=== PATIENT | female | born 1940 | race Caucasian/White ===

== ENCOUNTER 2018-03-21 10:48 | Observation (INO) ==
[2018-03-21] MEDS ORDERED: ASPIRIN CHEW 324 MG PO STA (11:27)
--- NOTE | 2018-03-21 11:36 | Emergency Department Note ---
Entered by Kalli Montana acting as a scribe for Jos Carreon DO History of Present Illness General Chief complaint: Chest Pain Stated complaint: CHEST PAIN Time Seen by Provider: 03/21/18 11:16 Source: patient Mode of arrival: ambulatory Limitations: no limitations History of Present Illness Provider complaint: Chest pain Onset (ago): day(s) (yesterday morning) Location: chest (upper right) Radiation: non-radiation Severity: similar to prior episodes (past angina) Pain Consistency: + constant Maximum Pain Intensity: 8 Quality: + other (pain) Relieved By: + none Associated symptoms: + other (Additional symptoms: difficulty breathing); no cough The patient is a 77 year old female with a history of 3 TIAs, hypertension, hyperlipidemia, type 2 diabetes, ASCVD, hypothyroidism, resolved breast cancer, and occlusion of the left internal carotid artery who presents to the Emergency Room with complaints of constant chest pain starting when she woke up yesterday morning. The patient reports that she went to her PCP 2 weeks ago for a regular checkup and was told that she had "missing heart beats." She states that she went back to her PCP 2 days ago and had another EKG performed that showed concerning changes. She notes that her PCP subsequently spoke to the patient's search engine marketing strategist to see if the patient's appointment could be moved up. She adds that her PCP wanted the patient to have a heart monitor and echocardiogram. The patient reports that she is scheduled to see her search engine marketing strategist next week, but she states that she is concerned about her new-onset chest pain, so she came to the ED today. She notes that her pain is located in her upper right chest. She adds that her current symptoms feel similar to a past angina, after which she had an angioplasty performed. Per daughter, the patient has also had difficulty breathing that worsens with exertion. The daughter states that the patient is currently on baby aspirin but not nitroglycerin. She notes that the patient's last heart catheterization was several years ago. Home Medications Home Medications Medication Instructions Recorded Confirmed Type allopurinol 100 mg PO BID 03/21/18 03/21/18 History amlodipine [Norvasc] 5 mg PO DAILY 03/21/18 03/21/18 History aspirin 81 mg PO DAILY 03/21/18 03/21/18 History atenolol 50 mg PO DAILY 03/21/18 03/21/18 History clopidogrel [Plavix] 75 mg PO DAILY 03/21/18 03/21/18 History glipizide 2.5 mg PO DAILY 03/21/18 03/21/18 History levothyroxine 100 mcg PO DAILY 03/21/18 03/21/18 History tamoxifen 20 mg PO DAILY 03/21/18 03/21/18 History triamterene-hydrochlorothiazid 1 tab PO DAILY 03/21/18 03/21/18 History Allergies Allergy/AdvReac Type Severity Reaction Status Date / Time aspirin AdvReac Unknown bruising Verified 03/21/18 12:41 Past Med/Surg History Medical History TIA (transient ischemic attack) (Resolved) Occlusion of left internal carotid artery (Chronic) Gout History of breast cancer (Chronic) ASCVD (arteriosclerotic cardiovascular disease) Hypothyroidism Diabetes type 2, uncontrolled (Chronic) Hypertension (Chronic) Hyperlipidemia (Chronic) Social History marital status: / Current Living Situation: Alone current occupational status: retired Other Information That Helps Us Care for You: No Feels Safe at Home: Yes Safety Concerns: Feels Safe At This Time Smoking Status: Never smoker Hx Alcohol Use: No Hx Substance Use: No Beliefs That Will Affect Care: None Communication Ability: Effective 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 and A total of 10 systems reviewed and were otherwise negative Physical Exam Vital Signs Vital Signs - 24 hr 03/21/18 10:51 03/21/18 11:15 03/21/18 11:41 Temperature 36.8 C Temperature Source Oral Sepsis Recent Fever Within 48 Hours No Sepsis Action Taken by Nursing No Action Required Pulse Rate 79 Pulse Rate [Apical] 76 72 Pulse Rhythm [Apical] Pulse Strength Normal Pulse Strength [Apical] Respiratory Rate 20 19 17 Respiratory Effort / Characteristics Non-Labored Non-Labored Spontaneous Respiratory Depth Normal Normal Respiratory Pattern Regular Regular Blood Pressure 178/78 H Blood Pressure [Right Arm] 162/84 H 140/72 Blood Pressure Mean 111 Blood Pressure Mean [Right Arm] 110 94 Blood Pressure Position Sitting Blood Pressure Position [Right Arm] Pulse Oximetry 94 94 94 Oxygen Delivery Method Room Air Room Air Room Air 03/21/18 12:00 03/21/18 12:31 03/21/18 13:00 Temperature Temperature Source Sepsis Recent Fever Within 48 Hours Sepsis Action Taken by Nursing Pulse Rate 70 73 70 Pulse Rate [Apical] Pulse Rhythm [Apical] Pulse Strength Pulse Strength [Apical] Respiratory Rate 22 18 19 Respiratory Effort / Characteristics Respiratory Depth Respiratory Pattern Blood Pressure 133/60 134/61 127/69 Blood Pressure [Right Arm] Blood Pressure Mean 84 85 88 Blood Pressure Mean [Right Arm] Blood Pressure Position Blood Pressure Position [Right Arm] Pulse Oximetry 94 97 95 Oxygen Delivery Method 03/21/18 13:32 03/21/18 14:00 03/21/18 14:30 Temperature Temperature Source Sepsis Recent Fever Within 48 Hours Sepsis Action Taken by Nursing Pulse Rate 78 75 71 Pulse Rate [Apical] Pulse Rhythm [Apical] Pulse Strength Pulse Strength [Apical] Respiratory Rate 20 27 H 15 Respiratory Effort / Characteristics Respiratory Depth Respiratory Pattern Blood Pressure 151/59 H 162/94 H 143/69 H Blood Pressure [Right Arm] Blood Pressure Mean 89 116 93 Blood Pressure Mean [Right Arm] Blood Pressure Position Blood Pressure Position [Right Arm] Pulse Oximetry Oxygen Delivery Method 03/21/18 15:00 03/21/18 15:31 03/21/18 15:59 Temperature Temperature Source Sepsis Recent Fever Within 48 Hours Sepsis Action Taken by Nursing Pulse Rate 70 75 Pulse Rate [Apical] 75 Pulse Rhythm [Apical] Pulse Strength Pulse Strength [Apical] Respiratory Rate 19 24 20 Respiratory Effort / Characteristics Respiratory Depth Respiratory Pattern Blood Pressure 139/91 161/108 H Blood Pressure [Right Arm] 143/62 H Blood Pressure Mean 107 125 Blood Pressure Mean [Right Arm] 89 Blood Pressure Position Blood Pressure Position [Right Arm] Pulse Oximetry 94 95 Oxygen Delivery Method Room Air Room Air 03/21/18 16:19 Temperature 36.7 C Temperature Source Oral Sepsis Recent Fever Within 48 Hours Sepsis Action Taken by Nursing Pulse Rate Pulse Rate [Apical] 80 Pulse Rhythm [Apical] Regular Pulse Strength Pulse Strength [Apical] Normal Respiratory Rate 18 Respiratory Effort / Characteristics Non-Labored Spontaneous Respiratory Depth Normal Respiratory Pattern Regular Blood Pressure Blood Pressure [Right Arm] 158/105 H Blood Pressure Mean Blood Pressure Mean [Right Arm] 122 Blood Pressure Position Blood Pressure Position [Right Arm] Lying Pulse Oximetry 95 Oxygen Delivery Method Room Air GENERAL: Patient is awake alert in no acute distress patient is resting comfortably and showing no signs of anxiety EYES: The conjunctivae are clear. The pupils are round and reactive. EARS, NOSE, MOUTH AND THROAT: The nose is without any evidence of any deformity. Mucous membranes are moist tongue is midline NECK: The neck is nontender and supple. RESPIRATORY: Normal respiratory effort is noted there is no evidence of wheezing rhonchi or rales CARDIOVASCULAR: Ectopy was noted to auscultation. There was no murmur noted. GASTROINTESTINAL: The abdomen is soft. Bowel sounds are present in all quadrants. Abdomen is nontender MUSCULOSKELETAL/EXTREMITIES: There is no evidence of gross deformity full range of motion is noted in the hips and shoulders SKIN: There is no obvious evidence of any rash. Trace pedal edema was noted bilaterally. NEUROLOGIC: Patient is awake alert and oriented x3. Course 1126: Past medical records reviewed. The patient was evaluated in room C6, and a complete history and physical examination were performed. 1320: I checked on the patient and updated her on her results. 1337: I reviewed the patient's case with Dr. Kearns - Alexa Mas. Dr. Kearns will evaluate the patient for further management. Consultations Consultation #1: I reviewed the patient's case with Alexa Ureña. Dr. Kearns will evaluate the patient for further management. Time: 13:37 Administered Medications Atenolol (Tenormin) 50 mg PO DAILY JUNG Stop: 04/20/18 16:16 Last Admin: 03/21/18 18:10 Dose: 50 mg Insulin Aspart (Novolog Flexpen) 0 units SC ACHS JUNG Stop: 04/20/18 16:29 Last Admin: 03/21/18 18:12 Dose: 9 units Discontinued Medications Aspirin (Aspirin) 324 mg PO NOW STA Stop: 03/21/18 11:28 Last Admin: 03/21/18 11:37 Dose: 324 mg Medical Decision Making Differential Diagnosis Differential diagnosis: Etiologies such as cardiac ischemia, aortic dissection, pulmonary embolism, pneumonia, pneumothorax, musculoskeletal, infections, pericarditis, myocarditis , esophageal rupture, gastrointestinal, as well as others were entertained. Medical Records Attestation: I reviewed the patient's medical records. Home Medications Current Medication List: was personally reviewed by me Laboratory Data Attestation: I reviewed the patient's lab results. Result diagrams: 03/21/18 11:13 03/21/18 11:13 Lab Results 03/21/18 03/21/18 03/21/18 Range/Units 11:13 11:13 11:13 WBC 5.92 (4.8-10.8) K/uL RBC 4.65 (4.2-5.4) M/uL Hgb 14.9 (12.0-16.0) g/dL Hct 43.3 (37-47) % MCV 93.1 (80-100) fL MCH 32.0 (25-34) pg MCHC 34.4 (32-36) g/dL RDW Std Deviation 43.5 (36.4-46.3) fL RDW Coeff of Allie 12.9 (11.5-14.5) % Plt Count 125 L (130-400) K/uL MPV 13.2 H (7.4-10.4) fL Immature Gran % (Auto) 0.3 % Neut % (Auto) 47.3 % Lymph % (Auto) 38.9 % [place] % (Auto) 9.5 % Eos % (Auto) 2.5 % Baso % (Auto) 1.5 % Immature Gran # (Auto) 0.02 (0.00-0.02) K/uL Neut # (Auto) 2.80 (1.4-6.5) K/uL Lymph # (Auto) 2.30 (1.2-3.4) K/uL [place] # (Auto) 0.56 (0.11-0.59) K/uL Eos # (Auto) 0.15 (0-0.5) K/uL Baso # (Auto) 0.09 (0-0.2) K/uL Platelet Estimate Decreased (Normal) PT 11.7 (9.0-12.0) Seconds INR 1.2 H (0.9-1.1) APTT 26.6 (21.0-31.0) Seconds PTT Ratio 1.0 Sodium 141 (136-145) mmol/L Potassium 3.7 (3.5-5.1) mmol/L Chloride 108 H (98-107) mmol/L Carbon Dioxide 26 (21-32) mmol/L Anion Gap 7.0 (3-11) BUN 17 (7-18) mg/dl Creatinine 1.06 (0.6-1.2) mg/dl Est Cr Clr Drug Dosing 45.9 ml/min Est GFR ( Amer) 59.1 Est GFR (Non-Af Amer) 51.0 BUN/Creatinine Ratio 16.2 (10-20) Glucose 326 H (70-99) mg/dl POC Glucose (70-99) Calcium 8.3 L (8.5-10.1) mg/dl Total Bilirubin 0.6 (0.2-1) mg/dl AST 72 H (15-37) U/L ALT 78 (12-78) U/L Alkaline Phosphatase 126 H (45-117) U/L Troponin I < 0.015 (0-0.045) ng/ml Total Protein 7.2 (6.4-8.2) gm/dl Albumin 3.3 L (3.4-5.0) gm/dl Globulin 3.9 (2.5-4.0) gm/dl Albumin/Globulin Ratio 0.8 L (0.9-2) Lipase 173 (73-393) U/L Beta-Hydroxybutyric Acd 4.35 H (0.2-2.81) mg/dl 03/21/18 03/21/18 Range/Units 16:16 17:18 WBC (4.8-10.8) K/uL RBC (4.2-5.4) M/uL Hgb (12.0-16.0) g/dL Hct (37-47) % MCV (80-100) fL MCH (25-34) pg MCHC (32-36) g/dL RDW Std Deviation (36.4-46.3) fL RDW Coeff of Allie (11.5-14.5) % Plt Count (130-400) K/uL MPV (7.4-10.4) fL Immature Gran % (Auto) % Neut % (Auto) % Lymph % (Auto) % [place] % (Auto) % Eos % (Auto) % Baso % (Auto) % Immature Gran # (Auto) (0.00-0.02) K/uL Neut # (Auto) (1.4-6.5) K/uL Lymph # (Auto) (1.2-3.4) K/uL [place] # (Auto) (0.11-0.59) K/uL Eos # (Auto) (0-0.5) K/uL Baso # (Auto) (0-0.2) K/uL Platelet Estimate (Normal) PT (9.0-12.0) Seconds INR (0.9-1.1) APTT (21.0-31.0) Seconds PTT Ratio Sodium (136-145) mmol/L Potassium (3.5-5.1) mmol/L Chloride (98-107) mmol/L Carbon Dioxide (21-32) mmol/L Anion Gap (3-11) BUN (7-18) mg/dl Creatinine (0.6-1.2) mg/dl Est Cr Clr Drug Dosing ml/min Est GFR ( Amer) Est GFR (Non-Af Amer) BUN/Creatinine Ratio (10-20) Glucose (70-99) mg/dl POC Glucose 189 H (70-99) Calcium (8.5-10.1) mg/dl Total Bilirubin (0.2-1) mg/dl AST (15-37) U/L ALT (12-78) U/L Alkaline Phosphatase (45-117) U/L Troponin I < 0.015 (0-0.045) ng/ml Total Protein (6.4-8.2) gm/dl Albumin (3.4-5.0) gm/dl Globulin (2.5-4.0) gm/dl Albumin/Globulin Ratio (0.9-2) Lipase (73-393) U/L Beta-Hydroxybutyric Acd (0.2-2.81) mg/dl Imaging Data Radiologist's Impression: Radiology results as stated below per my review and the radiologist's interpretation: SINGLE VIEW CHEST CLINICAL HISTORY: Atypical chest pain. FINDINGS: An AP, portable, upright chest radiograph is obtained. No prior studies are available for comparison at the time of dictation. The examination is degraded by portable technique and patient rotation. The heart is enlarged and there is atherosclerotic calcification of the thoracic aorta. The pulmonary vasculature is noncongested. Mild bibasilar atelectasis is observed. No airspace consolidation or large pleural effusion is identified. No pneumothorax is seen. The skeletal structures are osteopenic. The bony thorax is grossly intact. Degenerative changes noted in the shoulders and thoracic spine. Surgical clips project over the left lower chest. IMPRESSION: Cardiomegaly with no acute cardiopulmonary abnormality. Electronically signed by: Kwame Liz M.D. 03/21/2018 11:51 AM ECG Data Attestation: I personally reviewed and interpreted this ECG as follows: Indication: chest pain Rate (beats per minute): 76 Rhythm: normal sinus Findings: + other (No ST segments) and + PVC Comparison ECG Date: no prior available Blood Pressure Blood Pressure Findings: Normal blood pressure MDM Narrative The patient is a 77-year-old female who presented to the emergency department with left-sided chest pain. The patient is a history of coronary artery disease and has had stents in the past. I discussed patient's laboratory and radiographic studies with her. I also discussed the limitations of the emergency department workup for chest pain with her. Ultimately given her past medical history and comorbidities I also discussed her case with the on-call [facility] hospitalist. They have agreed to evaluate the patient in the emergency department for further management and disposition. Impression & Plan Chest pain Discharge Plan Visit Data *Final* Discharge Date/Time: 03/21/18 15:59 Chief Complaint: Chest Pain Stated Complaint: CHEST PAIN ED Provider: Jos Carreon Discharge Problem: Chest pain Patient Disposition: Admitted As Inpatient Discharge Instructions Interventions: ED Discharge Assessment Last Done: 03/21/18 15:59 The scribe's documentation has been prepared under my direction and personally reviewed by me in its entirety. I confirm that the note above accurately reflects all work, treatment, procedures, and medical decision making performed by me.
--- NOTE | 2018-03-21 11:52 | XRay Report ---
SINGLE VIEW CHEST CLINICAL HISTORY: Atypical chest pain. FINDINGS: An AP, portable, upright chest radiograph is obtained. No prior studies are available for c omparison at the time of dictation. The examination is degraded by portable technique and patient rot ation. The heart is enlarged and there is atherosclerotic calcification of the thoracic aorta. The p ulmonary vasculature is noncongested. Mild bibasilar atelectasis is observed. No airspace consolidati on or large pleural effusion is identified. No pneumothorax is seen. The skeletal structures are oste openic. The bony thorax is grossly intact. Degenerative changes noted in the shoulders and thoracic s pine. Surgical clips project over the left lower chest. IMPRESSION: Cardiomegaly with no acute cardiopulmonary abnormality. Electronically signed by: Kwame Liz M.D. 03/21/2018 11:51 AM
[2018-03-21 11:53] LABS: INR 1.2 (0.9-1.1); Partial Thromboplastin Time 26.6 Seconds (21.0-31.0); Prothrombin Time 11.7 Seconds (9.0-12.0)
[2018-03-21 12:04] LABS: Alanine Aminotransferase 78 U/L (12-78); Albumin Globulin Ratio 0.8 (0.9-2); Albumin Level 3.3 gm/dl (3.4-5.0); Alkaline Phosphatase 126 U/L (45-117); Aspartate Aminotransferase 72 U/L (15-37); BUN Creatinine Ratio 16.2 (10-20); Bilirubin,Total 0.6 mg/dl (0.2-1); Blood Urea Nitrogen 17 mg/dl (7-18); Calcium 8.3 mg/dl (8.5-10.1); Carbon Dioxide 26 mmol/L (21-32); Chloride 108 mmol/L (98-107); Creatinine Clr Calc Pharmacy 45.9 ml/min; Est GFR (African American) 59.1; Globulin 3.9 gm/dl (2.5-4.0); Glucose 326 mg/dl (70-99); Potassium 3.7 mmol/L (3.5-5.1); Sodium 141 mmol/L (136-145); Total Protein 7.2 gm/dl (6.4-8.2)
[2018-03-21 12:06] LABS: Troponin I < 0.015 ng/ml (0-0.045)
[2018-03-21 12:10] LABS: Basophils # (auto) 0.09 K/uL (0-0.2); Basophils % (auto) 1.5 %; Eosinophils # (auto) 0.15 K/uL (0-0.5); Eosinophils % (auto) 2.5 %; Hematocrit (blood only) 43.3 % (37-47); Hemoglobin 14.9 g/dL (12.0-16.0); Immature Granulocytes # (auto) 0.02 K/uL (0.00-0.02); Immature Granulocytes % (auto) 0.3 %; Lymphocytes % (auto) 38.9 %; Mean Corpuscular Hgb Conc 34.4 g/dL (32-36); Mean Corpuscular Volume 93.1 fL (80-100); Mean Platelet Volume 13.2 fL (7.4-10.4); Monocytes # (auto) 0.56 K/uL (0.11-0.59); Monocytes % (auto) 9.5 %; Neutrophils % (auto) 47.3 %; Platelet Count 125 K/uL (130-400); RDW Coefficient of Variation 12.9 % (11.5-14.5); RDW Standard Deviation 43.5 fL (36.4-46.3); Red Blood Count 4.65 M/uL (4.2-5.4); White Blood Count 5.92 K/uL (4.8-10.8)
[2018-03-21] MEDS ORDERED: NITROGLYCERIN SL 0.4 MG/TAB TAB SL PRN (15:00)
--- NOTE | 2018-03-21 15:00 | History & Physical Report ---
Date of Service March 21, 2018 Assessment & Plan (1) Chest pain: History of ASCVD with angioplasty Admitted to telemetry unit for observation Initial EKG showed sinus rhythm with occasional PVCs Initial troponin negative Serial cardiac enzymes and EKG Echo was done in September 2017 showed sinus rhythm with frequent ectopy, LV all thickness was increased compared with prior with normal wall motion, EF was 55- 59%, mild left atrial enlargement, aortic valve was mildly calcified with borderline to mild aortic valve stenosis, mild mitral regurgitation and estimated pulmonary artery systolic pressure was 30 mmHg We will repeat echo Chest pain seems to be secondary to costochondritis with history of more anxiety Will discuss with cardiology Present on Admission?: Yes (2) Hypertension: Noted to have hypertension 2 weeks ago Noted to be noncompliant with medicine Continue with current medications for blood pressure (3) Diabetes type 2, uncontrolled: Hemoglobin A1c more than 9 as an outpatient Has been on oral hypoglycemic agent We will continue that Weekly and/or increase hypoglycemic is not on discharge SSI (4) ASCVD (arteriosclerotic cardiovascular disease): History of angioplasty (5) Occlusion of left internal carotid artery: Has been on Plavix Complains to have occasional TIA-like symptoms (6) Hypothyroidism: Continue replacement DVT prophylaxis Subcu heparin CODE STATUS DNR History of Present Illness Chief Complaint: Woke up with chest pain and lasted for a long time Primary Care Provider: Hollie Ferris She is a 77 years old female with significant past medical history of type 2 diabetesuncontrolled, left ear CVD status post angioplasty in the past, hypertension, hypothyroidism, hyperlipidemia, occlusion of left carotid artery and history of breast cancer was complaining of chest pain on waking up last night and the pain lasted for a long time without any other associated symptoms. Currently she went to see her primary care doctor about 2 weeks ago as noted to have high blood pressure and she was advised to continue her current medications and reviewed last at that time she is noted to have. Irregular heart rhythm on auscultation and the EKG did show few PVCs she is advised to have Holter as an outpatient. She has been going through lots of anxiety and she woke up last night with chest pain which lasted for a long time without any other symptoms of palpitation, shortness of breath, dizziness, sweating, nausea and/or vomiting. Apparently she took a nitro from her friend and that relieved the pain. In the ER she is free from pain but she is anxious. EKG is unremarkable and troponin is negative she has tenderness in the left costochondral junction area , given the history of angioplasty and also murmur she was admitted to telemetry unit for observation and rule out ACS. Allergies Allergy/AdvReac Type Severity Reaction Status Date / Time aspirin AdvReac Unknown bruising Verified 03/21/18 12:41 Home Medications Home Medications Medication Instructions Recorded Confirmed Type allopurinol 100 mg PO BID 03/21/18 03/21/18 History amlodipine [Norvasc] 5 mg PO DAILY 03/21/18 03/21/18 History aspirin 81 mg PO DAILY 03/21/18 03/21/18 History atenolol 50 mg PO DAILY 03/21/18 03/21/18 History clopidogrel [Plavix] 75 mg PO DAILY 03/21/18 03/21/18 History glipizide 2.5 mg PO DAILY 03/21/18 03/21/18 History levothyroxine 100 mcg PO DAILY 03/21/18 03/21/18 History tamoxifen 20 mg PO DAILY 03/21/18 03/21/18 History triamterene-hydrochlorothiazid 1 tab PO DAILY 03/21/18 03/21/18 History Past Med/Surg History Medical History Occlusion of left internal carotid artery (Chronic) Gout History of breast cancer (Chronic) ASCVD (arteriosclerotic cardiovascular disease) Hypothyroidism Diabetes type 2, uncontrolled (Chronic) Social History Feels Safe at Home: Yes Smoking Status: Never smoker Review of Systems All systems reviewed & are unremarkable except as noted in HPI & below Cardiovascular: + chest pain; no radiating jaw, neck or arm pain, no dyspnea and no palpitations Physical Exam 2 Vital Signs (Past 24 Hours): Last Vital Signs Temp 36.8 C 03/21/18 10:51 Pulse 70 03/21/18 13:00 Resp 19 03/21/18 13:00 BP 127/69 03/21/18 13:00 Pulse Ox 95 03/21/18 13:00 Physical Exam: Lying in bed comfortably Constitutional: WD/WN, vitals as above Eyes: PERRL, conjunctivae normal, anicteric sclerae ENMT: external ear and nose normal, oropharynx normal Respiratory: normal respiratory effort, lungs clear to auscultation Cardiovascular: Rate/Rhythm: regular rate and regular rhythm Heart Sounds: normal S1, normal S2 and + murmur Extremities: no edema Gastrointestinal (Abdomen): Inspection/Auscultation: abdomen normal to inspection and normal bowel sounds Percussion/Palpation: abdomen soft; abdomen nontender Musculoskeletal: No acute arthritis Neurologic: PERRL, EOMI, accommodation nl, no face palsy, no dysarthria Psychiatric: A+Ox3, euthymic affect Results & Data Laboratory Results Short CBC 03/21/18 Range/Units 11:13 WBC 5.92 (4.8-10.8) K/uL Hgb 14.9 (12.0-16.0) g/dL Hct 43.3 (37-47) % Plt Count 125 L (130-400) K/uL BMP 03/21/18 11:13 Sodium 141 Potassium 3.7 Chloride 108 H Carbon Dioxide 26 BUN 17 Creatinine 1.06 Glucose 326 H Calcium 8.3 L Cardiac Enzymes 03/21/18 Range/Units 11:13 Troponin I < 0.015 (0-0.045) ng/ml Liver Function 03/21/18 Range/Units 11:13 Total Bilirubin 0.6 (0.2-1) mg/dl AST 72 H (15-37) U/L ALT 78 (12-78) U/L Alkaline Phosphatase 126 H (45-117) U/L Albumin 3.3 L (3.4-5.0) gm/dl Code Status & VTE Plan Code Status DNR VTE Prophylaxis Plan VTE Prophylaxis will be ordered: Yes
[2018-03-21] MEDS ORDERED: GLUCOSE 10 TABS/TUBE PO PRN (15:02)
[2018-03-21] MEDS ORDERED: CARBOHYDRATES FOR HYPOGLYCEMIA PO PRN (15:02)
[2018-03-21] MEDS ORDERED: GLUCOSE 40% GEL 15 GM TUBE PO PRN (15:02)
[2018-03-21] MEDS ORDERED: GLUCAGON FOR INJ 1 MG VIAL SQ PRN (15:02)
[2018-03-21] MEDS ORDERED: DEXTROSE 50% 50 ML SYRINGE IV PRN (15:02)
[2018-03-21] MEDS: ATENOLOL 50 MG TABLET PO SCH (18:10)
[2018-03-21] MEDS: INSULIN ASPART 100 UNITS/ML 3 ML PEN SC SCH ×2 (18:12→21:04)
[2018-03-21] MEDS: ALLOPURINOL 100 MG TAB PO SCH (19:37)
[2018-03-21] MEDS: HEPARIN SOD 5,000 UNIT/0.5 ML VIAL SQ SCH (19:37)
[2018-03-22] MEDS: HEPARIN SOD 5,000 UNIT/0.5 ML VIAL SQ SCH ×3 (06:05→20:43)
[2018-03-22] MEDS: LEVOTHYROXINE SODIUM 100 MCG TABLET PO SCH (06:05)
[2018-03-22 07:22] LABS: Hematocrit (blood only) 40.8 % (37-47); Hemoglobin 14.3 g/dL (12.0-16.0); Mean Corpuscular Volume 92.5 fL (80-100); Mean Platelet Volume 12.5 fL (7.4-10.4); Platelet Count 120 K/uL (130-400); RDW Coefficient of Variation 12.8 % (11.5-14.5); RDW Standard Deviation 43.3 fL (36.4-46.3); Red Blood Count 4.41 M/uL (4.2-5.4)
[2018-03-22 07:24] LABS: Basophils # (auto) 0.04 K/uL (0-0.2); Basophils % (auto) 0.6 %; Eosinophils # (auto) 0.16 K/uL (0-0.5); Eosinophils % (auto) 2.5 %; Immature Granulocytes # (auto) 0.02 K/uL (0.00-0.02); Immature Granulocytes % (auto) 0.3 %; Lymphocytes # (auto) 3.16 K/uL (1.2-3.4); Lymphocytes % (auto) 48.6 %; Monocytes # (auto) 0.43 K/uL (0.11-0.59); Monocytes % (auto) 6.6 %; Neutrophils # (auto) 2.69 K/uL (1.4-6.5); Neutrophils % (auto) 41.4 %
[2018-03-22 07:35] LABS: BUN Creatinine Ratio 17.3 (10-20); Calcium 8.2 mg/dl (8.5-10.1); Creatinine Clr Calc Pharmacy 57.7 ml/min; Est GFR (African American) 80.6; Est GFR (Non-African American) 69.5; Magnesium 2.2 mg/dl (1.8-2.4); Potassium 3.6 mmol/L (3.5-5.1)
[2018-03-22] MEDS: INSULIN ASPART 100 UNITS/ML 3 ML PEN SC SCH ×4 (08:08→20:42)
[2018-03-22] MEDS: TAMOXIFEN CITRATE 10 MG TABLET PO SCH (08:09)
[2018-03-22] MEDS: ALLOPURINOL 100 MG TAB PO SCH ×2 (08:09→20:41)
[2018-03-22] MEDS: AMLODIPINE BESYLATE 5 MG TAB PO SCH (08:09)
[2018-03-22] MEDS: CLOPIDOGREL BISULFATE 75 MG TAB PO SCH (08:09)
[2018-03-22] MEDS: glipiZIDE ER 2.5 MG TABCR PO SCH (08:10)
[2018-03-22] MEDS: ASPIRIN 81 MG ECTAB PO SCH (08:10)
[2018-03-22] MEDS: ATENOLOL 50 MG TABLET PO SCH (08:10)
[2018-03-22] MEDS: TRIAMTERENE/HCTZ 37.5/25MG TAB PO SCH (08:10)
--- NOTE | 2018-03-22 08:45 | Hospitalist Progress Note ---
Date of Service March 22, 2018 Assessment & Plan (1) Chest pain: per admitting MD Dr. Kearns: History of ASCVD with angioplasty Admitted to telemetry unit for observation Initial EKG showed sinus rhythm with occasional PVCs Initial troponin negative Serial cardiac enzymes and EKG Echo was done in September 2017 showed sinus rhythm with frequent ectopy, LV all thickness was increased compared with prior with normal wall motion, EF was 55- 59%, mild left atrial enlargement, aortic valve was mildly calcified with borderline to mild aortic valve stenosis, mild mitral regurgitation and estimated pulmonary artery systolic pressure was 30 mmHg We will repeat echo 03/22/18 troponins x 3 negative EKG: non specific t wave changes inferior and v1-v2 echo: pending still reports intermittent chest pain r/o Unstable Angina will order Nitropaste continue usual Aspirin, Plavix, Atenolol (2) Hypertension: - reported non adherence to medications continue usual Amlodipine, Atenolol, Triam/HCTZ - Nitropaste ordered for now (3) Diabetes type 2, uncontrolled: Hemoglobin A1c more than 9 as an outpatient on Glipizide ISS (4) ASCVD (arteriosclerotic cardiovascular disease): History of angioplasty (5) Occlusion of left internal carotid artery: Has been on Plavix Complains to have occasional TIA-like symptoms (6) Hypothyroidism: Continue replacement DVT prophylaxis Subcu heparin CODE STATUS DNR Subjective ff up for chest pain seen resting in bedside chair, smiling, in good spirits states she feels improved today compared to yesterday states chest pain is improving- sharp, intermittent, radiating to the left arm, not associated with movement 05/20 denies active, dyspnea, nausea, dizziness no other symptoms Physical Exam 2 Vital Signs (Past 24 Hours): Last Vital Signs Temp 36.4 C L 03/22/18 07:25 Pulse 67 03/22/18 08:02 Resp 26 H 03/22/18 07:25 BP 182/72 H 03/22/18 07:25 Pulse Ox 94 03/22/18 07:25 Physical Exam: General- oriented x 3, not in distress, speaks in sentences with no effort or accessory muscle use Eyes- anicteric Neck- no JVD Lungs- clear breath sounds bilaterally, no rales/wheezes Heart- normal rate, regular rhythm; no murmurs no chestwall tenderness Abdomen- normal bowel sounds, nondistended, soft, nontender Extremities- no pretibial edema, no calf tenderness Neuro- alert, oriented x 3; no gross focal neurologic deficits Skin- warm & dry Results & Data Laboratory Results Laboratory Results - last 24 hr 03/21/18 03/21/18 03/21/18 11:13 11:13 11:13 WBC 5.92 RBC 4.65 Hgb 14.9 Hct 43.3 MCV 93.1 MCH 32.0 MCHC 34.4 RDW Std Deviation 43.5 RDW Coeff of Allie 12.9 Plt Count 125 L MPV 13.2 H Immature Gran % (Auto) 0.3 Neut % (Auto) 47.3 Lymph % (Auto) 38.9 [place] % (Auto) 9.5 Eos % (Auto) 2.5 Baso % (Auto) 1.5 Immature Gran # (Auto) 0.02 Neut # (Auto) 2.80 Lymph # (Auto) 2.30 [place] # (Auto) 0.56 Eos # (Auto) 0.15 Baso # (Auto) 0.09 Platelet Estimate Decreased PT 11.7 INR 1.2 H APTT 26.6 PTT Ratio 1.0 Sodium 141 Potassium 3.7 Chloride 108 H Carbon Dioxide 26 Anion Gap 7.0 BUN 17 Creatinine 1.06 Est Cr Clr Drug Dosing 45.9 Est GFR ( Amer) 59.1 Est GFR (Non-Af Amer) 51.0 BUN/Creatinine Ratio 16.2 Glucose 326 H POC Glucose Calcium 8.3 L Magnesium Total Bilirubin 0.6 AST 72 H ALT 78 Alkaline Phosphatase 126 H Troponin I < 0.015 Total Protein 7.2 Albumin 3.3 L Globulin 3.9 Albumin/Globulin Ratio 0.8 L Lipase 173 Beta-Hydroxybutyric Acd 4.35 H 03/21/18 03/21/18 03/21/18 16:16 17:18 20:31 WBC RBC Hgb Hct MCV MCH MCHC RDW Std Deviation RDW Coeff of Allie Plt Count MPV Immature Gran % (Auto) Neut % (Auto) Lymph % (Auto) [place] % (Auto) Eos % (Auto) Baso % (Auto) Immature Gran # (Auto) Neut # (Auto) Lymph # (Auto) [place] # (Auto) Eos # (Auto) Baso # (Auto) Platelet Estimate PT INR APTT PTT Ratio Sodium Potassium Chloride Carbon Dioxide Anion Gap BUN Creatinine Est Cr Clr Drug Dosing Est GFR ( Amer) Est GFR (Non-Af Amer) BUN/Creatinine Ratio Glucose POC Glucose 189 H 160 H Calcium Magnesium Total Bilirubin AST ALT Alkaline Phosphatase Troponin I < 0.015 Total Protein Albumin Globulin Albumin/Globulin Ratio Lipase Beta-Hydroxybutyric Acd 03/21/18 03/22/18 03/22/18 23:08 06:25 06:25 WBC 6.50 RBC 4.41 Hgb 14.3 Hct 40.8 MCV 92.5 MCH 32.4 MCHC 35.0 RDW Std Deviation 43.3 RDW Coeff of Allie 12.8 Plt Count 120 L MPV 12.5 H Immature Gran % (Auto) 0.3 Neut % (Auto) 41.4 Lymph % (Auto) 48.6 [place] % (Auto) 6.6 Eos % (Auto) 2.5 Baso % (Auto) 0.6 Immature Gran # (Auto) 0.02 Neut # (Auto) 2.69 Lymph # (Auto) 3.16 [place] # (Auto) 0.43 Eos # (Auto) 0.16 Baso # (Auto) 0.04 Platelet Estimate PT INR APTT PTT Ratio Sodium 142 Potassium 3.6 Chloride 110 H Carbon Dioxide 24 Anion Gap 9.0 BUN 14 Creatinine 0.82 Est Cr Clr Drug Dosing 57.7 Est GFR ( Amer) 80.6 Est GFR (Non-Af Amer) 69.5 BUN/Creatinine Ratio 17.3 Glucose 184 H POC Glucose Calcium 8.2 L Magnesium 2.2 Total Bilirubin AST ALT Alkaline Phosphatase Troponin I < 0.015 Total Protein Albumin Globulin Albumin/Globulin Ratio Lipase Beta-Hydroxybutyric Acd 03/22/18 07:02 WBC RBC Hgb Hct MCV MCH MCHC RDW Std Deviation RDW Coeff of Allie Plt Count MPV Immature Gran % (Auto) Neut % (Auto) Lymph % (Auto) [place] % (Auto) Eos % (Auto) Baso % (Auto) Immature Gran # (Auto) Neut # (Auto) Lymph # (Auto) [place] # (Auto) Eos # (Auto) Baso # (Auto) Platelet Estimate PT INR APTT PTT Ratio Sodium Potassium Chloride Carbon Dioxide Anion Gap BUN Creatinine Est Cr Clr Drug Dosing Est GFR ( Amer) Est GFR (Non-Af Amer) BUN/Creatinine Ratio Glucose POC Glucose 181 H Calcium Magnesium Total Bilirubin AST ALT Alkaline Phosphatase Troponin I Total Protein Albumin Globulin Albumin/Globulin Ratio Lipase Beta-Hydroxybutyric Acd
[2018-03-22] MEDS: NITROGLYCERIN 2% OINTMENT 30GM TUBE EXT SCH ×3 (09:13→20:42)
[2018-03-22] MEDS ORDERED: INSULIN GLARGINE 100 UNIT/ML VIAL SC ONE (16:30)
[2018-03-22] MEDS: INSULIN GLARGINE 100 UNIT/ML VIAL SC SCH (20:41)
[2018-03-23] MEDS: NITROGLYCERIN 2% OINTMENT 30GM TUBE EXT SCH (03:07)
[2018-03-23] MEDS: HEPARIN SOD 5,000 UNIT/0.5 ML VIAL SQ SCH (06:22)
[2018-03-23] MEDS: LEVOTHYROXINE SODIUM 100 MCG TABLET PO SCH (06:22)
[2018-03-23 07:08] LABS: Estimated Average Glucose 255 mg/dl
[2018-03-23] MEDS: AMLODIPINE BESYLATE 5 MG TAB PO SCH (07:34)
[2018-03-23] MEDS: ALLOPURINOL 100 MG TAB PO SCH (07:34)
[2018-03-23] MEDS: INSULIN ASPART 100 UNITS/ML 3 ML PEN SC SCH ×2 (07:34→12:01)
[2018-03-23] MEDS: ATENOLOL 50 MG TABLET PO SCH (07:35)
[2018-03-23] MEDS: TRIAMTERENE/HCTZ 37.5/25MG TAB PO SCH (07:35)
[2018-03-23] MEDS: CLOPIDOGREL BISULFATE 75 MG TAB PO SCH (07:35)
[2018-03-23] MEDS: glipiZIDE ER 2.5 MG TABCR PO SCH (07:35)
[2018-03-23] MEDS: ASPIRIN 81 MG ECTAB PO SCH (07:35)
[2018-03-23] MEDS: INSULIN GLARGINE 100 UNIT/ML VIAL SC SCH (07:36)
--- NOTE | 2018-03-23 08:41 | Cardiology Consultation ---
Date of Consultation March 23, 2018 Assessment & Plan (1) Chest pain: This is noncardiac chest pain. Most likely costochondritis. She has had negative cardiac markers and no acute changes on her EKG. I will arrange follow -up with her primary band ripsaw operator Dr. Ferris but I feel she can be discharged to outpatient follow-up. (2) ASCVD (arteriosclerotic cardiovascular disease): (3) Diabetes type 2, uncontrolled: (4) History of breast cancer: (5) Aortic stenosis, mild: History of Present Illness Attending Physician: Wili Kearns MD History of Present Illness This is a 77-year-old female who is well-known to the allergy service and follows with Dr. Ferris through our clinic. She has a history as outlined below. She was admitted with a history of chest pain and has had negative troponins and no acute changes on her EKG. Her chest pain is actually reproduced with palpation along the sternum and is definitely chest wall pain. She has no complaints of shortness of breath. She has had no heart palpitations or tachycardia. Past medical history: 1. Chronic CAD with h/o balloon angioplasty without stenting in . - stable without angina. 2. Moderate asymptomatic left internal carotid artery stenosis with history of left-sided CEA -stable per most recent duplex 09/2017 3. Dyslipidemia - uncontrolled 4. HTN - uncontrolled in setting of acute hip pain 5. Mild aortic stenosis 6. Hypothyroidism - elevated TSH noted per most recent lab testing 7. DM-2 - uncontrolled, most recent A1C 8.2% 8. Noncompliance Allergies Allergy/AdvReac Type Severity Reaction Status Date / Time aspirin AdvReac Unknown bruising Verified 03/21/18 12:41 Home Medications Home Medications Medication Instructions Recorded Confirmed Type allopurinol 100 mg PO BID 03/21/18 03/21/18 History amlodipine [Norvasc] 5 mg PO DAILY 03/21/18 03/21/18 History aspirin 81 mg PO DAILY 03/21/18 03/21/18 History atenolol 50 mg PO DAILY 03/21/18 03/21/18 History clopidogrel [Plavix] 75 mg PO DAILY 03/21/18 03/21/18 History glipizide 2.5 mg PO DAILY 03/21/18 03/21/18 History levothyroxine 100 mcg PO DAILY 03/21/18 03/21/18 History tamoxifen 20 mg PO DAILY 03/21/18 03/21/18 History triamterene-hydrochlorothiazid 1 tab PO DAILY 03/21/18 03/21/18 History Patient History Medical History TIA (transient ischemic attack) (Resolved) Occlusion of left internal carotid artery (Chronic) Gout History of breast cancer (Chronic) ASCVD (arteriosclerotic cardiovascular disease) Hypothyroidism Diabetes type 2, uncontrolled (Chronic) Hypertension (Chronic) Hyperlipidemia (Chronic) Social History marital status: / Current Living Situation: Alone current occupational status: retired Other Information That Helps Us Care for You: No Feels Safe at Home: Yes Safety Concerns: Feels Safe At This Time Smoking Status: Never smoker Hx Alcohol Use: No Hx Substance Use: No Beliefs That Will Affect Care: None Communication Ability: Effective 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 All other 10 point review of systems are negative. Physical Exam 2 Vital Signs (Past 24 Hours): Last Vital Signs Temp 37.0 C 03/23/18 06:55 Pulse 67 03/23/18 06:55 Resp 18 03/23/18 06:55 BP 147/78 H 03/23/18 06:55 Pulse Ox 95 03/23/18 06:55 Physical Exam: General: no acute distress and stated age Head: normocephalic, no masses, lesions, tenderness or abnormalities Eyes: conjunctiva are pink and non-injected, sclera clear Neck: supple, no adenopathy, no bruits, normal jugular venous pulse, no hepatojugular reflux Chest: normal shape and normal respiratory effort Lungs: clear to auscultation and percussion Cardiac Exam: - regular rate & rhythm, short systolic murmur left sternal border - normal S1, normal S2 Pulses: 2(+) throughout Abdomen: abdomen soft, non-tender, no abnormal masses and no hepatosplenomegaly Musculoskeletal: Chest pain reproduced by palpation along the costo sternal joints. Extremities: no edema and no cyanosis Neuro: grossly normal exam Results & Data Laboratory Results Laboratory Results - last 24 hr 03/22/18 03/22/18 03/22/18 11:13 16:18 20:19 POC Glucose 258 H 147 H 189 H Estimat Average Glucose Hemoglobin A1c 03/23/18 03/23/18 05:23 06:59 POC Glucose 166 H Estimat Average Glucose 255 Hemoglobin A1c 10.5 H Medications Administered Current Inpatient Medications Allopurinol (Zyloprim) 100 mg PO BID JUNG Stop: 04/20/18 20:59 Last Admin: 03/23/18 07:34 Dose: 100 mg Amlodipine Besylate (Norvasc) 5 mg PO DAILY JUNG Stop: 04/21/18 08:59 Last Admin: 03/23/18 07:34 Dose: 5 mg Aspirin (Ecotrin Ectab) 81 mg PO DAILY JUNG Stop: 04/21/18 08:59 Last Admin: 03/23/18 07:35 Dose: 81 mg Atenolol (Tenormin) 50 mg PO DAILY JUNG Stop: 04/20/18 16:16 Last Admin: 03/23/18 07:35 Dose: 50 mg Clopidogrel Bisulfate (Plavix) 75 mg PO DAILY JUNG Stop: 04/21/18 08:59 Last Admin: 03/23/18 07:35 Dose: 75 mg Dextrose (Dextrose 50%) 25 - 50 ml IV UD PRN; Protocol PRN Reason: Hypoglycemia Protocol Stop: 04/20/18 15:01 Glipizide (Glucotrol Extended Rel) 2.5 mg PO QDB JUNG Stop: 04/21/18 07:29 Last Admin: 03/23/18 07:35 Dose: 2.5 mg Glucagon (Glucagen) 1 mg SQ UD PRN; Protocol PRN Reason: Hypoglycemia Protocol Stop: 04/20/18 15:01 Glucose (Glucose 40%) 15 - 30 gm PO UD PRN; Protocol PRN Reason: Hypoglycemia Protocol Stop: 04/20/18 15:01 Glucose (Dex4 Glucose) 4 - 8 tabs PO UD PRN; Protocol PRN Reason: Hypoglycemia Protocol Stop: 04/20/18 15:01 Heparin Sodium (Porcine) (Heparin Sodium (Porcine)) 5,000 units SQ Q8 JUNG Stop: 04/20/18 21:59 Last Admin: 03/23/18 06:22 Dose: 5,000 units Insulin Aspart (Novolog Flexpen) 0 units SC ACHS [facility] Stop: 04/20/18 16:29 Last Admin: 03/23/18 07:34 Dose: 7 units Insulin Glargine (Lantus) 8 units SC BID [facility] Stop: 04/21/18 20:59 Last Admin: 03/23/18 07:36 Dose: 8 units Levothyroxine Sodium (Synthroid) 100 mcg PO DAILYBB [facility] Stop: 04/21/18 06:29 Last Admin: 03/23/18 06:22 Dose: 100 mcg Miscellaneous (Carbohydrates For Hypoglycemia) 15 - 30 gm PO UD PRN PRN Reason: Hypoglycemia Treatment Stop: 04/20/18 15:01 Nitroglycerin (Nitrostat) 0.4 mg SL PRN PRN PRN Reason: Chest Pain Stop: 04/20/18 14:59 Nitroglycerin (Nitro-Bid 2%) 0.5 inch EXT Q6H [facility] Stop: 04/21/18 08:59 Last Admin: 03/23/18 03:07 Dose: 0.5 inch Tamoxifen Citrate (Nolvadex) 20 mg PO DAILY [facility] Stop: 04/21/18 08:59 Last Admin: 03/22/18 08:09 Dose: 20 mg Triamterene/HCTZ (Maxzide 37.5/25mg) 1 tab PO DAILY [facility] Stop: 04/21/18 08:59 Last Admin: 03/23/18 07:35 Dose: 1 tab _ (1) Chest pain Chest pain type: unspecified Ischemic chest pain type: Qualified Code(s): R07.9 - Chest pain, unspecified
[2018-03-23] MEDS: TAMOXIFEN CITRATE 10 MG TABLET PO SCH (10:33)
--- NOTE | 2018-03-23 11:39 | Hospitalist Progress Note ---
Date of Service March 23, 2018 Assessment & Plan (1) Chest pain: History of ASCVD with angioplasty Admitted to telemetry unit for observation Initial EKG showed sinus rhythm with occasional PVCs Initial troponin negative Serial cardiac enzymes and EKG Echo was done in September 2017 showed sinus rhythm with frequent ectopy, LV all thickness was increased compared with prior with normal wall motion, EF was 55- 59%, mild left atrial enlargement, aortic valve was mildly calcified with borderline to mild aortic valve stenosis, mild mitral regurgitation and estimated pulmonary artery systolic pressure was 30 mmHg We will repeat echo:: No change compared with echo of 10 October 2017, EF 55-60% , grade 2 diastolic dysfunction, mild aortic stenosis, mild MR and TR Chest pain seems to be secondary to costochondritis with history of more anxiety No more chest pain since admission and EKG did not show any significant arrhythmias Appreciate cardiology input and recommendation She can be discharged today (2) Hypertension: Noted to have hypertension 2 weeks ago Noted to be noncompliant with medicine Continue with current medications for blood pressure (3) Diabetes type 2, uncontrolled: Hemoglobin A1c more than 9 as an outpatient Has been on oral hypoglycemic agent We will continue that Weekly and/or increase hypoglycemic is not on discharge SSI (4) ASCVD (arteriosclerotic cardiovascular disease): History of angioplasty (5) Occlusion of left internal carotid artery: Has been on Plavix Complains to have occasional TIA-like symptoms (6) Hypothyroidism: Continue replacement DVT prophylaxis Subcu heparin CODE STATUS DNR Discharge home today Subjective She is a 77 years old female with significant past medical history of type 2 diabetesuncontrolled, left ear CVD status post angioplasty in the past, hypertension, hypothyroidism, hyperlipidemia, occlusion of left carotid artery and history of breast cancer was admitted with chest pain and hypertension and uncontrolled diabetes. 03/23 She denies any more complaints, no chest pain and/or palpitation She was evaluated by driller operator and advised can be discharged home She has been moving around without any symptoms Blood pressure has been controlled Cardiovascular: + chest pain; no radiating jaw, neck or arm pain, no dyspnea and no palpitations Physical Exam 2 Vital Signs (Past 24 Hours): Last Vital Signs Temp 37.0 C 03/23/18 06:55 Pulse 67 03/23/18 06:55 Resp 18 03/23/18 06:55 BP 147/78 H 03/23/18 06:55 Pulse Ox 95 03/23/18 06:55 Physical Exam: Sitting at the age of the bed without any symptoms Constitutional: WD/WN, vitals as above Eyes: PERRL, conjunctivae normal, anicteric sclerae ENMT: external ear and nose normal, oropharynx normal Respiratory: normal respiratory effort, lungs clear to auscultation Cardiovascular: Rate/Rhythm: regular rate and regular rhythm Heart Sounds: normal S1, normal S2 and + murmur Extremities: no edema Gastrointestinal (Abdomen): Inspection/Auscultation: abdomen normal to inspection and normal bowel sounds Percussion/Palpation: abdomen soft; abdomen nontender Neurologic: PERRL, EOMI, accommodation nl, no face palsy, no dysarthria Psychiatric: A+Ox3, euthymic affect Results & Data Medications Administered Current Inpatient Medications Allopurinol (Zyloprim) 100 mg PO BID JUNG Stop: 04/20/18 20:59 Last Admin: 03/23/18 07:34 Dose: 100 mg Amlodipine Besylate (Norvasc) 5 mg PO DAILY JUNG Stop: 04/21/18 08:59 Last Admin: 03/23/18 07:34 Dose: 5 mg Aspirin (Ecotrin Ectab) 81 mg PO DAILY JUNG Stop: 04/21/18 08:59 Last Admin: 03/23/18 07:35 Dose: 81 mg Atenolol (Tenormin) 50 mg PO DAILY JUNG Stop: 04/20/18 16:16 Last Admin: 03/23/18 07:35 Dose: 50 mg Clopidogrel Bisulfate (Plavix) 75 mg PO DAILY JUNG Stop: 04/21/18 08:59 Last Admin: 03/23/18 07:35 Dose: 75 mg Dextrose (Dextrose 50%) 25 - 50 ml IV UD PRN; Protocol PRN Reason: Hypoglycemia Protocol Stop: 04/20/18 15:01 Glipizide (Glucotrol Extended Rel) 2.5 mg PO QDB JUNG Stop: 04/21/18 07:29 Last Admin: 03/23/18 07:35 Dose: 2.5 mg Glucagon (Glucagen) 1 mg SQ UD PRN; Protocol PRN Reason: Hypoglycemia Protocol Stop: 04/20/18 15:01 Glucose (Glucose 40%) 15 - 30 gm PO UD PRN; Protocol PRN Reason: Hypoglycemia Protocol Stop: 04/20/18 15:01 Glucose (Dex4 Glucose) 4 - 8 tabs PO UD PRN; Protocol PRN Reason: Hypoglycemia Protocol Stop: 04/20/18 15:01 Heparin Sodium (Porcine) (Heparin Sodium (Porcine)) 5,000 units SQ Q8 JUNG Stop: 04/20/18 21:59 Last Admin: 03/23/18 06:22 Dose: 5,000 units Insulin Aspart (Novolog Flexpen) 0 units SC ACHS [facility] Stop: 04/20/18 16:29 Last Admin: 03/23/18 07:34 Dose: 7 units Insulin Glargine (Lantus) 8 units SC BID [facility] Stop: 04/21/18 20:59 Last Admin: 03/23/18 07:36 Dose: 8 units Levothyroxine Sodium (Synthroid) 100 mcg PO DAILYBB [facility] Stop: 04/21/18 06:29 Last Admin: 03/23/18 06:22 Dose: 100 mcg Miscellaneous (Carbohydrates For Hypoglycemia) 15 - 30 gm PO UD PRN PRN Reason: Hypoglycemia Treatment Stop: 04/20/18 15:01 Nitroglycerin (Nitrostat) 0.4 mg SL PRN PRN PRN Reason: Chest Pain Stop: 04/20/18 14:59 Tamoxifen Citrate (Nolvadex) 20 mg PO DAILY [facility] Stop: 04/21/18 08:59 Last Admin: 03/23/18 10:33 Dose: Not Given Triamterene/HCTZ (Maxzide 37.5/25mg) 1 tab PO DAILY [facility] Stop: 04/21/18 08:59 Last Admin: 03/23/18 07:35 Dose: 1 tab
[2018-03-23] MEDS ORDERED: PNEUMOCOCCAL ADMINISTRATION CHARGE ONE (13:00)
[2018-03-23] MEDS ORDERED: PNEUMOCOCCAL POLYSACCHARIDES 25 MCG/0.5 ML VIAL/SYR IM ONE (13:00)
--- NOTE | 2018-03-24 08:33 | Discharge Summary ---
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 Currently she went to see her primary care doctor about 2 weeks ago as noted to have high blood pressure and she was advised to continue her current medications and reviewed last at that time she is noted to have. Irregular heart rhythm on auscultation and the EKG did show few PVCs she is advised to have Holter as an outpatient. She has been going through lots of anxiety and she woke up last night with chest pain which lasted for a long time without any other symptoms of palpitation, shortness of breath, dizziness, sweating, nausea and/or vomiting. Apparently she took a nitro from her friend and that relieved the pain. In the ER she is free from pain but she is anxious. EKG is unremarkable and troponin is negative she has tenderness in the left costochondral junction area , given the history of angioplasty and also murmur she was admitted to telemetry unit for observation and rule out ACS. Admission Exam Per Admitting Provider Vital Signs (Past 24 Hours): Last Vital Signs Temp 36.8 C 03/21/18 10:51 Pulse 70 03/21/18 13:00 Resp 19 03/21/18 13:00 BP 127/69 03/21/18 13:00 Pulse Ox 95 03/21/18 13:00 Physical Exam: Lying in bed comfortably Constitutional: WD/WN, vitals as above Eyes: PERRL, conjunctivae normal, anicteric sclerae ENMT: external ear and nose normal, oropharynx normal Respiratory: normal respiratory effort, lungs clear to auscultation Cardiovascular: Rate/Rhythm: regular rate and regular rhythm Heart Sounds: normal S1, normal S2 and + murmur Extremities: no edema Gastrointestinal (Abdomen): Inspection/Auscultation: abdomen normal to inspection and normal bowel sounds Percussion/Palpation: abdomen soft; abdomen nontender Musculoskeletal: No acute arthritis Neurologic: PERRL, EOMI, accommodation nl, no face palsy, no dysarthria Psychiatric: A+Ox3, euthymic affect Principal Diagnosis Chest pain-no ACS, uncontrolled diabetes, hypertension Discharge Exam Constitutional WD/WN, vitals as above Eyes PERRL, conjunctivae normal, anicteric sclerae ENMT external ear and nose normal, oropharynx normal Respiratory normal respiratory effort, lungs clear to auscultation Cardiovascular Rate/Rhythm: regular rate and regular rhythm Heart Sounds: normal S1, normal S2 and + murmur Extremities: no edema Gastrointestinal (Abdomen) Inspection/Auscultation: abdomen normal to inspection and normal bowel sounds Percussion/Palpation: abdomen soft; abdomen nontender Neurologic PERRL, EOMI, accommodation nl, no face palsy, no dysarthria Psychiatric A+Ox3, euthymic affect Discharge Data Allergies Allergy/AdvReac Type Severity Reaction Status Date / Time aspirin AdvReac Unknown bruising Verified 03/21/18 12:41 Consultations 03/21/18 13:37 ED Decision to Admit Stat 03/22/18 11:56 Consult Cardiology Routine Hospital Course (1) Chest pain: History of ASCVD with angioplasty Admitted to telemetry unit for observation Initial EKG showed sinus rhythm with occasional PVCs Initial troponin negative Serial cardiac enzymes and EKG Echo was done in September 2017 showed sinus rhythm with frequent ectopy, LV all thickness was increased compared with prior with normal wall motion, EF was 55- 59%, mild left atrial enlargement, aortic valve was mildly calcified with borderline to mild aortic valve stenosis, mild mitral regurgitation and estimated pulmonary artery systolic pressure was 30 mmHg We will repeat echo:: No change compared with echo of 10 October 2017, EF 55-60% , grade 2 diastolic dysfunction, mild aortic stenosis, mild MR and TR Chest pain seems to be secondary to costochondritis with history of more anxiety No more chest pain since admission and EKG did not show any significant arrhythmias Appreciate cardiology input and recommendation She can be discharged today (2) Hypertension: Noted to have hypertension 2 weeks ago Noted to be noncompliant with medicine Continue with current medications for blood pressure (3) Diabetes type 2, uncontrolled: Hemoglobin A1c more than 9 as an outpatient Has been on oral hypoglycemic agent We will continue that Weekly and/or increase hypoglycemic is not on discharge SSI (4) ASCVD (arteriosclerotic cardiovascular disease): History of angioplasty (5) Occlusion of left internal carotid artery: Has been on Plavix Complains to have occasional TIA-like symptoms (6) Hypothyroidism: Continue replacement DVT prophylaxis Subcu heparin CODE STATUS DNR Discharge home today Total Time Total Time Spent Total Time Spent (In Minutes): 35 minutes Total Time Includes: Examination of the Patient, Discharge Planning, Medication Reconciliation and Communication With Other Providers Discharge Plan Discharge Items Patient Disposition: Home - Self-Care Reason For Visit: CHEST PAIN Discharge Diagnosis: Chest pain-no ACS, uncontrolled diabetes, hypertension Condition: Fair Discharge Goals: Decrease discomfort, Improve disease control and Improve function Activity: Resume your previous activity Non-emergency contact: Primary Care Provider Call non-emergency contact if: you have any medication questions and your symptoms worsen Follow-up/Referrals: Hollie Ferris DO [Primary Care Provider] - 03/26/18 10:05 am (Appointment is with Dr. Mayers. Dr. Steinberg does not have any opening.) Diet: Carb Consistent or DM2, Heart Healthy and Low Sodium (2gm) Addtl Provider Instructions: Her hemoglobin A1c is 10.5 and she was getting insulin while in the hospital. She was advised to have insulin on discharge but she wanted to wait and see her primary care doctor and go from there. Most likely she will need insulin to control her diabetes. Her glipizide has been increased to 5 mg daily. Prescriptions: Continue clopidogrel [Plavix] 75 mg Tablet 75 mg PO DAILY RF: 0 amlodipine [Norvasc] 5 mg Tablet 5 mg PO DAILY RF: 0 allopurinol 100 mg Tablet 100 mg PO BID RF: 0 aspirin 81 mg Tablet,Delayed Release (Dr/Ec) 81 mg PO DAILY RF: 0 levothyroxine 100 mcg Tablet 100 mcg PO DAILY RF: 0 triamterene-hydrochlorothiazid 37.5-25 mg Tablet 1 tab PO DAILY RF: 0 atenolol 50 mg Tablet 50 mg PO DAILY RF: 0 tamoxifen 20 mg Tablet 20 mg PO DAILY RF: 0 Changed glipizide 2.5 mg Tablet Extended Release 24hr 5 mg PO DAILY Qty: 0 RF: 0 Stand-Alone Forms: [facility] Discharge Orders: Discharge Order (Routine); Ordered 03/23/18 Ordered By: Wili Kearns Admission Data Admit Date/Time: 03/21/18 14:28 Attending Provider: Wili Kearns Admit Provider: Wili Kearns Primary Care Provider: Hollie Ferris Other Providers: Wili Kearns ; Gus Zavaleta ; Lito Frias ; Adolfo Galo ; Charly Ferris ; [place] ; Haseeb Patel ; Malu Bartholomew ; Laura Ham ; Julio Napier Service: Telemetry Other Interventions: Discharge Summary Assessment (RN) Last Done: 03/23/18 13:01 DC Date/Time DO NOT enter until pt leaves facility: 03/23/18 13:35
== END 2018-03-23 13:35 | disposition home or self-care (01) ==
LOC: ED 10:48 → 2E 10:48 → SUATTDRO 14:28 → 2E 15:59

== ENCOUNTER 2020-02-22 14:24 | Inpatient (IN) ==
[2020-02-22] MEDS ORDERED: SODIUM CHLORIDE 0.9% 500 ML IV SCH (15:15)
--- NOTE | 2020-02-22 15:16 | Emergency Department Note ---
Impression & Plan Fall, Weakness, Pneumonia due to COVID-19 virus, VICK (acute kidney injury) ED Provider Note Provider: Anthony Ramos MD DATE OF SERVICE:02/22/2020 CHIEF COMPLAINT: Weakness, fall HISTORY OF PRESENT ILLNESS: Patient is a 79-year-old female history of TIA, PE on Coumadin, diabetes, heart disease, diverticulitis, UTI presenting here today referred from the outpatient PCP office. Patient states over the past approximately 2 weeks has had increased fatigue as well as some slight dyspnea on exertion. Denies fevers or significant URI symptoms. Patient states she been taking her medicines but has been much more weak especially trying to stand up and ambulate. Yesterday she went up to get the door and her right leg gave out she fell to the ground on her buttocks. Denies striking her head or loss of consciousness or presyncopal symptoms. Patient denies nausea or vomiting but states she has some lower left abdominal pain. Patient denies chest pain states at rest she is not that short of breath. Denies significant injury to her lower legs or arms. Patient states she is a little bit of leg and left lower quad abdominal pain a little bit of pain along the left flank. EMS had to lift her up yesterday but she declined coming to the ER for evaluation. Her family checked on her and given her weakness and she seemed to bit short of breath taken to the doctor today and then here. Was noted at the outpatient labs to have a subtherapeutic INR for history of DVT. Patient denies any headache dizziness or visual change. REVIEW OF SYSTEMS: A total of 10 review of systems was obtained and negative except as stated above in the HPI. PAST MEDICAL HISTORY: As noted above MEDICATIONS: Reviewed home medications. SOCIAL HISTORY: Lives by herself. Non-smoker. PHYSICAL EXAM: GENERAL: alert and oriented in no acute distress on stretcher Head: normocephalic and atraumatic EYES: No injection, discharge or icterus. NECK: Trachea midline. Supple. No midline cervical tenderness. ENT: Mucous membranes pink and moist. Pharynx without erythema or exudate. LUNGS: Airway patent. No retractions. Breath sounds clear but some increased work of breathing. HEART: Regular rate and rhythm. No chest wall tenderness ABDOMEN: Soft with some left lower quadrant pain on deep palpation BACK: Some slight left flank tenderness. SKIN: Acyanotic, warm, dry, without rashes EXTREMITIES: Without swelling, tenderness or deformity beyond some 1+ bilateral lower extremity edema. NEUROLOGICAL: No focal deficits. No aphasia. No facial droop or slurred speech. Normal strength and tone in the extremities. Sensation to gross touch normal. EK bpm normal sinus rhythm without PVC or PAC. There is some artifact on the cardiogram. But no clear ST segment elevation or depression. QTC 453. CONTINUOUS CARDIAC MONITORING: was ordered and showed a heart rate of bpm in GCS 15. Patient's laboratory studies and imaging reviewed. Differential includes Infection, dehydration, metabolic abnormality, hypo/hyperglycemia, electrolyte disturbance, anemia, hypoxia, cardiac sources, intracerebral event, toxicologic, neurologic, as well as other pathologies. IMPRESSION/MEDICAL DECISION MAKING: Patient presents after several weeks of some weakness now with some left lower abdominal pain with a history of diverticulitis question possibly this versus injury from her fall yesterday. Did not strike her head and subtherapeutic INR do not feel we need imaging of her head at this time. Doubt acute cervical spine injury based on Nexus criteria. Patient's not hypoxic here. EKG without significant ischemic changes or severe arrhythmia. Covid testing will be completed. Denies significant tenderness lower extremities no feel any x-ray imaging of the lower extremities. Question possible PE as well given subtherapeutic INR and CT of the chest was completed as well. Basic labs were completed. Patient without leukocytosis or anemia. Lactate elevated at 3.9. Renal function appears significantly worsened with a creatinine of 2.25. Canceled the CT of the chest. Coronavirus test is positive likely explains her symptoms. She requires anticoagulation anyway he will comfortable deferring a CT of the chest. Troponin is undetectable. Lipase without evidence of elevation and doubt pancreatitis. No significant evidence of hepatitis based on lab studies. Thyroid levels within normal limits. Chest x-ray with findings consistent with likely viral pneumonia and the patient does not have a significant leukocytosis. Procalcitonin added and pending but will defer antibiotics to the inpatient team at this time as have a lower suspicion for bacterial component. Not hypoxic and do not believe requires steroids. CT of the abdomen pelvis without contrast given her renal function was completed and per radiology without significant acute intraabdominal pathology. Given the fact the patient lives alone with evidence of some dehydration and VICK and fall yesterday with positive coronavirus and some mild tachypnea feel that further care at the hospital is warranted. Patient agreement. The hospitalist was contacted. DIAGNOSIS: Fall, weakness, COVID-19 pneumonia, VICK DISPOSITION: Hospitalist will evaluate Patient was agreeable with this plan. Past Med/Surg History Medical History ASCVD (arteriosclerotic cardiovascular disease) Diabetes type 2, uncontrolled Gout History of breast cancer Hyperlipidemia Hypertension Hypothyroidism Occlusion of left internal carotid artery TIA (transient ischemic attack) Surgical History History of angioplasty coronary ballon angioplasty 1990s History of breast surgery DCIS L 2009 History of carotid endarterectomy History of colonoscopy History of hysterectomy Family History Mother Breast cancer Social History Smoking Status: Never smoker Second Hand Exposure: No; Do You Dip or Chew Tobacco: No; Tobacco Cessation Education Requested by Patient: No Hx Alcohol Use: Yes Alcohol type: wine Hx Substance Use: No Preferred Language: Citizen Of The [place] Communication Ability: Effective Design Release Engineer Required: No Beliefs That Will Affect Care: None marital status: / Current Living Situation: Alone current occupational status: retired Other Information That Helps Us Care for You: No Feels Safe at Home: Yes Safety Concerns: Feels Safe At This Time Assistive Devices: Glasses Assistive Devices Comment: glasses here in purse good glasses at home pt states Allergies Allergies Allergy/AdvReac Type Severity Reaction Status Date / Time aspirin AdvReac Unknown bruising Verified 02/22/20 17:40 Home Meds Home Medications Medication Instructions Recorded Confirmed allopurinol 100 mg PO DAILY 03/21/18 02/22/20 amlodipine [Norvasc] 5 mg PO DAILY 03/21/18 02/22/20 aspirin 81 mg PO DAILY 03/21/18 02/22/20 atenolol 50 mg PO DAILY 03/21/18 02/22/20 triamterene-hydrochlorothiazid 1 tab PO DAILY 03/21/18 02/22/20 empagliflozin [Jardiance] 25 mg PO DAILY 02/22/20 02/22/20 fluticasone propionate [Flonase] 2 spray INTRANASAL DAILY 02/22/20 02/22/20 glipizide 5 mg PO DAILY 02/22/20 02/22/20 levothyroxine 125 mcg PO DAILY 02/22/20 02/22/20 lisinopril 10 mg PO DAILY 02/22/20 02/22/20 rosuvastatin 20 mg PO DAILY 02/22/20 02/22/20 sodium chloride [[place] Nasal Mist] 2 spray INTRANASAL UD PRN 02/22/20 02/22/20 warfarin 5 mg PO TUTH@02/22/20 02/22/20 warfarin 7.5 mg PO SUMOWEFRSA@02/22/20 02/22/20 Results & Data (ED) Vital Signs Vital Signs - 24 hr 02/22/20 14:31 02/22/20 15:55 02/22/20 15:58 Temperature 36.4 C L Temperature Source Oral Pulse Rate 78 79 78 Pulse Rate from SpO2 Sensor 78 Respiratory Rate 20 26 H 26 H Blood Pressure 101/59 L 113/54 L Blood Pressure Mean 73 74 Pulse Oximetry 96 94 93 Oxygen Delivery Method Room Air Room Air Room Air Sepsis Recent Fever Within 48 Hours No Sepsis New/Unexplained Change in Mental Status N/A Sepsis Action Taken by Nursing No Action Required 02/22/20 15:59 02/22/20 16:00 02/22/20 16:32 Temperature Temperature Source Pulse Rate 80 77 83 Pulse Rate from SpO2 Sensor 80 76 Respiratory Rate 24 23 24 Blood Pressure 118/50 L 139/45 L Blood Pressure Mean 68 65 Pulse Oximetry 94 95 Oxygen Delivery Method Room Air Room Air Sepsis Recent Fever Within 48 Hours Sepsis New/Unexplained Change in Mental Status Sepsis Action Taken by Nursing 02/22/20 16:33 02/22/20 16:48 02/22/20 17:00 Temperature Temperature Source Pulse Rate 82 82 82 Pulse Rate from SpO2 Sensor 82 82 Respiratory Rate 28 H 23 25 H Blood Pressure 133/60 Blood Pressure Mean 74 Pulse Oximetry 96 93 96 Oxygen Delivery Method Room Air Room Air Room Air Sepsis Recent Fever Within 48 Hours Sepsis New/Unexplained Change in Mental Status Sepsis Action Taken by Nursing 02/22/20 17:01 02/22/20 17:40 02/22/20 18:00 Temperature Temperature Source Pulse Rate 78 83 92 H Pulse Rate from SpO2 Sensor 78 83 92 H Respiratory Rate 29 H 27 H 24 Blood Pressure 112/58 L 111/53 L 132/77 Blood Pressure Mean 82 66 85 Pulse Oximetry 94 95 95 Oxygen Delivery Method Room Air Room Air Room Air Sepsis Recent Fever Within 48 Hours Sepsis New/Unexplained Change in Mental Status Sepsis Action Taken by Nursing 02/22/20 18:01 02/22/20 18:30 02/22/20 18:31 Temperature Temperature Source Pulse Rate 90 84 84 Pulse Rate from SpO2 Sensor 90 84 84 Respiratory Rate 27 H 26 H 26 H Blood Pressure 133/60 Blood Pressure Mean 124 Pulse Oximetry 95 95 95 Oxygen Delivery Method Room Air Room Air Room Air Sepsis Recent Fever Within 48 Hours Sepsis New/Unexplained Change in Mental Status Sepsis Action Taken by Nursing 02/22/20 18:32 Temperature Temperature Source Pulse Rate 84 Pulse Rate from SpO2 Sensor 84 Respiratory Rate 27 H Blood Pressure Blood Pressure Mean Pulse Oximetry 95 Oxygen Delivery Method Room Air Sepsis Recent Fever Within 48 Hours Sepsis New/Unexplained Change in Mental Status Sepsis Action Taken by Nursing Laboratory Data Result diagrams: 02/24/20 06:35 02/24/20 06:35 Lab Results 02/22/20 02/22/20 02/22/20 Range/Units 15:44 15:44 15:44 WBC 6.04 (4.8-10.8) K/uL RBC 4.85 (4.2-5.4) M/uL Hgb 16.1 H (12.0-16.0) g/dL Hct 47.4 H (37-47) % MCV 97.7 (80-100) fL MCH 33.2 (25-34) pg MCHC 34.0 (32-36) g/dL RDW Std Deviation 51.4 H (36.4-46.3) fL RDW Coeff of Allie 14.4 (11.5-14.5) % Plt Count 126 L (130-400) K/uL MPV 12.7 H (7.4-10.4) fL Immature Gran % (Auto) 0.2 % Neut % (Auto) 68.3 % Lymph % (Auto) 18.7 % [place] % (Auto) 12.3 % Eos % (Auto) 0.2 % Baso % (Auto) 0.3 % Neut # (Auto) 4.13 (1.4-6.5) K/uL Lymph # (Auto) 1.13 L (1.2-3.4) K/uL [place] # (Auto) 0.74 H (0.11-0.59) K/uL Eos # (Auto) 0.01 (0-0.5) K/uL Baso # (Auto) 0.02 (0-0.2) K/uL Immature Gran # (Auto) 0.01 (0.00-0.02) K/uL Giant Platelets 1+ PT 18.6 H (9.0-12.0) Seconds INR 1.8 H (0.9-1.1) Sodium 135 L (136-145) mmol/L Potassium 4.7 (3.5-5.1) mmol/L Chloride 104 (98-107) mmol/L Carbon Dioxide 23 (21-32) mmol/L Anion Gap 8.0 (3-11) BUN 49 H (7-18) mg/dl Creatinine 2.25 H (0.6-1.2) mg/dl Est Cr Clr Drug Dosing Not Reportable Est GFR ( Amer) 23.4 Est GFR (Non-Af Amer) 20.2 BUN/Creatinine Ratio 22.0 H (10-20) Glucose 204 H (70-99) mg/dl Lactate (0.4-2.0) mmol/L Calcium 8.3 L (8.5-10.1) mg/dl Magnesium 3.4 H (1.8-2.4) mg/dl Total Bilirubin 0.7 (0.2-1) mg/dl AST 50 H (15-37) U/L ALT 42 (12-78) U/L Alkaline Phosphatase 96 (45-117) U/L Troponin I < 0.015 (0-0.045) ng/ml Total Protein 8.2 (6.4-8.2) gm/dl Albumin 3.5 (3.4-5.0) gm/dl Globulin 4.7 H (2.5-4.0) gm/dl Albumin/Globulin Ratio 0.7 L (0.9-2) Lipase 328 (73-393) U/L Procalcitonin (0-0.5) ng/ml TSH 1.650 (0.300-4.500) uIu/ml COVID-19 Eval Order SARS-CoV-2, RNA, NAAT (NEGATIVE) 02/22/20 02/22/20 02/22/20 Range/Units 15:44 15:48 15:48 WBC (4.8-10.8) K/uL RBC (4.2-5.4) M/uL Hgb (12.0-16.0) g/dL Hct (37-47) % MCV (80-100) fL MCH (25-34) pg MCHC (32-36) g/dL RDW Std Deviation (36.4-46.3) fL RDW Coeff of Allie (11.5-14.5) % Plt Count (130-400) K/uL MPV (7.4-10.4) fL Immature Gran % (Auto) % Neut % (Auto) % Lymph % (Auto) % [place] % (Auto) % Eos % (Auto) % Baso % (Auto) % Neut # (Auto) (1.4-6.5) K/uL Lymph # (Auto) (1.2-3.4) K/uL [place] # (Auto) (0.11-0.59) K/uL Eos # (Auto) (0-0.5) K/uL Baso # (Auto) (0-0.2) K/uL Immature Gran # (Auto) (0.00-0.02) K/uL Giant Platelets PT (9.0-12.0) Seconds INR (0.9-1.1) Sodium (136-145) mmol/L Potassium (3.5-5.1) mmol/L Chloride (98-107) mmol/L Carbon Dioxide (21-32) mmol/L Anion Gap (3-11) BUN (7-18) mg/dl Creatinine (0.6-1.2) mg/dl Est Cr Clr Drug Dosing Est GFR ( Amer) Est GFR (Non-Af Amer) BUN/Creatinine Ratio (10-20) Glucose (70-99) mg/dl Lactate 3.9 H* (0.4-2.0) mmol/L Calcium (8.5-10.1) mg/dl Magnesium (1.8-2.4) mg/dl Total Bilirubin (0.2-1) mg/dl AST (15-37) U/L ALT (12-78) U/L Alkaline Phosphatase (45-117) U/L Troponin I (0-0.045) ng/ml Total Protein (6.4-8.2) gm/dl Albumin (3.4-5.0) gm/dl Globulin (2.5-4.0) gm/dl Albumin/Globulin Ratio (0.9-2) Lipase (73-393) U/L Procalcitonin (0-0.5) ng/ml TSH (0.300-4.500) uIu/ml COVID-19 Eval [facility] SARS-CoV-2, RNA, NAAT POSITIVE A* (NEGATIVE) 02/22/20 Range/Units 17:38 WBC (4.8-10.8) K/uL RBC (4.2-5.4) M/uL Hgb (12.0-16.0) g/dL Hct (37-47) % MCV (80-100) fL MCH (25-34) pg MCHC (32-36) g/dL RDW Std Deviation (36.4-46.3) fL RDW Coeff of Allie (11.5-14.5) % Plt Count (130-400) K/uL MPV (7.4-10.4) fL Immature Gran % (Auto) % Neut % (Auto) % Lymph % (Auto) % [place] % (Auto) % Eos % (Auto) % Baso % (Auto) % Neut # (Auto) (1.4-6.5) K/uL Lymph # (Auto) (1.2-3.4) K/uL [place] # (Auto) (0.11-0.59) K/uL Eos # (Auto) (0-0.5) K/uL Baso # (Auto) (0-0.2) K/uL Immature Gran # (Auto) (0.00-0.02) K/uL Giant Platelets PT (9.0-12.0) Seconds INR (0.9-1.1) Sodium (136-145) mmol/L Potassium (3.5-5.1) mmol/L Chloride (98-107) mmol/L Carbon Dioxide (21-32) mmol/L Anion Gap (3-11) BUN (7-18) mg/dl Creatinine (0.6-1.2) mg/dl Est Cr Clr Drug Dosing Est GFR ( Amer) Est GFR (Non-Af Amer) BUN/Creatinine Ratio (10-20) Glucose (70-99) mg/dl Lactate (0.4-2.0) mmol/L Calcium (8.5-10.1) mg/dl Magnesium (1.8-2.4) mg/dl Total Bilirubin (0.2-1) mg/dl AST (15-37) U/L ALT (12-78) U/L Alkaline Phosphatase (45-117) U/L Troponin I (0-0.045) ng/ml Total Protein (6.4-8.2) gm/dl Albumin (3.4-5.0) gm/dl Globulin (2.5-4.0) gm/dl Albumin/Globulin Ratio (0.9-2) Lipase (73-393) U/L Procalcitonin 0.36 (0-0.5) ng/ml TSH (0.300-4.500) uIu/ml COVID-19 Eval Order SARS-CoV-2, RNA, NAAT (NEGATIVE) Administered Medications Acetaminophen (Acetaminophen 325 Mg Tab) 650 mg PO Q4H PRN PRN Reason: Pain or Fever Stop: 03/23/20 19:53 Last Admin: 02/22/20 20:26 Dose: 650 mg Documented by: [id number] Acetaminophen (Acetaminophen 325 Mg Tab) 650 mg PO Q8H [facility] Stop: 03/24/20 03:59 Last Admin: 02/24/20 20:42 Dose: 650 mg Documented by: [id number] Admin: 02/24/20 12:28 Dose: 650 mg Documented by: [id number] Admin: 02/24/20 04:09 Dose: Not Given Documented by: [id number] Admin: 02/23/20 20:24 Dose: 650 mg Documented by: [id number] Admin: 02/23/20 12:07 Dose: 650 mg Documented by: [id number] Admin: 02/23/20 04:05 Dose: 650 mg Documented by: [id number] Allopurinol (Allopurinol 100 Mg Tab) 100 mg PO DAILY [facility] Stop: 03/24/20 08:59 Last Admin: 02/24/20 09:34 Dose: 100 mg Documented by: [id number] Admin: 02/23/20 07:53 Dose: 100 mg Documented by: [id number] Amlodipine Besylate (Amlodipine Besylate 5 Mg Tab) 5 mg PO DAILY JUNG Stop: 03/24/20 08:59 Last Admin: 02/24/20 09:34 Dose: 5 mg Documented by: [id number] Admin: 02/23/20 07:54 Dose: 5 mg Documented by: [id number] Aspirin (Aspirin 81 Mg Ectab) 81 mg PO DAILY JUNG Stop: 03/24/20 08:59 Last Admin: 02/24/20 09:34 Dose: 81 mg Documented by: [id number] Admin: 02/23/20 07:54 Dose: 81 mg Documented by: [id number] Atenolol (Atenolol 50 Mg Tablet) 50 mg PO DAILY JUNG Stop: 03/24/20 08:59 Last Admin: 02/24/20 09:34 Dose: 50 mg Documented by: [id number] Admin: 02/23/20 07:54 Dose: 50 mg Documented by: [id number] Guaifenesin (Guaifenesin 600 Mg Tabcr) 600 mg PO Q12 JUNG Stop: 03/24/20 20:59 Last Admin: 02/24/20 20:41 Dose: 600 mg Documented by: [id number] Admin: 02/24/20 09:34 Dose: 600 mg Documented by: [id number] Admin: 02/23/20 20:24 Dose: 600 mg Documented by: [id number] Heparin Sodium (Porcine) (Heparin Sod 5,000 Unit/0.5 Ml Vial) 5,000 units SQ Q8 JUNG Stop: 03/23/20 21:59 Last Admin: 02/24/20 21:06 Dose: 5,000 units Documented by: [id number] Admin: 02/24/20 13:08 Dose: 5,000 units Documented by: [id number] Admin: 02/24/20 06:02 Dose: 5,000 units Documented by: [id number] Admin: 02/23/20 20:25 Dose: 5,000 units Documented by: [id number] Admin: 02/23/20 13:25 Dose: 5,000 units Documented by: [id number] Admin: 02/23/20 06:04 Dose: 5,000 units Documented by: [id number] Admin: 02/22/20 21:33 Dose: 5,000 units Documented by: [id number] Dexamethasone Sodium Phosphate (6 mg/ Syringe) 1.5 mls @ 1 mls/min IV DAILY JUNG Stop: 03/24/20 10:59 Last Admin: 02/24/20 09:32 Dose: 1 mls/min Documented by: [id number] Admin: 02/23/20 11:16 Dose: 1 mls/min Documented by: [id number] Remdesivir 100 mg/ Sodium (Chloride) 250 mls @ 250 mls/hr IV Q24H JUNG; Protocol Stop: 02/27/20 12:59 Last Infusion: 02/24/20 13:58 Dose: 0 mls/hr Documented by: [id number] Admin: 02/24/20 12:28 Dose: 250 mls/hr Documented by: [id number] Insulin Aspart (Insulin Aspart 100 Units/Ml 3 Ml Pen) 0 units SC ACHS [facility] Stop: 03/23/20 20:59 Last Admin: 02/24/20 20:42 Dose: 3 units Documented by: [id number] Cosigned by: [id number] Admin: 02/24/20 18:04 Dose: 5 units Documented by: [id number] Cosigned by: [id number] Admin: 02/24/20 12:56 Dose: 5 units Documented by: [id number] Cosigned by: [id number] Admin: 02/24/20 09:31 Dose: 2 units Documented by: [id number] Cosigned by: [id number] Admin: 02/23/20 22:05 Dose: 2 units Documented by: [id number] Cosigned by: [id number] Admin: 02/23/20 17:22 Dose: 6 units Documented by: [id number] Cosigned by: [id number] Admin: 02/23/20 12:43 Dose: Not Given Documented by: [id number] Admin: 02/23/20 08:51 Dose: Not Given Documented by: [id number] Cosigned by: [id number] Admin: 02/22/20 21:32 Dose: Not Given Documented by: [id number] Cosigned by: [id number] Insulin Glargine (Insulin Glargine Solostar 100 Units/Ml 3 Ml Pen) 15 units SC BID [facility] Stop: 03/23/20 20:59 Last Admin: 02/24/20 20:42 Dose: 15 units Documented by: [id number] Cosigned by: [id number] Admin: 02/24/20 09:31 Dose: 15 units Documented by: [id number] Cosigned by: [id number] Admin: 02/23/20 22:06 Dose: 15 units Documented by: [id number] Cosigned by: [id number] Admin: 02/23/20 08:40 Dose: Not Given Documented by: [id number] Admin: 02/22/20 21:32 Dose: Not Given Documented by: [id number] Levothyroxine Sodium (Levothyroxine Sodium 125 Mcg Tablet) 125 mcg PO DAILYBB [facility] Stop: 03/24/20 06:29 Last Admin: 02/24/20 06:02 Dose: 125 mcg Documented by: [id number] Admin: 02/23/20 06:05 Dose: 125 mcg Documented by: [id number] Rosuvastatin Calcium (Rosuvastatin Calcium 20 Mg Tab) 20 mg PO DAILY JUNG Stop: 03/24/20 08:59 Last Admin: 02/24/20 09:34 Dose: 20 mg Documented by: [id number] Admin: 02/23/20 07:54 Dose: 20 mg Documented by: [id number] Sodium Chloride (Sodium Chloride 0.9% 10ml Flush) 30 ml IV Q24H JUNG Stop: 02/27/20 12:01 Last Admin: 02/24/20 13:57 Dose: 30 ml Documented by: [id number] Admin: 02/23/20 13:25 Dose: 30 ml Documented by: [id number] Warfarin Sodium (Warfarin Sod 7.5 Mg Tab) 7.5 mg PO DAILY@1600 [facility] Stop: 03/24/20 15:59 Last Admin: 02/24/20 15:51 Dose: 7.5 mg Documented by: [id number] Admin: 02/23/20 15:32 Dose: 7.5 mg Documented by: [id number] Discontinued Medications Sodium Chloride (Nss) 500 mls @ 999 mls/hr IV .Q31M JUNG Stop: 02/22/20 15:45 Last Infusion: 02/22/20 16:40 Dose: 0 mls/hr Documented by: [id number] Admin: 02/22/20 15:52 Dose: 999 mls/hr Documented by: [id number] Sodium Chloride (Nss) 500 mls @ 999 mls/hr IV .Q31M ONE Stop: 02/22/20 16:57 Last Infusion: 02/22/20 18:41 Dose: 0 mls/hr Documented by: [id number] Admin: 02/22/20 17:41 Dose: 999 mls/hr Documented by: [id number] Sodium Chloride (Nss 1000ml) 1,000 mls @ 125 mls/hr IV .Q8H JUNG Stop: 02/23/20 11:53 Last Infusion: 02/23/20 11:15 Dose: 0 mls/hr Documented by: [id number] Admin: 02/23/20 04:03 Dose: 125 mls/hr Documented by: [id number] Infusion: 02/23/20 04:03 Dose: 125 mls/hr Documented by: [id number] Admin: 02/22/20 20:03 Dose: 125 mls/hr Documented by: [id number] Remdesivir 200 mg/ Sodium (Chloride) 250 mls @ 125 mls/hr IV NOW STA; Protocol Stop: 02/23/20 12:50 Last Infusion: 02/23/20 13:33 Dose: 0 mls/hr Documented by: [id number] Admin: 02/23/20 11:16 Dose: 125 mls/hr Documented by: [id number] Warfarin Sodium (Warfarin Sod 2.5 Mg Tab) 2.5 mg PO ONE ONE Stop: 02/24/20 19:31 Last Admin: 02/24/20 20:41 Dose: 2.5 mg Documented by: [id number] Discharge Plan Visit Data Chief Complaint: Illness Stated Complaint: FALL,NOT BEEN FEELING WELL,WEAK,SOB,TIRED,ACHY ED Provider: Anthony Ramos Discharge Problem: Fall, Weakness, Pneumonia due to COVID-19 virus, VICK (acute kidney injury) Patient Disposition: Admitted As Inpatient Discharge Instructions Interventions: ED Discharge Assessment Last Done: 02/22/20 19:27 Discharge Problem: Fall Qualifiers: Encounter type: initial encounter Qualified Code(s): W19.XXXA - Unspecified fall, initial encounter
[2020-02-22 15:57] LABS: Hematocrit (blood only) 47.4 % (37-47); Hemoglobin 16.1 g/dL (12.0-16.0); Mean Corpuscular Hemoglobin 33.2 pg (25-34); Mean Corpuscular Volume 97.7 fL (80-100); Mean Platelet Volume 12.7 fL (7.4-10.4); Platelet Count 126 K/uL (130-400); RDW Coefficient of Variation 14.4 % (11.5-14.5); RDW Standard Deviation 51.4 fL (36.4-46.3); Red Blood Count 4.85 M/uL (4.2-5.4); White Blood Count 6.04 K/uL (4.8-10.8)
[2020-02-22 16:06] LABS: INR 1.8 (0.9-1.1); Prothrombin Time 18.6 Seconds (9.0-12.0)
[2020-02-22 16:12] LABS: Basophils # (auto) 0.02 K/uL (0-0.2); Basophils % (auto) 0.3 %; Eosinophils # (auto) 0.01 K/uL (0-0.5); Eosinophils % (auto) 0.2 %; Giant Platelets 1+; Immature Granulocytes # (auto) 0.01 K/uL (0.00-0.02); Immature Granulocytes % (auto) 0.2 %; Lymphocytes # (auto) 1.13 K/uL (1.2-3.4); Lymphocytes % (auto) 18.7 %; Monocytes # (auto) 0.74 K/uL (0.11-0.59); Monocytes % (auto) 12.3 %; Neutrophils # (auto) 4.13 K/uL (1.4-6.5); Neutrophils % (auto) 68.3 %
[2020-02-22 16:17] LABS: Alanine Aminotransferase 42 U/L (12-78); Albumin Level 3.5 gm/dl (3.4-5.0); Aspartate Aminotransferase 50 U/L (15-37); Blood Urea Nitrogen 49 mg/dl (7-18); Calcium 8.3 mg/dl (8.5-10.1); Carbon Dioxide 23 mmol/L (21-32); Chloride 104 mmol/L (98-107); Est GFR (African American) 23.4; Est GFR (Non-African American) 20.2; Glucose 204 mg/dl (70-99); Lipase 328 U/L (73-393); Magnesium 3.4 mg/dl (1.8-2.4); Potassium 4.7 mmol/L (3.5-5.1); Sodium 135 mmol/L (136-145)
[2020-02-22] MEDS ORDERED: SODIUM CHLORIDE 0.9% 500 ML IV ONE (16:27)
[2020-02-22 16:29] LABS: Albumin Globulin Ratio 0.7 (0.9-2); Alkaline Phosphatase 96 U/L (45-117); Bilirubin,Total 0.7 mg/dl (0.2-1); Globulin 4.7 gm/dl (2.5-4.0); Total Protein 8.2 gm/dl (6.4-8.2); Troponin I < 0.015 ng/ml (0-0.045)
--- NOTE | 2020-02-22 16:35 | Electrocardiogram Report ---
Test Reason : Blood Pressure : / mmHG Vent. Rate : 078 BPM Atrial Rate : 078 BPM P-R Int : 156 ms QRS Dur : 088 ms QT Int : 398 ms P-R-T Axes : 055 -13 014 degrees QTc Int : 453 ms Poor data quality, interpretation may be adversely affected Normal sinus rhythm Low voltage QRS Diffuse Minor Nonspecific ST abnormality Abnormal ECG When compared with ECG of 22-MAR-2018 08:44, No significant change Confirmed by Arley Costa ([id number]) on 02/22/2020 4:34:38 PM Referred By: Confirmed By:Arley Costa
--- NOTE | 2020-02-22 17:01 | CT Scan Report ---
ABDOMEN AND PELVIS CT WITHOUT CONTRAST CT DOSE: 1166.55 mGycm HISTORY: Acute left lower quadrant abdominal pain LLQ pain TECHNIQUE: Multiaxial CT images of the abdomen and pelvis were performed without contrast. A dose lo wering technique was utilized adhering to the principles of ALARA. COMPARISON STUDY: CT abdomen and pelvis 08/21/2015 FINDINGS: Cardiomegaly with coronary artery calcifications. Partially imaged bibasilar groundglass opacities. T here is no pneumatosis or pneumoperitoneum. Study is limited secondary to respiratory motion and lack of contrast. The unenhanced spleen, adrenal glands and mildly atrophic pancreas are unremarkable. Mi ld hepatic steatosis. Marginal nodularity of the liver suggestive of cirrhosis. No ascites. Probable cyst of the right hepatic lobe, 1.6 cm. Mild layering cholelithiasis. No CT evidence of acute cholecy stitis. 3.6 cm renal sinus cyst on the right. No renal or ureteral calculi or obstructive uropathy identified . Unremarkable urinary bladder. Uterus appears surgically absent. No adnexal mass lesion. Calcified p laque of the abdominal aorta without aneurysm. There is no adenopathy. No bowel obstruction. Colonic diverticulosis. Wall thickening of the sigmoid colon is suggestive of c hronic diverticular disease. No significant pericolonic stranding. Noninflamed appendix. Tiny fat hemalatha led periumbilical hernia. Degenerative changes of the spine, pelvis and hips. IMPRESSION: 1. Colonic diverticulosis. Mild circumferential wall thickening of the sigmoid colon is likely second dylan to chronic diverticular disease. No definite CT evidence of acute diverticulitis. 2. No bowel obstruction or pneumoperitoneum. 3. Hepatic steatosis with cirrhotic morphology of the liver. 4. Bibasilar groundglass opacities are suspicious for viral pneumonia. 5. Additional findings as above. ACT 112: Negative or not required by law. The above report was generated using voice recognition software. It may contain grammatical, syntax o r spelling errors. Electronically signed by: Adrian Duckworth M.D. 02/22/2020 4:59 PM
--- NOTE | 2020-02-22 17:03 | XRay Report ---
XR chest 1V portable HISTORY: weakness COMPARISON: Chest 03/21/2018. FINDINGS: Cardiac silhouette remains enlarged. There are surgical clips within the left breast. No pn eumothorax. No pleural effusions. Hazy appearance to the bilateral lower lung zones. Mild diffuse int erstitial thickening. IMPRESSION: Progressive hazy appearance to the bilateral lower lung zones which could represent atelectasis or a viral pneumonia. ACT 112: Negative or not required by law. Electronically signed by: Saqib Abdi M.D. 02/22/2020 5:02 PM
[2020-02-22 17:59] LABS: Appearance Urine Clear (Clear); Bacteria Urine Automated Negative (Negative); Bilirubin Urine Negative (Negative); Blood Urine 1+ (Negative); Color Urine Yellow; Epithelial Cell Urine Auto 20-30 /lpf (0-5); Glucose Urine UA 3+ (Negative); Ketones Urine Negative (Negative); Leukocyte Esterase Urine Negative (Negative); Nitrite Urine Negative (Negative); Protein Urine 1+ (Negative); RBC Urine Automated 0-4 /hpf (0-4); Specific Gravity Urine 1.026 (1.000-1.030); Urobilinogen Urine Negative (Negative)
[2020-02-22 18:16] LABS: Cast Urine Automated 0 /lpf (0-5)
--- NOTE | 2020-02-22 18:26 | History & Physical Report ---
Date of Service February 22, 2020 Assessment & Plan (1) Acute renal failure: Possibly related to dehydration in the setting of acute illness. Patient denies recent NSAID use for her hip pain and reports using Tylenol for this instead. Hold home lisinopril. Avoid NSAIDs or other nephrotoxic substances and give IVF overnight with repeat BMP in am. Urine studies if no improvement. (2) Pneumonia due to COVID-19 virus: Currently oxygenating well on room air, although this is trending down and she is febrile. Hold on starting steroids until patient becomes hypoxic. Avoid remdesivir in renal failure. Procalcitonin is negative; no role for antibiotics here. Cont supportive care efforts. (3) Status post fall: Residual right shoulder pain with limited ROM however, I cannot perform an appropriate shoulder exam as patient is in too much discomfort to be properly positioned in the bed at this time. Would reassess this in am and consider XR shoulder if there is a concern for fracture. She does have a bruise on her left buttock per the nurse, and the patient is also reporting pain in her right hip which has been an ongoing issue for her over the past two weeks. CT scan findings reveal degenerative changes of the spine, pelvis and hips. Scheduled Tylenol with PRN Tramadol for now. PT/OT to assess in am. (4) Weakness: Likely multifactorial related to infectious illness and recent arthritis flare in her hip. PT/OT to assess. (5) ASCVD (arteriosclerotic cardiovascular disease): Chronic CAD with history of balloon angioplasty without stenting in . Stable without angina. Cont medical management per home regimen. (6) Hypothyroidism: Cont levothyroxine per home regimen. (7) Diabetes type 2, uncontrolled: Last A1C was >10 in 2019, repeat pending. Basal/bolus insulin while hospitalized for carb coverage and correction factor. Currently euglycemic (8) Right leg DVT: Diagnosed August 2019. Currently on warfarin with a subtherapeutic INR at 1.8. Patient reports not taking any warfarin just prior to arrival. Trend in am and titrate dose as needed. (9) HTN (hypertension): Slightly elevated BP at 151/76. Hold home lisinopril and Maxzide in acute renal failure and continue amlodipine and atenolol. (10) Cirrhosis of liver: Cirrhotic morphology as seen on imaging. Further workup as outpatient as this is not an established diagnosis on her list. (11) DVT prophylaxis: warfarin Full code per my discussion with her on admission Dispo-Med/Surg Kirsty Galvez DO [facility] Hospitalist History of Present Illness Chief Complaint: s/p fall with weakness Primary Care Provider: Hollie Ferrsi DO Patient is a 79 yo F who presented to the ER with pain after a fall at home. She states that she has had right hip pain that has been constant for the past two weeks from arthritis. She reports trying to get up too quickly to answer the doorbell and went to grab the dry well in her house, subsequently falling and injuring her right shoulder and her left buttock. She has a bruise on her buttock and reports pain in both places. She has also been diagnosed with COVID pneumonia and is currently febrile and somewhat flushed. ER notes also reveal that she was referred from PCP office because of increased fatigue and dyspnea on exertion over the past two weeks. She denies GI symptoms. She does attend [employer] gatherings twice weekly including a couple of days ago. Allergies Allergy/AdvReac Type Severity Reaction Status Date / Time aspirin AdvReac Unknown bruising Verified 02/22/20 17:40 Home Medications Medication Instructions Recorded Confirmed Type allopurinol 100 mg PO DAILY 03/21/18 02/22/20 History amlodipine [Norvasc] 5 mg PO DAILY 03/21/18 02/22/20 History aspirin 81 mg PO DAILY 03/21/18 02/22/20 History atenolol 50 mg PO DAILY 03/21/18 02/22/20 History triamterene-hydrochlorothiazid 1 tab PO DAILY 03/21/18 02/22/20 History empagliflozin [Jardiance] 25 mg PO DAILY 02/22/20 02/22/20 History fluticasone propionate [Flonase] 2 spray INTRANASAL DAILY 02/22/20 02/22/20 History glipizide 5 mg PO DAILY 02/22/20 02/22/20 History levothyroxine 125 mcg PO DAILY 02/22/20 02/22/20 History lisinopril 10 mg PO DAILY 02/22/20 02/22/20 History rosuvastatin 20 mg PO DAILY 02/22/20 02/22/20 History sodium chloride [[place] Nasal Mist] 2 spray INTRANASAL UD PRN 02/22/20 02/22/20 History warfarin 5 mg PO .DAILY UD 02/22/20 02/22/20 History warfarin 7.5 mg PO SUMOWEFRSA@09 02/22/20 02/22/20 History Past Med/Surg History Medical History ASCVD (arteriosclerotic cardiovascular disease) Diabetes type 2, uncontrolled Gout History of breast cancer Hyperlipidemia Hypertension Hypothyroidism Occlusion of left internal carotid artery TIA (transient ischemic attack) Surgical History History of angioplasty coronary ballon angioplasty 1990s History of breast surgery DCIS L 2009 History of carotid endarterectomy History of colonoscopy History of hysterectomy Family History Mother Breast cancer Social History Smoking Status: Never smoker Second Hand Exposure: No; Do You Dip or Chew Tobacco: No; Tobacco Cessation Education Requested by Patient: No Hx Alcohol Use: Yes Alcohol type: wine Hx Substance Use: No Preferred Language: Occitan Communication Ability: Effective Produce 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 Required: No Beliefs That Will Affect Care: None marital status: / Current Living Situation: Alone current occupational status: retired Other Information That Helps Us Care for You: No Feels Safe at Home: Yes Safety Concerns: Feels Safe At This Time Assistive Devices: Denture - Upper, Denture - Lower and Glasses Assistive Devices Comment: glasses here in purse good glasses at home pt states Review of Systems Review of Systems: All systems reviewed & are unremarkable except as noted in HPI & below Physical Exam Physical Exam: CONSTITUTIONAL: WNWD, vitals as above, generally illl- appearing and flushed, febrile EYES: pupils are round and equal bilaterally, normal conjunctivae, no scleral icterus ENT: external ear and nose normal, oropharynx clear, MMM RESPIRATORY: coarse crackles heard on the left field, no wheezes or rales, no increased respiratory effort. Somewhat limited exam as patient was unable to move very much to help with exam. CARDIOVASCULAR: regular rate and rhythm, S1 and 2 heard without murmurs, gallops or rubs, no JVD, no peripheral edema GASTROINTESTINAL: soft, nontender, nondistended, no guarding MUSCULOSKELETAL: strength 5/5 throughout, head is normocephalic and atraumatic SKIN: warm and dry NEUROLOGIC: CN 2-12 grossly intact, no sensory deficit, normal cognition, normal speech, no tremor, no gross focal deficits. PSYCHIATRIC: alert cooperative and following instructions. Patient is a poor historian with questionably limited insight into her disease processes. Results & Data Results & Data ([facility]) Vital Signs (Past 12 Hours) Vital Signs Temp Pulse Resp BP Pulse Ox 02/22/20 18:01 90 27 H 95 02/22/20 18:00 92 H 24 132/77 95 02/22/20 17:40 83 27 H 111/53 L 95 02/22/20 17:01 78 29 H 112/58 L 94 02/22/20 17:00 82 25 H 96 02/22/20 16:48 82 23 133/60 93 02/22/20 16:33 82 28 H 96 02/22/20 16:32 83 24 139/45 L 02/22/20 16:00 77 23 118/50 L 95 02/22/20 15:59 80 24 94 02/22/20 15:58 78 26 H 113/54 L 93 02/22/20 15:55 79 26 H 94 02/22/20 14:31 36.4 C L 78 20 101/59 L 96 Laboratory Results Short CBC 02/22/20 Range/Units 15:44 WBC 6.04 (4.8-10.8) K/uL Hgb 16.1 H (12.0-16.0) g/dL Hct 47.4 H (37-47) % Plt Count 126 L (130-400) K/uL BMP 02/22/20 15:44 Sodium 135 L Potassium 4.7 Chloride 104 Carbon Dioxide 23 BUN 49 H Creatinine 2.25 H Glucose 204 H Calcium 8.3 L Cardiac Enzymes 02/22/20 Range/Units 15:44 Troponin I < 0.015 (0-0.045) ng/ml Liver Function 02/22/20 Range/Units 15:44 Total Bilirubin 0.7 (0.2-1) mg/dl AST 50 H (15-37) U/L ALT 42 (12-78) U/L Alkaline Phosphatase 96 (45-117) U/L Albumin 3.5 (3.4-5.0) gm/dl Urine 02/22/20 Range/Units Unknown Urine Color Yellow Urine Appearance Clear (Clear) Urine pH 5.0 (4.5-7.5) Ur Specific [place] 1.026 (1.000-1.030) Urine Protein 1+ H (Negative) Urine Glucose (UA) 3+ H (Negative) Diagnostic Findings [facility], [id number] CT Scan Report Patient: SANJEEV MCFARLAND ANNAdmit Date: 02/22/20#: [id number]: [facility] [address]Acct ID:[id number]: [facility] Zip: [place] [id number]: [id number]: EDSex: FRoom/Bed:Att Phy:Diagnosis: FALL,NOT BEEN FEELING WELL,WEAK,SOB,TIRED,ACHYPri Phy: Hollie Ferris DOService Date: 02/22/20Fam Phy:Interpreting Phy: Isaac DuckworthAdmit Phy: Ordering Phy: Anthony Ramos M.D. cc: ~ ABDOMEN AND PELVIS CT WITHOUT CONTRAST CT DOSE: 1166.55 mGycm HISTORY: Acute left lower quadrant abdominal pain LLQ pain TECHNIQUE: Multiaxial CT images of the abdomen and pelvis were performed without contrast. A dose lowering technique was utilized adhering to the principles of ALARA. COMPARISON STUDY: CT abdomen and pelvis 08/21/2015 FINDINGS: Cardiomegaly with coronary artery calcifications. Partially imaged bibasilar groundglass opacities. There is no pneumatosis or pneumoperitoneum. Study is limited secondary to respiratory motion and lack of contrast. The unenhanced spleen, adrenal glands and mildly atrophic pancreas are unremarkable. Mild hepatic steatosis. Marginal nodularity of the liver suggestive of cirrhosis. No ascites. Probable cyst of the right hepatic lobe, 1.6 cm. Mild layering cholelithiasis. No CT evidence of acute cholecystitis. 3.6 cm renal sinus cyst on the right. No renal or ureteral calculi or obstructive uropathy identified. Unremarkable urinary bladder. Uterus appears surgically absent. No adnexal mass lesion. Calcified plaque of the abdominal aorta without aneurysm. There is no adenopathy. No bowel obstruction. Colonic diverticulosis. Wall thickening of the sigmoid colon is suggestive of chronic diverticular disease. No significant pericolonic stranding. Noninflamed appendix. Tiny fat filled periumbilical hernia. Degenerative changes of the spine, pelvis and hips. IMPRESSION: 1. Colonic diverticulosis. Mild circumferential wall thickening of the sigmoid colon is likely secondary to chronic diverticular disease. No definite CT evidence of acute diverticulitis. 2. No bowel obstruction or pneumoperitoneum. 3. Hepatic steatosis with cirrhotic morphology of the liver. 4. Bibasilar groundglass opacities are suspicious for viral pneumonia. 5. Additional findings as above. ACT 112: Negative or not required by law. The above report was generated using voice recognition software. It may contain grammatical, syntax or spelling errors. Electronically signed by: Adrian Duckworth M.D. 02/22/2020 4:59 PM Dictated: 02/22/201650Transcribed: 02/22/201650 Medications Administered 1L NSS given in ER.
[2020-02-22] MEDS ORDERED: POLYETHYLENE (MIRALAX) 17 GM PACK PO PRN (19:54)
[2020-02-22] MEDS ORDERED: CARBOHYDRATES FOR HYPOGLYCEMIA PO PRN (19:54)
[2020-02-22] MEDS ORDERED: GLUCAGON FOR INJ 1 MG VIAL SQ PRN (19:54)
[2020-02-22] MEDS ORDERED: GLUCOSE 40% GEL 15 GM TUBE PO PRN (19:54)
[2020-02-22] MEDS ORDERED: ACETAMINOPHEN 325 MG TAB PO PRN (19:54)
[2020-02-22] MEDS ORDERED: DEXTROSE 50% 50 ML SYRINGE IV PRN (19:54)
[2020-02-22] MEDS ORDERED: GLUCOSE 10 TABS/TUBE PO PRN (19:54)
[2020-02-22] MEDS ORDERED: ONDANSETRON INJ 2 MG/ML 2 ML VIAL IV PRN (19:54)
[2020-02-22] MEDS: SODIUM CHLORIDE 0.9% 1000ML 1,000 ML IV SCH (20:03)
[2020-02-22] MEDS: INSULIN ASPART 100 UNITS/ML 3 ML PEN SC SCH (21:32)
[2020-02-22] MEDS: INSULIN GLARGINE SOLOSTAR 100 UNITS/ML 3 ML PEN SC SCH (21:32)
[2020-02-22] MEDS: HEPARIN SOD 5,000 UNIT/0.5 ML VIAL SQ SCH (21:33)
[2020-02-22] MEDS ORDERED: traMADol HCL 50 MG TABLET PO PRN (23:43)
[2020-02-23] MEDS: SODIUM CHLORIDE 0.9% 1000ML 1,000 ML IV SCH (04:03)
[2020-02-23] MEDS: ACETAMINOPHEN 325 MG TAB PO SCH ×3 (04:05→20:24)
[2020-02-23] MEDS: HEPARIN SOD 5,000 UNIT/0.5 ML VIAL SQ SCH ×3 (06:04→20:25)
[2020-02-23] MEDS: LEVOTHYROXINE SODIUM 125 MCG TABLET PO SCH (06:05)
[2020-02-23] MEDS: allopurinoL 100 MG TAB PO SCH (07:53)
[2020-02-23] MEDS: ROSUVASTATIN CALCIUM 20 MG TAB PO SCH (07:54)
[2020-02-23] MEDS: ASPIRIN 81 MG ECTAB PO SCH (07:54)
[2020-02-23] MEDS: amLODIPine BESYLATE 5 MG TAB PO SCH (07:54)
[2020-02-23] MEDS: ATENOLOL 50 MG TABLET PO SCH (07:54)
[2020-02-23 08:25] LABS: Hematocrit (blood only) 40.7 % (37-47); Hemoglobin 13.7 g/dL (12.0-16.0); Mean Corpuscular Hemoglobin 32.8 pg (25-34); Mean Corpuscular Hgb Conc 33.7 g/dL (32-36); Mean Corpuscular Volume 97.4 fL (80-100); Mean Platelet Volume 12.6 fL (7.4-10.4); Platelet Count 105 K/uL (130-400); RDW Coefficient of Variation 14.7 % (11.5-14.5); RDW Standard Deviation 52.1 fL (36.4-46.3); Red Blood Count 4.18 M/uL (4.2-5.4); White Blood Count 5.47 K/uL (4.8-10.8)
[2020-02-23 08:28] LABS: INR 1.7 (0.9-1.1); Prothrombin Time 17.7 Seconds (9.0-12.0)
[2020-02-23] MEDS: INSULIN GLARGINE SOLOSTAR 100 UNITS/ML 3 ML PEN SC SCH ×2 (08:40→22:06)
[2020-02-23 08:49] LABS: BUN Creatinine Ratio 30.6 (10-20); C Reactive Protein 2.08 mg/dl (0-0.29); Calcium 8.1 mg/dl (8.5-10.1); Creatinine Clr Calc Pharmacy 41.7 ml/min; Est GFR (African American) 57.6; Est GFR (Non-African American) 49.7; Magnesium 2.6 mg/dl (1.8-2.4); Phosphorus 2.9 mg/dl (2.5-4.9); Potassium 4.3 mmol/L (3.5-5.1)
[2020-02-23] MEDS: INSULIN ASPART 100 UNITS/ML 3 ML PEN SC SCH ×4 (08:51→22:05)
[2020-02-23 09:08] LABS: Estimated Average Glucose 169 mg/dl; Hemoglobin A1C 7.5 % (4.5-5.6)
[2020-02-23] MEDS ORDERED: REMDESIVIR 200 MG in SODIUM CHLORIDE 0.9% 210 ML IV STA (10:51)
[2020-02-23] MEDS: DEXAMETHASONE SOD PHOSPHATE 6 MG in SYRINGE 0 ML IV SCH (11:16)
[2020-02-23] MEDS: SODIUM CHLORIDE 0.9% 10ML FLUSH IV SCH (13:25)
[2020-02-23] MEDS: WARFARIN SOD 7.5 MG TAB PO SCH (15:32)
[2020-02-23] MEDS ORDERED: WARFARIN SOD 7.5 MG TAB PO SCH (16:00)
--- NOTE | 2020-02-23 18:28 | XRay Report ---
XR shoulder RT min 2V routine CLINICAL HISTORY: Right shoulder pain COMPARISON: None. DISCUSSION: No acute fractures are visualized. There is no dislocation. There are degenerative change s. There are nonspecific interstitial/groundglass opacities the right lung base. IMPRESSION: 1. No fractures identified 2. Degenerative change 3. Interstitial/groundglass opacities the right lung base. ACT 112: Negative or not required by law. Electronically signed by: Eliud Yost M.D. 02/23/2020 6:27 PM
--- NOTE | 2020-02-23 19:02 | Hospitalist Progress Note ---
Date of Service February 23, 2020 Assessment & Plan (1) Acute renal failure: 71-year-old female with history of coronary disease, diabetes type 2, right leg DVT on Coumadin Presenting with status post mechanical fall Possibly related to dehydration in the setting of acute illness. Hold home lisinopril. Resolved (2) Pneumonia due to COVID-19 virus: Hospital day #2, patient O2 saturation is now at 92% Remdesivir and Decadron started day #1 Discussed convalescent plasma transfusion, patient would like more time to think about this Heparin subcu while INR subtherapeutic with Coumadin Spirometry, atrial flutter, Mucinex Monitor closely (3) Status post fall: Reports right shoulder pain Shoulder x-ray: No fractures Reports buttock pain CT scan findings reveal degenerative changes of the spine, pelvis and hips. Scheduled Tylenol with PRN Tramadol for now. Please note evaluation progress (4) Weakness: Likely multifactorial related to infectious illness and recent arthritis flare in her hip. Management per above (5) ASCVD (arteriosclerotic cardiovascular disease): Chronic CAD with history of balloon angioplasty without stenting in . No cardiac symptoms (6) Hypothyroidism: Cont levothyroxine per home regimen. (7) Diabetes type 2, uncontrolled: Last A1C was >10 in 2019 A1c 7.5 Pharmacy glycemic consult placed (8) Right leg DVT: Diagnosed August 2019. Currently on warfarin with a subtherapeutic INR at 1.7. Coumadin daily Subcutaneous heparin for DVT prophylaxis (9) HTN (hypertension): Blood pressure on the lower side hold home lisinopril and Maxzide in acute renal failure and continue amlodipine and atenolol. (10) Cirrhosis of liver: Cirrhotic morphology as seen on imaging. Further workup as outpatient as this is not an established diagnosis on her list. (11) DVT prophylaxis: warfarin Full code per my discussion with her on admission Disposition PT and OT evaluation progress Admission and Anticipated Discharge Date Admission Date: February 22, 2020 Subjective Follow-up for Covid pneumonia, status post mechanical fall, etc. Seen sitting up in bed, comfortable, on room air, watching TV, in good spirits States she feels fine overall Denies shortness of breath, has intermittent dry cough, no chest pain palpitations, dizziness Reports mild to moderate right shoulder pain Also has some pain on the buttocks No problems with transferring from bed to chair No other symptoms Review of Systems Review of Systems: All systems reviewed & are unremarkable except as noted in Subjective Physical Exam Physical Exam: General- oriented x 3, not in distress, speaks in sentences with no effort or accessory muscle use Eyes- anicteric Neck- no JVD Lungs-mild rales bilateral bases, no wheezing Good air entry bilaterally Heart- normal rate, regular rhythm; no murmurs Abdomen- normal bowel sounds, nondistended, soft, nontender Extremities- no pretibial edema, no calf tenderness Right shoulder: Mild edema, no erythema/warmth/tenderness Good range of motion Neuro- alert, oriented x 3; no gross focal neurologic deficits Skin- warm & dry Results & Data Results & Data ([facility]) Vital Signs (Past 12 Hours) Vital Signs Temp Pulse Resp BP Pulse Ox Pulse Ox 02/23/20 15:13 36.9 C 70 18 99/56 L 92 02/23/20 10:52 93 02/23/20 07:26 36.8 C 79 18 122/69 92 Laboratory Results Laboratory Results - last 24 hr 02/22/20 02/23/20 02/23/20 20:44 07:48 07:48 WBC 5.47 RBC 4.18 L Hgb 13.7 Hct 40.7 MCV 97.4 MCH 32.8 MCHC 33.7 RDW Std Deviation 52.1 H RDW Coeff of Allie 14.7 H Plt Count 105 L MPV 12.6 H PT INR Sodium 138 Potassium 4.3 Chloride 111 H Carbon Dioxide 17 L Anion Gap 9.0 BUN 33 H Creatinine 1.07 Est Cr Clr Drug Dosing 41.7 Est GFR ( Amer) 57.6 Est GFR (Non-Af Amer) 49.7 BUN/Creatinine Ratio 30.6 H Glucose 102 H POC Glucose 112 H Estimat Average Glucose Hemoglobin A1c Calcium 8.1 L Phosphorus 2.9 Magnesium 2.6 H C-Reactive Protein 2.08 H 02/23/20 02/23/20 02/23/20 07:48 07:48 08:04 WBC RBC Hgb Hct MCV MCH MCHC RDW Std Deviation RDW Coeff of Allie Plt Count MPV PT 17.7 H INR 1.7 H Sodium Potassium Chloride Carbon Dioxide Anion Gap BUN Creatinine Est Cr Clr Drug Dosing Est GFR ( Amer) Est GFR (Non-Af Amer) BUN/Creatinine Ratio Glucose POC Glucose 100 H Estimat Average Glucose 169 Hemoglobin A1c 7.5 H Calcium Phosphorus Magnesium C-Reactive Protein 02/23/20 02/23/20 12:05 16:57 WBC RBC Hgb Hct MCV MCH MCHC RDW Std Deviation RDW Coeff of Allie Plt Count MPV PT INR Sodium Potassium Chloride Carbon Dioxide Anion Gap BUN Creatinine Est Cr Clr Drug Dosing Est GFR ( Amer) Est GFR (Non-Af Amer) BUN/Creatinine Ratio Glucose POC Glucose 107 H 213 H Estimat Average Glucose Hemoglobin A1c Calcium Phosphorus Magnesium C-Reactive Protein
[2020-02-23] MEDS: guaiFENesin 600 MG TABCR PO SCH (20:24)
[2020-02-24] MEDS: ACETAMINOPHEN 325 MG TAB PO SCH ×3 (04:09→20:42)
[2020-02-24] MEDS: HEPARIN SOD 5,000 UNIT/0.5 ML VIAL SQ SCH ×3 (06:02→21:06)
[2020-02-24] MEDS: LEVOTHYROXINE SODIUM 125 MCG TABLET PO SCH (06:02)
[2020-02-24 07:14] LABS: Basophils # (auto) 0.01 K/uL (0-0.2); Basophils % (auto) 0.3 %; Hematocrit (blood only) 42.6 % (37-47); Hemoglobin 14.3 g/dL (12.0-16.0); Immature Granulocytes # (auto) 0.02 K/uL (0.00-0.02); Immature Granulocytes % (auto) 0.6 %; Lymphocytes # (auto) 0.84 K/uL (1.2-3.4); Lymphocytes % (auto) 25.6 %; Mean Corpuscular Hemoglobin 32.1 pg (25-34); Mean Corpuscular Hgb Conc 33.6 g/dL (32-36); Mean Corpuscular Volume 95.7 fL (80-100); Mean Platelet Volume 12.9 fL (7.4-10.4); Monocytes # (auto) 0.53 K/uL (0.11-0.59); Monocytes % (auto) 16.2 %; Neutrophils # (auto) 1.88 K/uL (1.4-6.5); Neutrophils % (auto) 57.3 %; Platelet Count 113 K/uL (130-400); RDW Coefficient of Variation 14.2 % (11.5-14.5); RDW Standard Deviation 50.7 fL (36.4-46.3); Red Blood Count 4.45 M/uL (4.2-5.4); White Blood Count 3.28 K/uL (4.8-10.8)
[2020-02-24 07:18] LABS: INR 1.8 (0.9-1.1); Prothrombin Time 18.3 Seconds (9.0-12.0)
[2020-02-24 07:54] LABS: Albumin Globulin Ratio 0.7 (0.9-2); Albumin Level 2.8 gm/dl (3.4-5.0); BUN Creatinine Ratio 35.4 (10-20); Bilirubin,Total 0.8 mg/dl (0.2-1); Calcium 7.9 mg/dl (8.5-10.1); Creatinine Clr Calc Pharmacy 44.6 ml/min; Est GFR (African American) 62.5; Est GFR (Non-African American) 53.9; Globulin 4.2 gm/dl (2.5-4.0); Potassium 4.6 mmol/L (3.5-5.1)
[2020-02-24] MEDS: INSULIN GLARGINE SOLOSTAR 100 UNITS/ML 3 ML PEN SC SCH ×2 (09:31→20:42)
[2020-02-24] MEDS: INSULIN ASPART 100 UNITS/ML 3 ML PEN SC SCH ×4 (09:31→20:42)
[2020-02-24] MEDS: DEXAMETHASONE SOD PHOSPHATE 6 MG in SYRINGE 0 ML IV SCH (09:32)
[2020-02-24] MEDS: allopurinoL 100 MG TAB PO SCH (09:34)
[2020-02-24] MEDS: ATENOLOL 50 MG TABLET PO SCH (09:34)
[2020-02-24] MEDS: ASPIRIN 81 MG ECTAB PO SCH (09:34)
[2020-02-24] MEDS: ROSUVASTATIN CALCIUM 20 MG TAB PO SCH (09:34)
[2020-02-24] MEDS: guaiFENesin 600 MG TABCR PO SCH ×2 (09:34→20:41)
[2020-02-24] MEDS: amLODIPine BESYLATE 5 MG TAB PO SCH (09:34)
[2020-02-24] MEDS: REMDESIVIR 100 MG in SODIUM CHLORIDE 0.9% 230 ML IV SCH (12:28)
[2020-02-24] MEDS: SODIUM CHLORIDE 0.9% 10ML FLUSH IV SCH (13:57)
[2020-02-24] MEDS: WARFARIN SOD 7.5 MG TAB PO SCH (15:51)
[2020-02-24] MEDS ORDERED: WARFARIN SOD 5 MG TAB PO SCH (16:00)
--- NOTE | 2020-02-24 19:15 | Hospitalist Progress Note ---
Date of Service February 24, 2020 Assessment & Plan (1) Acute renal failure: 71-year-old female with history of coronary disease, diabetes type 2, right leg DVT on Coumadin Presenting with status post mechanical fall Possibly related to dehydration in the setting of acute illness. Hold home lisinopril. Resolved (2) Pneumonia due to COVID-19 virus: Hospital day #3, patient O2 saturation remains 92-93% Remdesivir and Decadron day #2 Discussed convalescent plasma transfusion, patient declines Heparin subcu while INR subtherapeutic with Coumadin Spirometry, atrial flutter, Mucinex Monitor closely (3) Status post fall: Reports right shoulder pain Shoulder x-ray: No fractures Reports buttock pain CT scan findings reveal degenerative changes of the spine, pelvis and hips. Scheduled Tylenol with PRN Tramadol for now. PT/OT evaluation progress (4) Weakness: Likely multifactorial related to infectious illness and recent arthritis flare in her hip. improving (5) ASCVD (arteriosclerotic cardiovascular disease): Chronic CAD with history of balloon angioplasty without stenting in . No cardiac symptoms (6) Hypothyroidism: Cont levothyroxine per home regimen. (7) Diabetes type 2, uncontrolled: Last A1C was >10 in 2019 A1c 7.5 Pharmacy glycemic consult placed (8) Right leg DVT: Diagnosed August 2019. Currently on warfarin with a subtherapeutic INR at 1.8 Coumadin 10mg po today Subcutaneous heparin for DVT prophylaxis (9) HTN (hypertension): Blood pressure on the lower side hold home lisinopril and Maxzide in acute renal failure and continue amlodipine and atenolol. (10) Cirrhosis of liver: Cirrhotic morphology as seen on imaging. Further workup as outpatient as this is not an established diagnosis on her list. (11) DVT prophylaxis: warfarin + heparin SC while INR subtherapeutic Full code per my discussion with her on admission Disposition PT and OT evaluation progress Admission and Anticipated Discharge Date Admission Date: February 22, 2020 Subjective ff up for COVID 19 pneumonia seen resting in bed, comfortable, watching TV states she feels improved today no shortness of breath has intermittent cough no chest pain appetite is good minimal R shoulder pain no other symptoms Review of Systems Review of Systems: All systems reviewed & are unremarkable except as noted in Subjective Physical Exam Physical Exam: General- oriented x 3, not in distress, speaks in sentences with no effort or accessory muscle use Eyes- anicteric Neck- no JVD Lungs- mild rales at the bases no wheezing Heart- normal rate, regular rhythm; no murmurs Abdomen- normal bowel sounds, nondistended, soft, nontender Extremities- no pretibial edema, no calf tenderness Neuro- alert, oriented x 3; no gross focal neurologic deficits Skin- warm & dry Results & Data Results & Data ([facility]) Vital Signs (Past 12 Hours) Vital Signs Temp Pulse Resp BP Pulse Ox 02/24/20 15:20 36.5 C 69 20 103/56 L 92 02/24/20 07:28 36.6 C 75 18 123/71 93 Laboratory Results Laboratory Results - last 24 hr 02/23/20 02/24/20 02/24/20 20:54 06:35 06:35 WBC 3.28 L RBC 4.45 Hgb 14.3 Hct 42.6 MCV 95.7 MCH 32.1 MCHC 33.6 RDW Std Deviation 50.7 H RDW Coeff of Allie 14.2 Plt Count 113 L MPV 12.9 H Immature Gran % (Auto) 0.6 Neut % (Auto) 57.3 Lymph % (Auto) 25.6 [place] % (Auto) 16.2 Eos % (Auto) 0.0 Baso % (Auto) 0.3 Neut # (Auto) 1.88 Lymph # (Auto) 0.84 L [place] # (Auto) 0.53 Eos # (Auto) 0.00 Baso # (Auto) 0.01 Immature Gran # (Auto) 0.02 PT 18.3 H INR 1.8 H Sodium Potassium Chloride Carbon Dioxide Anion Gap BUN Creatinine Est Cr Clr Drug Dosing Est GFR ( Amer) Est GFR (Non-Af Amer) BUN/Creatinine Ratio Glucose POC Glucose 218 H Calcium Total Bilirubin AST ALT Alkaline Phosphatase Total Protein Albumin Globulin Albumin/Globulin Ratio Specimen Hemolysis 02/24/20 02/24/20 02/24/20 06:35 08:00 12:02 WBC RBC Hgb Hct MCV MCH MCHC RDW Std Deviation RDW Coeff of Allie Plt Count MPV Immature Gran % (Auto) Neut % (Auto) Lymph % (Auto) [place] % (Auto) Eos % (Auto) Baso % (Auto) Neut # (Auto) Lymph # (Auto) [place] # (Auto) Eos # (Auto) Baso # (Auto) Immature Gran # (Auto) PT INR Sodium 140 Potassium 4.6 Chloride 114 H Carbon Dioxide 16 L Anion Gap 10.0 BUN 35 H Creatinine 1.00 Est Cr Clr Drug Dosing 44.6 Est GFR ( Amer) 62.5 Est GFR (Non-Af Amer) 53.9 BUN/Creatinine Ratio 35.4 H Glucose 140 H POC Glucose 127 H 158 H Calcium 7.9 L Total Bilirubin 0.8 AST 57 H ALT 36 Alkaline Phosphatase 77 Total Protein 7.0 Albumin 2.8 L Globulin 4.2 H Albumin/Globulin Ratio 0.7 L Specimen Hemolysis 02/24/20 17:04 WBC RBC Hgb Hct MCV MCH MCHC RDW Std Deviation RDW Coeff of Allie Plt Count MPV Immature Gran % (Auto) Neut % (Auto) Lymph % (Auto) [place] % (Auto) Eos % (Auto) Baso % (Auto) Neut # (Auto) Lymph # (Auto) [place] # (Auto) Eos # (Auto) Baso # (Auto) Immature Gran # (Auto) PT INR Sodium Potassium Chloride Carbon Dioxide Anion Gap BUN Creatinine Est Cr Clr Drug Dosing Est GFR ( Amer) Est GFR (Non-Af Amer) BUN/Creatinine Ratio Glucose POC Glucose 220 H Calcium Total Bilirubin AST ALT Alkaline Phosphatase Total Protein Albumin Globulin Albumin/Globulin Ratio Specimen Hemolysis
[2020-02-24] MEDS ORDERED: WARFARIN SOD 2.5 MG TAB PO ONE (19:30)
[2020-02-24] MEDS ORDERED: Nursing to Pharmacy Communication SCH (23:30)
[2020-02-25] MEDS: LEVOTHYROXINE SODIUM 125 MCG TABLET PO SCH (05:57)
[2020-02-25] MEDS: ACETAMINOPHEN 325 MG TAB PO SCH ×3 (05:57→20:45)
[2020-02-25] MEDS: HEPARIN SOD 5,000 UNIT/0.5 ML VIAL SQ SCH ×2 (05:57→13:09)
[2020-02-25 06:37] LABS: Mean Corpuscular Hgb Conc 33.7 g/dL (32-36)
[2020-02-25 06:45] LABS: INR 2.9 (0.9-1.1); Prothrombin Time 28.5 Seconds (9.0-12.0)
[2020-02-25 06:47] LABS: Hematocrit (blood only) 42.4 % (37-47); Hemoglobin 14.3 g/dL (12.0-16.0); Mean Corpuscular Hemoglobin 32.3 pg (25-34); Mean Corpuscular Volume 95.7 fL (80-100); RDW Coefficient of Variation 14.1 % (11.5-14.5); RDW Standard Deviation 49.7 fL (36.4-46.3); Red Blood Count 4.43 M/uL (4.2-5.4); White Blood Count 4.92 K/uL (4.8-10.8)
[2020-02-25 06:57] LABS: Platelet Count 138 K/uL (130-400)
[2020-02-25 06:58] LABS: Basophils # (auto) 0.03 K/uL (0-0.2); Basophils % (auto) 0.6 %; Immature Granulocytes # (auto) 0.05 K/uL (0.00-0.02); Lymphocytes % (auto) 18.3 %; Monocytes # (auto) 0.69 K/uL (0.11-0.59); Neutrophils # (auto) 3.25 K/uL (1.4-6.5); Neutrophils % (auto) 66.1 %
[2020-02-25 07:07] LABS: Albumin Level 2.7 gm/dl (3.4-5.0); BUN Creatinine Ratio 38.1 (10-20); Calcium 8.2 mg/dl (8.5-10.1); Creatinine Clr Calc Pharmacy 43.7 ml/min; Est GFR (Non-African American) 52.6; Potassium 4.3 mmol/L (3.5-5.1)
[2020-02-25 07:10] LABS: Albumin Globulin Ratio 0.6 (0.9-2); Bilirubin,Total 0.6 mg/dl (0.2-1); Globulin 4.2 gm/dl (2.5-4.0); Total Protein 6.9 gm/dl (6.4-8.2)
[2020-02-25] MEDS: ATENOLOL 50 MG TABLET PO SCH (08:44)
[2020-02-25] MEDS: allopurinoL 100 MG TAB PO SCH (08:44)
[2020-02-25] MEDS: ASPIRIN 81 MG ECTAB PO SCH (08:45)
[2020-02-25] MEDS: amLODIPine BESYLATE 5 MG TAB PO SCH (08:45)
[2020-02-25] MEDS: INSULIN GLARGINE SOLOSTAR 100 UNITS/ML 3 ML PEN SC SCH ×2 (08:45→20:48)
[2020-02-25] MEDS: guaiFENesin 600 MG TABCR PO SCH ×2 (08:45→20:45)
[2020-02-25] MEDS: ROSUVASTATIN CALCIUM 20 MG TAB PO SCH (08:45)
[2020-02-25] MEDS: DEXAMETHASONE SOD PHOSPHATE 6 MG in SYRINGE 0 ML IV SCH (08:45)
[2020-02-25] MEDS: INSULIN ASPART 100 UNITS/ML 3 ML PEN SC SCH ×4 (08:46→20:48)
[2020-02-25] MEDS: REMDESIVIR 100 MG in SODIUM CHLORIDE 0.9% 230 ML IV SCH (11:35)
[2020-02-25] MEDS: SODIUM CHLORIDE 0.9% 10ML FLUSH IV SCH (12:44)
--- NOTE | 2020-02-25 15:51 | Hospitalist Progress Note ---
Date of Service February 25, 2020 Assessment & Plan (1) Acute renal failure: 71-year-old female with history of coronary disease, diabetes type 2, right leg DVT on Coumadin Presenting with status post mechanical fall Possibly related to dehydration in the setting of acute illness. Hold home lisinopril--> BP stable off Lisinopril Resolved (2) Pneumonia due to COVID-19 virus: Hospital day #3, patient O2 saturation remains 92-93%--> now 94% Remdesivir and Decadron day #3/5 renal and liver function stable Discussed convalescent plasma transfusion, patient declines INR 2.9 encouraged to use Spirometry, atrial flutter, Mucinex Monitor closely (3) Status post fall: Reports right shoulder pain Shoulder x-ray: No fractures Reports buttock pain CT scan findings reveal degenerative changes of the spine, pelvis and hips. Scheduled Tylenol with PRN Tramadol for now. PT/OT evaluation progress PT pending d/c recs OT recommend d/c home (4) Weakness: Likely multifactorial related to infectious illness and recent arthritis flare in her hip. improving (5) ASCVD (arteriosclerotic cardiovascular disease): Chronic CAD with history of balloon angioplasty without stenting in . No cardiac symptoms (6) Hypothyroidism: Cont levothyroxine per home regimen. (7) Diabetes type 2, uncontrolled: Last A1C was >10 in 2019 A1c 7.5 Pharmacy glycemic consult placed (8) Right leg DVT: Diagnosed August 2019. INR 2.9 hold coumadin today (9) HTN (hypertension): Blood pressure on the lower side hold home lisinopril and Maxzide in acute renal failure and continue amlodipine and atenolol. -- BP within acceptable range overall (10) Cirrhosis of liver: Cirrhotic morphology as seen on imaging. Further workup as outpatient as this is not an established diagnosis on her list. (11) DVT prophylaxis: INR 2.9 Full code per my discussion with her on admission Disposition PT and OT evaluation progress Admission and Anticipated Discharge Date Admission Date: February 22, 2020 Subjective ff up for COVID 19 pneumonia, etc seen resting in bed, comfortable states she feels fine, just tired no shortness of breath, minimal dry cough appetite is good Review of Systems Review of Systems: All systems reviewed & are unremarkable except as noted in Subjective Physical Exam Physical Exam: General- oriented x 3, not in distress, speaks in sentences with no effort or accessory muscle use Eyes- anicteric Neck- no JVD Lungs- clear breath sounds bilaterally very mild rales at the bases no wheezing Heart- normal rate, regular rhythm; no murmurs Abdomen- normal bowel sounds, nondistended, soft, nontender Extremities- no pretibial edema, no calf tenderness Neuro- alert, oriented x 3; no gross focal neurologic deficits Skin- warm & dry Results & Data Results & Data ([facility]) Vital Signs (Past 12 Hours) Vital Signs Temp Pulse Resp BP Pulse Ox 02/25/20 15:29 36.3 C L 59 L 21 115/71 94 02/25/20 06:56 36.4 C L 66 22 144/86 H 94 Laboratory Results Laboratory Results - last 24 hr 02/24/20 02/24/20 02/25/20 17:04 20:41 05:30 WBC RBC Hgb Hct MCV MCH MCHC RDW Std Deviation RDW Coeff of Allie Plt Count MPV Immature Gran % (Auto) Neut % (Auto) Lymph % (Auto) [place] % (Auto) Eos % (Auto) Baso % (Auto) Neut # (Auto) Lymph # (Auto) [place] # (Auto) Eos # (Auto) Baso # (Auto) Immature Gran # (Auto) PT 28.5 H INR 2.9 H Sodium Potassium Chloride Carbon Dioxide Anion Gap BUN Creatinine Est Cr Clr Drug Dosing Est GFR ( Amer) Est GFR (Non-Af Amer) BUN/Creatinine Ratio Glucose POC Glucose 220 H 242 H Calcium Total Bilirubin AST ALT Alkaline Phosphatase Total Protein Albumin Globulin Albumin/Globulin Ratio 02/25/20 02/25/20 02/25/20 05:30 05:30 08:09 WBC 4.92 RBC 4.43 Hgb 14.3 Hct 42.4 MCV 95.7 MCH 32.3 MCHC 33.7 RDW Std Deviation 49.7 H RDW Coeff of Allie 14.1 Plt Count 138 MPV 13.0 H Immature Gran % (Auto) 1.0 Neut % (Auto) 66.1 Lymph % (Auto) 18.3 [place] % (Auto) 14.0 Eos % (Auto) 0.0 Baso % (Auto) 0.6 Neut # (Auto) 3.25 Lymph # (Auto) 0.90 L [place] # (Auto) 0.69 H Eos # (Auto) 0.00 Baso # (Auto) 0.03 Immature Gran # (Auto) 0.05 H PT INR Sodium 139 Potassium 4.3 Chloride 112 H Carbon Dioxide 20 L Anion Gap 7.0 BUN 39 H Creatinine 1.02 Est Cr Clr Drug Dosing 43.7 Est GFR ( Amer) 61.0 Est GFR (Non-Af Amer) 52.6 BUN/Creatinine Ratio 38.1 H Glucose 177 H POC Glucose 146 H Calcium 8.2 L Total Bilirubin 0.6 AST 69 H ALT 43 Alkaline Phosphatase 77 Total Protein 6.9 Albumin 2.7 L Globulin 4.2 H Albumin/Globulin Ratio 0.6 L 02/25/20 12:06 WBC RBC Hgb Hct MCV MCH MCHC RDW Std Deviation RDW Coeff of Allie Plt Count MPV Immature Gran % (Auto) Neut % (Auto) Lymph % (Auto) [place] % (Auto) Eos % (Auto) Baso % (Auto) Neut # (Auto) Lymph # (Auto) [place] # (Auto) Eos # (Auto) Baso # (Auto) Immature Gran # (Auto) PT INR Sodium Potassium Chloride Carbon Dioxide Anion Gap BUN Creatinine Est Cr Clr Drug Dosing Est GFR ( Amer) Est GFR (Non-Af Amer) BUN/Creatinine Ratio Glucose POC Glucose 208 H Calcium Total Bilirubin AST ALT Alkaline Phosphatase Total Protein Albumin Globulin Albumin/Globulin Ratio
[2020-02-26] MEDS: LEVOTHYROXINE SODIUM 125 MCG TABLET PO SCH (05:50)
[2020-02-26] MEDS: ACETAMINOPHEN 325 MG TAB PO SCH ×3 (05:50→20:32)
[2020-02-26 07:36] LABS: Basophils # (auto) 0.03 K/uL (0-0.2); Basophils % (auto) 0.5 %; Hematocrit (blood only) 41.3 % (37-47); Immature Granulocytes # (auto) 0.14 K/uL (0.00-0.02); Immature Granulocytes % (auto) 2.1 %; Lymphocytes # (auto) 0.95 K/uL (1.2-3.4); Lymphocytes % (auto) 14.4 %; Mean Corpuscular Hgb Conc 33.9 g/dL (32-36); Mean Corpuscular Volume 94.5 fL (80-100); Mean Platelet Volume 12.5 fL (7.4-10.4); Monocytes # (auto) 0.65 K/uL (0.11-0.59); Monocytes % (auto) 9.8 %; Neutrophils # (auto) 4.83 K/uL (1.4-6.5); Neutrophils % (auto) 73.2 %; Nucleated RBC # (auto) 0.03 K/uL (0-0); Nucleated RBC % (auto) 0.4 %; Platelet Count 148 K/uL (130-400); RDW Standard Deviation 48.3 fL (36.4-46.3); Red Blood Count 4.37 M/uL (4.2-5.4)
[2020-02-26 07:54] LABS: INR 4.5 (0.9-1.1); Prothrombin Time 43.5 Seconds (9.0-12.0)
[2020-02-26 08:21] LABS: Albumin Level 2.5 gm/dl (3.4-5.0); Calcium 8.2 mg/dl (8.5-10.1); Creatinine Clr Calc Pharmacy 43.7 ml/min; Est GFR (Non-African American) 52.6; Potassium 4.1 mmol/L (3.5-5.1)
[2020-02-26 08:25] LABS: Albumin Globulin Ratio 0.6 (0.9-2); Bilirubin,Total 0.6 mg/dl (0.2-1); Globulin 3.9 gm/dl (2.5-4.0); Total Protein 6.4 gm/dl (6.4-8.2)
[2020-02-26] MEDS: INSULIN ASPART 100 UNITS/ML 3 ML PEN SC SCH ×4 (10:52→21:01)
[2020-02-26] MEDS: ROSUVASTATIN CALCIUM 20 MG TAB PO SCH (10:58)
[2020-02-26] MEDS: DEXAMETHASONE SOD PHOSPHATE 6 MG in SYRINGE 0 ML IV SCH (10:58)
[2020-02-26] MEDS: INSULIN GLARGINE SOLOSTAR 100 UNITS/ML 3 ML PEN SC SCH ×2 (10:59→21:01)
[2020-02-26] MEDS: ASPIRIN 81 MG ECTAB PO SCH (10:59)
[2020-02-26] MEDS: guaiFENesin 600 MG TABCR PO SCH ×2 (11:01→20:32)
[2020-02-26] MEDS: amLODIPine BESYLATE 5 MG TAB PO SCH (11:05)
[2020-02-26] MEDS: ATENOLOL 50 MG TABLET PO SCH (11:06)
[2020-02-26] MEDS: allopurinoL 100 MG TAB PO SCH (11:06)
[2020-02-26] MEDS: REMDESIVIR 100 MG in SODIUM CHLORIDE 0.9% 230 ML IV SCH (14:07)
[2020-02-26] MEDS: SODIUM CHLORIDE 0.9% 10ML FLUSH IV SCH (14:10)
--- NOTE | 2020-02-26 17:17 | Hospitalist Progress Note ---
Date of Service February 26, 2020 Assessment & Plan (1) Acute renal failure: 79-year-old female with history of coronary disease, diabetes type 2, right leg DVT on Coumadin Presenting with status post mechanical fall Possibly related to dehydration in the setting of acute illness. Hold home lisinopril--> BP stable off Lisinopril Resolved (2) Pneumonia due to COVID-19 virus: Hospital day #4, patient O2 saturation remains 92-93%--> now 94-95% Remdesivir and Decadron day #4/5 renal and liver function stable Discussed convalescent plasma transfusion, patient declines INR 4.5 encouraged to use Spirometry, atrial flutter, Mucinex Monitor closely (3) Status post fall: Reports right shoulder pain Shoulder x-ray: No fractures Reports buttock pain CT scan findings reveal degenerative changes of the spine, pelvis and hips. Scheduled Tylenol with PRN Tramadol for now. PT/OT evaluation progress PT pending d/c recs OT recommend d/c home denies hip pain now (4) Weakness: Likely multifactorial related to infectious illness and recent arthritis flare in her hip. improving (5) ASCVD (arteriosclerotic cardiovascular disease): Chronic CAD with history of balloon angioplasty without stenting in . No cardiac symptoms (6) Hypothyroidism: Cont levothyroxine per home regimen. (7) Diabetes type 2, uncontrolled: Last A1C was >10 in 2019 A1c 7.5 Pharmacy glycemic consult placed (8) Right leg DVT: Diagnosed August 2019. INR 4.5 hold coumadin today (9) HTN (hypertension): Blood pressure on the lower side hold home lisinopril and Maxzide in acute renal failure and continue amlodipine and atenolol. -- BP within acceptable range overall (10) Cirrhosis of liver: Cirrhotic morphology as seen on imaging. Further workup as outpatient as this is not an established diagnosis on her list. (11) DVT prophylaxis: INR 4.5 Full code per my discussion with her on admission Disposition PT and OT evaluation progress Admission and Anticipated Discharge Date Admission Date: February 22, 2020 Subjective ff up for COVID 19 pneumonia, etc seen resting in bed, comfortable oriented x 3, pleasant states she continues to feel fine, just tired no SOB, chest pain, palpitations, dizziness ambulated to the bathroom today, washed up, with assistance states she felt ok with ambulation in the room no other symptoms Review of Systems Review of Systems: All systems reviewed & are unremarkable except as noted in Subjective Physical Exam Physical Exam: General- oriented x 3, not in distress, speaks in sentences with no effort or accessory muscle use Eyes- anicteric Neck- no JVD Lungs- clear breath sounds bilaterally, no crackles no wheezing Heart- normal rate, regular rhythm; no murmurs Abdomen- normal bowel sounds, nondistended, soft, nontender Extremities- no pretibial edema, no calf tenderness Neuro- alert, oriented x 3; no gross focal neurologic deficits Skin- warm & dry Results & Data Results & Data ([facility]) Vital Signs (Past 12 Hours) Vital Signs Temp Pulse Resp BP Pulse Ox 02/26/20 15:50 36.3 C L 02/26/20 15:44 59 L 22 134/74 90 02/26/20 07:53 36.5 C 88 16 158/81 H 95 Laboratory Results Laboratory Results - last 24 hr 02/25/20 02/26/20 02/26/20 20:33 07:04 07:04 WBC 6.60 RBC 4.37 Hgb 14.0 Hct 41.3 MCV 94.5 MCH 32.0 MCHC 33.9 RDW Std Deviation 48.3 H RDW Coeff of Allie 14.0 Plt Count 148 MPV 12.5 H Immature Gran % (Auto) 2.1 Neut % (Auto) 73.2 Lymph % (Auto) 14.4 [place] % (Auto) 9.8 Eos % (Auto) 0.0 Baso % (Auto) 0.5 Neut # (Auto) 4.83 Lymph # (Auto) 0.95 L [place] # (Auto) 0.65 H Eos # (Auto) 0.00 Baso # (Auto) 0.03 Immature Gran # (Auto) 0.14 H Absolute Nucleated RBC 0.03 H Nucleated RBC % (auto) 0.4 PT 43.5 H INR 4.5 H Sodium Potassium Chloride Carbon Dioxide Anion Gap BUN Creatinine Est Cr Clr Drug Dosing Est GFR ( Amer) Est GFR (Non-Af Amer) BUN/Creatinine Ratio Glucose POC Glucose 218 H Calcium Total Bilirubin AST ALT Alkaline Phosphatase Total Protein Albumin Globulin Albumin/Globulin Ratio 02/26/20 02/26/20 02/26/20 07:04 08:07 11:42 WBC RBC Hgb Hct MCV MCH MCHC RDW Std Deviation RDW Coeff of Allie Plt Count MPV Immature Gran % (Auto) Neut % (Auto) Lymph % (Auto) [place] % (Auto) Eos % (Auto) Baso % (Auto) Neut # (Auto) Lymph # (Auto) [place] # (Auto) Eos # (Auto) Baso # (Auto) Immature Gran # (Auto) Absolute Nucleated RBC Nucleated RBC % (auto) PT INR Sodium 141 Potassium 4.1 Chloride 114 H Carbon Dioxide 19 L Anion Gap 9.0 BUN 36 H Creatinine 1.02 Est Cr Clr Drug Dosing 43.7 Est GFR ( Amer) 61.0 Est GFR (Non-Af Amer) 52.6 BUN/Creatinine Ratio 35.0 H Glucose 191 H POC Glucose 187 H 230 H Calcium 8.2 L Total Bilirubin 0.6 AST 75 H ALT 57 Alkaline Phosphatase 74 Total Protein 6.4 Albumin 2.5 L Globulin 3.9 Albumin/Globulin Ratio 0.6 L 02/26/20 17:01 WBC RBC Hgb Hct MCV MCH MCHC RDW Std Deviation RDW Coeff of Allie Plt Count MPV Immature Gran % (Auto) Neut % (Auto) Lymph % (Auto) [place] % (Auto) Eos % (Auto) Baso % (Auto) Neut # (Auto) Lymph # (Auto) [place] # (Auto) Eos # (Auto) Baso # (Auto) Immature Gran # (Auto) Absolute Nucleated RBC Nucleated RBC % (auto) PT INR Sodium Potassium Chloride Carbon Dioxide Anion Gap BUN Creatinine Est Cr Clr Drug Dosing Est GFR ( Amer) Est GFR (Non-Af Amer) BUN/Creatinine Ratio Glucose POC Glucose 197 H Calcium Total Bilirubin AST ALT Alkaline Phosphatase Total Protein Albumin Globulin Albumin/Globulin Ratio
[2020-02-27] MEDS: LEVOTHYROXINE SODIUM 125 MCG TABLET PO SCH (06:11)
[2020-02-27] MEDS: ACETAMINOPHEN 325 MG TAB PO SCH ×3 (06:11→20:35)
[2020-02-27 08:01] LABS: Basophils # (auto) 0.03 K/uL (0-0.2); Basophils % (auto) 0.4 %; Eosinophils # (auto) 0.01 K/uL (0-0.5); Eosinophils % (auto) 0.1 %; Hematocrit (blood only) 40.8 % (37-47); Hemoglobin 14.1 g/dL (12.0-16.0); Immature Granulocytes # (auto) 0.29 K/uL (0.00-0.02); Immature Granulocytes % (auto) 3.9 %; Lymphocytes # (auto) 1.52 K/uL (1.2-3.4); Lymphocytes % (auto) 20.6 %; Mean Corpuscular Hemoglobin 32.6 pg (25-34); Mean Corpuscular Hgb Conc 34.6 g/dL (32-36); Mean Corpuscular Volume 94.2 fL (80-100); Mean Platelet Volume 12.2 fL (7.4-10.4); Monocytes # (auto) 0.86 K/uL (0.11-0.59); Monocytes % (auto) 11.6 %; Neutrophils # (auto) 4.68 K/uL (1.4-6.5); Neutrophils % (auto) 63.4 %; Nucleated RBC # (auto) 0.07 K/uL (0-0); Nucleated RBC % (auto) 0.9 %; Platelet Count 166 K/uL (130-400); RDW Coefficient of Variation 14.1 % (11.5-14.5); RDW Standard Deviation 48.5 fL (36.4-46.3); Red Blood Count 4.33 M/uL (4.2-5.4); White Blood Count 7.39 K/uL (4.8-10.8)
[2020-02-27 08:34] LABS: Albumin Level 2.4 gm/dl (3.4-5.0); BUN Creatinine Ratio 39.9 (10-20); Calcium 8.4 mg/dl (8.5-10.1); Creatinine Clr Calc Pharmacy 54.4 ml/min; Est GFR (African American) 79.4; Est GFR (Non-African American) 68.5; Potassium 4.1 mmol/L (3.5-5.1)
[2020-02-27 08:36] LABS: Albumin Globulin Ratio 0.6 (0.9-2); Bilirubin,Total 0.7 mg/dl (0.2-1); Globulin 3.9 gm/dl (2.5-4.0); Total Protein 6.3 gm/dl (6.4-8.2)
[2020-02-27 09:05] LABS: INR 4.4 (0.9-1.1); Prothrombin Time 42.8 Seconds (9.0-12.0)
[2020-02-27] MEDS: INSULIN ASPART 100 UNITS/ML 3 ML PEN SC SCH ×4 (09:50→21:16)
[2020-02-27] MEDS: DEXAMETHASONE SOD PHOSPHATE 6 MG in SYRINGE 0 ML IV SCH (10:41)
[2020-02-27] MEDS: ROSUVASTATIN CALCIUM 20 MG TAB PO SCH (10:41)
[2020-02-27] MEDS: ASPIRIN 81 MG ECTAB PO SCH (10:43)
[2020-02-27] MEDS: guaiFENesin 600 MG TABCR PO SCH ×2 (10:44→20:35)
[2020-02-27] MEDS: INSULIN GLARGINE SOLOSTAR 100 UNITS/ML 3 ML PEN SC SCH ×2 (10:51→21:17)
[2020-02-27] MEDS: amLODIPine BESYLATE 5 MG TAB PO SCH (10:52)
[2020-02-27] MEDS: allopurinoL 100 MG TAB PO SCH (10:53)
[2020-02-27] MEDS: ATENOLOL 50 MG TABLET PO SCH (10:53)
[2020-02-27] MEDS: REMDESIVIR 100 MG in SODIUM CHLORIDE 0.9% 230 ML IV SCH (13:44)
[2020-02-27] MEDS: SODIUM CHLORIDE 0.9% 10ML FLUSH IV SCH (15:53)
--- NOTE | 2020-02-27 16:21 | Hospitalist Progress Note ---
Date of Service February 27, 2020 Assessment & Plan (1) Acute renal failure: 79-year-old female with history of coronary disease, diabetes type 2, right leg DVT on Coumadin Presenting with status post mechanical fall Possibly related to dehydration in the setting of acute illness. Hold home lisinopril--> BP stable off Lisinopril Resolved (2) Pneumonia due to COVID-19 virus: Hospital day #5, patient O2 saturation remains 92-93%--> now 94-95% Remdesivir and Decadron day #5/5 renal and liver function stable Discussed convalescent plasma transfusion, patient declines INR 4.4 encouraged to use Spirometry, atrial flutter, Mucinex Monitor closely (3) Status post fall: Reports right shoulder pain Shoulder x-ray: No fractures Reports buttock pain CT scan findings reveal degenerative changes of the spine, pelvis and hips. Scheduled Tylenol with PRN Tramadol for now. PT/OT evaluation progress: recommend to return home upon discharge denies hip pain now (4) Weakness: Likely multifactorial related to infectious illness and recent arthritis flare in her hip. improving (5) ASCVD (arteriosclerotic cardiovascular disease): Chronic CAD with history of balloon angioplasty without stenting in . No cardiac symptoms (6) Hypothyroidism: Cont levothyroxine per home regimen. (7) Diabetes type 2, uncontrolled: Last A1C was >10 in 2019 A1c 7.5 Pharmacy glycemic consult placed (8) Right leg DVT: Diagnosed August 2019. INR 4.4 hold coumadin today (9) HTN (hypertension): Blood pressure on the lower side hold home lisinopril and Maxzide in acute renal failure and continue amlodipine and atenolol. -- BP within acceptable range overall (10) Cirrhosis of liver: Cirrhotic morphology as seen on imaging. Further workup as outpatient as this is not an established diagnosis on her list. (11) DVT prophylaxis: INR 4.4 Full code per my discussion with her on admission Disposition PT and OT evaluation progress Admission and Anticipated Discharge Date Admission Date: February 22, 2020 Subjective ff up for COVID 19 pneumonia, fall etc seen resting in bed, comfortable watching TV states she feels fine overall no dyspnea very minimal cough no chest pain denies abdominal pain, nausea/vomiting no other symptoms Review of Systems Review of Systems: All systems reviewed & are unremarkable except as noted in Subjective Physical Exam Physical Exam: General- oriented x 3, not in distress, speaks in sentences with no effort or accessory muscle use Eyes- anicteric Neck- no JVD Lungs- clear BS BL no rales/wheezes Heart- normal rate, regular rhythm; no murmurs Abdomen- normal bowel sounds, nondistended, soft, nontender Extremities- no pretibial edema, no calf tenderness Neuro- alert, oriented x 3; no gross focal neurologic deficits Skin- warm & dry Results & Data Results & Data ([facility]) Vital Signs (Past 12 Hours) Vital Signs Temp Pulse Pulse Pulse Pulse Resp Resp 02/27/20 16:03 36.5 C 57 L 16 02/27/20 12:47 72 64 63 20 02/27/20 08:03 36.6 C 52 L 16 Resp Resp BP Pulse Ox Pulse Ox Pulse Ox Pulse Ox 02/27/20 16:03 129/72 95 02/27/20 12:47 20 16 94 94 96 02/27/20 08:03 162/80 H 93
[2020-02-28 02:02] LABS: Basophils # (auto) 0.02 K/uL (0-0.2); Basophils % (auto) 0.2 %; Eosinophils # (auto) 0.06 K/uL (0-0.5); Eosinophils % (auto) 0.7 %; Hematocrit (blood only) 40.7 % (37-47); Hemoglobin 13.7 g/dL (12.0-16.0); Immature Granulocytes # (auto) 0.39 K/uL (0.00-0.02); Immature Granulocytes % (auto) 4.7 %; Lymphocytes # (auto) 1.93 K/uL (1.2-3.4); Lymphocytes % (auto) 23.2 %; Mean Corpuscular Hemoglobin 32.2 pg (25-34); Mean Corpuscular Hgb Conc 33.7 g/dL (32-36); Mean Corpuscular Volume 95.8 fL (80-100); Mean Platelet Volume 12.4 fL (7.4-10.4); Monocytes # (auto) 0.81 K/uL (0.11-0.59); Monocytes % (auto) 9.7 %; Neutrophils % (auto) 61.5 %; Platelet Count 148 K/uL (130-400); RDW Coefficient of Variation 14.3 % (11.5-14.5); Red Blood Count 4.25 M/uL (4.2-5.4); White Blood Count 8.31 K/uL (4.8-10.8)
[2020-02-28 02:20] LABS: INR 3.9 (0.9-1.1); Prothrombin Time 38.2 Seconds (9.0-12.0)
--- NOTE | 2020-02-28 02:41 | Communication Note ---
Date of Service: February 28, 2020 Notified by RN of cardiac rate 50s. Patient asymptomatic. EKG as per my interpretation: Rate 55, sinus bradycardia, LAD, LAFB, T wave abnormality septal leads, low voltage AP Asymptomatic bradycardia Likely secondary to home beta-jairo dose Decrease maintenance beta-jairo dose for now. Will relay to AM provider.
[2020-02-28 02:50] LABS: Albumin Level 2.3 gm/dl (3.4-5.0); BUN Creatinine Ratio 35.2 (10-20); Calcium 7.8 mg/dl (8.5-10.1); Creatinine Clr Calc Pharmacy 50.7 ml/min; Est GFR (African American) 72.9; Est GFR (Non-African American) 62.9; Magnesium 2.5 mg/dl (1.8-2.4)
[2020-02-28 02:53] LABS: Albumin Globulin Ratio 0.7 (0.9-2); Bilirubin,Total 0.6 mg/dl (0.2-1); Globulin 3.5 gm/dl (2.5-4.0); Total Protein 5.8 gm/dl (6.4-8.2)
[2020-02-28 03:26] LABS: Potassium 3.9 mmol/L (3.5-5.1)
[2020-02-28] MEDS: LEVOTHYROXINE SODIUM 125 MCG TABLET PO SCH (06:28)
[2020-02-28] MEDS: ACETAMINOPHEN 325 MG TAB PO SCH ×2 (06:28→13:11)
[2020-02-28] MEDS ORDERED: ATENOLOL 25 MG TABLET PO SCH (09:00)
[2020-02-28] MEDS: INSULIN ASPART 100 UNITS/ML 3 ML PEN SC SCH ×2 (09:27→13:20)
[2020-02-28] MEDS: INSULIN GLARGINE SOLOSTAR 100 UNITS/ML 3 ML PEN SC SCH (09:28)
[2020-02-28] MEDS: DEXAMETHASONE SOD PHOSPHATE 6 MG in SYRINGE 0 ML IV SCH (09:41)
[2020-02-28] MEDS: ASPIRIN 81 MG ECTAB PO SCH (09:43)
[2020-02-28] MEDS: guaiFENesin 600 MG TABCR PO SCH (09:43)
[2020-02-28] MEDS: amLODIPine BESYLATE 5 MG TAB PO SCH (09:44)
[2020-02-28] MEDS: allopurinoL 100 MG TAB PO SCH (09:46)
[2020-02-28] MEDS: ROSUVASTATIN CALCIUM 20 MG TAB PO SCH (09:47)
--- NOTE | 2020-02-28 14:55 | Hospitalist Progress Note ---
Date of Service February 28, 2020 Assessment & Plan (1) Acute renal failure: 79-year-old female with history of coronary disease, diabetes type 2, right leg DVT on Coumadin Presenting with status post mechanical fall Possibly related to dehydration in the setting of acute illness. Hold home lisinopril--> BP stable off Lisinopril Resolved (2) Pneumonia due to COVID-19 virus: At one point, patient's O2 saturation was 92-93%; hence therapy for COVID- 19 virus was initiated Patient was given 5 days total of remdesivir and 6 days total of Decadron IV Renal and liver function remained stable Discuss convalescent plasma transfusion, patient has declined Patient did well throughout her treatment course Symptoms much better, oxygen saturation improved from 95 to 96% encouraged to continue using spirometry, atrial flutter, Mucinex Follow-up with PCP in 1 week Repeat renal function and liver function test and follow-up with PCP Repeat chest x-ray in 3 to 4 weeks (3) Status post fall: Reports right shoulder pain Shoulder x-ray: No fractures Reported buttock pain CT scan findings reveal degenerative changes of the spine, pelvis and hips. Scheduled Tylenol with PRN Tramadol given. PT/OT evaluation progress: recommend to return home upon discharge Hip pain and buttock pain resolved (4) Weakness: Likely multifactorial related to infectious illness and recent arthritis flare in her hip. improved PT and OT recommends patient may return home (5) ASCVD (arteriosclerotic cardiovascular disease): Chronic CAD with history of balloon angioplasty without stenting in . No cardiac symptoms (6) Hypothyroidism: Cont levothyroxine per home regimen. (7) Diabetes type 2, uncontrolled: Last A1C was >10 in 2019 A1c 7.5 Pharmacy glycemic consult placed (8) Right leg DVT: Diagnosed August 2019. INR 3.9 Hold Coumadin Coumadin clinic will be informed regarding patient's discharge, follow-up with Coumadin clinic this week (9) HTN (hypertension): Blood pressure on the lower side Held home lisinopril and Maxzide in light of acute renal failure continued amlodipine and atenolol. -- BP within acceptable range overall Hold lisinopril and Maxide Continue usual amlodipine and atenolol Follow-up blood pressure as an outpatient (10) Cirrhosis of liver: Cirrhotic morphology as seen on imaging. Further workup as outpatient as this is not an established diagnosis on her list. (11) DVT prophylaxis: INR 3.9 Disposition Discharge to home Follow-up with PCP in 1 week Follow-up with Coumadin clinic this week Admission and Anticipated Discharge Date Admission Date: February 22, 2020 Subjective Follow-up for COVID-19 pneumonia, etc. Seen resting in bed, sitting up, just finished lunch, in good spirits States she feels fine overall Shortness of breath, coughing, chest pain, sputum production Denies headache, dizziness, abdominal pain, nausea vomiting Appetite is good Ambulating with no problems States she feels much better overall States that she is ready for discharge today Review of Systems Review of Systems: All systems reviewed & are unremarkable except as noted in Subjective Physical Exam Physical Exam: General- oriented x 3, not in distress, speaks in sentences with no effort or accessory muscle use Eyes- anicteric Neck- no JVD Lungs- clear breath sounds, no wheezing, no crackles bilaterally Heart- normal rate, regular rhythm; no murmurs Abdomen- normal bowel sounds, nondistended, soft, nontender Extremities- no pretibial edema, no calf tenderness Neuro- alert, oriented x 3; no gross focal neurologic deficits Skin- warm & dry Results & Data Results & Data ([facility]) Vital Signs (Past 12 Hours) Vital Signs Temp Pulse Resp BP Pulse Ox 02/28/20 07:59 36.5 C 56 L 18 143/73 H 94 Laboratory Results Laboratory Results - last 24 hr 02/27/20 02/27/20 02/28/20 16:40 20:56 01:50 WBC 8.31 RBC 4.25 Hgb 13.7 Hct 40.7 MCV 95.8 MCH 32.2 MCHC 33.7 RDW Std Deviation 50.0 H RDW Coeff of Allie 14.3 Plt Count 148 MPV 12.4 H Immature Gran % (Auto) 4.7 Neut % (Auto) 61.5 Lymph % (Auto) 23.2 [place] % (Auto) 9.7 Eos % (Auto) 0.7 Baso % (Auto) 0.2 Neut # (Auto) 5.10 Lymph # (Auto) 1.93 [place] # (Auto) 0.81 H Eos # (Auto) 0.06 Baso # (Auto) 0.02 Immature Gran # (Auto) 0.39 H PT INR Sodium Potassium Chloride Carbon Dioxide Anion Gap BUN Creatinine Est Cr Clr Drug Dosing Est GFR ( Amer) Est GFR (Non-Af Amer) BUN/Creatinine Ratio Glucose POC Glucose 156 H 196 H Calcium Magnesium Total Bilirubin AST ALT Alkaline Phosphatase Total Protein Albumin Globulin Albumin/Globulin Ratio 02/28/20 02/28/20 02/28/20 01:50 01:50 08:02 WBC RBC Hgb Hct MCV MCH MCHC RDW Std Deviation RDW Coeff of Allie Plt Count MPV Immature Gran % (Auto) Neut % (Auto) Lymph % (Auto) [place] % (Auto) Eos % (Auto) Baso % (Auto) Neut # (Auto) Lymph # (Auto) [place] # (Auto) Eos # (Auto) Baso # (Auto) Immature Gran # (Auto) PT 38.2 H INR 3.9 H Sodium 143 Potassium 3.9 Chloride 114 H Carbon Dioxide 21 Anion Gap 8.0 BUN 31 H Creatinine 0.88 Est Cr Clr Drug Dosing 50.7 Est GFR ( Amer) 72.9 Est GFR (Non-Af Amer) 62.9 BUN/Creatinine Ratio 35.2 H Glucose 146 H POC Glucose 101 H Calcium 7.8 L Magnesium 2.5 H Total Bilirubin 0.6 AST 74 H ALT 67 Alkaline Phosphatase 76 Total Protein 5.8 L Albumin 2.3 L Globulin 3.5 Albumin/Globulin Ratio 0.7 L 02/28/20 12:06 WBC RBC Hgb Hct MCV MCH MCHC RDW Std Deviation RDW Coeff of Allie Plt Count MPV Immature Gran % (Auto) Neut % (Auto) Lymph % (Auto) [place] % (Auto) Eos % (Auto) Baso % (Auto) Neut # (Auto) Lymph # (Auto) [place] # (Auto) Eos # (Auto) Baso # (Auto) Immature Gran # (Auto) PT INR Sodium Potassium Chloride Carbon Dioxide Anion Gap BUN Creatinine Est Cr Clr Drug Dosing Est GFR ( Amer) Est GFR (Non-Af Amer) BUN/Creatinine Ratio Glucose POC Glucose 170 H Calcium Magnesium Total Bilirubin AST ALT Alkaline Phosphatase Total Protein Albumin Globulin Albumin/Globulin Ratio
--- NOTE | 2020-02-28 14:56 | Discharge Summary ---
Date of Service February 28, 2020 Admission HPI Per Admitting Provider Patient is a 79 yo F who presented to the ER with pain after a fall at home. She states that she has had right hip pain that has been constant for the past two weeks from arthritis. She reports trying to get up too quickly to answer the doorbell and went to grab the dry well in her house, subsequently falling and injuring her right shoulder and her left buttock. She has a bruise on her buttock and reports pain in both places. She has also been diagnosed with COVID pneumonia and is currently febrile and somewhat flushed. ER notes also reveal that she was referred from PCP office because of increased fatigue and dyspnea on exertion over the past two weeks. She denies GI symptoms. She does attend [employer] gatherings twice weekly including a couple of days ago. Admission Exam Per Admitting Provider CONSTITUTIONAL: WNWD, vitals as above, generally illl-appearing and flushed, febrile EYES: pupils are round and equal bilaterally, normal conjunctivae, no scleral icterus ENT: external ear and nose normal, oropharynx clear, MMM RESPIRATORY: coarse crackles heard on the left field, no wheezes or rales, no increased respiratory effort. Somewhat limited exam as patient was unable to move very much to help with exam. CARDIOVASCULAR: regular rate and rhythm, S1 and 2 heard without murmurs, gallops or rubs, no JVD, no peripheral edema GASTROINTESTINAL: soft, nontender, nondistended, no guarding MUSCULOSKELETAL: strength 5/5 throughout, head is normocephalic and atraumatic SKIN: warm and dry NEUROLOGIC: CN 2-12 grossly intact, no sensory deficit, normal cognition, normal speech, no tremor, no gross focal deficits. PSYCHIATRIC: alert cooperative and following instructions. Patient is a poor historian with questionably limited insight into her disease processes. Principal Diagnosis Status post fall, acute renal failure, COVID-19 pneumonia Discharge Exam General- oriented x 3, not in distress, speaks in sentences with no effort or accessory muscle use Eyes- anicteric Neck- no JVD Lungs- clear breath sounds, no wheezing, no crackles bilaterally Heart- normal rate, regular rhythm; no murmurs Abdomen- normal bowel sounds, nondistended, soft, nontender Extremities- no pretibial edema, no calf tenderness Neuro- alert, oriented x 3; no gross focal neurologic deficits Skin- warm & dry Discharge Data Allergies Allergy/AdvReac Type Severity Reaction Status Date / Time aspirin AdvReac Unknown bruising Verified 02/22/20 17:40 Consultations 02/22/20 17:25 ED Decision to Admit Stat 02/22/20 19:54 Consult Case Management - Discharge Planning Routine Ordered Studies Chest x-ray: FINDINGS: Cardiac silhouette remains enlarged. There are surgical clips within the left breast. No pneumothorax. No pleural effusions. Hazy appearance to the bilateral lower lung zones. Mild diffuse interstitial thickening. IMPRESSION: Progressive hazy appearance to the bilateral lower lung zones which could represent atelectasis or a viral pneumonia. 02/22/20 16:26 CT abd pelvis wo con Stat FINDINGS: Cardiomegaly with coronary artery calcifications. Partially imaged bibasilar groundglass opacities. There is no pneumatosis or pneumoperitoneum. Study is limited secondary to respiratory motion and lack of contrast. The unenhanced spleen, adrenal glands and mildly atrophic pancreas are unremarkable. Mild hepatic steatosis. Marginal nodularity of the liver suggestive of cirrhosis. No ascites. Probable cyst of the right hepatic lobe, 1.6 cm. Mild layering cholelithiasis. No CT evidence of acute cholecystitis. 3.6 cm renal sinus cyst on the right. No renal or ureteral calculi or obstructive uropathy identified. Unremarkable urinary bladder. Uterus appears surgically absent. No adnexal mass lesion. Calcified plaque of the abdominal aorta without aneurysm. There is no adenopathy. No bowel obstruction. Colonic diverticulosis. Wall thickening of the sigmoid colon is suggestive of chronic diverticular disease. No significant pericolonic stranding. Noninflamed appendix. Tiny fat filled periumbilical hernia. Degenerative changes of the spine, pelvis and hips. IMPRESSION: 1. Colonic diverticulosis. Mild circumferential wall thickening of the sigmoid colon is likely secondary to chronic diverticular disease. No definite CT evidence of acute diverticulitis. 2. No bowel obstruction or pneumoperitoneum. 3. Hepatic steatosis with cirrhotic morphology of the liver. 4. Bibasilar groundglass opacities are suspicious for viral pneumonia. 5. Additional findings as above. Hospital Course (1) Acute renal failure: 79-year-old female with history of coronary disease, diabetes type 2, right leg DVT on Coumadin Presenting with status post mechanical fall Possibly related to dehydration in the setting of acute illness. Held home lisinopril--> BP stable off Lisinopril Resolved (2) Pneumonia due to COVID-19 virus: At one point, patient's O2 saturation was 92-93%; hence therapy for COVID- 19 virus was initiated Patient was given 5 days total of remdesivir and 6 days total of Decadron IV Renal and liver function remained stable Discuss convalescent plasma transfusion, patient has declined Patient did well throughout her treatment course Symptoms much better, oxygen saturation improved from 95 to 96% encouraged to continue using spirometry, atrial flutter, Mucinex Follow-up with PCP in 1 week Repeat renal function and liver function test on follow-up with PCP Repeat chest x-ray in 3 to 4 weeks (3) Status post fall: Reports right shoulder pain Shoulder x-ray: No fractures Reported buttock pain CT scan findings reveal degenerative changes of the spine, pelvis and hips. S cheduled Tylenol with PRN Tramadol given. PT/OT evaluation progress: recommend to return home upon discharge Hip pain and buttock pain resolved (4) Weakness: Likely multifactorial related to infectious illness and recent arthritis flare in her hip. improved PT and OT recommends patient may return home (5) ASCVD (arteriosclerotic cardiovascular disease): Chronic CAD with history of balloon angioplasty without stenting in . No cardiac symptoms (6) Hypothyroidism: Cont levothyroxine per home regimen. (7) Diabetes type 2, uncontrolled: Last A1C was >10 in 2019 A1c 7.5 Pharmacy glycemic consult placed (8) Right leg DVT: Diagnosed August 2019. INR 3.9 Hold Coumadin Coumadin clinic will be informed regarding patient's discharge, follow-up with Coumadin clinic this week (9) HTN (hypertension): Blood pressure on the lower side Held home lisinopril and Maxzide in light of acute renal failure continued amlodipine and atenolol. -- BP within acceptable range overall Hold lisinopril and Maxide Continue usual amlodipine and atenolol Follow-up blood pressure as an outpatient (10) Cirrhosis of liver: Cirrhotic morphology as seen on imaging. Further workup as outpatient as this is not an established diagnosis on her list. (11) DVT prophylaxis: INR 3.9 Disposition Discharge to home Follow-up with PCP in 1 week Follow-up with Coumadin clinic this week Total Time Total Time Spent Total Time Spent (In Minutes): 45 minutes Discharge Plan Discharge Items Patient Disposition: Home - Self-Care Reason For Visit: ACUTE RENAL FAILURE, ABD. PAIN Discharge Diagnosis: S/P FALL DEHYDRATION COVID 19 PNEUMONIA Activity: Resume your previous activity Activity Comment: GRADUALLY TOLERATED, ALWAYS AMBULATE CAREFULLY Lifting: Wait until after follow-up appointment Exercise/Sports: Wait until after follow-up appointment Driving/Machine Use: NO DRIVING UNTIL RE-EVALUATED AND ALLOWED BY PRIMARY CARE PHYSICIAN Non-emergency contact: Primary Care Provider Call non-emergency contact if: you have any medication questions, your symptoms worsen, your pain is not controlled, your pain is worsening, your pain is unusual for you, your pain is concerning for you and you have a fever Follow-up/Referrals: Hollie Ferris DO [Primary Care Provider] - (Date & Time 03/03/2020 11:10 AM Provider Hollie Ferris DO [facility] PLEASE NOTE THAT THIS IS A TELEVIDEO APPOINTMENT. PLEASE FOLLOW THE INSTUCTIONS IN THE EMAIL YOU WILL RECEIVE. IF YOU WOULD LIKE TO CHANGE THE APPOINTMENT TO A TELEPHONE ONLY APPOINTMENT, PLEASE CALL ) Diet: Carb Consistent or DM2 and Heart Healthy Addtl Attending Provider Instructions: CONTINUE TO USE INCENTIVE SPIROMETRY FREQUENTLY AT HOME. AMBULATE FREQUENTLY TO AVOID BLOOD CLOTS. ALWAYS BE CAREFUL WHILE WALKING. HOLD COUMADIN FOR NOW. THE COUMADIN CLINIC WILL CALL YOU SOON FOR BLOOD WORK AND ADVICE ON WHEN TO RESUME YOUR COUMADIN. STOP TAKING LISINOPRIL AND TRIAMETERNE/HCTZ TO PREVENT LOW BLOOD PRESSURE. CALL PRIMARY CARE PHYSICIAN OR RETURN TO THE ER IMMEDIATELY IF WITH WORSENING OF SYMPTOMS, INCLUDING SHORTNESS OF BREATH, COUGH, FEVER/CHILLS, CHEST PAIN, LEG PAIN OR LEG SWELLING, PAIN ON THE SHOULDER OR HIPS. FOLLOW UP WITH PRIMARY CARE PHYSICIAN IN 1 WEEK. THE CLINIC WILL BE CALLING YOU SOON FOR THE APPOINTMENT SCHEDULE. YOU STILL NEED TO BE ISOLATED FOR AT LEAST 8 DAYS, AND UNTIL YOUR COUGHING HAS RESOLVED. DISCUSS WITH YOUR PRIMARY CARE PHYSICIAN WHEN YOU CAN STOP ISOLATING AT HOME. Home Isolation COVID-19 Instructions The following information about Home Isolation is from the CDC Website: https://www.cdc.gov/coronavirus/2019-ncov/hcp/zlfudbdx-owwoaeh-dvrowa.html Stay home except to get medical care People who are mildly ill with COVID-19 are able to isolate at home during their illness. You should restrict activities outside your home, except for getting medical care. Do not go to work, school, or public areas. Avoid using public transportation, ride-sharing, or taxis. Separate yourself from other people and animals in your home People: As much as possible, you should stay in a specific room and away from other people in your home. Also, you should use a separate bathroom, if available. Animals: You should restrict contact with pets and other animals while you are sick with COVID-19, just like you would around other people. Although there have not been reports of pets or other animals becoming sick with COVID-19, it is still recommended that people sick with COVID-19 limit contact with animals until more information is known about the virus. When possible, have another member of your household care for your animals while you are sick. If you are sick with COVID-19, avoid contact with your pet, including petting, snuggling, being kissed or licked, and sharing food. If you must care for your pet or be around animals while you are sick, wash your hands before and after you interact with pets and wear a face mask. Call ahead before visiting your doctor If you have a medical appointment, call the healthcare provider and tell them that you have or may have COVID-19. This will help the healthcare providers office take steps to keep other people from getting infected or exposed. Wear a face mask You should wear a face mask when you are around other people (e.g., sharing a room or vehicle) or pets and before you enter a healthcare providers office. If you are not able to wear a face mask (for example, because it causes trouble breathing), then people who live with you should not stay in the same room with you, or they should wear a face mask if they enter your room. Cover your coughs and sneezes Cover your mouth and nose with a tissue when you cough or sneeze. Throw used tissues in a lined trash can. Immediately wash your hands with soap and water for at least 20 seconds or, if soap and water are not available, clean your hands with an alcohol-based hand pension administrator that contains at least 60% alcohol. Clean your hands often Wash your hands often with soap and water for at least 20 seconds, especially after blowing your nose, coughing, or sneezing; going to the bathroom; and before eating or preparing food. If soap and water are not readily available, use an alcohol-based hand pension administrator with at least 60% alcohol, covering all surfaces of your hands and rubbing them together until they feel dry. Soap and water are the best option if hands are visibly dirty. Avoid touching your eyes, nose, and mouth with unwashed hands. Avoid sharing personal household items You should not share dishes, drinking glasses, cups, eating utensils, towels, or bedding with other people or pets in your home. After using these items, they should be washed thoroughly with soap and water. Clean all high-touch surfaces everyday High touch surfaces include counters, tabletops, doorknobs, bathroom fixtures, toilets, phones, keyboards, tablets, and bedside tables. Also, clean any surfaces that may have blood, stool, or body fluids on them. Use a household cleaning spray or wipe, according to the label instructions. Labels contain instructions for safe and effective use of the cleaning product including precautions you should take when applying the product, such as wearing gloves and making sure you have good ventilation during use of the product. Monitor your symptoms Seek prompt medical attention if your illness is worsening (e.g., difficulty breathing).Beforeseeking care, call your healthcare provider and tell them that you have, or are being evaluated for, COVID-19. Put on a face mask before you enter the facility. These steps will help the healthcare providers office to keep other people in the office or waiting room from getting infected or exposed. Ask your healthcare provider to call the local or state health department. Persons who are placed under active monitoring or facilitated self- monitoring should follow instructions provided by their local health department or occupational health professionals, as appropriate. When working with your local health department check their available hours. If you have a medical emergency and need to call 911, notify the dispatch personnel that you have, or are being evaluated for COVID-19. If possible, put on a face mask before emergency medical services arrive. Discontinuing home isolation Patients with confirmed COVID-19 should remain under home isolation precautions until the risk of secondary transmission to others is thought to be low. The decision to discontinue home isolation precautions should be made on a [id number] basis, in consultation with healthcare providers and state and local health departments. Pending Studies at Discharge: No Studies:: BLOODWORK (INR) C/O COUMADIN CLINIC THIS COMING WEEK BLOODWORK (BASIC METABOLIC PROFILE AND LIVER FUNCTION TEST) ON FOLLOW UP WITH PRIMARY CARE PHYSICIAN Stand-Alone Forms: My [facility], Smoking Cessation Medications and DC Order Prescriptions: New guaifenesin [Mucinex] 600 mg Tablet Extended Release 12hr 600 mg PO Q12 Qty: 10 RF: 0 Continued amlodipine [Norvasc] 5 mg Tablet 5 mg PO DAILY RF: 0 allopurinol 100 mg Tablet 100 mg PO DAILY RF: 0 aspirin 81 mg Tablet,Delayed Release (Dr/Ec) 81 mg PO DAILY RF: 0 atenolol 50 mg Tablet 50 mg PO DAILY RF: 0 glipizide 5 mg tablet extended release 24hr 5 mg PO DAILY RF: 0 levothyroxine 125 mcg tablet 125 mcg PO DAILY RF: 0 fluticasone propionate 50 mcg/actuation [place],Suspension 2 spray INTRANASAL DAILY RF: 0 sodium chloride 0.65 % Aerosol,[place] 2 spray INTRANASAL UD PRN (Reason: Nasal Congestion) RF: 0 rosuvastatin 20 mg tablet 20 mg PO DAILY RF: 0 Jardiance 25 mg tablet 25 mg PO DAILY RF: 0 Discontinued triamterene-hydrochlorothiazid 37.5-25 mg Tablet 1 tab PO DAILY RF: 0 lisinopril 10 mg tablet 10 mg PO DAILY RF: 0 warfarin 5 mg tablet 5 mg PO TUTH@09 RF: 0 warfarin 5 mg Tablet 7.5 mg PO SUMOWEFRSA@09 RF: 0 Discharge Orders: Discharge Order (Routine); Ordered 02/28/20 Ordered By: Julio Herring/Other Patient Handouts: Managing Type 2 Diabetes Admission Data Admit Date/Time: 02/22/20 18:33 Attending Provider: Julio Napier Admit Provider: Kirsty Galvez Primary Care Provider: Hollie Ferris Other Providers: Kirsty Galvez ; [facility] Other Interventions: Discharge Summary Assessment (RN) Last Done: 02/28/20 15:35
--- NOTE | 2020-02-28 18:22 | Electrocardiogram Report ---
Test Reason : Blood Pressure : / mmHG Vent. Rate : 055 BPM Atrial Rate : 055 BPM P-R Int : 164 ms QRS Dur : 090 ms QT Int : 500 ms P-R-T Axes : 046 009 032 degrees QTc Int : 478 ms Poor data quality, interpretation may be adversely affected Sinus bradycardia Low voltage QRS Nonspecific ST abnormality Abnormal ECG When compared with ECG of 22-FEB-2020 15:46, No significant change Confirmed by Juan J Douglas ([id number]) on 02/28/2020 6:22:40 PM Referred By: REFERRED SELF Confirmed By:Juan J Douglas
== END 2020-02-28 16:40 | disposition home or self-care (01) | DRG 177 ==
LOC: ED 14:24 → 3E 18:33 → SUATTDRO 18:33 → 3E 19:27

== ENCOUNTER 2021-07-09 17:20 | Inpatient (IN) ==
[2021-07-09] MEDS ORDERED: SODIUM CHLORIDE 0.9% 1000ML 1,000 ML IV ONE (18:02)
[2021-07-09] MEDS ORDERED: CEFEPIME 2,000 MG/20 ML VIAL IV STA (18:16)
[2021-07-09] MEDS ORDERED: ACETAMINOPHEN 1000 MG/100 ML IV IV STA (18:16)
--- NOTE | 2021-07-09 18:29 | Emergency Department Note ---
Impression & Plan Weakness, Fever, Elevated liver enzymes, Acute cholecystitis, Diarrhea ED Provider Note NAME: SANJEEV MCFARLAND AGE: 81 SEX: F : 1940 ARRIVES VIA: Walk-In INFORMANT: [Patient] ED PROVIDER(S): [Kwame Upton MD] CHIEF COMPLAINT: Fever HISTORY OF PRESENT ILLNESS: The patient is an 81-year-old female who presents to the ER with 2 weeks of symptoms. She has had diarrhea and fatigue for 2 weeks and then today, developed a fever. She denies abdominal pain, cough or congestion or shortness of breath. No respiratory complaints. No urinary complaints. The patient denies any black or bloody stool. The patient was advised by her family to report to the ER today, she looked poorly today in particular compared to the last 2 weeks. REVIEW OF SYSTEMS: See HPI for pertinent positives and negatives. A total of ten systems were reviewed and were otherwise negative. PMHx/PSHx: See Below SOCIAL HISTORY: See Below. PHYSICAL EXAM: GENERAL: Patient is in no acute distress but appears mildly short of breath-she denies feeling dyspneic HEENT: No acute trauma, normocephalic atraumatic, mucous membranes moist, no nasal congestion, no scleral icterus. NECK: No stridor, no adenopathy, no meningismus, trachea is midline. LUNGS: Clear to auscultation bilaterally, no wheeze, no rhonchi, breath sounds equal. HEART: 2/6 systolic murmur, regular rate and rhythm. ABDOMEN: Soft, nontender, bowel sounds positive, no peritonitis. EXTREMITIES: No cyanosis, mild bilateral pedal edema, full range of motion of all the joints without pain or difficulty, no signs for acute trauma. NEUROLOGIC: Oriented x 3, no acute motor or sensory deficits, no focal weakness. SKIN: No rash, no jaundice, no diaphoresis. DIFFERENTIAL DIAGNOSIS: Sepsis, UTI, pneumonia, COVID-19, influenza, bacterial intestinal infection, viral intestinal infection, colitis, diverticulitis, metabolic abnormality, electrolyte abnormalities, cardiac sources, cellulitis, bacteremia, intracerebral event, toxicologic etiology, neurologic event, as well as other pathologies. EMERGENCY DEPARTMENT COURSE/PROCEDURES: ECG: Indication was possible sepsis. The ECG shows a normal sinus rhythm with a rate of 84. There is LVH present. There is potential old inferior and old anterior infarct. There is no ST elevation. The QTc is 477. No PVCs. Continuous Cardiac Monitoring: An order was placed for continuous cardiac monitoring. The monitor shows a rate of 90 with normal sinus rhythm. Critical Care Note: I have personally spent 39 minutes of critical care time in the direct management of this patient. This includes bedside care, interpretation of diagnostic studies, and testing, discussion with consultants, patient, and family members, and other required patient management activities. This 39 minutes is in excess of all separately billable procedures. MEDICAL DECISION MAKING: There is a mild leukocytosis, this would be consistent with infection. There is a normal hemoglobin and platelet count. INR is elevated, consistent with her C oumadin use. No renal failure. No concerning liver enzyme elevation. Lactic acid level is elevated consistent with infection and dehydration. There are elevated liver enzymes with a bilirubin of 3.8. Urinalysis does not show infection. Lyme disease testing was negative. COVID, influenza and RSV testing returned negative. Chest film does not show pneumonia, there may be a mild amount of CHF present versus some chronic parenchymal change. Abdominal and pelvis CT shows evidence for acute cholecystitis, no diverticulitis. Stool bio fire testing is pending as the patient has yet to provide a sample. On exam, the patient was febrile, she was not toxic. There was no peritonitis. Patient received IV Tylenol, IV cefepime, IV saline--1.5 L. She is currently resting comfortably. I did speak with general surgery, Dr. Dawn. No emergent surgical intervention is required. The patient requires further resuscitation and IV antibiotic therapy. She may need to see GI before any surgical intervention. I did speak with the patient, I spoke with case management, the on-call hospitalist has been consulted. In short, the patient appears to have an acute cholecystitis, this certainly explains her fever and other symptoms. She does understand the need for hospital stay. Past Med/Surg History Medical History ASCVD (arteriosclerotic cardiovascular disease) Diabetes type 2, uncontrolled Gout History of breast cancer Hyperlipidemia Hypertension Hypothyroidism Occlusion of left internal carotid artery TIA (transient ischemic attack) Surgical History History of angioplasty coronary ballon angioplasty 1990s History of breast surgery DCIS L 2008 History of carotid endarterectomy History of colonoscopy History of hysterectomy Family History Mother Breast cancer Social History Smoking Status: Never smoker Second Hand Exposure: No; Hx Alcohol Use: Yes Alcohol type: wine Hx Substance Use: No Preferred Language: German Communication Ability: Effective Parachute Panel Joiner Required: No Beliefs That Will Affect Care: None marital status: / Current Living Situation: Alone current occupational status: retired Feels Safe at Home: Yes Assistive Devices: None Allergies Allergies Allergy/AdvReac Type Severity Reaction Status Date / Time aspirin AdvReac Unknown bruising Verified 02/22/20 17:40 Home Meds Home Medications Medication Instructions Recorded Confirmed allopurinol 100 mg tablet 100 mg PO DAILY 03/21/18 03/01/20 aspirin 81 mg tablet,delayed 81 mg PO DAILY 03/21/18 03/01/20 release atenolol 50 mg tablet 50 mg PO DAILY 03/21/18 03/01/20 empagliflozin 25 mg tablet 25 mg PO DAILY 02/22/20 03/01/20 (Jardiance) fluticasone propionate 50 2 spray INTRANASAL DAILY 02/22/20 03/01/20 mcg/actuation nasal spray,suspension glipizide 5 mg tablet, extended 5 mg PO DAILY 02/22/20 03/01/20 release 24 hr levothyroxine 125 mcg tablet 125 mcg PO DAILY 02/22/20 03/01/20 rosuvastatin 20 mg tablet 20 mg PO DAILY 02/22/20 03/01/20 sodium chloride 0.65 % nasal spray 2 spray INTRANASAL UD PRN 02/22/20 03/01/20 aerosol aspirin 81 mg tablet,delayed 81 mg PO DAILY 07/10/21 07/10/21 release furosemide 40 mg tablet 40 mg PO DAILY 07/10/21 07/10/21 gabapentin 100 mg capsule 100 mg PO TID PRN 07/10/21 07/10/21 lisinopril 5 mg tablet 5 mg PO DAILY 07/10/21 07/10/21 warfarin 5 mg tablet 5 mg PO DIRECTED 07/10/21 07/10/21 Previous Rx's Medication Instructions Recorded guaifenesin 600 mg tablet, 600 mg PO Q12 #10 tab 02/27/20 extended release 12 hr (Mucinex) acetaminophen 325 mg tablet 650 mg PO Q4H PRN #20 tab 03/04/20 lidocaine 5 % topical patch 1 patch TRANSDERMAL QAM #15 ea 03/04/20 Results & Data (ED) Vital Signs Vital Signs - 24 hr 07/09/21 17:31 07/09/21 19:01 07/09/21 19:04 Temperature 38.0 C H Temperature Source Temporal Artery Scan Pulse Rate 90 88 Pulse Rate [Left Finger] 88 Pulse Rhythm Regular Regular Pulse Rhythm [Left Finger] Regular Pulse Strength Normal Pulse Strength [Left Finger] Normal Respiratory Rate 26 H 17 17 Respiratory Effort / Characteristics Non-Labored Spontaneous Non-Labored Spontaneous Respiratory Depth Normal Normal Respiratory Pattern Regular Blood Pressure 169/83 H Blood Pressure [Right Arm] Blood Pressure Mean 111 Blood Pressure Mean [Right Arm] Blood Pressure Position Sitting Pulse Oximetry 94 95 95 Oxygen Delivery Method Room Air Room Air Room Air Sepsis Recent Fever Within 48 Hours Yes Sepsis New/Unexplained Change in Mental Status No Sepsis Action Taken by Nursing No Action Required 07/09/21 20:00 07/09/21 20:46 07/09/21 22:42 Temperature 37.1 C 37.2 C Temperature Source Oral Oral Pulse Rate Pulse Rate [Left Finger] 92 H 79 Pulse Rhythm Pulse Rhythm [Left Finger] Pulse Strength Pulse Strength [Left Finger] Respiratory Rate 20 22 Respiratory Effort / Characteristics SOB on Exertion SOB on Exertion Respiratory Depth Respiratory Pattern Blood Pressure Blood Pressure [Right Arm] 159/85 H 117/65 Blood Pressure Mean Blood Pressure Mean [Right Arm] 109 82 Blood Pressure Position Pulse Oximetry 97 93 Oxygen Delivery Method Room Air Room Air Sepsis Recent Fever Within 48 Hours Sepsis New/Unexplained Change in Mental Status Sepsis Action Taken by Nursing 07/10/21 00:00 Temperature Temperature Source Pulse Rate Pulse Rate [Left Finger] 87 Pulse Rhythm Pulse Rhythm [Left Finger] Regular Pulse Strength Pulse Strength [Left Finger] Respiratory Rate 18 Respiratory Effort / Characteristics Respiratory Depth Respiratory Pattern Blood Pressure Blood Pressure [Right Arm] 123/68 Blood Pressure Mean Blood Pressure Mean [Right Arm] 86 Blood Pressure Position Pulse Oximetry 92 Oxygen Delivery Method Room Air Sepsis Recent Fever Within 48 Hours Sepsis New/Unexplained Change in Mental Status Sepsis Action Taken by [facility] Medications Current Medication List: was personally reviewed by me Laboratory Data Attestation: I reviewed the patient's lab results. Result diagrams: 07/09/21 18:56 07/09/21 18:56 Lab Results 07/09/21 07/09/21 07/09/21 Range/Units 18:50 18:50 18:56 WBC 11.94 H (4.8-10.8) K/uL RBC 4.72 (4.2-5.4) M/uL Hgb 15.7 (12.0-16.0) g/dL Hct 44.8 (37-47) % MCV 94.9 (80-100) fL MCH 33.3 (25-34) pg MCHC 35.0 (32-36) g/dL RDW Std Deviation 46.3 (36.4-46.3) fL RDW Coeff of Allie 13.4 (11.5-14.5) % Plt Count 131 (130-400) K/uL MPV 12.7 H (7.4-10.4) fL Immature Gran % (Auto) 0.2 % Neut % (Auto) 78.6 % Lymph % (Auto) 11.5 % [place] % (Auto) 9.3 % Eos % (Auto) 0.1 % Baso % (Auto) 0.3 % Neut # (Auto) 9.40 H (1.4-6.5) K/uL Lymph # (Auto) 1.37 (1.2-3.4) K/uL [place] # (Auto) 1.11 H (0.11-0.59) K/uL Eos # (Auto) 0.01 (0-0.5) K/uL Baso # (Auto) 0.03 (0-0.2) K/uL Immature Gran # (Auto) 0.02 (0.00-0.02) K/uL PT 38.5 H (9.0-12.0) Seconds INR 3.9 H (0.9-1.1) APTT 46.4 H* (21.0-31.0) Seconds PTT Ratio 1.7 Sodium (136-145) mmol/L Potassium (3.5-5.1) mmol/L Chloride (98-107) mmol/L Carbon Dioxide (21-32) mmol/L Anion Gap (3-11) BUN (6-23) mg/dl Creatinine (0.6-1.2) mg/dl Est Cr Clr Drug Dosing ml/min Est GFR ( Amer) ml/min Est GFR (Non-Af Amer) ml/min BUN/Creatinine Ratio (10-20) Glucose (70-99(Fasting)) mg/dl Lactate (0.4-2.0) mmol/L Calcium (8.5-10.1) mg/dl Magnesium (1.7-2.4) mg/dl Total Bilirubin (0.2-1.0) mg/dl AST (13-39) U/L ALT (7-52) U/L Alkaline Phosphatase (34-104) U/L Total Protein (6.0-8.3) gm/dl Albumin (3.4-5.0) gm/dl Globulin (2.5-4.0) gm/dl Albumin/Globulin Ratio (0.9-2) Urine Color Dark Yellow Urine Appearance Clear (Clear) Urine pH 6.5 (4.5-7.5) Ur Specific [place] 1.037 H (1.000-1.030) Urine Protein Negative (Negative) Urine Glucose (UA) 3+ H (Negative) Urine Ketones Trace H (Negative) Urine Blood Negative (Negative) Urine Nitrite Negative (Negative) Urine Bilirubin Negative (Negative) Urine Urobilinogen Positive H (Negative) Ur Leukocyte Esterase Negative (Negative) Lyme Disease IgG Ab (Negative) Lyme Disease IgM Ab (Negative) SARS-CoV-2 (PCR) (Negative) Influenza Type A (PCR) (Neg) Influenza Type B (PCR) (Neg) RSV (RT-PCR) (Neg) 07/09/21 07/09/21 07/09/21 Range/Units 18:56 18:56 18:56 WBC (4.8-10.8) K/uL RBC (4.2-5.4) M/uL Hgb (12.0-16.0) g/dL Hct (37-47) % MCV (80-100) fL MCH (25-34) pg MCHC (32-36) g/dL RDW Std Deviation (36.4-46.3) fL RDW Coeff of Allie (11.5-14.5) % Plt Count (130-400) K/uL MPV (7.4-10.4) fL Immature Gran % (Auto) % Neut % (Auto) % Lymph % (Auto) % [place] % (Auto) % Eos % (Auto) % Baso % (Auto) % Neut # (Auto) (1.4-6.5) K/uL Lymph # (Auto) (1.2-3.4) K/uL [place] # (Auto) (0.11-0.59) K/uL Eos # (Auto) (0-0.5) K/uL Baso # (Auto) (0-0.2) K/uL Immature Gran # (Auto) (0.00-0.02) K/uL PT (9.0-12.0) Seconds INR (0.9-1.1) APTT (21.0-31.0) Seconds PTT Ratio Sodium 137 (136-145) mmol/L Potassium 3.9 (3.5-5.1) mmol/L Chloride 101 (98-107) mmol/L Carbon Dioxide 25 (21-32) mmol/L Anion Gap 11 (3-11) BUN 13 (6-23) mg/dl Creatinine 0.95 (0.6-1.2) mg/dl Est Cr Clr Drug Dosing 45.3 ml/min Est GFR ( Amer) 65.6 ml/min Est GFR (Non-Af Amer) 56.6 ml/min BUN/Creatinine Ratio 13.7 (10-20) Glucose 281 H (70-99(Fasting)) mg/dl Lactate 2.8 H* (0.4-2.0) mmol/L Calcium 8.8 (8.5-10.1) mg/dl Magnesium 2.6 H (1.7-2.4) mg/dl Total Bilirubin 3.8 H (0.2-1.0) mg/dl AST 303 H (13-39) U/L ALT 168 H (7-52) U/L Alkaline Phosphatase 180 H (34-104) U/L Total Protein 6.8 (6.0-8.3) gm/dl Albumin 3.8 (3.4-5.0) gm/dl Globulin 3.0 (2.5-4.0) gm/dl Albumin/Globulin Ratio 1.3 (0.9-2) Urine Color Urine Appearance (Clear) Urine pH (4.5-7.5) Ur Specific [place] (1.000-1.030) Urine Protein (Negative) Urine Glucose (UA) (Negative) Urine Ketones (Negative) Urine Blood (Negative) Urine Nitrite (Negative) Urine Bilirubin (Negative) Urine Urobilinogen (Negative) Ur Leukocyte Esterase (Negative) Lyme Disease IgG Ab Negative (Negative) Lyme Disease IgM Ab Negative (Negative) SARS-CoV-2 (PCR) (Negative) Influenza Type A (PCR) (Neg) Influenza Type B (PCR) (Neg) RSV (RT-PCR) (Neg) 07/09/21 07/09/21 Range/Units 18:56 22:34 WBC (4.8-10.8) K/uL RBC (4.2-5.4) M/uL Hgb (12.0-16.0) g/dL Hct (37-47) % MCV (80-100) fL MCH (25-34) pg MCHC (32-36) g/dL RDW Std Deviation (36.4-46.3) fL RDW Coeff of Allie (11.5-14.5) % Plt Count (130-400) K/uL MPV (7.4-10.4) fL Immature Gran % (Auto) % Neut % (Auto) % Lymph % (Auto) % [place] % (Auto) % Eos % (Auto) % Baso % (Auto) % Neut # (Auto) (1.4-6.5) K/uL Lymph # (Auto) (1.2-3.4) K/uL [place] # (Auto) (0.11-0.59) K/uL Eos # (Auto) (0-0.5) K/uL Baso # (Auto) (0-0.2) K/uL Immature Gran # (Auto) (0.00-0.02) K/uL PT (9.0-12.0) Seconds INR (0.9-1.1) APTT (21.0-31.0) Seconds PTT Ratio Sodium (136-145) mmol/L Potassium (3.5-5.1) mmol/L Chloride (98-107) mmol/L Carbon Dioxide (21-32) mmol/L Anion Gap (3-11) BUN (6-23) mg/dl Creatinine (0.6-1.2) mg/dl Est Cr Clr Drug Dosing ml/min Est GFR ( Amer) ml/min Est GFR (Non-Af Amer) ml/min BUN/Creatinine Ratio (10-20) Glucose (70-99(Fasting)) mg/dl Lactate 2.3 H* (0.4-2.0) mmol/L Calcium (8.5-10.1) mg/dl Magnesium (1.7-2.4) mg/dl Total Bilirubin (0.2-1.0) mg/dl AST (13-39) U/L ALT (7-52) U/L Alkaline Phosphatase (34-104) U/L Total Protein (6.0-8.3) gm/dl Albumin (3.4-5.0) gm/dl Globulin (2.5-4.0) gm/dl Albumin/Globulin Ratio (0.9-2) Urine Color Urine Appearance (Clear) Urine pH (4.5-7.5) Ur Specific [place] (1.000-1.030) Urine Protein (Negative) Urine Glucose (UA) (Negative) Urine Ketones (Negative) Urine Blood (Negative) Urine Nitrite (Negative) Urine Bilirubin (Negative) Urine Urobilinogen (Negative) Ur Leukocyte Esterase (Negative) Lyme Disease IgG Ab (Negative) Lyme Disease IgM Ab (Negative) SARS-CoV-2 (PCR) NEGATIVE (Negative) Influenza Type A (PCR) Negative (Neg) Influenza Type B (PCR) Negative (Neg) RSV (RT-PCR) Negative (Neg) Administered Medications Discontinued Medications Acetaminophen (Acetaminophen 1000 Mg/100 Ml Iv) 1,000 mg IV NOW STA Stop: 07/09/21 18:17 Last Admin: 07/09/21 19:41 Dose: 1,000 mg Documented by: [id number] Sodium Chloride (Nss 1000ml) 1,000 mls @ 999 mls/hr IV .Q1H1M ONE Stop: 07/09/21 19:02 Last Infusion: 07/09/21 21:33 Dose: 0 mls/hr Documented by: [id number] Admin: 07/09/21 19:41 Dose: 999 mls/hr Documented by: [id number] Cefepime HCl (Maxipime) 2,000 mg in 20 mls @ 5 mls/min IV NOW STA; Protocol Stop: 07/09/21 18:19 Last Admin: 07/09/21 19:41 Dose: 5 mls/min Documented by: [id number] Sodium Chloride (Nss 1000ml) 500 mls @ 999 mls/hr IV .Q31M ONE Stop: 07/10/21 00:13 Last Admin: 07/10/21 01:48 Dose: 999 mls/hr Documented by: [id number] Ioversol (Optiray 320 100ml) 94 ml IV ONCE ONE Stop: 07/09/21 20:15 Last Admin: 07/09/21 20:15 Dose: 94 ml Documented by: [id number] Imaging Data Radiologist's Impression: Chest X-Ray 07/09/21 17:36 XR chest 1V portable CLINICAL HISTORY: Fever TECHNIQUE: Single frontal radiograph of the chest was obtained. Comparison: Comparison is made to chest radiograph 03/01/2020 FINDINGS: No lines and tubes are seen. The cardiomediastinal silhouette is normal. Interval improvement in prominence of the vasculature. No evidence of pleural effusion or pneumothorax. IMPRESSION: No acute abnormality. Previously noted mild pulmonary edema has improved. ACT 112: Negative or not required by law. Electronically signed by: Dillan Camarillo M.D. 07/09/2021 6:45 PM Abdominal and pelvis CT with contrast: There is thickening and edema around the gallbladder wall concerning for acute cholecystitis. Gallbladder ultrasound recommended. The common bile duct is normal in size. No pancreatitis. No hydronephrosis. Diverticulosis without diverticulitis. Gallbladder ultrasound: There is thickening of the gallbladder wall with calculi and dependent sludge. No pericholecystic fluid. Negative ultrasonic Alberto sign. The common bile duct is normal in size. Discharge Plan Visit Data Chief Complaint: Fever Stated Complaint: fever 103, COVID TESTED 2 WKS AGO, NEGATIVE ED Provider: Kwame Upton Discharge Problem: Weakness, Fever, Elevated liver enzymes, Acute cholecystitis, Diarrhea Patient Disposition: Admitted As Inpatient Condition: Fair Forms Stand Alone Forms: My [facility] [employer] Prescriptions Prescriptions: No Action lidocaine 5 % Adhesive Patch,Medicated 1 patch transdermal QAM Qty: 15 RF: 0 acetaminophen 325 mg Tablet 650 mg PO Q4H PRN (Reason: pain) Qty: 20 RF: 0 allopurinol 100 mg Tablet 100 mg PO DAILY RF: 0 aspirin 81 mg Tablet,Delayed Release (Dr/Ec) 81 mg PO DAILY RF: 0 atenolol 50 mg Tablet 50 mg PO DAILY RF: 0 glipizide 5 mg tablet extended release 24hr 5 mg PO DAILY RF: 0 levothyroxine 125 mcg tablet 125 mcg PO DAILY RF: 0 fluticasone propionate 50 mcg/actuation [place],Suspension 2 spray INTRANASAL DAILY RF: 0 sodium chloride 0.65 % Aerosol,[place] 2 spray INTRANASAL UD PRN (Reason: Nasal Congestion) RF: 0 rosuvastatin 20 mg tablet 20 mg PO DAILY RF: 0 Jardiance 25 mg tablet 25 mg PO DAILY RF: 0 guaifenesin [Mucinex] 600 mg Tablet Extended Release 12hr 600 mg PO Q12 Qty: 10 RF: 0 furosemide 40 mg tablet 40 mg PO DAILY RF: 0 warfarin 5 mg tablet 5 mg PO DIRECTED RF: 0 lisinopril 5 mg tablet 5 mg PO DAILY RF: 0 gabapentin 100 mg capsule 100 mg PO TID PRN (Reason: Pain) RF: 0 aspirin [Aspir-81] 81 mg Tablet,Delayed Release (Dr/Ec) 81 mg PO DAILY RF: 0 Referrals Referrals: Adeline Stevenson [Non-Staff] -
--- NOTE | 2021-07-09 18:47 | XRay Report ---
XR chest 1V portable CLINICAL HISTORY: Fever TECHNIQUE: Single frontal radiograph of the chest was obtained. Comparison: Comparison is made to chest radiograph 03/01/2020 FINDINGS: No lines and tubes are seen. The cardiomediastinal silhouette is normal. Interval improvement in prom inence of the vasculature. No evidence of pleural effusion or pneumothorax. IMPRESSION: No acute abnormality. Previously noted mild pulmonary edema has improved. ACT 112: Negative or not required by law. Electronically signed by: Dillan Camarillo M.D. 07/09/2021 6:45 PM
[2021-07-09 19:25] LABS: Hematocrit (blood only) 44.8 % (37-47); Hemoglobin 15.7 g/dL (12.0-16.0); Mean Corpuscular Hemoglobin 33.3 pg (25-34); Mean Corpuscular Volume 94.9 fL (80-100); RDW Coefficient of Variation 13.4 % (11.5-14.5); RDW Standard Deviation 46.3 fL (36.4-46.3); Red Blood Count 4.72 M/uL (4.2-5.4); White Blood Count 11.94 K/uL (4.8-10.8)
[2021-07-09 19:27] LABS: Mean Platelet Volume 12.7 fL (7.4-10.4); Platelet Count 131 K/uL (130-400)
[2021-07-09 19:31] LABS: Albumin Globulin Ratio 1.3 (0.9-2); Albumin Level 3.8 gm/dl (3.4-5.0); BUN Creatinine Ratio 13.7 (10-20); Bilirubin,Total 3.8 mg/dl (0.2-1.0); Calcium 8.8 mg/dl (8.5-10.1); Creatinine Clr Calc Pharmacy 45.3 ml/min; Est GFR (African American) 65.6 ml/min; Est GFR (Non-African American) 56.6 ml/min; Magnesium 2.6 mg/dl (1.7-2.4); Potassium 3.9 mmol/L (3.5-5.1); Total Protein 6.8 gm/dl (6.0-8.3)
[2021-07-09 19:38] LABS: Basophils # (auto) 0.03 K/uL (0-0.2); Basophils % (auto) 0.3 %; Eosinophils # (auto) 0.01 K/uL (0-0.5); Eosinophils % (auto) 0.1 %; Immature Granulocytes # (auto) 0.02 K/uL (0.00-0.02); Immature Granulocytes % (auto) 0.2 %; Lymphocytes # (auto) 1.37 K/uL (1.2-3.4); Lymphocytes % (auto) 11.5 %; Monocytes # (auto) 1.11 K/uL (0.11-0.59); Monocytes % (auto) 9.3 %; Neutrophils % (auto) 78.6 %
[2021-07-09 19:47] LABS: Influenza A virus by PCR Negative (Neg); Influenza B virus by PCR Negative (Neg); RSV by PCR Negative (Neg); SARS CoV2 RNA(COVID-19) InHosp NEGATIVE (Negative)
[2021-07-09 20:02] LABS: Lyme Ab IgG w/WB Rflx Negative (Negative); Lyme Ab IgM w/WB Rflx Negative (Negative)
[2021-07-09] MEDS ORDERED: OPTIRAY 320 100ml IV ONE (20:14)
[2021-07-09 20:17] LABS: Appearance Urine Clear (Clear); Bilirubin Urine Negative (Negative); Blood Urine Negative (Negative); Color Urine Dark Yellow; Glucose Urine UA 3+ (Negative); Ketones Urine Trace (Negative); Leukocyte Esterase Urine Negative (Negative); Nitrite Urine Negative (Negative); Protein Urine Negative (Negative); Specific Gravity Urine 1.037 (1.000-1.030); Urobilinogen Urine Positive (Negative); pH Urine 6.5 (4.5-7.5)
[2021-07-09] MEDS ORDERED: SODIUM CHLORIDE 0.9% 1000ML 500 ML IV ONE (23:43)
[2021-07-10 00:37] LABS: INR 3.9 (0.9-1.1); Partial Thromboplastin Ratio 1.7; Prothrombin Time 38.5 Seconds (9.0-12.0)
[2021-07-10 00:42] LABS: Partial Thromboplastin Time 46.4 Seconds (21.0-31.0)
[2021-07-10] MEDS ORDERED: PHYTONADIONE 2.5 MG in DEXTROSE 5% 50 ML IV ONE (00:57)
[2021-07-10] MEDS ORDERED: SODIUM CHLORIDE 0.45 % 1,000 ML IV SCH (03:49)
[2021-07-10] MEDS ORDERED: HYDROmorphone INJ 0.5 MG/0.5 ML SYR IV PRN (03:49)
[2021-07-10] MEDS ORDERED: PIPERACILL/TAZOBAC CONSULT ACTIVE PRN (03:49)
[2021-07-10] MEDS ORDERED: GABAPENTIN 100 MG CAP PO PRN (03:49)
[2021-07-10] MEDS ORDERED: ONDANSETRON INJ 2 MG/ML 2 ML VIAL IV PRN ×2 (03:49→14:31)
[2021-07-10] MEDS ORDERED: PIPERACILLIN/TAZOBACTAM 3.375 GM in DEXTROSE 5% 100 ML IV ONE (04:00)
[2021-07-10] MEDS: INSULIN ASPART PER UNIT SC SCH ×4 (06:00→21:06)
[2021-07-10] MEDS: LEVOTHYROXINE SODIUM 125 MCG TABLET PO SCH (06:04)
--- NOTE | 2021-07-10 07:19 | Ultrasound Report ---
ABDOMINAL ULTRASOUND, RIGHT UPPER QUADRANT HISTORY: Possible acute cholecystitis by CT. Follow-up. Fever.. COMPARISON: Abdomen and pelvis CT 07/09/2021. FINDINGS: Pancreas: The pancreatic tail is obscured by overlying bowel gas. The remaining portions of the pancr eas are within normal limits. Liver: Coarse echotexture within the liver demonstrating nodular contour consistent with cirrhosis. T he liver measures 19 cm in length. There is 1.9 cm cyst within the right hepatic lobe. Gallbladder: Diffuse gallbladder wall thickening/edema measuring up to 5 mm. A few small gallstones a nd a small amount of gallbladder sludge. However, there is a negative sonographic Alberto sign. CBD: 5 mm. Right kidney: No hydronephrosis. Peripelvic cysts are noted. IMPRESSION: 1. Diffuse gallbladder wall thickening/edema measuring approximately 5 mm. There are also a few small gallstones and a small amount of gallbladder sludge. This is likely due to the patient's cirrhosis. An acute cholecystitis is considered less likely but not entirely excluded. 2. Cirrhotic liver. ACT 112: Negative or not required by law. Electronically signed by: Saqib Abdi M.D. 07/10/2021 7:18 AM
[2021-07-10 07:29] LABS: INR 2.8 (0.9-1.1); Prothrombin Time 28.3 Seconds (9.0-12.0)
[2021-07-10 07:37] LABS: Hemoglobin 12.9 g/dL (12.0-16.0); Mean Corpuscular Hemoglobin 33.1 pg (25-34); Mean Corpuscular Hgb Conc 34.9 g/dL (32-36); Mean Corpuscular Volume 94.9 fL (80-100); Mean Platelet Volume 12.5 fL (7.4-10.4); Platelet Count 100 K/uL (130-400); RDW Coefficient of Variation 13.5 % (11.5-14.5); RDW Standard Deviation 46.7 fL (36.4-46.3); White Blood Count 7.35 K/uL (4.8-10.8)
--- NOTE | 2021-07-10 07:46 | CT Scan Report ---
ABDOMEN AND PELVIS CT WITH IV CONTRAST CT DOSE: 640.97 mGy.cm HISTORY: poss divertic or colitis, fever, diarrhea TECHNIQUE: Multiaxial CT images of the abdomen and pelvis were performed following the use of intrave nous contrast. A dose lowering technique was utilized adhering to the principles of ALARA. COMPARISON STUDY: Abdomen and pelvis CT 02/22/2020. FINDINGS: Mild dependent changes seen at the lung bases. No pneumoperitoneum. No pneumatosis. No susp icious lytic or blastic osseous lesions. The heart is mildly enlarged. Nodular contour to the liver c onsistent with cirrhosis. Is also mild hepatic steatosis. As a 1.9 cm cyst within the right hepatic l obe. Diffuse gallbladder wall thickening/edema measuring up to 8 mm. No adjacent inflammatory change. There are few punctate gallstones identified. The main portal vein is patent. The pancreas, spleen, and adrenal glands are unremarkable. Right peripelvic renal cysts are noted. No hydronephrosis. Calci fied plaque within the abdominal aorta. No retroperitoneal lymphadenopathy. The bladder is unremarkab le. Prior hysterectomy. No pelvic free fluid. Colonic diverticulosis. No evidence for acute diverticu litis. No bowel wall thickening or obstruction. Normal appendix. IMPRESSION: 1. Cirrhotic liver with associated steatosis. 2. Diffuse gallbladder wall thickening/edema with a few punctate gallstones. This is likely due to th e patient's cirrhosis. Acute cholecystitis is considered less likely but not entirely excluded. 3. Colonic diverticulosis. No evidence for acute diverticulitis. 4. Normal appendix. 5. No bowel wall thickening or obstruction. ACT 112: Negative or not required by law. Electronically signed by: Saqib Abdi M.D. 07/10/2021 7:44 AM
--- NOTE | 2021-07-10 07:50 | Magnetic Resonance Report ---
MR MRCP HISTORY: Diffuse abdominal pain. Diarrhea. cholecystitis, fever, elevated lft TECHNIQUE: MRCP of the abdomen was performed without contrast according to standard departmental prot ocol. COMPARISON STUDY: Abdomen and pelvis CT 07/09/2021. FINDINGS: Diffuse gallbladder wall thickening/edema measuring up to 7 mm. There are few punctate gall stones and gallbladder sludge. Cirrhotic liver with trace perihepatic ascites. This is a 1.9 cm right hepatic lobe cyst. The pancreas, adrenal glands, and spleen are unremarkable. There is a right parap elvic cysts. No hydronephrosis. No retroperitoneal lymphadenopathy. Normal caliber common bile duct a nd main pancreatic duct. No filling defects within the common bile duct to suggest choledocholithiasi s. IMPRESSION: 1. Diffuse gallbladder wall thickening/edema. There are few punctate gallstones and gallbladder sludg e. This is likely due to the patient's cirrhosis/edematous state. Acute cholecystitis could also have a similar appearance in the appropriate clinical setting. 2. Cirrhotic liver. 3. Normal caliber common bile duct. No filling defects to suggest choledocholithiasis. ACT 112: Negative or not required by law. Electronically signed by: Saqib Abdi M.D. 07/10/2021 7:48 AM
[2021-07-10 07:54] LABS: Albumin Level 2.9 gm/dl (3.4-5.0); BUN Creatinine Ratio 17.6 (10-20); Bilirubin Direct 0.9 mg/dl (0-0.2); Bilirubin,Total 2.4 mg/dl (0.2-1.0); Calcium 7.2 mg/dl (8.5-10.1); Est GFR (African American) 95.8 ml/min; Est GFR (Non-African American) 82.6 ml/min; Magnesium 2.2 mg/dl (1.7-2.4); Total Protein 5.2 gm/dl (6.0-8.3)
--- NOTE | 2021-07-10 07:55 | History and Physical Report ---
DATE OF ADMISSION: 07/10/2021. CHIEF COMPLAINT: Abdominal pain and diarrhea going on and off since last 2 weeks and had fever today. HISTORY OF PRESENT ILLNESS: An 81-year-old female with past medical history significant for type 2 diabetes, hyperlipidemia, hypothyroidism, atherosclerotic cardiovascular disease, occlusion of left carotid artery, atherosclerosis of aorta, hepatic cirrhosis, vitamin D deficiency, chronic kidney disease stage III, history of gout arthropathy, history of chronic diastolic congestive heart failure, history of thrombocytopenia, history of breast cancer, status post lumpectomy and radiation treatment and completed 7 years of tamoxifen, history of venous thrombosis and embolus, on Coumadin. Presents with abdominal pain going on for the last 2 weeks on and off; when pain comes it is 7/10 to 8/10 in severity. Also having watery diarrhea since the same time on and off. Today she also had fever which prompted her to come to the ER. Currently, resting comfortably and hemodynamically stable. She has had temperature spike of 38 in the ER. The patient denies any nausea or vomiting. Normal bladder movements. The pain is not associated with food intake. This pain is mostly in the lower abdomen as per the patient. Denies any chest pain. No shortness of breath, no cough, no headache, no blurred visions, no runny nose, no sore throat, no difficulty swallowing. Appetite is okay. Ambulates fine without support. Can ambulate one block without stopping. Lives alone, but daughter lives close by. ALLERGIES: ASPIRIN. PAST MEDICAL HISTORY: As mentioned above. PAST SURGICAL HISTORY: Single balloon angioplasty in 1989, breast surgery in 2008, colonoscopy, left carotid endarterectomy, total abdominal hysterectomy with removal of tubes. MEDICATIONS: The patient is on Tylenol p.r.n., allopurinol 100 mg p.o. daily, aspirin 81 mg p.o. daily, atenolol 50 mg p.o. daily, Flonase 2 sprays intranasal daily, Lasix 40 mg p.o. daily, gabapentin 100 mg p.o. t.i.d. p.r.n., glipizide 5 mg p.o. daily, Jardiance 25 mg p.o. daily, Ozempic 0.25 weekly, levothyroxine 125 mcg p.o. daily, lisinopril 5 mg p.o. daily, lovastatin 20 mg p.o. daily, Warfarin 7.5 mg on Mondays and Fridays and 5 mg on other days. FAMILY HISTORY: Significant for mother has breast cancer. SOCIAL HISTORY: . No smoking, no alcohol, no drug use. REVIEW OF SYSTEMS: As per HPI. Rest of review of systems is negative. PHYSICAL EXAMINATION: GENERAL: The patient is of moderate build, not in acute distress. VITAL SIGNS: Temperature T-max 38, pulse 87, respiratory rate 18, blood pressure 123/68, oxygen 92% on room air. HEENT: Pupils equal, round, and reactive to light. Oral mucosa dry. NECK: No JVD, no neck masses. CARDIOVASCULAR: S1 and S2 heard. Regular rate and rhythm. No murmur, no gallop. RESPIRATORY SYSTEM: Normal AP diameter. No accessory muscle use. No wheezing, no crackles. ABDOMEN: Soft. Bowel sounds are present, nontender, no distention. CENTRAL NERVOUS SYSTEM: Cranial nerves II through XII grossly intact, nonfocal. EXTREMITIES: Mild edema, no erythema seen. LABORATORY DATA: WBC 11.9, hemoglobin 44.8, platelets 131. PT 38.5, INR 3.9, APTT 46.4. Sodium 137, potassium 3.9, chloride 101, bicarb 25, BUN 13, creatinine 0.25, serum glucose 281. Lactate 2.3, calcium 8.8, magnesium 2.6, total bilirubin 0.8, AST 303, ALT 168, alkaline phosphatase 180. Urinalysis, +3 glucose. Lyme screen negative. SARS-CoV-2 PCR negative. Influenza A and B PCR negative. RSV PCR negative. IMAGING DATA: Chest x-ray, no acute findings. CT of abdomen and pelvis with contrast, on the preliminary report thickening and edema around the gallbladder wall concerning for acute cholecystitis, hepatic steatosis, mild nodular appearance of the liver concerning for cirrhosis. Common bile duct is normal in size. Advanced atrophy of the pancreas without evidence of pancreatitis. Gallbladder ultrasound results are pending. EKG: Normal sinus rhythm at a rate of 84, nonspecific ST changes. ASSESSMENT AND PLAN: This is an 81-year-old female who presents with abdominal pain on and off for 2 weeks and diarrhea going on for the last 2 weeks and found to have acute cholecystitis and elevated LFTs. 1. Acute cholecystitis, elevated LFTs: Abdominal pain going on for 2 weeks on and off. Surgery consulted. Started on antibiotics, IV Zosyn IV gentle fluids, IV Dilaudid p.r.n. Follow the gallbladder ultrasound report. We also ordered MRCP for any choledocholithiasis. Consult GI also. Will keep n.p.o. Closely monitor in the medical floor. 2. Elevated lactic acids: Will follow the repeat lactic acid levels. 3. History of deep venous thrombosis: On Coumadin, INR 3.9. We are holding Coumadin for planned procedures. Will give iv vitamin K 2.5mg to reverse the INR. 4. History of Diabetes: Will hold her home medication. Placed on Lantus 6 units daily and insulin sliding scale. Follow HbA1c level. Follow the blood sugars. Currently, n.p.o. 5. Hypothyroidism: Continue Synthroid. 6. Hyperlipidemia: Hold statin while the patient is currently having elevated LFTs. 7. Hypertension: Continue lisinopril, atenolol. Monitor the blood pressure. 8. History of gout: Continue allopurinol. 9. Chronic kidney disease stage III: Currently with a creatinine of 0.9. Will follow the labs. 10. Occlusion of left carotid artery: Status post carotid endarterectomy. 11. History of hepatic cirrhosis: Follow up with GI. 12. Chronic diastolic congestive heart failure: Holding the Lasix. Getting gentle fluids. Monitor for any volume overload. 13. History of breast cancer, status post lumpectomy, radiation, and completed 7 years of tamoxifen therapy. 14. History of deep venous thrombosis: Currently holding the Coumadin for procedures. Restart as soon as possible. As per previous H and Ps, she had a deep venous thrombosis in August of 2019. 15. History of coronary artery disease, status post balloon angioplasty without stenting in 1989. Continue her aspirin and beta jairo. Holding statin for elevated LFTs. 16. DVt px. Inr 3.9. Holding Coumadin. Scd's DISPOSITION: Closely monitor in the medical floor. PT, OT prior to discharge. Social service to help with discharge planning. Job ID: [id number] KACIE
[2021-07-10 07:58] LABS: Basophils # (auto) 0.03 K/uL (0-0.2); Basophils % (auto) 0.4 %; Eosinophils # (auto) 0.08 K/uL (0-0.5); Eosinophils % (auto) 1.1 %; Immature Granulocytes # (auto) 0.02 K/uL (0.00-0.02); Immature Granulocytes % (auto) 0.3 %; Lymphocytes # (auto) 1.83 K/uL (1.2-3.4); Lymphocytes % (auto) 24.9 %; Monocytes # (auto) 0.72 K/uL (0.11-0.59); Monocytes % (auto) 9.8 %; Neutrophils # (auto) 4.67 K/uL (1.4-6.5); Neutrophils % (auto) 63.5 %
--- NOTE | 2021-07-10 08:53 | Electrocardiogram Report ---
Test Reason : Blood Pressure : / mmHG Vent. Rate : 084 BPM Atrial Rate : 084 BPM P-R Int : 174 ms QRS Dur : 086 ms QT Int : 404 ms P-R-T Axes : 023 -19 -04 degrees QTc Int : 477 ms Normal sinus rhythm Left ventricular hypertrophy with repolarization abnormality Possible Old Anterior infarct Abnormal ECG When compared with ECG of 01-MAR-2020 16:15, Premature atrial complexes are no longer Present Nonspecific T wave abnormality, improved in Lateral leads Confirmed by Arley Costa ([id number]) on 07/10/2021 8:53:08 AM Referred By: REFERRED SELF Confirmed By:Arley Costa
[2021-07-10] MEDS: allopurinoL 100 MG TAB PO SCH (09:46)
[2021-07-10] MEDS: ASPIRIN 81 MG ECTAB PO SCH (09:46)
[2021-07-10] MEDS: ROSUVASTATIN CALCIUM 20 MG TAB PO SCH (09:47)
[2021-07-10] MEDS: FLUTICASONE PROPIONATE NA SPR 16 GM BTL SCH (09:48)
[2021-07-10] MEDS ORDERED: SODIUM CHLORIDE 0.9% 250 ML IV PRN (09:49)
[2021-07-10] MEDS: PIPERACILLIN/TAZOBACTAM 3.375 GM in DEXTROSE 5% 100 ML IV SCH ×2 (09:49→16:59)
[2021-07-10] MEDS: ATENOLOL 50 MG TABLET PO SCH (09:52)
[2021-07-10] MEDS: lisinopril 5 MG TAB PO SCH (09:52)
[2021-07-10] MEDS: INSULIN GLARGINE SOLOSTAR 100 UNITS/ML 3 ML PEN SC SCH (09:55)
[2021-07-10 10:19] LABS: Estimated Average Glucose 212 mg/dl
[2021-07-10] MEDS ORDERED: POTASSIUM CHLORIDE CRTAB 20 MEQ TABCR PO STA (10:48)
--- NOTE | 2021-07-10 10:49 | Hospitalist Progress Note ---
Date of Service July 10, 2021 Assessment & Plan (1) Abdominal pain: Plan: per Dr. Bowen's notes with addendum: ASSESSMENT AND PLAN: This is an 81-year-old female who presents with abdominal pain on and off for 2 weeks and diarrhea going on for the last 2 weeks and found to have acute cholecystitis and elevated LFTs. 1. Acute cholecystitis CT Abd/pelvis: 1. Cirrhotic liver with associated steatosis. 2. Diffuse gallbladder wall thickening/edema with a few punctate gallstones. This is likely due to the patient's cirrhosis. Acute cholecystitis is considered less likely but not entirely excluded. 3. Colonic diverticulosis. No evidence for acute diverticulitis. 4. Normal appendix. 5. No bowel wall thickening or obstruction. Liver US: 1. Diffuse gallbladder wall thickening/edema measuring approximately 5 mm. There are also a few small gallstones and a small amount of gallbladder sludge. This is likely due to the patient's cirrhosis. An acute cholecystitis is considered less likely but not entirely excluded. 2. Cirrhotic liver. GI consulted- plan for EUS and possible ERCP Gen Surg consulted- HIDA scan ordered continue NPO continue IV Zosyn IV fluids 2. Elevated lactic acid lactic acidosis resolved 3. History of deep venous thrombosis On Coumadin, INR 2.8 coumadin on hold FFP ordered 4. History of Diabetes hold her home medication Lantus 6 units daily and insulin sliding scale Follow HbA1c level. 5. Hypothyroidism: Continue Synthroid. 6. Hyperlipidemia: Hold statin while the patient is currently having elevated LFTs. 7. Hypertension: Continue lisinopril, atenolol. 8. History of gout: Continue allopurinol. 9. Chronic kidney disease stage III: Currently with a creatinine of 0.9 10. Occlusion of left carotid artery: Status post carotid endarterectomy. 11. History of hepatic cirrhosis: Follow up with GI. 12. Chronic diastolic congestive heart failure: Holding the Lasix. Getting gentle fluids. 13. History of breast cancer, status post lumpectomy, radiation, and completed 7 years of tamoxifen therapy. 14. History of deep venous thrombosis: Currently holding the Coumadin for procedures. Restart as soon as possible. As per previous H and Ps, she had a deep venous thrombosis in August of 2019. 15. History of coronary artery disease, status post balloon angioplasty without stenting in 1989. Continue her aspirin and beta jairo. Holding statin for elevated LFTs. DVT coumadin on hold DISPOSITION: pending will need PT/OT evaluation Admission and Anticipated Discharge Date Admission Date: July 10, 2021 Subjective ff up for acute cholecystitis, etc seen resting in bed, comfortable sitting up, comfortable states she feels tired has RLQ pain no chest pain, palpitations, dizziness no nausea/vomiting, abdominal pain no other symptoms Review of Systems Review of Systems: all noted and negative except for above Physical Exam Physical Exam: General- oriented x 3, not in distress, speaks in sentences with no effort or accessory muscle use Head- atraumatic Eyes- PERRL, EOMI, anicteric ENT- oropharynx clear Neck- supple, no JVD, no adenopathy, no thyromegaly; carotids +2/2, no bruits appreciated Lungs- clear to auscultation bilaterally, no rales/wheezes Heart- normal rate, regular rhythm; no murmur, no gallop, no rub appreciated Abdomen- normal bowel sounds, nondistended, soft, (+) mild RLQ tenderness, no masses or hepatosplenomegaly Extremities- no pretibial edema, no calf tenderness; peripheral pulses intact Neuro- alert, oriented x 3; CN 2-12 grossly intact; motor 5/5 bilaterally;sensation 100% on all extremities; no other gross focal neurologic deficits Skin- warm & dry Results & Data Results & Data ([facility]) Vital Signs (Past 12 Hours) Vital Signs Temp Pulse Pulse Resp BP BP Pulse Ox 07/10/21 09:51 82 168/7 H 07/10/21 07:46 36.8 C 59 L 16 149/69 H 92 07/10/21 03:50 36.8 C 79 20 152/70 H 92 07/10/21 03:34 36.5 C 74 20 149/7 H 94 07/10/21 03:19 78 20 143/69 H 92 07/10/21 03:04 74 20 146/77 H 91 07/10/21 02:45 37.1 C 84 20 138/77 92 07/10/21 02:40 77 18 143/62 H 96 07/10/21 00:00 87 18 123/68 92 all noted and reviewed including below
[2021-07-10] MEDS ORDERED: POTASSIUM CHLORIDE 20 MEQ/15 ML UDC PO STA (11:22)
[2021-07-10] MEDS ORDERED: D5NSS + 20MEQ KCL 20 MEQ/1,000 ML BAG IV SCH (11:30)
--- NOTE | 2021-07-10 11:33 | Surgery Consultation ---
Date of Consultation July 10, 2021 Assessment & Plan (1) Fever: (2) Elevated liver enzymes: (3) Cirrhosis of liver: (4) Diarrhea: (5) Abdominal pain: Olivia is an 81 year-old female with multiple comorbidities who presented to the emergency department due to fever, intermittent lower abdominal pain for 1 month, and diarrhea. CT scan of abdomen and pelvis, gallbladder US, and MRCP showing findings of cirrhosis and ? cholecystitis given gallbladder wall thickening/edema. Her INR was elevated as well as LFTS, t. bili, and mild leukocytosis. Subjectively her abdominal pain has been lower bilateral. Exam she is tender in RUQ and RLQ. Plan: GI consultation given elevated t. bili, d. bili and lfts Given her multiple medical comorbidities and cirrhosis, will order HIDA scan to rule out cystic duct obstruction as the gallbladder thickening/edema could be secondary to her cirrhosis. Given the history of DVT on Coumadin, aortic stenosis, cirrhosis, CKD, and uncontrolled diabetes, would like to avoid surgery unless absolutely necessary. Continue IV antibiotics Continue current medical management will continue to follow Dr. Dawn has seen and examined pt, please see addendum for further recommendations/plan. Supervising Physician Co-Signing Physician Notes I have seen and examined the patient personally and agree with the above assessment and plan. She most likely does have cholangitis/cholecystitis. She has a very significant past medical history and is incredibly high risk for surgery given her cirrhosis, aortic stenosis, history of DVT, uncontrolled diabetes. We will continue to follow. History of Present Illness Reason for Consultation: Acute cholecystitis Requesting Physician: Dr. Bowen Attending Physician: Julio Napier MD History of Present Illness Olivia is an 81 year-old female with history of aortic stenosis, TIA, GOUT, breast cancer, hypothyroidism, DM type 2, hypertension, hyperlipidemia, chronic diastolic heart failure, chronic kidney disease stage 3, history of DVT on coumadin who presented to emergency department last evening due to fever and 1 month history of lower abdominal pain off and on with associated diarrhea. States [place] went [place] and granddaughter told her she was not looking well. Took temperature at home which was 103. States she has had intermittent lower abdominal pain off and on for past month. Also having diarrhea. No blood in stools. No upper abdominal pain. No nausea or vomiting. Pain not worse with food intake. Has not ate much last 3 days. States she was supposed to see GI soon for the abdominal pain. Denies of any generalized itching or jaundice. States urine has been darker. Allergies Allergy/AdvReac Type Severity Reaction Status Date / Time aspirin AdvReac Unknown bruising Verified 02/22/20 17:40 Home Medications Medication Instructions Recorded Confirmed Type allopurinol 100 mg tablet 100 mg PO DAILY 03/21/18 03/01/20 History aspirin 81 mg tablet,delayed 81 mg PO DAILY 03/21/18 03/01/20 History release atenolol 50 mg tablet 50 mg PO DAILY 03/21/18 03/01/20 History empagliflozin 25 mg tablet 25 mg PO DAILY 02/22/20 03/01/20 History (Jardiance) fluticasone propionate 50 2 spray INTRANASAL DAILY 02/22/20 03/01/20 History mcg/actuation nasal spray,suspension glipizide 5 mg tablet, extended 5 mg PO DAILY 02/22/20 03/01/20 History release 24 hr levothyroxine 125 mcg tablet 125 mcg PO DAILY 02/22/20 03/01/20 History rosuvastatin 20 mg tablet 20 mg PO DAILY 02/22/20 03/01/20 History sodium chloride 0.65 % nasal spray 2 spray INTRANASAL UD PRN 02/22/20 03/01/20 History aerosol guaifenesin 600 mg tablet, 600 mg PO Q12 #10 tab 02/27/20 03/01/20 Rx extended release 12 hr (Mucinex) acetaminophen 325 mg tablet 650 mg PO Q4H PRN #20 tab 03/04/20 Rx lidocaine 5 % topical patch 1 patch TRANSDERMAL QAM #15 ea 03/04/20 Rx aspirin 81 mg tablet,delayed 81 mg PO DAILY 07/10/21 07/10/21 History release furosemide 40 mg tablet 40 mg PO DAILY 07/10/21 07/10/21 History gabapentin 100 mg capsule 100 mg PO TID PRN 07/10/21 07/10/21 History lisinopril 5 mg tablet 5 mg PO DAILY 07/10/21 07/10/21 History warfarin 5 mg tablet 5 mg PO DIRECTED 07/10/21 07/10/21 History Patient History Medical History ASCVD (arteriosclerotic cardiovascular disease) Diabetes type 2, uncontrolled Gout History of breast cancer Hyperlipidemia Hypertension Hypothyroidism Occlusion of left internal carotid artery TIA (transient ischemic attack) Surgical History History of angioplasty coronary ballon angioplasty 1990s History of breast surgery DCIS L 2009 History of carotid endarterectomy History of colonoscopy History of hysterectomy Family History Mother Breast cancer Social History Smoking Status: Never smoker Second Hand Exposure: No; Do You Dip or Chew Tobacco: No; Tobacco Cessation Education Requested by Patient: No Hx Alcohol Use: No Hx Substance Use: No Preferred Language: Monegasque Communication Ability: Effective Knife Setter Grinder Machine Required: No Beliefs That Will Affect Care: None marital status: / Current Living Situation: Alone current occupational status: retired Other Information That Helps Us Care for You: No Feels Safe at Home: Yes Safety Concerns: Feels Safe At This Time Assistive Devices: None Assistive Devices Comment: reading glasses Review of Systems Review of Systems: All systems reviewed & are unremarkable except as noted in HPI & below Physical Exam Constitutional: WD/WN, vitals as above + obese; no acute distress Neck: normal visual inspection and trachea midline Respiratory: normal respiratory effort, lungs clear to auscultation Cardiovascular: Rate/Rhythm: regular rate and regular rhythm Heart Sounds: normal S1, normal S2 and + murmur (systolic murmur) Gastrointestinal (Abdomen): Inspection/Auscultation: abdomen normal to inspection; abdomen not distended Percussion/Palpation: + abdomen tender (Right abdomen and RUQ) and abdomen soft; no guarding and abdomen not rigid Skin: no rashes, warm and dry no jaundice Psychiatric: A+Ox3, euthymic affect Results & Data ([facility]) Vital Signs (Past 12 Hours) Vital Signs Temp Pulse Pulse Resp BP BP Pulse Ox 07/10/21 09:51 82 168/7 H 07/10/21 07:46 36.8 C 59 L 16 149/69 H 92 07/10/21 03:50 36.8 C 79 20 152/70 H 92 07/10/21 03:34 36.5 C 74 20 149/7 H 94 07/10/21 03:19 78 20 143/69 H 92 07/10/21 03:04 74 20 146/77 H 91 07/10/21 02:45 37.1 C 84 20 138/77 92 07/10/21 02:40 77 18 143/62 H 96 07/10/21 00:00 87 18 123/68 92 Laboratory Results 07/10/21 07/10/21 07/10/21 Range/Units 11:17 07:10 07:10 WBC (4.8-10.8) K/uL RBC (4.2-5.4) M/uL Hgb (12.0-16.0) g/dL Hct (37-47) % MCV (80-100) fL MCH (25-34) pg MCHC (32-36) g/dL RDW Std Deviation (36.4-46.3) fL RDW Coeff of Allie (11.5-14.5) % Plt Count (130-400) K/uL MPV (7.4-10.4) fL Immature Gran % (Auto) % Neut % (Auto) % Lymph % (Auto) % [place] % (Auto) % Eos % (Auto) % Baso % (Auto) % Neut # (Auto) (1.4-6.5) K/uL Lymph # (Auto) (1.2-3.4) K/uL [place] # (Auto) (0.11-0.59) K/uL Eos # (Auto) (0-0.5) K/uL Baso # (Auto) (0-0.2) K/uL Immature Gran # (Auto) (0.00-0.02) K/uL PT (9.0-12.0) Seconds INR (0.9-1.1) APTT (21.0-31.0) Seconds PTT Ratio Sodium 135 L (136-145) mmol/L Potassium 3.0 L D (3.5-5.1) mmol/L Chloride 106 (98-107) mmol/L Carbon Dioxide 22 (21-32) mmol/L Anion Gap 7 (3-11) BUN 12 (6-23) mg/dl Creatinine 0.68 (0.6-1.2) mg/dl Est Cr Clr Drug Dosing 64.0 ml/min Est GFR ( Amer) 95.8 ml/min Est GFR (Non-Af Amer) 82.6 ml/min BUN/Creatinine Ratio 17.6 (10-20) Glucose 103 H (70-99(Fasting)) mg/dl POC Glucose (70-99) mg/dl Estimat Average Glucose 212 mg/dl Hemoglobin A1c 9.0 H (4.5-5.6) % Lactate (0.4-2.0) mmol/L Calcium 7.2 L (8.5-10.1) mg/dl Magnesium 2.2 (1.7-2.4) mg/dl Total Bilirubin 2.4 H (0.2-1.0) mg/dl Direct Bilirubin 0.9 H (0-0.2) mg/dl AST 135 H (13-39) U/L ALT 104 H (7-52) U/L Alkaline Phosphatase 130 H (34-104) U/L Total Protein 5.2 L D (6.0-8.3) gm/dl Albumin 2.9 L (3.4-5.0) gm/dl Globulin (2.5-4.0) gm/dl Albumin/Globulin Ratio (0.9-2) Urine Color Urine Appearance (Clear) Urine pH (4.5-7.5) Ur Specific [place] (1.000-1.030) Urine Protein (Negative) Urine Glucose (UA) (Negative) Urine Ketones (Negative) Urine Blood (Negative) Urine Nitrite (Negative) Urine Bilirubin (Negative) Urine Urobilinogen (Negative) Ur Leukocyte Esterase (Negative) Lyme Disease IgG Ab (Negative) Lyme Disease IgM Ab (Negative) SARS-CoV-2 (PCR) (Negative) Influenza Type A (PCR) (Neg) Influenza Type B (PCR) (Neg) RSV (RT-PCR) (Neg) Blood Type Pending Antibody Screen Pending 07/10/21 07/10/21 07/10/21 Range/Units 07:10 07:10 07:10 WBC 7.35 (4.8-10.8) K/uL RBC 3.90 L (4.2-5.4) M/uL Hgb 12.9 (12.0-16.0) g/dL Hct 37.0 (37-47) % MCV 94.9 (80-100) fL MCH 33.1 (25-34) pg MCHC 34.9 (32-36) g/dL RDW Std Deviation 46.7 H (36.4-46.3) fL RDW Coeff of Allie 13.5 (11.5-14.5) % Plt Count 100 L (130-400) K/uL MPV 12.5 H (7.4-10.4) fL Immature Gran % (Auto) 0.3 % Neut % (Auto) 63.5 % Lymph % (Auto) 24.9 % [place] % (Auto) 9.8 % Eos % (Auto) 1.1 % Baso % (Auto) 0.4 % Neut # (Auto) 4.67 (1.4-6.5) K/uL Lymph # (Auto) 1.83 (1.2-3.4) K/uL [place] # (Auto) 0.72 H (0.11-0.59) K/uL Eos # (Auto) 0.08 (0-0.5) K/uL Baso # (Auto) 0.03 (0-0.2) K/uL Immature Gran # (Auto) 0.02 (0.00-0.02) K/uL PT 28.3 H (9.0-12.0) Seconds INR 2.8 H (0.9-1.1) APTT (21.0-31.0) Seconds PTT Ratio Sodium (136-145) mmol/L Potassium (3.5-5.1) mmol/L Chloride (98-107) mmol/L Carbon Dioxide (21-32) mmol/L Anion Gap (3-11) BUN (6-23) mg/dl Creatinine (0.6-1.2) mg/dl Est Cr Clr Drug Dosing ml/min Est GFR ( Amer) ml/min Est GFR (Non-Af Amer) ml/min BUN/Creatinine Ratio (10-20) Glucose (70-99(Fasting)) mg/dl POC Glucose (70-99) mg/dl Estimat Average Glucose mg/dl Hemoglobin A1c (4.5-5.6) % Lactate 1.1 (0.4-2.0) mmol/L Calcium (8.5-10.1) mg/dl Magnesium (1.7-2.4) mg/dl Total Bilirubin (0.2-1.0) mg/dl Direct Bilirubin (0-0.2) mg/dl AST (13-39) U/L ALT (7-52) U/L Alkaline Phosphatase (34-104) U/L Total Protein (6.0-8.3) gm/dl Albumin (3.4-5.0) gm/dl Globulin (2.5-4.0) gm/dl Albumin/Globulin Ratio (0.9-2) Urine Color Urine Appearance (Clear) Urine pH (4.5-7.5) Ur Specific [place] (1.000-1.030) Urine Protein (Negative) Urine Glucose (UA) (Negative) Urine Ketones (Negative) Urine Blood (Negative) Urine Nitrite (Negative) Urine Bilirubin (Negative) Urine Urobilinogen (Negative) Ur Leukocyte Esterase (Negative) Lyme Disease IgG Ab (Negative) Lyme Disease IgM Ab (Negative) SARS-CoV-2 (PCR) (Negative) Influenza Type A (PCR) (Neg) Influenza Type B (PCR) (Neg) RSV (RT-PCR) (Neg) Blood Type Antibody Screen 07/10/21 07/09/21 07/09/21 Range/Units 05:57 22:34 18:56 WBC (4.8-10.8) K/uL RBC (4.2-5.4) M/uL Hgb (12.0-16.0) g/dL Hct (37-47) % MCV (80-100) fL MCH (25-34) pg MCHC (32-36) g/dL RDW Std Deviation (36.4-46.3) fL RDW Coeff of Allie (11.5-14.5) % Plt Count (130-400) K/uL MPV (7.4-10.4) fL Immature Gran % (Auto) % Neut % (Auto) % Lymph % (Auto) % [place] % (Auto) % Eos % (Auto) % Baso % (Auto) % Neut # (Auto) (1.4-6.5) K/uL Lymph # (Auto) (1.2-3.4) K/uL [place] # (Auto) (0.11-0.59) K/uL Eos # (Auto) (0-0.5) K/uL Baso # (Auto) (0-0.2) K/uL Immature Gran # (Auto) (0.00-0.02) K/uL PT (9.0-12.0) Seconds INR (0.9-1.1) APTT (21.0-31.0) Seconds PTT Ratio Sodium (136-145) mmol/L Potassium (3.5-5.1) mmol/L Chloride (98-107) mmol/L Carbon Dioxide (21-32) mmol/L Anion Gap (3-11) BUN (6-23) mg/dl Creatinine (0.6-1.2) mg/dl Est Cr Clr Drug Dosing ml/min Est GFR ( Amer) ml/min Est GFR (Non-Af Amer) ml/min BUN/Creatinine Ratio (10-20) Glucose (70-99(Fasting)) mg/dl POC Glucose 114 H (70-99) mg/dl Estimat Average Glucose mg/dl Hemoglobin A1c (4.5-5.6) % Lactate 2.3 H* (0.4-2.0) mmol/L Calcium (8.5-10.1) mg/dl Magnesium (1.7-2.4) mg/dl Total Bilirubin (0.2-1.0) mg/dl Direct Bilirubin (0-0.2) mg/dl AST (13-39) U/L ALT (7-52) U/L Alkaline Phosphatase (34-104) U/L Total Protein (6.0-8.3) gm/dl Albumin (3.4-5.0) gm/dl Globulin (2.5-4.0) gm/dl Albumin/Globulin Ratio (0.9-2) Urine Color Urine Appearance (Clear) Urine pH (4.5-7.5) Ur Specific [place] (1.000-1.030) Urine Protein (Negative) Urine Glucose (UA) (Negative) Urine Ketones (Negative) Urine Blood (Negative) Urine Nitrite (Negative) Urine Bilirubin (Negative) Urine Urobilinogen (Negative) Ur Leukocyte Esterase (Negative) Lyme Disease IgG Ab (Negative) Lyme Disease IgM Ab (Negative) SARS-CoV-2 (PCR) NEGATIVE (Negative) Influenza Type A (PCR) Negative (Neg) Influenza Type B (PCR) Negative (Neg) RSV (RT-PCR) Negative (Neg) Blood Type Antibody Screen 07/09/21 07/09/21 07/09/21 Range/Units 18:56 18:56 18:56 WBC (4.8-10.8) K/uL RBC (4.2-5.4) M/uL Hgb (12.0-16.0) g/dL Hct (37-47) % MCV (80-100) fL MCH (25-34) pg MCHC (32-36) g/dL RDW Std Deviation (36.4-46.3) fL RDW Coeff of Allie (11.5-14.5) % Plt Count (130-400) K/uL MPV (7.4-10.4) fL Immature Gran % (Auto) % Neut % (Auto) % Lymph % (Auto) % [place] % (Auto) % Eos % (Auto) % Baso % (Auto) % Neut # (Auto) (1.4-6.5) K/uL Lymph # (Auto) (1.2-3.4) K/uL [place] # (Auto) (0.11-0.59) K/uL Eos # (Auto) (0-0.5) K/uL Baso # (Auto) (0-0.2) K/uL Immature Gran # (Auto) (0.00-0.02) K/uL PT (9.0-12.0) Seconds INR (0.9-1.1) APTT (21.0-31.0) Seconds PTT Ratio Sodium 137 (136-145) mmol/L Potassium 3.9 (3.5-5.1) mmol/L Chloride 101 (98-107) mmol/L Carbon Dioxide 25 (21-32) mmol/L Anion Gap 11 (3-11) BUN 13 (6-23) mg/dl Creatinine 0.95 (0.6-1.2) mg/dl Est Cr Clr Drug Dosing 45.3 ml/min Est GFR ( Amer) 65.6 ml/min Est GFR (Non-Af Amer) 56.6 ml/min BUN/Creatinine Ratio 13.7 (10-20) Glucose 281 H (70-99(Fasting)) mg/dl POC Glucose (70-99) mg/dl Estimat Average Glucose mg/dl Hemoglobin A1c (4.5-5.6) % Lactate 2.8 H* (0.4-2.0) mmol/L Calcium 8.8 (8.5-10.1) mg/dl Magnesium 2.6 H (1.7-2.4) mg/dl Total Bilirubin 3.8 H (0.2-1.0) mg/dl Direct Bilirubin (0-0.2) mg/dl AST 303 H (13-39) U/L ALT 168 H (7-52) U/L Alkaline Phosphatase 180 H (34-104) U/L Total Protein 6.8 (6.0-8.3) gm/dl Albumin 3.8 (3.4-5.0) gm/dl Globulin 3.0 (2.5-4.0) gm/dl Albumin/Globulin Ratio 1.3 (0.9-2) Urine Color Urine Appearance (Clear) Urine pH (4.5-7.5) Ur Specific [place] (1.000-1.030) Urine Protein (Negative) Urine Glucose (UA) (Negative) Urine Ketones (Negative) Urine Blood (Negative) Urine Nitrite (Negative) Urine Bilirubin (Negative) Urine Urobilinogen (Negative) Ur Leukocyte Esterase (Negative) Lyme Disease IgG Ab Negative (Negative) Lyme Disease IgM Ab Negative (Negative) SARS-CoV-2 (PCR) (Negative) Influenza Type A (PCR) (Neg) Influenza Type B (PCR) (Neg) RSV (RT-PCR) (Neg) Blood Type Antibody Screen 07/09/21 07/09/21 07/09/21 Range/Units 18:56 18:50 18:50 WBC 11.94 H (4.8-10.8) K/uL RBC 4.72 (4.2-5.4) M/uL Hgb 15.7 (12.0-16.0) g/dL Hct 44.8 (37-47) % MCV 94.9 (80-100) fL MCH 33.3 (25-34) pg MCHC 35.0 (32-36) g/dL RDW Std Deviation 46.3 (36.4-46.3) fL RDW Coeff of Allie 13.4 (11.5-14.5) % Plt Count 131 (130-400) K/uL MPV 12.7 H (7.4-10.4) fL Immature Gran % (Auto) 0.2 % Neut % (Auto) 78.6 % Lymph % (Auto) 11.5 % [place] % (Auto) 9.3 % Eos % (Auto) 0.1 % Baso % (Auto) 0.3 % Neut # (Auto) 9.40 H (1.4-6.5) K/uL Lymph # (Auto) 1.37 (1.2-3.4) K/uL [place] # (Auto) 1.11 H (0.11-0.59) K/uL Eos # (Auto) 0.01 (0-0.5) K/uL Baso # (Auto) 0.03 (0-0.2) K/uL Immature Gran # (Auto) 0.02 (0.00-0.02) K/uL PT 38.5 H (9.0-12.0) Seconds INR 3.9 H (0.9-1.1) APTT 46.4 H* (21.0-31.0) Seconds PTT Ratio 1.7 Sodium (136-145) mmol/L Potassium (3.5-5.1) mmol/L Chloride (98-107) mmol/L Carbon Dioxide (21-32) mmol/L Anion Gap (3-11) BUN (6-23) mg/dl Creatinine (0.6-1.2) mg/dl Est Cr Clr Drug Dosing ml/min Est GFR ( Amer) ml/min Est GFR (Non-Af Amer) ml/min BUN/Creatinine Ratio (10-20) Glucose (70-99(Fasting)) mg/dl POC Glucose (70-99) mg/dl Estimat Average Glucose mg/dl Hemoglobin A1c (4.5-5.6) % Lactate (0.4-2.0) mmol/L Calcium (8.5-10.1) mg/dl Magnesium (1.7-2.4) mg/dl Total Bilirubin (0.2-1.0) mg/dl Direct Bilirubin (0-0.2) mg/dl AST (13-39) U/L ALT (7-52) U/L Alkaline Phosphatase (34-104) U/L Total Protein (6.0-8.3) gm/dl Albumin (3.4-5.0) gm/dl Globulin (2.5-4.0) gm/dl Albumin/Globulin Ratio (0.9-2) Urine Color Dark Yellow Urine Appearance Clear (Clear) Urine pH 6.5 (4.5-7.5) Ur Specific [place] 1.037 H (1.000-1.030) Urine Protein Negative (Negative) Urine Glucose (UA) 3+ H (Negative) Urine Ketones Trace H (Negative) Urine Blood Negative (Negative) Urine Nitrite Negative (Negative) Urine Bilirubin Negative (Negative) Urine Urobilinogen Positive H (Negative) Ur Leukocyte Esterase Negative (Negative) Lyme Disease IgG Ab (Negative) Lyme Disease IgM Ab (Negative) SARS-CoV-2 (PCR) (Negative) Influenza Type A (PCR) (Neg) Influenza Type B (PCR) (Neg) RSV (RT-PCR) (Neg) Blood Type Antibody Screen Diagnostic Findings Abdomen and pelvis CT with IV contrast FINDINGS: Mild dependent changes seen at the lung bases. No pneumoperitoneum. No pneumatosis. No suspicious lytic or blastic osseous lesions. The heart is mildly enlarged. Nodular contour to the liver consistent with cirrhosis. Is also mild hepatic steatosis. As a 1.9 cm cyst within the right hepatic lobe. Diffuse gallbladder wall thickening/edema measuring up to 8 mm. No adjacent inflammatory change. There are few punctate gallstones identified. The main portal vein is patent. The pancreas, spleen, and adrenal glands are unremarkable. Right peripelvic renal cysts are noted. No hydronephrosis. Calcified plaque within the abdominal aorta. No retroperitoneal lymphadenopathy. The bladder is unremarkable. Prior hysterectomy. No pelvic free fluid. Colonic diverticulosis. No evidence for acute diverticulitis. No bowel wall thickening or obstruction. Normal appendix. IMPRESSION: 1. Cirrhotic liver with associated steatosis. 2. Diffuse gallbladder wall thickening/edema with a few punctate gallstones. This is likely due to the patient's cirrhosis. Acute cholecystitis is considered less likely but not entirely excluded. 3. Colonic diverticulosis. No evidence for acute diverticulitis. 4. Normal appendix. 5. No bowel wall thickening or obstruction. ABDOMINAL ULTRASOUND, RIGHT UPPER QUADRANT HISTORY: Possible acute cholecystitis by CT. Follow-up. Fever.. COMPARISON: Abdomen and pelvis CT 07/09/2021. FINDINGS: Pancreas: The pancreatic tail is obscured by overlying bowel gas. The remaining portions of the pancreas are within normal limits. Liver: Coarse echotexture within the liver demonstrating nodular contour consistent with cirrhosis. The liver measures 19 cm in length. There is 1.9 cm cyst within the right hepatic lobe. Gallbladder: Diffuse gallbladder wall thickening/edema measuring up to 5 mm. A few small gallstones and a small amount of gallbladder sludge. However, there is a negative sonographic Alberto sign. CBD: 5 mm. Right kidney: No hydronephrosis. Peripelvic cysts are noted. IMPRESSION: 1. Diffuse gallbladder wall thickening/edema measuring approximately 5 mm. There are also a few small gallstones and a small amount of gallbladder sludge. This is likely due to the patient's cirrhosis. An acute cholecystitis is considered less likely but not entirely excluded. 2. Cirrhotic liver. MR MRCP HISTORY: Diffuse abdominal pain. Diarrhea. cholecystitis, fever, elevated lft TECHNIQUE: MRCP of the abdomen was performed without contrast according to standard departmental protocol. COMPARISON STUDY: Abdomen and pelvis CT 07/09/2021. FINDINGS: Diffuse gallbladder wall thickening/edema measuring up to 7 mm. There are few punctate gallstones and gallbladder sludge. Cirrhotic liver with trace perihepatic ascites. This is a 1.9 cm right hepatic lobe cyst. The pancreas, adrenal glands, and spleen are unremarkable. There is a right parapelvic cysts. No hydronephrosis. No retroperitoneal lymphadenopathy. Normal caliber common bile duct and main pancreatic duct. No filling defects within the common bile duct to suggest choledocholithiasis. IMPRESSION: 1. Diffuse gallbladder wall thickening/edema. There are few punctate gallstones and gallbladder sludge. This is likely due to the patient's cirrhosis/edematous state. Acute cholecystitis could also have a similar appearance in the appropriate clinical setting. 2. Cirrhotic liver. 3. Normal caliber common bile duct. No filling defects to suggest choledocholithiasis. (1) Fever Fever type: unspecified Qualified Code(s): R50.9 - Fever, unspecified (2) Diarrhea Diarrhea type: unspecified type Qualified Code(s): R19.7 - Diarrhea, unspecified
--- NOTE | 2021-07-10 12:35 | Gastrointestinal Consultation ---
Date of Consultation July 10, 2021 Assessment & Plan (1) Cirrhosis of liver: (2) Elevated liver enzymes: (3) Fever: (4) Abdominal pain: Symptoms of abd pain and presence of stones in the gallbladder, elevated WBC and LFTs are suggestive of cholangitis. 1. EUS, possible ERCP today by Dr. Quirino Dominguez. 2. Continue Zosyn. 3. Keep NPO. 4. Recheck K after this mornings supplementation 4. 2 U FFP, recheck INR after. 5. Eventual surgical referral for ? cholecystectomy. 6. For new cirrhosis, will need to establish in OP GI clinic for management including Q 6m imaging. Supervising Physician Co-Signing Physician Notes I saw and evalauted the patient. She presents with signs and symptoms suggestive of choledocholilthiasis. We are planning for further evaluation with EGD/eus and possible ERCP. PE: RUQ tender to palpation scleral icterus noted Impression: Patient presenting with signs and symptoms suggestive of choledocholithiasis. We are planning to proceed with upper endoscopy and endoscopic ultrasound today. If the patient is found to have evidence of CBD stones we will then proceed with ERCP for decompression. I discussed the risks and benefits of the procedure with the patient to include bleeding infection perforation pain, pancreatitis, failed biliary cannulation and need for follow- up studies.The patient's anticoagulation was reversed earlier today with vitamin K in addition to a unit of FFP with the second 1 being given during the procedure. We have discussed the increased risk of complications given the acute nature of her symptoms and presentation. History of Present Illness Reason for Consultation: cholecystitis, elevated lfts Requesting Physician: Dr. Bowen Attending Physician: Julio Napier MD History of Present Illness Ms. Olivia Kim is an 81 yr old female pt of Dr. Hollie Ferris w a hx of DM2, breast cancer, DVT (2019) on warfarin who presented to [facility] ED yesterday for diarrhea, fatigue, fever. She tells us this morning that she has had upper/mid abdomen pain off and on for about 2 weeks. On arrival, imaging w new cirrhosis, question gallbladder wall thickening. CT and MRCP w/o evidence of bile duct abnormalities though LFTs are improved compared to yesterday but remain elevated: T Bili 2.4, D Bili 0.9, AST 135, ALT 104, Alk Phos 130. She had leukocytosis at 11.9 yesterday , now 7 on Zosyn. She is awake, Alert oriented and provides a detailed history. On exam she is mildly tender in the upper abdomen. She is afebrile (though had temp 38.0 yesterday), hemodynamically stable. Allergies Allergy/AdvReac Type Severity Reaction Status Date / Time aspirin AdvReac Unknown bruising Verified 02/22/20 17:40 Home Medications Medication Instructions Recorded Confirmed Type allopurinol 100 mg tablet 100 mg PO DAILY 03/21/18 03/01/20 History aspirin 81 mg tablet,delayed 81 mg PO DAILY 03/21/18 03/01/20 History release atenolol 50 mg tablet 50 mg PO DAILY 03/21/18 03/01/20 History empagliflozin 25 mg tablet 25 mg PO DAILY 02/22/20 03/01/20 History (Jardiance) fluticasone propionate 50 2 spray INTRANASAL DAILY 02/22/20 03/01/20 History mcg/actuation nasal spray,suspension glipizide 5 mg tablet, extended 5 mg PO DAILY 02/22/20 03/01/20 History release 24 hr levothyroxine 125 mcg tablet 125 mcg PO DAILY 02/22/20 03/01/20 History rosuvastatin 20 mg tablet 20 mg PO DAILY 02/22/20 03/01/20 History sodium chloride 0.65 % nasal spray 2 spray INTRANASAL UD PRN 02/22/20 03/01/20 History aerosol guaifenesin 600 mg tablet, 600 mg PO Q12 #10 tab 02/27/20 03/01/20 Rx extended release 12 hr (Mucinex) acetaminophen 325 mg tablet 650 mg PO Q4H PRN #20 tab 03/04/20 Rx lidocaine 5 % topical patch 1 patch TRANSDERMAL QAM #15 ea 03/04/20 Rx aspirin 81 mg tablet,delayed 81 mg PO DAILY 07/10/21 07/10/21 History release furosemide 40 mg tablet 40 mg PO DAILY 07/10/21 07/10/21 History gabapentin 100 mg capsule 100 mg PO TID PRN 07/10/21 07/10/21 History lisinopril 5 mg tablet 5 mg PO DAILY 07/10/21 07/10/21 History warfarin 5 mg tablet 5 mg PO DIRECTED 07/10/21 07/10/21 History Patient History Medical History ASCVD (arteriosclerotic cardiovascular disease) Diabetes type 2, uncontrolled Gout History of breast cancer Hyperlipidemia Hypertension Hypothyroidism Occlusion of left internal carotid artery TIA (transient ischemic attack) Surgical History History of angioplasty coronary ballon angioplasty 1990s History of breast surgery DCIS L 2009 History of carotid endarterectomy History of colonoscopy History of hysterectomy Family History Mother Breast cancer Social History Smoking Status: Never smoker Second Hand Exposure: No; Do You Dip or Chew Tobacco: No; Tobacco Cessation Education Requested by Patient: No Hx Alcohol Use: No Hx Substance Use: No Preferred Language: Irish Communication Ability: Effective Pca Required: No Beliefs That Will Affect Care: None marital status: / Current Living Situation: Alone current occupational status: retired Other Information That Helps Us Care for You: No Feels Safe at Home: Yes Safety Concerns: Feels Safe At This Time Assistive Devices: None Assistive Devices Comment: reading glasses Review of Systems Review of Systems: ROS: Gen: + fever prior to arrival and to 38..0 yesterday, Denies weakness, weight lo ss Eyes: No eye redness, or pain, no recent vision changes Resp: No SOB, no cough Cardio: No palpitations/irregular beats, no chest pain GI: as per HPI, otherwise (-) : Denies pain on urination Skin: No jaundice, itching or new rashes Physical Exam Constitutional: well developed and cooperative obese Eyes: PERRL, conjunctivae normal, anicteric sclerae ENMT: external ear and nose normal, oropharynx normal Neck: trachea midline, no thyromegaly Respiratory: normal respiratory effort; no cough Auscultation: + crackles (Rt base) and + wheezes (Mild, scattered) Cardiovascular: RRR, no murmur, no edema Gastrointestinal (Abdomen): Inspection/Auscultation: abdomen normal to inspection and + hypoactive bowel sounds; abdomen not distended Percussion/Palpation: + abdomen tender (mild, upper, mid abd) and abdomen soft Skin: no rashes, warm and dry normal turgor no spider angiomas Neurologic: PERRL, EOMI, accommodation nl, no face palsy, no dysarthria awake; not confused Psychiatric: Orientation: alert, oriented x 3 and cooperative Lymphatic: no cervical or axillary lymphadenopathy Results & Data ([facility]) Vital Signs (Past 12 Hours) Vital Signs Temp Pulse Pulse Resp BP BP Pulse Ox 07/10/21 09:51 82 168/7 H 07/10/21 07:46 36.8 C 59 L 16 149/69 H 92 07/10/21 03:50 36.8 C 79 20 152/70 H 92 07/10/21 03:34 36.5 C 74 20 149/7 H 94 07/10/21 03:19 78 20 143/69 H 92 07/10/21 03:04 74 20 146/77 H 91 07/10/21 02:45 37.1 C 84 20 138/77 92 07/10/21 02:40 77 18 143/62 H 96 Laboratory Results WBC 7.3, Hb 12.9, Hct 37,Plts 100, PT 28, INR 2.8, Na 135, K 3.0, CL 106, CO2 22, BUN 18, Cr 0.94, glucose 92. Diagnostic Findings US 07/09: 1. Diffuse gallbladder wall thickening/edema measuring approximately 5 mm. There are also a few small gallstones and a small amount of gallbladder sludge. This is likely due to the patient's cirrhosis. An acute cholecystitis is considered less likely but not entirely excluded. 2. Cirrhotic liver CT 07/09: 1. Cirrhotic liver with associated steatosis. 2. Diffuse gallbladder wall thickening/edema with a few punctate gallstones. This is likely due to the patient's cirrhosis. Acute cholecystitis is considered less likely but not entirely excluded. 3. Colonic diverticulosis. No evidence for acute diverticulitis. 4. Normal appendix. 5. No bowel wall thickening or obstruction. MRCP 07/10: 1. Diffuse gallbladder wall thickening/edema. There are few punctate gallstones and gallbladder sludge. This is likely due to the patient's cirrhosis/edematous state. Acute cholecystitis could also have a similar appearance in the appropriate clinical setting. 2. Cirrhotic liver. 3. Normal caliber common bile duct. No filling defects to suggest choledocholithiasis. (1) Fever Fever type: unspecified Qualified Code(s): R50.9 - Fever, unspecified
[2021-07-10] MEDS ORDERED: PROPOFOL IV EMULSION 10 MG/ML 20 ML VIAL IV ONE (13:34)
[2021-07-10] MEDS ORDERED: ONDANSETRON INJ 2 MG/ML 2 ML VIAL ONE (13:34)
[2021-07-10] MEDS ORDERED: SUCCINYLCHOLINE CHLORIDE 20 MG/ML 10 ML VIAL IV ONE (13:34)
[2021-07-10 13:35] LABS: INR 2.1 (0.9-1.1); Prothrombin Time 21.9 Seconds (9.0-12.0)
[2021-07-10] MEDS ORDERED: fentaNYL citrate 100 MCG/2 ML VIAL ONE (13:35)
--- NOTE | 2021-07-10 13:46 | Anesthesiology Consultation ---
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 Surgery Operation Date: 07/10/21 11:00 Proposed Procedures p Endoscopic Ultrasonography Upper - Quirino Dominguez DO s Endoscopic Retrograde Cholangiopancreatogram - Quirino Dominguez DO Height/Weight Height: 5 ft 1 in Weight: 82 kg Allergies Allergy/AdvReac Type Severity Reaction Status Date / Time aspirin AdvReac Unknown bruising Verified 02/22/20 17:40 Medications Home Medications Medication Instructions Recorded Confirmed Last Taken allopurinol 100 mg tablet 100 mg PO DAILY 03/21/18 03/01/20 Unknown aspirin 81 mg tablet,delayed 81 mg PO DAILY 03/21/18 03/01/20 Unknown release atenolol 50 mg tablet 50 mg PO DAILY 03/21/18 03/01/20 Unknown empagliflozin 25 mg tablet 25 mg PO DAILY 02/22/20 03/01/20 Unknown (Jardiance) fluticasone propionate 50 2 spray INTRANASAL DAILY 02/22/20 03/01/20 Unknown mcg/actuation nasal spray,suspension glipizide 5 mg tablet, extended 5 mg PO DAILY 02/22/20 03/01/20 Unknown release 24 hr levothyroxine 125 mcg tablet 125 mcg PO DAILY 02/22/20 03/01/20 Unknown rosuvastatin 20 mg tablet 20 mg PO DAILY 02/22/20 03/01/20 Unknown sodium chloride 0.65 % nasal spray 2 spray INTRANASAL UD PRN 02/22/20 03/01/20 Unknown aerosol guaifenesin 600 mg tablet, 600 mg PO Q12 #10 tab 02/27/20 03/01/20 Unknown extended release 12 hr (Mucinex) acetaminophen 325 mg tablet 650 mg PO Q4H PRN #20 tab 03/04/20 Unknown lidocaine 5 % topical patch 1 patch TRANSDERMAL QAM #15 ea 03/04/20 Unknown aspirin 81 mg tablet,delayed 81 mg PO DAILY 07/10/21 07/10/21 Unknown release furosemide 40 mg tablet 40 mg PO DAILY 07/10/21 07/10/21 Unknown gabapentin 100 mg capsule 100 mg PO TID PRN 07/10/21 07/10/21 Unknown lisinopril 5 mg tablet 5 mg PO DAILY 07/10/21 07/10/21 Unknown warfarin 5 mg tablet 5 mg PO DIRECTED 07/10/21 07/10/21 Unknown Active Medications Generic Name Dose Route Start Last Admin Trade Name Jairo PRN Reason Stop Dose Admin Allopurinol 100 mg 07/10/21 09:00 07/10/21 09:46 Allopurinol 100 Mg Tab PO 08/09/21 08:59 Not Given DAILY JUNG Aspirin 81 mg 07/10/21 09:00 07/10/21 09:46 Aspirin 81 Mg Ectab PO 08/09/21 08:59 Not Given DAILY JUNG Atenolol 50 mg 07/10/21 09:00 07/10/21 09:52 Atenolol 50 Mg Tablet PO 08/09/21 08:59 50 mg DAILY JUNG Administration Fluticasone Propionate 2 sprays 07/10/21 09:00 07/10/21 09:48 Fluticasone Propionate Na Spr 16 Gm Btl NA 08/09/21 08:59 2 sprays DAILY JUNG Administration Piperacillin Sod/Tazobactam 115 mls @ 28.75 mls/hr 07/10/21 10:00 07/10/21 09:49 Sod 3.375 gm/ Dextrose IV 07/20/21 09:59 28.8 mls/hr Q8H JUNG Administration Protocol Potassium Chloride/Dextrose/Sod Cl 20 meq in 1,000 mls @ 80 mls/hr 07/10/21 11:30 07/10/21 11:44 D5nss + 20meq Kcl IV 08/09/21 11:29 80 mls/hr .[id number] JUNG Administration Protocol Insulin Aspart 0 units 07/10/21 06:00 07/10/21 11:56 Insulin Aspart Per Unit SC 08/09/21 05:59 Not Given Q6 JUNG Insulin Glargine 5 units 07/10/21 09:00 07/10/21 09:55 Insulin Glargine Solostar 100 Units/Ml 3 Ml Pen SC 08/09/21 08:59 Not Given DAILY JUNG Levothyroxine Sodium 125 mcg 07/10/21 06:30 07/10/21 06:04 Levothyroxine Sodium 125 Mcg Tablet PO 08/09/21 06:29 125 mcg DAILYBB JUNG Administration Lisinopril 5 mg 07/10/21 09:00 07/10/21 09:52 Lisinopril 5 Mg Tab PO 08/09/21 08:59 5 mg DAILY JUNG Administration Rosuvastatin Calcium 20 mg 07/10/21 09:00 07/10/21 09:47 Rosuvastatin Calcium 20 Mg Tab PO 08/09/21 08:59 Not Given DAILY JUNG Past Medical History Medical History ASCVD (arteriosclerotic cardiovascular disease) Diabetes type 2, uncontrolled Gout History of breast cancer Hyperlipidemia Hypertension Hypothyroidism Occlusion of left internal carotid artery TIA (transient ischemic attack) Past Family History Family History Mother Breast cancer Past Surgical History Surgical History History of angioplasty coronary ballon angioplasty 1990s History of breast surgery DCIS L 2009 History of carotid endarterectomy History of colonoscopy History of hysterectomy Social History Smoking Status: Never smoker Do You Dip or Chew Tobacco: No Hx Alcohol Use: No Alcohol type: wine alcohol intake frequency: holidays/special occasions only Hx Substance Use: No substance use type: does not use Physical Exam Vital Signs Last Vital Signs Temp 98.2 F 07/10/21 13:38 Pulse 75 07/10/21 13:38 Resp 18 07/10/21 13:38 BP 157/74 H 07/10/21 13:38 Pulse Ox 94 07/10/21 13:38 Testing Laboratory Results 07/10/21 07:10 PT 21.9 Seconds (9.0-12.0) H 07/10/21 12:56 INR 2.1 (0.9-1.1) H 07/10/21 12:56 APTT 46.4 Seconds (21.0-31.0) H* 07/09/21 18:50 Hemoglobin A1c 9.0 % (4.5-5.6) H 07/10/21 07:10 Urine Color Dark Yellow 07/09/21 18:50 Urine Appearance Clear (Clear) 07/09/21 18:50 Urine pH 6.5 (4.5-7.5) 07/09/21 18:50 Ur Specific [place] 1.037 (1.000-1.030) H 07/09/21 18:50 Urine Protein Negative (Negative) 07/09/21 18:50 Urine Glucose (UA) 3+ (Negative) H 07/09/21 18:50 Urine Ketones Trace (Negative) H 07/09/21 18:50 Urine Nitrite Negative (Negative) 07/09/21 18:50 Ur Leukocyte Esterase Negative (Negative) 07/09/21 18:50 Blood Type A Positive 07/10/21 11:17 Antibody Screen NEGATIVE 07/10/21 11:17 07/10/21 07/10/21 11:52 05:57 POC Glucose 116 H 114 H Electrocardiogram Date: 07/09/21 Normal sinus rhythm, rate 84 bpm Left ventricular hypertrophy with repolarization abnormality Possible Old Anterior infarct Abnormal ECG When compared with ECG of 01-MAR-2020 16:15, Premature atrial complexes are no longer Present Nonspecific T wave abnormality, improved in Lateral leads Confirmed by Arley Costa ([id number]) on 07/10/2021 8:53:08 AM Chest X-Ray Date: 07/09/21 FINDINGS: No lines and tubes are seen. The cardiomediastinal silhouette is normal. Interval improvement in prominence of the vasculature. No evidence of pleural effusion or pneumothorax. IMPRESSION: No acute abnormality. Previously noted mild pulmonary edema has improved. Echocardiogram Date: 03/22/18 No change compared to previous study of 10/10/17 Normal LV chamber size with moderate concentric LVH Normal LV systolic function, EF 55-60% No segmental LV wall motion abnormalities Grade 2 diastolic dysfunction Mildly calcified AV with borderline stenosis Mild MR/TR
[2021-07-10] MEDS ORDERED: INDOMETHACIN 50 MG SUPP PR ONE ×2 (13:53→14:31)
--- NOTE | 2021-07-10 14:28 | History & Physical Bridge Note ---
Date of Service July 10, 2021 History & Physical Bridge Note I have examined the patient, reviewed the History & Physical and in the interval since the performance of the History & Physical I have noted the following changes of clinical significance: no changes noted. Please see full consult note for details of the patient's history.
[2021-07-10] MEDS ORDERED: ePHEDrine sulfate 50 MG/ML AMP IV PRN (14:31)
[2021-07-10] MEDS ORDERED: ATROPINE SULFATE 0.1 MG/ML 10ML SYR IV PRN (14:31)
[2021-07-10] MEDS ORDERED: fentaNYL citrate 100 MCG/2 ML VIAL IV PRN (14:31)
--- NOTE | 2021-07-10 14:49 | GI REPORT ---
Patient Name: Olivia Kim Procedure Date: 07/10/2021 2:36 PM Date of : 1940 Admit Type: Inpatient Age: 81 Gender: Female Attending MD: Quirino Dominguez DO Procedure: Upper GI endoscopy Providers: Quirino Dominguez DO Referring MD: Julio Napier Indications: Epigastric abdominal pain, Abdominal pain in the right upper quadrant Medicines: General Anesthesia Complications: No immediate complications. Estimated blood loss: Minimal. Estimated Blood Loss: Estimated blood loss was minimal. Procedure: Pre-Anesthesia Assessment: - Prior to the procedure, a History and Physical was performed, and patient medications, allergies and sensitivities were reviewed. The patient's tolerance of previous anesthesia was reviewed. - The risks and benefits of the procedure and the sedation options and risks were discussed with the patient. All questions were answered and informed consent was obtained. - Patient identification and proposed procedure were verified prior to the procedure by the physician, the nurse and the controls project engineer. The procedure was verified in the procedure room. - Pre-procedure physical examination revealed no contraindications to sedation. - ASA Grade Assessment: III - A patient with severe systemic disease. - After reviewing the risks and benefits, the patient was deemed in satisfactory condition to undergo the procedure. - The anesthesia plan was to use general anesthesia. - Immediately prior to administration of medications, the patient was re-assessed for adequacy to receive sedatives. - The heart rate, respiratory rate, oxygen saturations, blood pressure, adequacy of pulmonary ventilation, and response to care were monitored throughout the procedure. - The physical status of the patient was re-assessed after the procedure. After obtaining informed consent, the endoscope was passed under direct vision. Throughout the procedure, the patient's blood pressure, pulse, and oxygen saturations were monitored continuously. The upper GI endoscopy was accomplished without difficulty. The patient tolerated the procedure well. The Endoscope was introduced through the mouth, and advanced to the third part of duodenum. Findings: The examined esophagus was normal. The Z-line was regular and was found 35 cm from the incisors. Diffuse mild inflammation characterized by congestion (edema), erythema and granularity was found in the entire examined stomach. Biopsies were taken with a cold forceps for histology. The pathology specimen was placed into Bottle A. Estimated blood loss was minimal. The examined duodenum was normal. Impression: - Normal esophagus. - Z-line regular, 35 cm from the incisors. - Gastritis. Biopsied. - Normal examined duodenum. Recommendation: - Perform an upper endoscopic ultrasound (UEUS) today. - Await pathology results. Quirino Dominguez D.O. Quirino Dominguez, 07/10/2021 2:49:13 PM This report has been signed electronically. Note Initiated On: 07/10/2021 2:36 PM Number of Addenda: 0 I attest to the content of the Intraoperative Record and orders documented therein, exceptions below {[id number]}
--- NOTE | 2021-07-10 14:59 | GI REPORT ---
Patient Name: Olivia Kim Procedure Date: 07/10/2021 2:38 PM Date of : 1940 Admit Type: Inpatient Age: 81 Gender: Female Attending MD: Quirino Dominguez DO Procedure: Upper EUS Providers: Quirino Dominguez DO Referring MD: Julio Napier Indications: Elevated liver enzymes Medicines: General Anesthesia Complications: No immediate complications. Estimated blood loss: Minimal. Estimated Blood Loss: Estimated blood loss was minimal. Procedure: Pre-Anesthesia Assessment: - Prior to the procedure, a History and Physical was performed, and patient medications, allergies and sensitivities were reviewed. The patient's tolerance of previous anesthesia was reviewed. - The risks and benefits of the procedure and the sedation options and risks were discussed with the patient. All questions were answered and informed consent was obtained. - Patient identification and proposed procedure were verified prior to the procedure by the physician, the nurse and the administrative and program specialist. The procedure was verified in the procedure room. - Pre-procedure physical examination revealed no contraindications to sedation. - ASA Grade Assessment: III - A patient with severe systemic disease. - After reviewing the risks and benefits, the patient was deemed in satisfactory condition to undergo the procedure. - The anesthesia plan was to use general anesthesia. - Immediately prior to administration of medications, the patient was re-assessed for adequacy to receive sedatives. - The heart rate, respiratory rate, oxygen saturations, blood pressure, adequacy of pulmonary ventilation, and response to care were monitored throughout the procedure. - The physical status of the patient was re-assessed after the procedure. After obtaining informed consent, the endoscope was passed under direct vision. Throughout the procedure, the patient's blood pressure, pulse, and oxygen saturations were monitored continuously. The Endosonoscope was introduced through the mouth, and advanced to the third part of duodenum. The upper EUS was accomplished without difficulty. The patient tolerated the procedure well. Findings: ENDOSONOGRAPHIC FINDING: : Moderate hyperechoic material consistent with sludge was visualized endosonographically in the common bile duct. There was dilation in the common bile duct which measured up to 9 mm. Extensive hyperechoic material consistent with sludge and stone material was visualized endosonographically in the gallbladder (this appeared to at least half fill the gallbladder). There was abnormal echogenicity in the visualized portion of the liver. This area was hypoechoic. There was no sign of significant endosonographic abnormality in the entire pancreas. The pancreatic duct measured up to 1 mm in diameter. No masses, no cysts, the pancreatic duct was thin in caliber. No lymphadenopathy seen. Impression: - Hyperechoic material consistent with sludge was visualized endosonographically in the common bile duct. - There was dilation in the common bile duct which measured up to 9 mm. - Hyperechoic material consistent with sludge and tone was visualized endosonographically in the gallbladder. - There was abnormal echogenicity in the visualized portion of the liver. This was hypoechoic. - There was no sign of significant pathology in the entire pancreas. - No specimens collected. Recommendation: - Perform an ERCP today. Quirino Dominguez D.O. Quirino Dominguez, 07/10/2021 2:58:54 PM This report has been signed electronically. Note Initiated On: 07/10/2021 2:38 PM Number of Addenda: 0 I attest to the content of the Intraoperative Record and orders documented therein, exceptions below {[id number]}
--- NOTE | 2021-07-10 15:34 | GI REPORT ---
Patient Name: Olivia Kim Procedure Date: 07/10/2021 2:59 PM Date of : 1940 Admit Type: Inpatient Age: 81 Gender: Female Attending MD: Quirino Dominguez DO Procedure: ERCP Providers: Quirino Dominguez DO Referring MD: Julio Napier Indications: Abdominal pain of suspected biliary origin, Abnormal endoscopic ultrasound of the biliary system, Elevated liver enzymes Medicines: General Anesthesia Complications: No immediate complications. Estimated blood loss: Minimal. Estimated Blood Loss: Estimated blood loss was minimal. Procedure: Pre-Anesthesia Assessment: - Prior to the procedure, a History and Physical was performed, and patient medications, allergies and sensitivities were reviewed. The patient's tolerance of previous anesthesia was reviewed. - The risks and benefits of the procedure and the sedation options and risks were discussed with the patient. All questions were answered and informed consent was obtained. - Patient identification and proposed procedure were verified prior to the procedure by the physician, the nurse and the basketball assembler. The procedure was verified in the procedure room. - Pre-procedure physical examination revealed no contraindications to sedation. - ASA Grade Assessment: III - A patient with severe systemic disease. - After reviewing the risks and benefits, the patient was deemed in satisfactory condition to undergo the procedure. - The anesthesia plan was to use general anesthesia. - Immediately prior to administration of medications, the patient was re-assessed for adequacy to receive sedatives. - The heart rate, respiratory rate, oxygen saturations, blood pressure, adequacy of pulmonary ventilation, and response to care were monitored throughout the procedure. - The physical status of the patient was re-assessed after the procedure. After obtaining informed consent, the scope was passed under direct vision. Throughout the procedure, the patient's blood pressure, pulse, and oxygen saturations were monitored continuously. The Duodenoscope was introduced through the mouth, and advanced to the duodenum and used to inject contrast into the bile duct. The ERCP was accomplished without difficulty. The patient tolerated the procedure well. Findings: The geological scout film was normal. The esophagus was successfully intubated under direct vision without detailed examination of the pharynx, larynx, and associated structures, and upper GI tract. The upper GI tract was grossly normal. The major papilla was congested. The ventral pancreatic duct was inadvertently cannulated with the short-nosed traction sphincterotome and guidewire without any complications. The wire was left in place to aid in biliary cannulation and later place a pancreatic stent. The bile duct was deeply cannulated with the short-nosed traction sphincterotome and a second 0.035 in Acrobat 2 guidewire. Contrast was injected. I personally interpreted the bile duct images. Contrast extended to the hepatic ducts. The main bile duct was moderately dilated, with a stone causing an obstruction. The largest diameter was 10 mm. Biliary sphincterotomy was made with a Fusion OMNI sphincterotome using ERBE electrocautery. There was no post-sphincterotomy bleeding. One 5 Fr by 7 cm pancreatic stent with a full external pigtail and no internal flaps was placed 7 cm into the ventral pancreatic duct. Clear fluid flowed through the stent. The stent was in good position. To discover objects, the biliary tree was swept with an 11.5 mm balloon starting at the bifurcation. Sludge was swept from the duct. A few stones were removed. No stones remained. Pus was swept from the duct. One 10 Fr by 9 cm biliary stent with a single external flap and a single internal flap was placed 9 cm into the common bile duct. Bile flowed through the stent. The stent was in good position. The endoscope was withdrawn from the patient. Indomethacin 100 mg was given via suppository to decrease the risk of post-ERCP pancreatitis (PEP). Impression: - The major papilla appeared congested. - The entire main bile duct was moderately dilated, with a stone causing an obstruction. - Choledocholithiasis was found. Complete removal was accomplished by biliary sphincterotomy and balloon extraction. - One pancreatic stent was placed into the ventral pancreatic duct. - The biliary tree was swept and pus was found. - One biliary stent was placed into the common bile duct. - Indomethacin given to decrease risk of post-ERCP pancreatitis. Recommendation: - Avoid aspirin and nonsteroidal anti-inflammatory medicines for 1 week. - Clear liquid diet today. - Use broad spectrum antibiotics for 10 days. - Cholecystectomy per General Surgery. - Repeat ERCP in 6 weeks to remove stent. Quirino Dominguez D.O. Quriino Dominguez DO 07/10/2021 3:33:49 PM This report has been signed electronically. Note Initiated On: 07/10/2021 2:59 PM Number of Addenda: 0 I attest to the content of the Intraoperative Record and orders documented therein, exceptions below {[id number]}
--- NOTE | 2021-07-10 15:35 | Post Operative Brief Note ---
Immediate Post Op Note v1 Date of Surgery July 10, 2021 Pre & Post Diagnosis Operation Date: 07/10/21 11:00 Pre-Op Diagnosis: FEVER, ABD PAIN Post-Op Diagnosis: common bile duct stone/sludge and cholangitis I identified the patient and participated in the time-out.: Yes Procedure Operation Date: 07/10/21 11:00 Actual Procedures s Esophagogastroduodenoscopy with biopsy - Quirino Dominguez DO s Endoscopic Ultrasonography Upper - Quirino Dominguez DO p Endoscopic Retrograde Cholangiopancreato - Quirino Dominguez DO Surgeon Quirino Dominguez DO Mass Spectrometry Specialist none Estimated Blood Loss 0 Findings Consistent with Post-Op Diagnosis
--- NOTE | 2021-07-10 15:39 | Communication Note ---
Date of Service: July 10, 2021 The patient underwent EGD, EUS and ERCP today. She was found to have mild gastritis during the upper endoscopy. The endoscopic ultrasound was notable for sludge and dilation of the common bile duct with sludge and stone material filling at least one half of the gallbladder. Finally an ERCP was performed at which time a biliary sphincterotomy was performed, gallstone extraction, biliary stent placement and prophylactic pancreatic stent placement Recommendations Continue antibiotic coverage for total of 10 days, repeat ERCP for stent removal in 6 to 8 weeks, cholecystectomy per general surgery, hold anticoagulation for 5 days, would recommend avoidance of nonsteroidals for 5 days
--- NOTE | 2021-07-10 15:48 | Fluoroscopy Report ---
[place] ERCP biliary ductal CLINICAL HISTORY: EUS/ERCP COMPARISON STUDY: CT of the abdomen and pelvis July 09, 2021. Right upper quadrant ultrasound and MRC P July 10, 2021. FLUOROSCOPY TIME: 1 minute and 43 seconds. FLUOROSCOPIC IMAGES: 6 FINDINGS: Fluoroscopy was provided during ERCP. These images demonstrate cannulation of the common bi le duct. Balloon sweep through the common bile duct was performed. Several filling defects within the common bile duct are noted. Common bile duct stent was placed. Stent was placed within the pancreati c duct as well. This is appropriately positioned. IMPRESSION: Fluoroscopy provided during ERCP with placement of common bile duct and pancreatic duct stents. ACT 112: Negative or not required by law. Electronically signed by: Ricky Arita M.D. 07/10/2021 3:46 PM
--- NOTE | 2021-07-10 16:07 | Anesthesiology Progress Note ---
Date of Service July 10, 2021 Anesthesia Post Procedure Vital Signs Vital Signs: Temp Pulse Pulse Resp BP BP Pulse Ox 07/10/21 16:00 36.1 C L 78 18 113/65 95 07/10/21 15:50 75 18 128/82 99 07/10/21 15:40 75 20 130/58 L 96 07/10/21 15:33 36.0 C L 78 20 159/84 H 96 07/10/21 14:25 36.8 C 76 20 167/75 H 94 07/10/21 14:24 36.9 C 78 22 174/79 H 95 07/10/21 14:15 36.9 C 78 22 174/79 H 95 07/10/21 13:55 36.6 C 76 18 156/72 H 94 07/10/21 13:38 36.8 C 75 18 157/74 H 94 07/10/21 13:18 36.9 C 73 18 159/69 H 94 07/10/21 09:51 82 168/7 H 07/10/21 07:46 36.8 C 59 L 16 149/69 H 92 07/10/21 03:50 36.8 C 79 20 152/70 H 92 07/10/21 03:34 36.5 C 74 20 149/7 H 94 07/10/21 03:19 78 20 143/69 H 92 07/10/21 03:04 74 20 146/77 H 91 07/10/21 02:45 37.1 C 84 20 138/77 92 07/10/21 02:40 77 18 143/62 H 96 07/10/21 00:00 87 18 123/68 92 07/09/21 22:42 37.2 C 79 22 117/65 93 07/09/21 20:46 37.1 C 07/09/21 20:00 92 H 20 159/85 H 97 07/09/21 19:04 88 17 95 07/09/21 19:01 88 17 95 07/09/21 17:31 38.0 C H 90 26 H 169/83 H 94 Pain Intensity Abdomen: Pain Intensity: 3 Transfer of Care Handoff Completed per policy Notes Mental Status: alert / awake / arousable Patient Amnestic to Procedure: Yes Nausea / Vomiting: adequately controlled Pain: adequately controlled Airway Patency, RR, SpO2: stable & adequate BP & HR: stable & adequate Hydration State: stable & adequate Anesthetic Complications: no major complications apparent and Pt Satisfied with anesthetic care Notes: The patient is awake and comfortable. Her vital signs are stable.
[2021-07-10] MEDS: NSS + 20MEQ KCL 20 MEQ/1,000 ML BAG IV SCH (19:01)
[2021-07-11] MEDS: PIPERACILLIN/TAZOBACTAM 3.375 GM in DEXTROSE 5% 100 ML IV SCH ×3 (01:05→17:47)
[2021-07-11] MEDS: LEVOTHYROXINE SODIUM 125 MCG TABLET PO SCH (05:52)
[2021-07-11] MEDS: ATENOLOL 50 MG TABLET PO SCH (08:10)
[2021-07-11] MEDS: lisinopril 5 MG TAB PO SCH (08:10)
[2021-07-11] MEDS: ASPIRIN 81 MG ECTAB PO SCH (08:12)
[2021-07-11] MEDS: allopurinoL 100 MG TAB PO SCH (08:12)
[2021-07-11] MEDS: ROSUVASTATIN CALCIUM 20 MG TAB PO SCH (08:12)
[2021-07-11] MEDS: FLUTICASONE PROPIONATE NA SPR 16 GM BTL SCH (08:13)
[2021-07-11] MEDS: NSS + 20MEQ KCL 20 MEQ/1,000 ML BAG IV SCH (08:56)
[2021-07-11] MEDS: INSULIN GLARGINE SOLOSTAR 100 UNITS/ML 3 ML PEN SC SCH (09:01)
[2021-07-11] MEDS: INSULIN ASPART PER UNIT SC SCH ×4 (09:01→21:00)
[2021-07-11 10:28] LABS: Hematocrit (blood only) 40.3 % (37-47); Hemoglobin 13.7 g/dL (12.0-16.0); Mean Corpuscular Hemoglobin 32.3 pg (25-34); Mean Platelet Volume 12.1 fL (7.4-10.4); Platelet Count 104 K/uL (130-400); RDW Coefficient of Variation 13.4 % (11.5-14.5); RDW Standard Deviation 46.8 fL (36.4-46.3); Red Blood Count 4.24 M/uL (4.2-5.4); White Blood Count 6.41 K/uL (4.8-10.8)
[2021-07-11 10:35] LABS: INR 1.4 (0.9-1.1); Prothrombin Time 14.4 Seconds (9.0-12.0)
[2021-07-11 10:41] LABS: Basophils # (auto) 0.03 K/uL (0-0.2); Basophils % (auto) 0.5 %; Eosinophils # (auto) 0.12 K/uL (0-0.5); Eosinophils % (auto) 1.9 %; Immature Granulocytes # (auto) 0.03 K/uL (0.00-0.02); Immature Granulocytes % (auto) 0.5 %; Lymphocytes # (auto) 1.17 K/uL (1.2-3.4); Lymphocytes % (auto) 18.3 %; Monocytes # (auto) 0.68 K/uL (0.11-0.59); Monocytes % (auto) 10.6 %; Neutrophils # (auto) 4.38 K/uL (1.4-6.5); Neutrophils % (auto) 68.2 %
[2021-07-11 10:47] LABS: Albumin Level 3.3 gm/dl (3.4-5.0); BUN Creatinine Ratio 23.7 (10-20); Bilirubin Direct 0.5 mg/dl (0-0.2); Bilirubin,Total 1.5 mg/dl (0.2-1.0); Calcium 7.9 mg/dl (8.5-10.1); Creatinine Clr Calc Pharmacy 57.3 ml/min; Est GFR (African American) 85.9 ml/min; Est GFR (Non-African American) 74.1 ml/min; Potassium 4.3 mmol/L (3.5-5.1)
--- NOTE | 2021-07-11 11:14 | Surgery Progress Note ---
Date of Service July 11, 2021 Assessment & Plan (1) Fever: (2) Elevated liver enzymes: (3) Cirrhosis of liver: (4) Diarrhea: (5) Abdominal pain: Plan: POD # 1 s/p EUS with ERCP biliary sphincterotomy with CBD stent and pancreatic stent placement for cholangitis and choledoclithiasis -afebrile, vss - abdominal pain improved - blood cultures NTD - no n/v - t. bili and lfts improving Plan: Given her multiple medical comorbidities including cirrhosis, mild aortic stenosis, uncontrolled diabetes, TIA, ASCVD, and her age she is at increased risk for surgical intervention. Would recommend alternative approach for gallbladder drainage with Axios stent placement which can be done as outpatient by gastroenterology. Continue IV antibiotics for total of 10 days per GI recommendations Continue current medical management Right lower extremity US to rule out DVT given new onset of right ankle pain this am. Dr. Dawn has seen and examined pt, agrees with above. Admission and Anticipated Discharge Date Admission Date: July 10, 2021 Supervising Physician Co-Signing Physician Notes I have seen and examined the patient agree with the above assessment and plan. She is improving after stent placement and stone extraction. She is very high risk for surgical intervention. I have discussed this with GI, who recommends AXIOS stent placement. This can be done as an outpatient. We will sign off for now. Please call with any questions or concerns. Subjective feeling better today than yesterday abdominal pain is better today but still present no nausea or vomiting having right ankle pain, states very painful when nurse touched it this morning, no calf pain . has not noticed increased swelling. did not notice this pain until today. Physical Exam Constitutional: WD/WN, vitals as above no acute distress and not ill appearing Neck: normal visual inspection and trachea midline Respiratory: normal respiratory effort; no respiratory distress Gastrointestinal (Abdomen): Inspection/Auscultation: abdomen normal to inspection; abdomen not distended Musculoskeletal: Extremities: extremities normal to inspection Ankle: + joint line tenderness (ankle); no skin erythema There is tenderness of the medial right ankle on palpation, no overt edema, erythema. No calf tenderness able to flex and extend ankle against pressure without pain. Skin: no rashes, warm and dry no jaundice Psychiatric: Orientation: alert and oriented x 3 Results & Data ([facility]) Vital Signs (Past 12 Hours) Vital Signs Temp Pulse Resp BP Pulse Ox 07/11/21 08:09 67 138/60 07/11/21 07:12 36.6 C 63 16 130/61 91 07/11/21 04:25 36.6 C 68 14 121/67 90 Laboratory Results 07/11/21 07/11/21 07/11/21 Range/Units 10:11 10:11 10:11 WBC 6.41 (4.8-10.8) K/uL RBC 4.24 (4.2-5.4) M/uL Hgb 13.7 (12.0-16.0) g/dL Hct 40.3 (37-47) % MCV 95.0 (80-100) fL MCH 32.3 (25-34) pg MCHC 34.0 (32-36) g/dL RDW Std Deviation 46.8 H (36.4-46.3) fL RDW Coeff of Allie 13.4 (11.5-14.5) % Plt Count 104 L (130-400) K/uL MPV 12.1 H (7.4-10.4) fL Immature Gran % (Auto) 0.5 % Neut % (Auto) 68.2 % Lymph % (Auto) 18.3 % Pennington % (Auto) 10.6 % Eos % (Auto) 1.9 % Baso % (Auto) 0.5 % Neut # (Auto) 4.38 (1.4-6.5) K/uL Lymph # (Auto) 1.17 L (1.2-3.4) K/uL Pen[place] # (Auto) 0.68 H (0.11-0.59) K/uL Eos # (Auto) 0.12 (0-0.5) K/uL Baso # (Auto) 0.03 (0-0.2) K/uL Immature Gran # (Auto) 0.03 H (0.00-0.02) K/uL PT 14.4 H (9.0-12.0) Seconds INR 1.4 H (0.9-1.1) Sodium 140 (136-145) mmol/L Potassium 4.3 (3.5-5.1) mmol/L Chloride 110 H (98-107) mmol/L Carbon Dioxide 22 (21-32) mmol/L Anion Gap 8 (3-11) BUN 18 (6-23) mg/dl Creatinine 0.76 (0.6-1.2) mg/dl Est Cr Clr Drug Dosing 57.3 ml/min Est GFR ( Amer) 85.9 ml/min Est GFR (Non-Af Amer) 74.1 ml/min BUN/Creatinine Ratio 23.7 H (10-20) Glucose 177 H (70-99(Fasting)) mg/dl POC Glucose (70-99) mg/dl Calcium 7.9 L (8.5-10.1) mg/dl Total Bilirubin 1.5 H (0.2-1.0) mg/dl Direct Bilirubin 0.5 H (0-0.2) mg/dl AST 69 H (13-39) U/L ALT 73 H (7-52) U/L Alkaline Phosphatase 131 H (34-104) U/L Total Protein 6.0 (6.0-8.3) gm/dl Albumin 3.3 L (3.4-5.0) gm/dl Blood Type Antibody Screen 07/11/21 07/10/21 07/10/21 Range/Units 08:08 21:02 16:44 WBC (4.8-10.8) K/uL RBC (4.2-5.4) M/uL Hgb (12.0-16.0) g/dL Hct (37-47) % MCV (80-100) fL MCH (25-34) pg MCHC (32-36) g/dL RDW Std Deviation (36.4-46.3) fL RDW Coeff of Allie (11.5-14.5) % Plt Count (130-400) K/uL MPV (7.4-10.4) fL Immature Gran % (Auto) % Neut % (Auto) % Lymph % (Auto) % Pennington % (Auto) % Eos % (Auto) % Baso % (Auto) % Neut # (Auto) (1.4-6.5) K/uL Lymph # (Auto) (1.2-3.4) K/uL Pennington # (Auto) (0.11-0.59) K/uL Eos # (Auto) (0-0.5) K/uL Baso # (Auto) (0-0.2) K/uL Immature Gran # (Auto) (0.00-0.02) K/uL PT (9.0-12.0) Seconds INR (0.9-1.1) Sodium (136-145) mmol/L Potassium (3.5-5.1) mmol/L Chloride (98-107) mmol/L Carbon Dioxide (21-32) mmol/L Anion Gap (3-11) BUN (6-23) mg/dl Creatinine (0.6-1.2) mg/dl Est Cr Clr Drug Dosing ml/min Est GFR ( Amer) ml/min Est GFR (Non-Af Amer) ml/min BUN/Creatinine Ratio (10-20) Glucose (70-99(Fasting)) mg/dl POC Glucose 117 H 197 H 128 H (70-99) mg/dl Calcium (8.5-10.1) mg/dl Total Bilirubin (0.2-1.0) mg/dl Direct Bilirubin (0-0.2) mg/dl AST (13-39) U/L ALT (7-52) U/L Alkaline Phosphatase (34-104) U/L Total Protein (6.0-8.3) gm/dl Albumin (3.4-5.0) gm/dl Blood Type Antibody Screen 07/10/21 07/10/21 07/10/21 Range/Units 15:46 12:56 12:56 WBC (4.8-10.8) K/uL RBC (4.2-5.4) M/uL Hgb (12.0-16.0) g/dL Hct (37-47) % MCV (80-100) fL MCH (25-34) pg MCHC (32-36) g/dL RDW Std Deviation (36.4-46.3) fL RDW Coeff of Allie (11.5-14.5) % Plt Count (130-400) K/uL MPV (7.4-10.4) fL Immature Gran % (Auto) % Neut % (Auto) % Lymph % (Auto) % Penning[place] % (Auto) % Eos % (Auto) % Baso % (Auto) % Neut # (Auto) (1.4-6.5) K/uL Lymph # (Auto) (1.2-3.4) K/uL Penning[place] # (Auto) (0.11-0.59) K/uL Eos # (Auto) (0-0.5) K/uL Baso # (Auto) (0-0.2) K/uL Immature Gran # (Auto) (0.00-0.02) K/uL PT 21.9 H (9.0-12.0) Seconds INR 2.1 H (0.9-1.1) Sodium (136-145) mmol/L Potassium 3.9 D (3.5-5.1) mmol/L Chloride (98-107) mmol/L Carbon Dioxide (21-32) mmol/L Anion Gap (3-11) BUN (6-23) mg/dl Creatinine (0.6-1.2) mg/dl Est Cr Clr Drug Dosing ml/min Est GFR ( Amer) ml/min Est GFR (Non-Af Amer) ml/min BUN/Creatinine Ratio (10-20) Glucose (70-99(Fasting)) mg/dl POC Glucose 103 H (70-99) mg/dl Calcium (8.5-10.1) mg/dl Total Bilirubin (0.2-1.0) mg/dl Direct Bilirubin (0-0.2) mg/dl AST (13-39) U/L ALT (7-52) U/L Alkaline Phosphatase (34-104) U/L Total Protein (6.0-8.3) gm/dl Albumin (3.4-5.0) gm/dl Blood Type Antibody Screen 07/10/21 07/10/21 Range/Units 11:52 11:17 WBC (4.8-10.8) K/uL RBC (4.2-5.4) M/uL Hgb (12.0-16.0) g/dL Hct (37-47) % MCV (80-100) fL MCH (25-34) pg MCHC (32-36) g/dL RDW Std Deviation (36.4-46.3) fL RDW Coeff of Allie (11.5-14.5) % Plt Count (130-400) K/uL MPV (7.4-10.4) fL Immature Gran % (Auto) % Neut % (Auto) % Lymph % (Auto) % Pen[place] % (Auto) % Eos % (Auto) % Baso % (Auto) % Neut # (Auto) (1.4-6.5) K/uL Lymph # (Auto) (1.2-3.4) K/uL [place] # (Auto) (0.11-0.59) K/uL Eos # (Auto) (0-0.5) K/uL Baso # (Auto) (0-0.2) K/uL Immature Gran # (Auto) (0.00-0.02) K/uL PT (9.0-12.0) Seconds INR (0.9-1.1) Sodium (136-145) mmol/L Potassium (3.5-5.1) mmol/L Chloride (98-107) mmol/L Carbon Dioxide (21-32) mmol/L Anion Gap (3-11) BUN (6-23) mg/dl Creatinine (0.6-1.2) mg/dl Est Cr Clr Drug Dosing ml/min Est GFR ( Amer) ml/min Est GFR (Non-Af Amer) ml/min BUN/Creatinine Ratio (10-20) Glucose (70-99(Fasting)) mg/dl POC Glucose 116 H (70-99) mg/dl Calcium (8.5-10.1) mg/dl Total Bilirubin (0.2-1.0) mg/dl Direct Bilirubin (0-0.2) mg/dl AST (13-39) U/L ALT (7-52) U/L Alkaline Phosphatase (34-104) U/L Total Protein (6.0-8.3) gm/dl Albumin (3.4-5.0) gm/dl Blood Type A Positive Antibody Screen NEGATIVE Microbiology 07/09/21 22:34 Aerobic Blood Culture - Preliminary Blood No growth in Aerobic bottle after 24 hours. Anaerobic Blood Culture - Preliminary No growth in Anaerobic bottle after 24 hours. 07/09/21 18:56 Aerobic Blood Culture - Preliminary Blood No growth in Aerobic bottle after 24 hours. Anaerobic Blood Culture - Preliminary No growth in Anaerobic bottle after 24 hours. (1) Fever Fever type: unspecified Qualified Code(s): R50.9 - Fever, unspecified (2) Diarrhea Diarrhea type: unspecified type Qualified Code(s): R19.7 - Diarrhea, unspecified
--- NOTE | 2021-07-11 11:42 | Ultrasound Report ---
BILATERAL LOWER EXTREMITY VENOUS DOPPLER HISTORY: Acute pain and swelling of the lower legs Rule out DVT COMPARISON STUDY: None. FINDINGS: There is normal compressibility, flow, and augmentation within the bilateral lower extremit y deep venous systems. Right-sided popliteal fluid collection suggestive of a Phipps's cyst measures 2 .4 x 0.7 x 1.8 cm. IMPRESSION: No DVT within the right or left lower extremity. ACT 112: Negative or not required by law. Electronically signed by: Isaac Duckworth M.D. 07/11/2021 11:41 AM
--- NOTE | 2021-07-11 12:31 | Gastroenterology Progress Note ---
Date of Service July 11, 2021 Assessment & Plan (1) Cholangitis: Plan: Improvement in LFTs, clinical exam after ERCP. 1. Continue antibiotics x 10 days. 2. Avoid anticoag x 5 days. 3. Continue low fat diet. 4. Discussed with Dr. Dawn, surgery - thought pt not a good candidate for surgery due to new cirrhosis. Will have our GI office reach out to her to arrange OP EGD w Dr. Dominguez for placement of axios stent to drain the gallbladder. Procedure was explained to the pt who agrees to the procedure but will need advanced notice to arrange a ride to [place]. Will also eventually need removal of the bile duct stent - Dr. Dominguez will arrange. 5. No further IP GI procedures planned. GI will sign off. Admission and Anticipated Discharge Date Admission Date: July 10, 2021 Supervising Physician Co-Signing Physician Notes Attending attestation I have seen, examined this patient, and agree with the findings and above by our mid-level provider BRII Mehta, with the following additions: - doing well from ERCP, not a surgical candidate. Will plan on Axios Stent placement as outpt Subjective 81 yr old female admitted on 07/10 for epigastric pain Post procedure day #1 from ERCP for choledocholithiasis/cholangitis. Feeling well this morning. No abd pain. No nausea. Tolerating a regular consistency diet. Review of Systems Review of Systems: ROS: Gen: Denies weakness, fevers, weight loss Eyes: No eye redness, or pain, no recent vision changes Resp: No SOB, no cough Cardio: No palpitations/irregular beats, no chest pain GI: No abdominal pain, no nausea/vomiting : Denies pain on urination Skin: No jaundice, itching or new rashes M/S: c/o right lower leg pain that started after the procedure. Physical Exam Constitutional: well developed and cooperative Eyes: PERRL, conjunctivae normal, anicteric sclerae ENMT: external ear and nose normal, oropharynx normal Neck: trachea midline, no thyromegaly Respiratory: normal respiratory effort; no cough Auscultation: + wheezes (Mild, scattered); no crackles Cardiovascular: RRR, no murmur, no edema Gastrointestinal (Abdomen): Inspection/Auscultation: abdomen normal to inspection; abdomen not distended Percussion/Palpation: abdomen soft; abdomen nontender Musculoskeletal: No visual abnormalities on the right lower leg. + very tender to palpation of the left lower leg - squeezing the tib/fib together causes pain; no calf tenderness; (-) Cinthya's sign. Skin: no rashes, warm and dry normal turgor Neurologic: PERRL, EOMI, accommodation nl, no face palsy, no dysarthria awake; not confused Psychiatric: Orientation: alert, oriented x 3 and cooperative Lymphatic: no cervical or axillary lymphadenopathy Results & Data ([facility]) Vital Signs (Past 12 Hours) Vital Signs Temp Pulse Resp BP Pulse Ox 07/11/21 08:09 67 138/60 07/11/21 07:12 36.6 C 63 16 130/61 91 07/11/21 04:25 36.6 C 68 14 121/67 90 Laboratory Results WBC 6.4, Hb 13, Hct 40, Ptls 104, Na 140, K 4.3, BUN 18, Cr 0.76, glucose 119, T bili 1.5, D Bili 0.5, AST 69, ALT 73, Alk Phos 131 Diagnostic Findings ERCP 07/10/21: - Choledocholithiasis removal w sphincterotomy and balloon extraction. - Pancreatic and CBD bile duct stents were placed. One pancreatic stent was placed into the ventral pancreatic duct. - The biliary tree was swept and pus was found. - One biliary stent was placed into the common bile duct.
[2021-07-11 19:34] LABS: Adenovirus F 40/41 PCR Not Detected (NotDetected); Astrovirus PCR Not Detected (NotDetected); Campylobacter PCR Not Detected (NotDetected); Clostridium diff Toxin A/B PCR Not Detected (NotDetected); Cryptosporidium PCR Not Detected (NotDetected); Cyclospora cayetanensis PCR Not Detected (NotDetected); Entamoeba histolytica PCR Not Detected (NotDetected); Enteroaggregative E.coli(EAEC) Not Detected (NotDetected); Enteropathogenic E.coli (EPEC) Not Detected (NotDetected); Enterotoxigenic E.coli (ETEC) Not Detected (NotDetected); Giardia lamblia PCR Not Detected (NotDetected); Norovirus GI/GII PCR Not Detected (NotDetected); Plesiomonas shigelloides PCR Not Detected (NotDetected); Rotavirus A PCR Not Detected (NotDetected); Salmonella PCR Not Detected (NotDetected); Sapovirus PCR Not Detected (NotDetected); Shiga-like Toxin E.coli (STEC) Not Detected (NotDetected); Shigella/Enteroinvasive E.coli Not Detected (NotDetected); Vibrio cholerae PCR Not Detected (NotDetected); Vibrio species PCR Not Detected (NotDetected); Yersinia enterocolitica PCR Not Detected (NotDetected)
--- NOTE | 2021-07-11 19:57 | Hospitalist Progress Note ---
Date of Service July 11, 2021 Assessment & Plan (1) Abdominal pain: Plan: Patient is an 81 yr old female who presents with abdominal pain on and off for 2 weeks and diarrhea going on for the last 2 weeks and found to have acute cholecystitis and elevated LFTs. Acute cholecystitis Choledocholithiasis, cholangitis --CT Abd/pelvis:Cirrhotic liver with associated steatosis. Diffuse gallbladder wall thickening/edema with a few punctate gallstones. This is likely due to the patient's cirrhosis. Acute cholecystitis is considered less likely but not entirely excluded. Colonic diverticulosis. No evidence for acute diverticulitis. Normal appendix. No bowel wall thickening or obstruction. --Liver US:Diffuse gallbladder wall thickening/edema measuring approximately 5 mm. There are also a few small gallstones and a small amount of gallbladder sludge. This is likely due to the patient's cirrhosis. An acute cholecystitis is considered less likely but not entirely excluded. Cirrhotic liver. --S/P EGD, EUS with ERCP biliary sphincterotomy with CBD stent and pancreatic stent placement Mild gastritis Gallbladder sludge Dilatation of CBD --- Need to complete 10-day course of antibiotics Will need repeat ERCP for stent removal in 6 to 8 weeks Plan to hold anticoagulation for 5 days Avoid NSAIDs for 5 days --Appreciate GI, surgery input Given multiple comorbidities, patient is high risk for surgical intervention. Plan for alternative approach for gallbladder drainage--Axios stent placement as outpatient Advance to low-fat diet as able Needs follow-up with GI upon discharge LFTs trending down Elevated lactic acid lactic acidosis resolved H/O DVT Coumadin held Resume as able DM II hold home medication HbA1c 9.0 Continue insulin Hyperlipidemia: Resume statin as able Hypertension: Continue lisinopril, atenolol. Gout: Continue allopurinol. 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 Hepatic cirrhosis: Follow up with GI Chronic diastolic congestive heart failure: Resume Lasix as able H/O Breast cancer S/P lumpectomy, radiation, and completed 7 years of tamoxifen therapy. CAD S/P balloon angioplasty without stenting in 1989 Continue aspirin and beta jairo Resume statin as able DVT Coumadin on hold CODE STATUS Full code Disposition PT OT prior to discharge Admission and Anticipated Discharge Date Admission Date: July 10, 2021 Subjective Patient is seen and examined at bedside States having abdominal discomfort, flatus Denies any chest pain, shortness of breath, dizziness, nausea Discussed with GI today Review of Systems Review of Systems: All systems reviewed & are unremarkable except as noted in Subjective Physical Exam Physical Exam: Physical Exam: Vitals signs as noted above General Appearance:Obese, no apparent distress Head: normocephalic, Atraumatic Eyes: normal inspection, EOMI Neck: supple, Trachea midline Respiratory/Chest: Normal breath sounds, CTA, No accessory muscle use Cardiovascular: S1, S2, + murmur Abdomen/GI:Soft, Non tender, Bowel sounds present Extremities/Musculoskeletal:normal inspection, Trace edema Neurologic/Psych:AAOX3, grossly no focal neurological deficits Skin: normal color, warm Results & Data Results & Data ([facility]) Vital Signs (Past 12 Hours) Vital Signs Temp Pulse Resp BP Pulse Ox 07/11/21 16:19 126/74 07/11/21 14:21 37 C 59 L 16 162/78 H 93 07/11/21 08:09 67 138/60 Laboratory Results Short CBC 07/11/21 Range/Units 10:11 WBC 6.41 (4.8-10.8) K/uL Hgb 13.7 (12.0-16.0) g/dL Hct 40.3 (37-47) % Plt Count 104 L (130-400) K/uL BMP 07/11/21 10:11 Sodium 140 Potassium 4.3 Chloride 110 H Carbon Dioxide 22 BUN 18 Creatinine 0.76 Glucose 177 H Calcium 7.9 L Liver Function 07/11/21 Range/Units 10:11 Total Bilirubin 1.5 H (0.2-1.0) mg/dl Direct Bilirubin 0.5 H (0-0.2) mg/dl AST 69 H (13-39) U/L ALT 73 H (7-52) U/L Alkaline Phosphatase 131 H (34-104) U/L Albumin 3.3 L (3.4-5.0) gm/dl
[2021-07-12] MEDS: PIPERACILLIN/TAZOBACTAM 3.375 GM in DEXTROSE 5% 100 ML IV SCH ×3 (01:42→17:59)
[2021-07-12] MEDS: LEVOTHYROXINE SODIUM 125 MCG TABLET PO SCH (06:08)
[2021-07-12] MEDS: lisinopril 5 MG TAB PO SCH (08:29)
[2021-07-12] MEDS: ROSUVASTATIN CALCIUM 20 MG TAB PO SCH (08:30)
[2021-07-12] MEDS: ASPIRIN 81 MG ECTAB PO SCH (08:30)
[2021-07-12] MEDS: allopurinoL 100 MG TAB PO SCH (08:30)
[2021-07-12] MEDS: ATENOLOL 50 MG TABLET PO SCH (08:31)
[2021-07-12] MEDS: FLUTICASONE PROPIONATE NA SPR 16 GM BTL SCH (08:31)
[2021-07-12] MEDS: INSULIN ASPART PER UNIT SC SCH ×4 (08:37→20:54)
[2021-07-12] MEDS: INSULIN GLARGINE SOLOSTAR 100 UNITS/ML 3 ML PEN SC SCH (08:39)
[2021-07-12 10:23] LABS: Basophils # (auto) 0.04 K/uL (0-0.2); Basophils % (auto) 0.6 %; Eosinophils # (auto) 0.18 K/uL (0-0.5); Eosinophils % (auto) 2.6 %; Hematocrit (blood only) 42.6 % (37-47); Hemoglobin 14.2 g/dL (12.0-16.0); Immature Granulocytes # (auto) 0.04 K/uL (0.00-0.02); Immature Granulocytes % (auto) 0.6 %; Lymphocytes % (auto) 23.4 %; Mean Corpuscular Hemoglobin 31.7 pg (25-34); Mean Corpuscular Hgb Conc 33.3 g/dL (32-36); Mean Corpuscular Volume 95.1 fL (80-100); Mean Platelet Volume 12.1 fL (7.4-10.4); Monocytes % (auto) 10.2 %; Neutrophils # (auto) 4.29 K/uL (1.4-6.5); Neutrophils % (auto) 62.6 %; Platelet Count 135 K/uL (130-400); RDW Coefficient of Variation 13.5 % (11.5-14.5); RDW Standard Deviation 46.7 fL (36.4-46.3); Red Blood Count 4.48 M/uL (4.2-5.4); White Blood Count 6.85 K/uL (4.8-10.8)
[2021-07-12 10:28] LABS: INR 1.3 (0.9-1.1); Prothrombin Time 13.5 Seconds (9.0-12.0)
[2021-07-12 10:39] LABS: Albumin Level 3.2 gm/dl (3.4-5.0); BUN Creatinine Ratio 23.2 (10-20); Bilirubin Direct 0.3 mg/dl (0-0.2); Bilirubin,Total 1.2 mg/dl (0.2-1.0); Calcium 7.9 mg/dl (8.5-10.1); Creatinine Clr Calc Pharmacy 63.1 ml/min; Est GFR (African American) 95.3 ml/min; Est GFR (Non-African American) 82.2 ml/min; Potassium 3.9 mmol/L (3.5-5.1); Total Protein 6.2 gm/dl (6.0-8.3)
[2021-07-12] MEDS ORDERED: ADVANCED PROBIOTIC 1250 MG CAPSULE PO SCH (11:00)
[2021-07-12] MEDS: LACTOBACILLUS ACIDOPHILUS 1 GM PACK PO SCH (17:24)
--- NOTE | 2021-07-12 18:48 | Hospitalist Progress Note ---
Date of Service July 12, 2021 Assessment & Plan (1) Abdominal pain: Plan: Patient is an 81 yr old female who presents with abdominal pain on and off for 2 weeks and diarrhea going on for the last 2 weeks and found to have acute cholecystitis and elevated LFTs. Acute cholecystitis Choledocholithiasis, cholangitis --CT Abd/pelvis:Cirrhotic liver with associated steatosis. Diffuse gallbladder wall thickening/edema with a few punctate gallstones. This is likely due to the patient's cirrhosis. Acute cholecystitis is considered less likely but not entirely excluded. Colonic diverticulosis. No evidence for acute diverticulitis. Normal appendix. No bowel wall thickening or obstruction. --Liver US:Diffuse gallbladder wall thickening/edema measuring approximately 5 mm. There are also a few small gallstones and a small amount of gallbladder sludge. This is likely due to the patient's cirrhosis. An acute cholecystitis is considered less likely but not entirely excluded. Cirrhotic liver. --S/P EGD, EUS with ERCP biliary sphincterotomy with CBD stent and pancreatic stent placement Mild gastritis Gallbladder sludge Dilatation of CBD --- Need to complete 10-day course of antibiotics Will need repeat ERCP for stent removal in 6 to 8 weeks Plan to hold anticoagulation for 5 days Avoid NSAIDs for 5 days --Appreciate GI, surgery input Given multiple comorbidities, patient is high risk for surgical intervention. Plan for alternative approach for gallbladder drainage--Axios stent placement as outpatient Tolerating low-fat diet as able Needs follow-up with GI upon discharge LFTs trending down IV Zosyn>> transition to ceftriaxone, Flagyl Melena Positive FOBT Likely residual bleed from recent procedure Hemoglobin stable Monitor CBC GI on board Aspirin, Coumadin held Diarrhea Likely secondary to antibiotics Check stool for C. difficile Elevated lactic acid lactic acidosis resolved H/O DVT Coumadin held Resume as able DM II hold home medication HbA1c 9.0 Continue insulin Hyperlipidemia: Resume statin as able Hypertension: Continue lisinopril, atenolol. Gout: Continue allopurinol. 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 Hepatic cirrhosis: Follow up with GI Chronic diastolic congestive heart failure: Resume Lasix as able H/O Breast cancer S/P lumpectomy, radiation, and completed 7 years of tamoxifen therapy. CAD S/P balloon angioplasty without stenting in 1989 Continue beta jairo Resume statin as able Aspirin held DVT Coumadin on hold CODE STATUS Full code Disposition PT OT prior to discharge Admission and Anticipated Discharge Date Admission Date: July 10, 2021 Subjective Patient is seen and examined at bedside States having diarrhea Also had an episode of black stools Discussed with GI today Fecal occult positive Tolerating current diet Abdominal pain resolved Denies any chest pain, shortness of breath, dizziness, nausea Review of Systems Review of Systems: All systems reviewed & are unremarkable except as noted in Subjective Physical Exam Physical Exam: Physical Exam: Vitals signs as noted above General Appearance:Obese, no apparent distress Head: normocephalic, Atraumatic Eyes: normal inspection, EOMI Neck: supple, Trachea midline Respiratory/Chest: Normal breath sounds, CTA, No accessory muscle use Cardiovascular: S1, S2, + murmur Abdomen/GI:Soft, Non tender, Bowel sounds present Extremities/Musculoskeletal:normal inspection, Trace edema Neurologic/Psych:AAOX3, grossly no focal neurological deficits Skin: normal color, warm Results & Data Results & Data ([facility]) Vital Signs (Past 12 Hours) Vital Signs Temp Pulse Resp BP Pulse Ox 07/12/21 15:29 36.7 C 56 L 16 148/59 H 94 07/12/21 08:28 57 L 150/80 H 07/12/21 08:07 37 C 58 L 16 138/79 92 Laboratory Results Short CBC 07/12/21 Range/Units 10:00 WBC 6.85 (4.8-10.8) K/uL Hgb 14.2 (12.0-16.0) g/dL Hct 42.6 (37-47) % Plt Count 135 (130-400) K/uL BMP 07/12/21 10:00 Sodium 137 Potassium 3.9 Chloride 110 H Carbon Dioxide 18 L BUN 16 Creatinine 0.69 Glucose 146 H Calcium 7.9 L Liver Function 07/12/21 Range/Units 10:00 Total Bilirubin 1.2 H (0.2-1.0) mg/dl Direct Bilirubin 0.3 H (0-0.2) mg/dl AST 60 H (13-39) U/L ALT 61 H (7-52) U/L Alkaline Phosphatase 153 H (34-104) U/L Albumin 3.2 L (3.4-5.0) gm/dl
[2021-07-12 21:34] LABS: Cdiff Antigen Negative; Cdiff Toxin A+B Negative Cdiff Toxin (Negative)
[2021-07-13] MEDS: LEVOTHYROXINE SODIUM 125 MCG TABLET PO SCH (05:46)
[2021-07-13 06:18] LABS: Basophils # (auto) 0.03 K/uL (0-0.2); Basophils % (auto) 0.5 %; Eosinophils # (auto) 0.13 K/uL (0-0.5); Eosinophils % (auto) 2.1 %; Hematocrit (blood only) 39.7 % (37-47); Hemoglobin 13.6 g/dL (12.0-16.0); Immature Granulocytes # (auto) 0.05 K/uL (0.00-0.02); Immature Granulocytes % (auto) 0.8 %; Lymphocytes # (auto) 1.67 K/uL (1.2-3.4); Lymphocytes % (auto) 26.6 %; Mean Corpuscular Hemoglobin 32.8 pg (25-34); Mean Corpuscular Hgb Conc 34.3 g/dL (32-36); Mean Corpuscular Volume 95.7 fL (80-100); Mean Platelet Volume 12.1 fL (7.4-10.4); Monocytes # (auto) 0.53 K/uL (0.11-0.59); Monocytes % (auto) 8.5 %; Neutrophils # (auto) 3.86 K/uL (1.4-6.5); Neutrophils % (auto) 61.5 %; Platelet Count 134 K/uL (130-400); RDW Coefficient of Variation 13.3 % (11.5-14.5); RDW Standard Deviation 46.2 fL (36.4-46.3); Red Blood Count 4.15 M/uL (4.2-5.4); White Blood Count 6.27 K/uL (4.8-10.8)
[2021-07-13 06:26] LABS: INR 1.2 (0.9-1.1); Prothrombin Time 12.8 Seconds (9.0-12.0)
[2021-07-13 06:45] LABS: BUN Creatinine Ratio 19.4 (10-20); Bilirubin Direct 0.2 mg/dl (0-0.2); Calcium 7.8 mg/dl (8.5-10.1); Est GFR (African American) 96.2 ml/min; Potassium 3.9 mmol/L (3.5-5.1); Total Protein 5.9 gm/dl (6.0-8.3)
[2021-07-13] MEDS ORDERED: cefTRIAXone SODIUM 2,000 MG in DEXTROSE 5% 50 ML IV SCH (08:00)
[2021-07-13] MEDS ORDERED: cefTRIAXone SODIUM 1,000 MG in DEXTROSE 5% 50 ML IV SCH (08:00)
[2021-07-13] MEDS: lisinopril 5 MG TAB PO SCH (08:15)
[2021-07-13] MEDS: ROSUVASTATIN CALCIUM 20 MG TAB PO SCH (08:17)
[2021-07-13] MEDS: LACTOBACILLUS ACIDOPHILUS 1 GM PACK PO SCH ×2 (08:17→11:52)
[2021-07-13] MEDS: metroNIDAZOLE 500 MG TAB PO SCH ×3 (08:17→12:57)
[2021-07-13] MEDS: allopurinoL 100 MG TAB PO SCH (08:17)
[2021-07-13] MEDS: ATENOLOL 50 MG TABLET PO SCH (08:18)
[2021-07-13] MEDS: INSULIN GLARGINE SOLOSTAR 100 UNITS/ML 3 ML PEN SC SCH (08:18)
[2021-07-13] MEDS: FLUTICASONE PROPIONATE NA SPR 16 GM BTL SCH (08:19)
[2021-07-13] MEDS: INSULIN ASPART PER UNIT SC SCH ×2 (08:21→12:24)
--- NOTE | 2021-07-13 13:17 | Hospitalist Progress Note ---
Date of Service July 13, 2021 Assessment & Plan (1) Abdominal pain: Plan: Patient is an 81 yr old female who presents with abdominal pain on and off for 2 weeks and diarrhea going on for the last 2 weeks and found to have acute cholecystitis and elevated LFTs. Acute cholecystitis Choledocholithiasis, cholangitis --CT Abd/pelvis:Cirrhotic liver with associated steatosis. Diffuse gallbladder wall thickening/edema with a few punctate gallstones. This is likely due to the patient's cirrhosis. Acute cholecystitis is considered less likely but not entirely excluded. Colonic diverticulosis. No evidence for acute diverticulitis. Normal appendix. No bowel wall thickening or obstruction. --Liver US:Diffuse gallbladder wall thickening/edema measuring approximately 5 mm. There are also a few small gallstones and a small amount of gallbladder sludge. This is likely due to the patient's cirrhosis. An acute cholecystitis is considered less likely but not entirely excluded. Cirrhotic liver. --S/P EGD, EUS with ERCP biliary sphincterotomy with CBD stent and pancreatic stent placement Mild gastritis Gallbladder sludge Dilatation of CBD --- Need to complete 10-day course of antibiotics Will need repeat ERCP for stent removal in 6 to 8 weeks Plan to hold anticoagulation for 5 days Avoid NSAIDs for 5 days --Appreciate GI, surgery input Given multiple comorbidities, patient is high risk for surgical intervention. Plan for alternative approach for gallbladder drainage--Axios stent placement as outpatient Tolerating low-fat diet as able Needs follow-up with GI upon discharge LFTs trending down IV Zosyn>> transition to ceftriaxone, Flagyl Melena Positive FOBT Likely residual bleed from recent procedure Hemoglobin stable Monitor CBC GI on board Aspirin, Coumadin held No recurrence of bleeding Diarrhea Likely secondary to antibiotics stool for C. difficile negative Diarrhea improved Elevated lactic acid lactic acidosis resolved H/O DVT Coumadin held Resume as able DM II hold home medication HbA1c 9.0 Continue insulin Hyperlipidemia: Resume statin as able Hypertension: Continue lisinopril, atenolol. Gout: Continue allopurinol. 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 Hepatic cirrhosis: Follow up with GI Chronic diastolic congestive heart failure: Resume Lasix as able H/O Breast cancer S/P lumpectomy, radiation, and completed 7 years of tamoxifen therapy. CAD S/P balloon angioplasty without stenting in 1989 Continue beta jairo Resume statin as able Aspirin held DVT Coumadin on hold CODE STATUS Full code Disposition Home Admission and Anticipated Discharge Date Admission Date: July 10, 2021 Subjective Patient is seen and examined at bedside States feeling well today No diarrhea today No recurrence of black stools Tolerating diet Denies any nausea, vomiting, abdominal pain, chest pain, dyspnea No other complaints Review of Systems Review of Systems: All systems reviewed & are unremarkable except as noted in Subjective Physical Exam Physical Exam: Physical Exam: Vitals signs as noted above General Appearance:Obese, no apparent distress Head: normocephalic, Atraumatic Eyes: normal inspection, EOMI Neck: supple, Trachea midline Respiratory/Chest: Normal breath sounds, CTA, No accessory muscle use Cardiovascular: S1, S2, + murmur Abdomen/GI:Soft, Non tender, Bowel sounds present Extremities/Musculoskeletal:normal inspection, Trace edema Neurologic/Psych:AAOX3, grossly no focal neurological deficits Skin: normal color, warm Results & Data Results & Data ([facility]) Vital Signs (Past 12 Hours) Vital Signs Temp Pulse Resp BP Pulse Ox 07/13/21 07:49 36.8 C 71 16 160/82 H 94 Laboratory Results Short CBC 07/13/21 Range/Units 06:01 WBC 6.27 (4.8-10.8) K/uL Hgb 13.6 (12.0-16.0) g/dL Hct 39.7 (37-47) % Plt Count 134 (130-400) K/uL BMP 07/13/21 06:01 Sodium 137 Potassium 3.9 Chloride 109 H Carbon Dioxide 20 L BUN 13 Creatinine 0.67 Glucose 141 H Calcium 7.8 L Liver Function 07/13/21 Range/Units 06:01 Total Bilirubin 1.0 (0.2-1.0) mg/dl Direct Bilirubin 0.2 (0-0.2) mg/dl AST 43 H (13-39) U/L ALT 48 (7-52) U/L Alkaline Phosphatase 153 H (34-104) U/L Albumin 3.0 L (3.4-5.0) gm/dl
--- NOTE | 2021-07-13 13:38 | Discharge Summary ---
Date of Service July 13, 2021 Admission HPI Per Admitting Provider CHIEF COMPLAINT: Abdominal pain and diarrhea going on and off since last 2 weeks and had fever today. HISTORY OF PRESENT ILLNESS: An 81-year-old female with past medical history significant for type 2 diabetes, hyperlipidemia, hypothyroidism, atherosclerotic cardiovascular disease, occlusion of left carotid artery, atherosclerosis of aorta, hepatic cirrhosis, vitamin D deficiency, chronic kidney disease stage III, history of gout arthropathy, history of chronic diastolic congestive heart failure, history of thrombocytopenia, history of breast cancer, status post lumpectomy and radiation treatment and completed 7 years of tamoxifen, history of venous thrombosis and embolus, on Coumadin. Presents with abdominal pain going on for the last 2 weeks on and off; when pain comes it is 7/10 to 8/10 in severity. Also having watery diarrhea since the same time on and off. Today she also had fever which prompted her to come to the ER. Currently, resting comfortably and hemodynamically stable. She has had temperature spike of 38 in the ER. The patient denies any nausea or vomiting. Normal bladder movements. The pain is not associated with food intake. This pain is mostly in the lower abdomen as per the patient. Denies any chest pain. No shortness of breath, no cough, no headache, no blurred visions, no runny nose, no sore throat, no difficulty swallowing. Appetite is okay. Ambulates fine without support. Can ambulate one block without stopping. Lives alone, but daughter lives close by. Admission Exam Per Admitting Provider PHYSICAL EXAMINATION: GENERAL: The patient is of moderate build, not in acute distress. VITAL SIGNS: Temperature T-max 38, pulse 87, respiratory rate 18, blood pressure 123/68, oxygen 92% on room air. HEENT: Pupils equal, round, and reactive to light. Oral mucosa dry. NECK: No JVD, no neck masses. CARDIOVASCULAR: S1 and S2 heard. Regular rate and rhythm. No murmur, no gallop. RESPIRATORY SYSTEM: Normal AP diameter. No accessory muscle use. No wheezing, no crackles. ABDOMEN: Soft. Bowel sounds are present, nontender, no distention. CENTRAL NERVOUS SYSTEM: Cranial nerves II through XII grossly intact, nonfocal. EXTREMITIES: Mild edema, no erythema seen. Principal Diagnosis Acute cholangitis Choledocholithiasis Melena Discharge Data Allergies Allergy/AdvReac Type Severity Reaction Status Date / Time aspirin AdvReac Unknown bruising Verified 02/22/20 17:40 Consultations 07/09/21 23:55 ED Decision to Admit Stat 07/10/21 04:49 Consult General Surgery Routine 07/10/21 08:00 Consult Gastroenterology Routine Procedures Performed Operation Date: 07/10/21 11:00 Actual Procedures s Esophagogastroduodenoscopy with biopsy - Quirino Dominguez DO s Endoscopic Ultrasonography Upper - Quirino Dominguez DO p Endoscopic Retrograde Cholangiopancreato - Quirino Dominguez DO Ordered Studies 07/09/21 18:16 CT abd pelvis IV con only Stat 07/09/21 23:38 US gallbladder Urgent 07/10/21 FL ERCP biliary ductal Routine 07/10/21 00:38 MR MRCP Urgent 07/10/21 14:30 US upper EUS PACS images Routine 07/11/21 08:06 US venous doppler LE BI Routine Diabetes Follow up Diabetes Follow-up Needed for HgbA1c >9% Hospital Course (1) Abdominal pain: Patient is an 81 yr old female who presents with abdominal pain on and off for 2 weeks and diarrhea going on for the last 2 weeks and found to have acute cholecystitis and elevated LFTs. Acute cholecystitis Choledocholithiasis, cholangitis --CT Abd/pelvis:Cirrhotic liver with associated steatosis. Diffuse gallbladder wall thickening/edema with a few punctate gallstones. This is likely due to the patient's cirrhosis. Acute cholecystitis is considered less likely but not entirely excluded. Colonic diverticulosis. No evidence for acute diverticulitis. Normal appendix. No bowel wall thickening or obstruction. --Liver US:Diffuse gallbladder wall thickening/edema measuring approximately 5 mm. There are also a few small gallstones and a small amount of gallbladder sludge. This is likely due to the patient's cirrhosis. An acute cholecystitis is considered less likely but not entirely excluded. Cirrhotic liver. --S/P EGD, EUS with ERCP biliary sphincterotomy with CBD stent and pancreatic stent placement Mild gastritis Gallbladder sludge Dilatation of CBD --- Need to complete 10-day course of antibiotics Will need repeat ERCP for stent removal in 6 to 8 weeks Plan to hold anticoagulation for 5 days Avoid NSAIDs for 5 days --Appreciate GI, surgery input Given multiple comorbidities, patient is high risk for surgical intervention. Plan for alternative approach for gallbladder drainage--Axios stent placement as outpatient Tolerating low-fat diet as able Needs follow-up with GI upon discharge LFTs trending down IV Zosyn>> transition to ceftriaxone, Flagyl Melena Positive FOBT Likely residual bleed from recent procedure Hemoglobin stable Monitor CBC GI on board Aspirin, Coumadin held No recurrence of bleeding Diarrhea Likely secondary to antibiotics stool for C. difficile negative Diarrhea improved Elevated lactic acid lactic acidosis resolved H/O DVT Coumadin held Resume as able DM II hold home medication HbA1c 9.0 Continue insulin Hyperlipidemia: Resume statin as able Hypertension: Continue lisinopril, atenolol. Gout: Continue allopurinol. 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 Hepatic cirrhosis: Follow up with GI Chronic diastolic congestive heart failure: Resume Lasix as able H/O Breast cancer S/P lumpectomy, radiation, and completed 7 years of tamoxifen therapy. CAD S/P balloon angioplasty without stenting in 1989 Continue beta jairo Resume statin as able Aspirin held DVT Coumadin on hold CODE STATUS Full code Disposition Home Total Time Total Time Spent Total Time Spent (In Minutes): 50 minutes Discharge Plan Discharge Items Patient Disposition: Home - Self-Care Reason For Visit: FEVER, ABD PAIN Discharge Diagnosis: Acute cholangitis Choledocholithiasis Melena Condition on Discharge: Fair Activity: Per Instructions section Exercise/Sports: Gradually increase as tolerated Non-emergency contact: Primary Care Provider and Process Maintenance Technician Call non-emergency contact if: you have any medication questions, your symptoms worsen, your pain is concerning for you and you have a fever Follow-up/Referrals: Hollie Ferris, [Primary Care Provider] - Diet: Carb Consistent or DM2 and Low Fat Addtl Attending Provider Instructions: --Follow-up with your primary care physician in 1 week as advised --Follow-up with your plant etiologist Dr.Marten Dominguez in 4-6 weeks. (Will need repeat ERCP for stent removal and also for Axios stent placement) --Follow-up with Coumadin clinic for adjustment of your Coumadin dose while on antibiotics has there is potential interaction. --- Complete the antibiotic course cefdinir, Flagyl as prescribed. --- Hold taking aspirin, Coumadin for now. Restart aspirin, Coumadin if no recurrence of bleeding after 4 days as advised. Do not take group of medications belonging to NSAIDs group -can cause worsen your risk for bleeding List Of these medications includes but not limited to: Diclofenac Ibuprofen, Motrin, Advil Toradol,ketorolac Naproxen, Aleve, Naprosyn Seek immediate medical attention if your symptoms reoccur or worsen Please take all medications as instructed on discharge list below. Please call if you have any questions or problems. You can reach a [facility] hospitalist on duty at [facility] 24 hours a day by calling [phone] Pending Studies at Discharge: Yes Studies:: Blood cultures Stand-Alone Forms: My [facility], Smoking Cessation Medications and DC Order Prescriptions: New metronidazole 500 mg Tablet 500 mg PO TID 8 Days Qty: 24 RF: 0 cefdinir 300 mg capsule 300 mg PO BID Qty: 16 RF: 0 Continued lidocaine 5 % Adhesive Patch,Medicated 1 patch transdermal QAM Qty: 15 RF: 0 allopurinol 100 mg Tablet 100 mg PO DAILY RF: 0 aspirin 81 mg Tablet,Delayed Release (Dr/Ec) 81 mg PO DAILY RF: 0 atenolol 50 mg Tablet 50 mg PO DAILY RF: 0 glipizide 5 mg tablet extended release 24hr 5 mg PO DAILY RF: 0 levothyroxine 125 mcg tablet 125 mcg PO DAILY RF: 0 fluticasone propionate 50 mcg/actuation [place],Suspension 2 spray INTRANASAL DAILY RF: 0 sodium chloride 0.65 % Aerosol,[place] 2 spray INTRANASAL UD PRN (Reason: Nasal Congestion) RF: 0 rosuvastatin 20 mg tablet 20 mg PO DAILY RF: 0 Jardiance 25 mg tablet 25 mg PO DAILY RF: 0 guaifenesin [Mucinex] 600 mg Tablet Extended Release 12hr 600 mg PO Q12 Qty: 10 RF: 0 furosemide 40 mg tablet 40 mg PO DAILY RF: 0 warfarin 5 mg tablet 5 mg PO DIRECTED RF: 0 lisinopril 5 mg tablet 5 mg PO DAILY RF: 0 gabapentin 100 mg capsule 100 mg PO TID PRN (Reason: Pain) RF: 0 Discontinued acetaminophen 325 mg Tablet 650 mg PO Q4H PRN (Reason: pain) Qty: 20 RF: 0 aspirin [Aspir-81] 81 mg Tablet,Delayed Release (Dr/Ec) 81 mg PO DAILY RF: 0 Discharge Orders: Discharge Order (Routine); Ordered 07/13/21 Ordered By: Josh Desouza Admission Data Admit Date/Time: 07/10/21 00:38 Attending Provider: Josh Desouza Admit Provider: Monty Bowen Primary Care Provider: Hollie Ferris Other Providers: Monty Bowen ; Jason Garza
== END 2021-07-13 17:34 | disposition home or self-care (01) | DRG 445 ==
LOC: ED 17:20 → SUATTDRO 07-10 00:38 → 3E 07-10 00:38

== ENCOUNTER 2023-10-09 13:49 | Inpatient (IN) ==
--- NOTE | 2023-10-09 14:04 | Emergency Department Note ---
Impression & Plan Generalized weakness, Elevated lactic acid level, COVID-19 ED Provider Note HISTORY OF PRESENT ILLNESS: Patient is an 83-year-old female presenting after being found down. Patient was alerted as a prehospital trauma. Patient reports that she felt very weak and lost her balance and ended up on the ground and her daughter found her and called 911. Patient is on Eliquis. On arrival to the ER, the patient is not complaining of any significant pain. She reports she did not strike her head when she fell, she reports that she lowered herself to the ground. She was febrile for EMS and they started normal saline on the patient and gave her IV Tylenol. On arrival to the ER, the patient is not any chest pain or shortness of breath. Denies any abdominal pain, chest pain, nausea or vomiting. ROS: as above PHYSICAL EXAM: Constitutional: Patient appears in no acute distress. HENT: Head: Normocephalic and atraumatic. Eyes: EOMI, PERRL Mouth/Throat: Mucous membranes moist. Neck: Trachea midline. Neck supple. No midline cervical spine tenderness to palpation. Cardiovascular: RRR, No murmurs, rubs or gallops. Intact distal pulses. Pulmonary/Chest: No respiratory distress. Breath sounds clear and equal bilaterally. No wheezes or rales. Abdominal: Abdomen soft, no tenderness, rebound or guarding. Musculoskeletal: No edema, tenderness or deformity noted. Patient straight leg raises bilaterally. Skin: Warm and dry. No rash, erythema, pallor or cyanosis Psychiatric: Appropriate mood and affect for situation. Neurological: Alert and keenly responsive. CN II-XII grossly intact, moving all extremities equally and fully. MDM: - Vitals signs stable. patient was alerted as a prehospital trauma, but on assessment she has no traumatic injuries and we will follow through with more of a medical workup versus traumatic workup at this time. - History obtained via patient and EMS. History as above. - Chronic conditions affecting care: HLD; DM-2; hypothyroidism; HTN; DVT - Differential diagnoses include, but are not limited to: UTI; CVA; intracranial hemorrhage; viral syndrome; pneumonia; electrolyte abnormality - Order placed for continuous cardiac monitoring. At this time, monitor showed rate of 69 bpm with normal sinus rhythm, per my interpretation. - External medical records reviewed. Discharge summary dated 07/12/2021 was reviewed. Patient was admitted at that time for acute cholangitis, melena and choledocholithiasis. - EKG interpreted by myself showed normal sinus rhythm. Rate 74 bpm. QT 440. No acute ischemic changes. - Laboratory workup interpreted by myself showed slight leukocytosis (WBC 11.55); elevated INR (1.3); stable electrolytes other than hypocalcemia; elevated lactate (2.4); normal procalcitonin; normal troponin - CXR negative for pneumonia, per my interpretation - UA negative for infection - CT head wo contrast negative for acute pathology - Considered other CT imaging (such as chest/abdomen/pelvis), but patient has no evidence of external trauma on examination and has no complaints of pain on arrival to the emergency department. - COVID positive - Patient's weakness is likely secondary to her acute viral etiology. Concern about patient's safety and going home given her weakness, so will admit to hospital service for further evaluation. - Patient given 1.5L NS in ER. - Discussion was had with spring encaser about patient's case and need for admission - Hospitalist consulted for admission - Patient admitted to [facility] service for further evaluation and management. ASSESSMENT AND PLAN: Diagnosis: Generalized weakness; elevated lactate; COVID-19 infection Plan: Admit Past Med/Surg History Problem List (Updated 10/09/23 @ 18:07 by Corazon Rainey MD) COVID-19 (Acute) Elevated lactic acid level (Acute) Generalized weakness (Acute) Dermatitis, unspecified (Acute) Candidiasis of mouth (Acute) Cholangitis Encounter for pre-operative examination Abdominal pain Weakness (Acute) Fever (Acute) Diarrhea (Acute) Hematoma of left hip (Acute) Status post fall DVT prophylaxis Fall (Acute) Weakness (Acute) VICK (acute kidney injury) (Acute) Chest pain (Acute) Hypertension (Chronic) Medical History Acute cholecystitis Elevated liver enzymes HTN (hypertension) Right leg DVT Cirrhosis of liver Acute renal failure Pneumonia due to COVID-19 virus Aortic stenosis, mild TIA (transient ischemic attack) Occlusion of left internal carotid artery Gout History of breast cancer ASCVD (arteriosclerotic cardiovascular disease) Hypothyroidism Diabetes type 2, uncontrolled Hyperlipidemia Surgical History History of hysterectomy History of carotid endarterectomy History of colonoscopy History of breast surgery DCIS L 2009 History of angioplasty coronary ballon angioplasty 1990s Family History Mother Breast cancer Social History Smoking Status: Never smoker Second Hand Exposure: No; Do You Dip or Chew Tobacco: No; Hx Alcohol Use: No Hx Substance Use: No Preferred Language: Mongolian Communication Ability: Effective 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 [employer]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 Specialist Required: No Beliefs That Will Affect Care: None marital status: / Current Living Situation: Alone current occupational status: retired Feels Safe at Home: Yes Assistive Devices: None Allergies Allergies Allergy/AdvReac Type Severity Reaction Status Date / Time empagliflozin AdvReac Intermediate CAUSED A Verified 10/09/23 15:50 [From Jardiance] YEAST INFECTION aspirin AdvReac Unknown BRUISING Verified 10/09/23 15:50 WITH 325 MG TAB, OKAY WITH 81 MG Home Meds Home Medications Medication Instructions Recorded Confirmed allopurinol 100 mg tablet 100 mg PO DAILY GOUT 03/21/18 10/09/23 aspirin 81 mg tablet,delayed 81 mg PO DAILY 03/21/18 10/09/23 release atenolol 50 mg tablet 50 mg PO DAILY 03/21/18 10/09/23 fluticasone propionate 50 2 spray intranasal DAILY PRN 02/22/20 10/09/23 mcg/actuation nasal Congestion spray,suspension levothyroxine 125 mcg tablet 125 mcg PO DAILY 02/22/20 10/09/23 rosuvastatin 20 mg tablet 20 mg PO DAILY 02/22/20 10/09/23 furosemide 40 mg tablet 40 mg PO DAILY 07/10/21 10/09/23 gabapentin 100 mg capsule 100 mg PO TID PRN Pain 07/10/21 10/09/23 lisinopril 5 mg tablet 5 mg PO DAILY 07/10/21 10/09/23 acetaminophen 500 mg tablet 500 mg PO Q8H PRN PAIN/FEVER 10/09/23 10/09/23 (Tylenol Extra Strength) apixaban 2.5 mg tablet (Eliquis) 2.5 mg PO BID 10/09/23 10/09/23 cholecalciferol (vitamin D3) 50 50 mcg PO DAILY 10/09/23 10/09/23 mcg (2,000 unit) capsule (Vitamin D3) insulin glargine 100 unit/mL (3 14 unit subcut QPM 10/09/23 10/09/23 mL) subcutaneous pen (Lantus Solostar U-100 Insulin) ketoconazole 2 % topical cream 1 applic topical DAILY 10/09/23 10/09/23 lactulose 10 gram/15 mL oral 15 ml PO BID PRN SEVERE 10/09/23 10/09/23 solution CONSTIPATION linagliptin 5 mg tablet (Tradjenta) 5 mg PO QAM 10/09/23 10/09/23 Previous Rx's Medication Instructions Recorded nystatin 100,000 unit/mL oral 5 ml PO QID 14 days #280 mL 09/25/23 suspension Results & Data (ED) Vital Signs Vital Signs - 24 hr 10/09/23 14:18 10/09/23 14:21 10/09/23 14:21 Temperature 37.5 C Temperature Source Oral Pulse Rate 76 Pulse Rate [Left Apical] 74 Pulse Rate from SpO2 Sensor Pulse Rhythm [Left Apical] Pulse Strength [Left Apical] Respiratory Rate 20 16 Respiratory Effort / Characteristics Non-Labored Spontaneous Respiratory Depth Normal Respiratory Pattern Blood Pressure 135/59 L Blood Pressure [Right Arm] 135/59 L Blood Pressure Mean 101 Blood Pressure Mean [Right Arm] 84 Blood Pressure Position [Right Arm] Lying Pulse Oximetry 94 94 Oxygen Delivery Method Room Air Room Air Room Air Sepsis Recent Fever Within 48 Hours Sepsis New/Unexplained Change in Mental Status Sepsis Action Taken by Nursing 10/09/23 14:21 10/09/23 14:22 10/09/23 14:48 Temperature Temperature Source Pulse Rate 76 72 Pulse Rate [Left Apical] Pulse Rate from SpO2 Sensor Pulse Rhythm [Left Apical] Pulse Strength [Left Apical] Respiratory Rate 19 Respiratory Effort / Characteristics Respiratory Depth Respiratory Pattern Blood Pressure 124/55 L Blood Pressure [Right Arm] Blood Pressure Mean 78 Blood Pressure Mean [Right Arm] Blood Pressure Position [Right Arm] Pulse Oximetry 95 Oxygen Delivery Method Room Air Sepsis Recent Fever Within 48 Hours Yes Sepsis New/Unexplained Change in Mental Status Yes Sepsis Action Taken by Nursing No Action Required 10/09/23 15:00 10/09/23 15:30 10/09/23 15:30 Temperature Temperature Source Pulse Rate 74 71 Pulse Rate [Left Apical] 70 Pulse Rate from SpO2 Sensor 69 Pulse Rhythm [Left Apical] Regular Pulse Strength [Left Apical] Normal Respiratory Rate 24 16 25 H Respiratory Effort / Characteristics Non-Labored Spontaneous Respiratory Depth Normal Respiratory Pattern Regular Blood Pressure 121/80 139/65 Blood Pressure [Right Arm] 139/65 Blood Pressure Mean 93 89 Blood Pressure Mean [Right Arm] 89 Blood Pressure Position [Right Arm] Pulse Oximetry 92 96 Oxygen Delivery Method Room Air Room Air Sepsis Recent Fever Within 48 Hours Sepsis New/Unexplained Change in Mental Status Sepsis Action Taken by Nursing 10/09/23 15:32 10/09/23 16:00 10/09/23 16:30 Temperature Temperature Source Pulse Rate 71 69 Pulse Rate [Left Apical] Pulse Rate from SpO2 Sensor 71 70 Pulse Rhythm [Left Apical] Pulse Strength [Left Apical] Respiratory Rate 19 15 Respiratory Effort / Characteristics Respiratory Depth Respiratory Pattern Blood Pressure 131/74 131/66 Blood Pressure [Right Arm] Blood Pressure Mean 93 87 Blood Pressure Mean [Right Arm] Blood Pressure Position [Right Arm] Pulse Oximetry 97 94 95 Oxygen Delivery Method Sepsis Recent Fever Within 48 Hours Sepsis New/Unexplained Change in Mental Status Sepsis Action Taken by Nursing Laboratory Data 10/09/23 14:12 10/09/23 14:12 Lab Results 10/09/23 10/09/23 10/09/23 Range/Units 14:09 14:12 14:22 WBC 11.55 H (4.8-10.8) K/ul RBC 4.15 L (4.20-5.40) M/uL Hgb 12.9 (12.0-16.0) g/dl Hct 39.7 (37.0-47.0) % MCV 95.7 (80.0-100.0) fL MCH 31.1 (25.0-34.0) pg MCHC 32.5 (32.0-36.0) g/dL RDW Std Deviation 51.4 H (36.4-46.3) fL RDW Coeff of Allie 14.7 H (11.5-14.5) % Plt Count 128 L (130-400) K/uL MPV 12.5 H (9.4-12.4) fL Immature Gran % (Auto) 0.4 % Neut % (Auto) 79.3 % Lymph % (Auto) 10.1 % [place] % (Auto) 9.4 % Eos % (Auto) 0.1 % Baso % (Auto) 0.7 % Neut # (Auto) 9.16 H (1.40-6.50) K/uL Lymph # (Auto) 1.17 L (1.20-3.40) K/uL [place] # (Auto) 1.08 H (0.11-0.59) K/uL Eos # (Auto) 0.01 (0.00-0.50) K/uL Baso # (Auto) 0.08 (0.00-0.20) K/uL Immature Gran # (Auto) 0.05 (0.01-0.20) K/uL PT 13.6 H (9.0-12.0) Seconds INR 1.3 H (0.9-1.1) Sodium 141 (136-145) mmol/L Potassium 3.7 (3.5-5.1) mmol/L Chloride 107 (98-107) mmol/L Carbon Dioxide 23 (21-32) mmol/L Anion Gap 11 (3-11) BUN 16 (6-23) mg/dl Creatinine 0.75 (0.6-1.2) mg/dl Est Cr Clr Drug Dosing 49.9 ml/min Est GFR ( Amer) 86.0 ml/min Est GFR (Non-Af Amer) 74.2 ml/min BUN/Creatinine Ratio 21.3 H (10-20) Glucose 147 H (70-99(Fasting)) mg/dl Lactate 2.4 H* (0.4-2.0) mmol/L Calcium 7.7 L (8.6-10.3) mg/dl Magnesium 2.2 (1.7-2.4) mg/dl Total Bilirubin 1.2 H (0.2-1.0) mg/dl AST 60 H (13-39) U/L ALT 28 (7-52) U/L Alkaline Phosphatase 213 H (34-104) U/L Troponin I High Sens 13.5 (0-14) pg/ml Total Protein 6.1 (6.0-8.3) gm/dl Albumin 2.9 L (3.4-5.0) gm/dl Globulin 3.2 (2.5-4.0) gm/dl Albumin/Globulin Ratio 0.9 (0.9-2) Lipase 32 (11-82) U/L Procalcitonin 0.36 (0-0.5) ng/ml Urine Color Dark Yellow Urine Appearance Clear (Clear) Urine pH 6.5 (4.5-7.5) Ur Specific [place] 1.026 (1.000-1.030) Urine Protein 2+ H (Negative) Urine Glucose (UA) Negative (Negative) Urine Ketones 1+ H (Negative) Urine Blood Trace H (Negative) Urine Nitrite Negative (Negative) Urine Bilirubin 1+ H (Negative) Urine Urobilinogen Negative (Negative) Ur Leukocyte Esterase Trace H (Negative) Urine WBC (Auto) 0-5 (0-5) /hpf Urine RBC (Auto) 3-5 H (0-2) /hpf U Hyaline Cast (Auto) 3-5 H (0-2) /lpf U Epithel Cells (Auto) 0-2 (0-2) /hpf Urine Bacteria (Auto) None Seen (None Seen) Adenovirus (PCR) Not Detected (NotDetected) B. pertussis DNA (PCR) Not Detected (NotDetected) B.parapertussis DNA PCR Not Detected (NotDetected) C. pneumoniae DNA (PCR) Not Detected (NotDetected) Coronavirus OC43 (PCR) Not Detected (NotDetected) Coronavirus HKU1 (PCR) Not Detected (NotDetected) Coronavirus 229E (PCR) Not Detected (NotDetected) SARS-CoV-2 (PCR) DETECTED A (NotDetected) Coronavirus NL63 (PCR) Not Detected (NotDetected) Human Metapneumovir PCR Not Detected (NotDetected) Influenza Type A (PCR) Not Detected (NotDetected) Influenza Type B (PCR) Not Detected (NotDetected) M. pneumoniae (PCR) Not Detected (NotDetected) Parainfluenza 1 (PCR) Not Detected (NotDetected) Parainfluenza 2 (PCR) Not Detected (NotDetected) Parainfluenza 3 (PCR) Not Detected (NotDetected) Parainfluenza 4 (PCR) Not Detected (NotDetected) RSV (PCR) Not Detected (NotDetected) Entero/Rhino (PCR) Not Detected (NotDetected) 10/09/23 Range/Units 15:56 WBC (4.8-10.8) K/ul RBC (4.20-5.40) M/uL Hgb (12.0-16.0) g/dl Hct (37.0-47.0) % MCV (80.0-100.0) fL MCH (25.0-34.0) pg MCHC (32.0-36.0) g/dL RDW Std Deviation (36.4-46.3) fL RDW Coeff of Allie (11.5-14.5) % Plt Count (130-400) K/uL MPV (9.4-12.4) fL Immature Gran % (Auto) % Neut % (Auto) % Lymph % (Auto) % [place] % (Auto) % Eos % (Auto) % Baso % (Auto) % Neut # (Auto) (1.40-6.50) K/uL Lymph # (Auto) (1.20-3.40) K/uL [place] # (Auto) (0.11-0.59) K/uL Eos # (Auto) (0.00-0.50) K/uL Baso # (Auto) (0.00-0.20) K/uL Immature Gran # (Auto) (0.01-0.20) K/uL PT (9.0-12.0) Seconds INR (0.9-1.1) Sodium (136-145) mmol/L Potassium (3.5-5.1) mmol/L Chloride (98-107) mmol/L Carbon Dioxide (21-32) mmol/L Anion Gap (3-11) BUN (6-23) mg/dl Creatinine (0.6-1.2) mg/dl Est Cr Clr Drug Dosing ml/min Est GFR ( Amer) ml/min Est GFR (Non-Af Amer) ml/min BUN/Creatinine Ratio (10-20) Glucose (70-99(Fasting)) mg/dl Lactate 2.0 (0.4-2.0) mmol/L Calcium (8.6-10.3) mg/dl Magnesium (1.7-2.4) mg/dl Total Bilirubin (0.2-1.0) mg/dl AST (13-39) U/L ALT (7-52) U/L Alkaline Phosphatase (34-104) U/L Troponin I High Sens (0-14) pg/ml Total Protein (6.0-8.3) gm/dl Albumin (3.4-5.0) gm/dl Globulin (2.5-4.0) gm/dl Albumin/Globulin Ratio (0.9-2) Lipase (11-82) U/L Procalcitonin (0-0.5) ng/ml Urine Color Urine Appearance (Clear) Urine pH (4.5-7.5) Ur Specific [place] (1.000-1.030) Urine Protein (Negative) Urine Glucose (UA) (Negative) Urine Ketones (Negative) Urine Blood (Negative) Urine Nitrite (Negative) Urine Bilirubin (Negative) Urine Urobilinogen (Negative) Ur Leukocyte Esterase (Negative) Urine WBC (Auto) (0-5) /hpf Urine RBC (Auto) (0-2) /hpf U Hyaline Cast (Auto) (0-2) /lpf U Epithel Cells (Auto) (0-2) /hpf Urine Bacteria (Auto) (None Seen) Adenovirus (PCR) (NotDetected) B. pertussis DNA (PCR) (NotDetected) B.parapertussis DNA PCR (NotDetected) C. pneumoniae DNA (PCR) (NotDetected) Coronavirus OC43 (PCR) (NotDetected) Coronavirus HKU1 (PCR) (NotDetected) Coronavirus 229E (PCR) (NotDetected) SARS-CoV-2 (PCR) (NotDetected) Coronavirus NL63 (PCR) (NotDetected) Human Metapneumovir PCR (NotDetected) Influenza Type A (PCR) (NotDetected) Influenza Type B (PCR) (NotDetected) M. pneumoniae (PCR) (NotDetected) Parainfluenza 1 (PCR) (NotDetected) Parainfluenza 2 (PCR) (NotDetected) Parainfluenza 3 (PCR) (NotDetected) Parainfluenza 4 (PCR) (NotDetected) RSV (PCR) (NotDetected) Entero/Rhino (PCR) (NotDetected) Administered Medications Discontinued Medications Sodium Chloride (Nss) 1,000 mls @ 999 mls/hr IV .Q1H1M ONE Stop: 10/09/23 15:28 Last Infusion: 10/09/23 16:05 Dose: Infused Documented By: Admin: 10/09/23 14:58 Dose: 999 mls/hr Documented By: TAWNYA Sodium Chloride (Nss) 500 mls @ 999 mls/hr IV .Q31M ONE Stop: 10/09/23 14:58 Last Infusion: 10/09/23 15:41 Dose: Infused Documented By: Admin: 10/09/23 14:58 Dose: 999 mls/hr Documented By: TAWNYA Imaging Data Radiologist's Impression: Chest X-Ray 10/09/23 14:00 XR chest 1V portable CLINICAL HISTORY: Sepsis. COMPARISON STUDY: Chest radiograph July 09, 2021. FINDINGS: There is no pneumothorax or pleural effusion. Cardiomegaly is unchanged. There are left breast surgical clips. There is no evidence for pulmonary edema. There is no consolidation to suggest pneumonia. Minimal left lower lung opacity favors atelectasis. IMPRESSION: Minimal left basilar opacity suggestive of atelectasis. No definite acute findings. ACT 112: Negative or not required by law. Electronically signed by: Ricky Arita M.D. 10/09/2023 3:[address] 10/09/23 14:00 CT SCAN OF THE BRAIN WITHOUT IV CONTRAST CLINICAL HISTORY: Generalized weakness. COMPARISON STUDY: CT of the brain dated 03/01/2020. TECHNIQUE: Unenhanced axial CT scan of the brain is performed from the vertex to the skull base. A dose lowering technique was utilized adhering to the principles of ALARA. CT DOSE: 625.8 mGy.cm FINDINGS: Brain parenchyma: There is age-related involutional change noting mild subcortical and periventricular microangiopathic disease. There is no hemorrhage, mass effect, or evidence of acute territorial ischemia by CT criteria. Mineralization is noted in the basal ganglia. Sharma-white matter differentiation is preserved. No extra-axial fluid collection is seen. Ventricles, sulci, cisterns: Prominent secondary to involutional change. Intracranial vasculature: There is atherosclerotic calcification of the cavernous carotid and vertebral arteries. Calvarium: Unremarkable. Sinuses and mastoids: There is mild mucosal thickening within the frontal and ethmoid sinuses. The mastoid air cells are well pneumatized. Orbits: The bony orbits are grossly intact. IMPRESSION: There is no hemorrhage, mass effect, or evidence of acute territorial ischemia by CT criteria. ACT 112: Negative or not required by law. Electronically signed by: Kwame Liz M.D. 10/09/2023 2:47 PM Discharge Plan Visit Data Chief Complaint: Trauma Stated Complaint: Trauma ED Provider: Corazon Rainey Discharge Problem: Generalized weakness, Elevated lactic acid level, COVID-19 Forms Stand Alone Forms: My [facility] Prescriptions Prescriptions: No Action allopurinol 100 mg Tablet 100 mg PO DAILY aspirin 81 mg Tablet,Delayed Release (Dr/Ec) 81 mg PO DAILY atenolol 50 mg Tablet 50 mg PO DAILY levothyroxine 125 mcg tablet 125 mcg PO DAILY fluticasone propionate 50 mcg/actuation [place],Suspension 2 spray INTRANASAL DAILY PRN (Reason: Congestion) rosuvastatin 20 mg tablet 20 mg PO DAILY furosemide 40 mg tablet 40 mg PO DAILY lisinopril 5 mg tablet 5 mg PO DAILY gabapentin 100 mg capsule 100 mg PO TID PRN (Reason: Pain) nystatin 100,000 unit/mL suspension 5 ml PO QID 14 Days Qty: 280 1RF Rx Instructions: STARTED 09/26/23 Swish in the mouth for 3-5 minutes, then spit out. Treat for 3 days after rash resolution, up to 14d. acetaminophen [Tylenol Extra Strength] 500 mg Tablet 500 mg PO Q8H PRN (Reason: PAIN/FEVER) ketoconazole 2 % cream 1 applic TOPICAL DAILY Rx Instructions: APPLY TO SCALY AREAS lactulose 10 gram/15 mL solution 15 ml PO BID PRN (Reason: SEVERE CONSTIPATION) insulin glargine [Lantus Solostar U-100 Insulin] 100 unit/mL (3 mL) insulin pen 14 unit SUBCUT QPM cholecalciferol (vitamin D3) [Vitamin D3] 50 mcg (2,000 unit) Capsule 50 mcg PO DAILY Tradjenta 5 mg tablet 5 mg PO QAM Eliquis 2.5 mg Tablet 2.5 mg PO BID Referrals Referrals: Hollie Ferris DO [Primary Care Provider] -
[2023-10-09 14:35] LABS: Basophils # (auto) 0.08 K/uL (0.00-0.20); Basophils % (auto) 0.7 %; Eosinophils # (auto) 0.01 K/uL (0.00-0.50); Eosinophils % (auto) 0.1 %; Hematocrit (blood only) 39.7 % (37.0-47.0); Hemoglobin 12.9 g/dl (12.0-16.0); Immature Granulocytes # (auto) 0.05 K/uL (0.01-0.20); Immature Granulocytes % (auto) 0.4 %; Lymphocytes # (auto) 1.17 K/uL (1.20-3.40); Lymphocytes % (auto) 10.1 %; Mean Corpuscular Hemoglobin 31.1 pg (25.0-34.0); Mean Corpuscular Hgb Conc 32.5 g/dL (32.0-36.0); Mean Corpuscular Volume 95.7 fL (80.0-100.0); Mean Platelet Volume 12.5 fL (9.4-12.4); Monocytes # (auto) 1.08 K/uL (0.11-0.59); Monocytes % (auto) 9.4 %; Neutrophils # (auto) 9.16 K/uL (1.40-6.50); Neutrophils % (auto) 79.3 %; Platelet Count 128 K/uL (130-400); RDW Coefficient of Variation 14.7 % (11.5-14.5); RDW Standard Deviation 51.4 fL (36.4-46.3); Red Blood Count 4.15 M/uL (4.20-5.40); White Blood Count 11.55 K/ul (4.8-10.8)
[2023-10-09 14:40] LABS: Appearance Urine Clear (Clear); Bacteria Urine Automated None Seen (None Seen); Bilirubin Urine 1+ (Negative); Blood Urine Trace (Negative); Color Urine Dark Yellow; Epithelial Cell Urine Auto 0-2 /hpf (0-2); Glucose Urine UA Negative (Negative); Ketones Urine 1+ (Negative); Leukocyte Esterase Urine Trace (Negative); Nitrite Urine Negative (Negative); Protein Urine 2+ (Negative); Specific Gravity Urine 1.026 (1.000-1.030); Urobilinogen Urine Negative (Negative); WBC Urine Automated 0-5 /hpf (0-5); pH Urine 6.5 (4.5-7.5)
[2023-10-09 14:47] LABS: Albumin Globulin Ratio 0.9 (0.9-2); Albumin Level 2.9 gm/dl (3.4-5.0); BUN Creatinine Ratio 21.3 (10-20); Bilirubin,Total 1.2 mg/dl (0.2-1.0); Calcium 7.7 mg/dl (8.6-10.3); Creatinine Clr Calc Pharmacy 49.9 ml/min; Est GFR (Non-African American) 74.2 ml/min; Globulin 3.2 gm/dl (2.5-4.0); Magnesium 2.2 mg/dl (1.7-2.4); Potassium 3.7 mmol/L (3.5-5.1); Total Protein 6.1 gm/dl (6.0-8.3)
--- NOTE | 2023-10-09 14:48 | CT Scan Report ---
CT SCAN OF THE BRAIN WITHOUT IV CONTRAST CLINICAL HISTORY: Generalized weakness. COMPARISON STUDY: CT of the brain dated 03/01/2020. TECHNIQUE: Unenhanced axial CT scan of the brain is performed from the vertex to the skull base. A do se lowering technique was utilized adhering to the principles of ALARA. CT DOSE: 625.8 mGy.cm FINDINGS: Brain parenchyma: There is age-related involutional change noting mild subcortical and periventricula r microangiopathic disease. There is no hemorrhage, mass effect, or evidence of acute territorial isc hemia by CT criteria. Mineralization is noted in the basal ganglia. Sharma-white matter differentiation is preserved. No extra-axial fluid collection is seen. Ventricles, sulci, cisterns: Prominent secondary to involutional change. Intracranial vasculature: There is atherosclerotic calcification of the cavernous carotid and vertebr al arteries. Calvarium: Unremarkable. Sinuses and mastoids: There is mild mucosal thickening within the frontal and ethmoid sinuses. The ma stoid air cells are well pneumatized. Orbits: The bony orbits are grossly intact. IMPRESSION: There is no hemorrhage, mass effect, or evidence of acute territorial ischemia by CT adriana alan. ACT 112: Negative or not required by law. Electronically signed by: Kwame Liz M.D. 10/09/2023 2:47 PM
[2023-10-09 14:53] LABS: Troponin I High Sensitivity 13.5 pg/ml (0-14)
[2023-10-09 14:55] LABS: INR 1.3 (0.9-1.1); Prothrombin Time 13.6 Seconds (9.0-12.0)
[2023-10-09] MEDS: SODIUM CHLORIDE 0.9% 500 ML IV ONE (14:58)
[2023-10-09] MEDS: SODIUM CHLORIDE 0.9% 1,000 ML IV ONE (14:58)
--- NOTE | 2023-10-09 15:10 | XRay Report ---
XR chest 1V portable CLINICAL HISTORY: Sepsis. COMPARISON STUDY: Chest radiograph July 09, 2021. FINDINGS: There is no pneumothorax or pleural effusion. Cardiomegaly is unchanged. There are left shay ast surgical clips. There is no evidence for pulmonary edema. There is no consolidation to suggest pn eumonia. Minimal left lower lung opacity favors atelectasis. IMPRESSION: Minimal left basilar opacity suggestive of atelectasis. No definite acute findings. ACT 112: Negative or not required by law. Electronically signed by: Ricky Arita M.D. 10/09/2023 3:08 PM
[2023-10-09 15:34] LABS: Adenovirus PCR Not Detected (NotDetected); Bordetella parapertussis PCR Not Detected (NotDetected); Bordetella pertussis PCR Not Detected (NotDetected); Chlamydia pneumoniae PCR Not Detected (NotDetected); Coronavirus 229E PCR Not Detected (NotDetected); Coronavirus CoV-2 (COVID19)PCR DETECTED (NotDetected); Coronavirus HKU1 PCR Not Detected (NotDetected); Coronavirus NL63 PCR Not Detected (NotDetected); Coronavirus OC43PCR Not Detected (NotDetected); Human Metapneumovirus PCR Not Detected (NotDetected); Influenza A PCR Not Detected (NotDetected); Influenza B PCR Not Detected (NotDetected); Mycoplasma pneumoniae PCR Not Detected (NotDetected); Parainfluenza Virus 1 PCR Not Detected (NotDetected); Parainfluenza Virus 2 PCR Not Detected (NotDetected); Parainfluenza Virus 3 PCR Not Detected (NotDetected); Parainfluenza Virus 4 PCR Not Detected (NotDetected); Respiratory Syncytial VirusPCR Not Detected (NotDetected); Rhinovirus/Enterovirus PCR Not Detected (NotDetected)
--- NOTE | 2023-10-09 18:13 | History & Physical Report ---
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 Generalized weakness x 1 week Sars COV-2 admit to medical she is w/o covid sx and does not meet criteria for symptomatic treatment continue supportive care PT/OT Lactic acidosis - resolved on admission likely 2/2 to mild dehydration monitor volume status T2DM a1c 8.2 in August lantus/novolog per protocol hold outpt oral meds Hepatic Cirrhosis Transaminitis chronic for pt, monitor lfts no evidence of decompensation/H.E. HTN: chronic, stable continue lisinopril, hold lasix this evening, re evaluation status in a.m. and resume as able Echo in 2022 revealed preserved EF, no hx of CHF but evidence of diastolic dysfunction on echo Hypothyroidism:chronic, stable, tsh in a.m., continue levothyroxine DVT ppx: Eliquis FULL CODE PCP: Dr. Terry Dispo: admit to med/surg, PT/OT, pt may benefit from rehab A total of 50 minutes was spent coordinating, documenting, and providing care for this patient excluding time spent in the performance of separately billed services. This included personally viewing all current laboratories and imaging studies, medication reconciliation, outpatient chart review, and discussion with specialists. 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 She arrived to ED as a trauma alert. Patient reports sliding out of bed to the ground and was too weak to get up. Pt reports for 1 week that she has been feeling weak. This occurred at approximately 1130. She was found by her daughter at approximately 130. Patient denies hitting her head or having a denise fall. She generally feels weak. SHe denies sick contacts. SHe further denies f/c/s, chest pain, sob, uri sx, n/v/d, abd pain. Per EMS patient had a elevated temperature at 100.4. Patient denies any pain and has no obvious signs of trauma. She is on long-term anticoagulation with Eliquis which she has been compliant with. In ED she tested positive for sars cov2. She did not exhibit any symptoms. She had notable lab abnormalities including WBC 11.5 5K, platelet 128, INR 1.3, AST 60, total bilirubin 1.2, glucose 147 and abnormal urinalysis but negative for infection. Her chest x-ray revealed a minimal left lower lobe basilar opacity consistent with atelectasis. Head CT negative for any acute hemorrhage. Allergies Allergy/AdvReac Type Severity Reaction Status Date / Time empagliflozin AdvReac Intermediate CAUSED A Verified 10/09/23 15:50 [From Jardiance] YEAST INFECTION aspirin AdvReac Unknown BRUISING Verified 10/09/23 15:50 WITH 325 MG TAB, OKAY WITH 81 MG Home Medications Medication Instructions Recorded Confirmed Type allopurinol 100 mg tablet 100 mg PO DAILY GOUT 03/21/18 10/09/23 History aspirin 81 mg tablet,delayed 81 mg PO DAILY 03/21/18 10/09/23 History release atenolol 50 mg tablet 50 mg PO DAILY 03/21/18 10/09/23 History fluticasone propionate 50 2 spray intranasal DAILY PRN 02/22/20 10/09/23 History mcg/actuation nasal Congestion spray,suspension levothyroxine 125 mcg tablet 125 mcg PO DAILY 02/22/20 10/09/23 History rosuvastatin 20 mg tablet 20 mg PO DAILY 02/22/20 10/09/23 History furosemide 40 mg tablet 40 mg PO DAILY 07/10/21 10/09/23 History gabapentin 100 mg capsule 100 mg PO TID PRN Pain 07/10/21 10/09/23 History lisinopril 5 mg tablet 5 mg PO DAILY 07/10/21 10/09/23 History nystatin 100,000 unit/mL oral 5 ml PO QID 14 days #280 mL 09/25/23 10/09/23 Rx suspension acetaminophen 500 mg tablet 500 mg PO Q8H PRN PAIN/FEVER 10/09/23 10/09/23 History (Tylenol Extra Strength) apixaban 2.5 mg tablet (Eliquis) 2.5 mg PO BID 10/09/23 10/09/23 History cholecalciferol (vitamin D3) 50 50 mcg PO DAILY 10/09/23 10/09/23 History mcg (2,000 unit) capsule (Vitamin D3) insulin glargine 100 unit/mL (3 14 unit subcut QPM 10/09/23 10/09/23 History mL) subcutaneous pen (Lantus Solostar U-100 Insulin) ketoconazole 2 % topical cream 1 applic topical DAILY 10/09/23 10/09/23 History lactulose 10 gram/15 mL oral 15 ml PO BID PRN SEVERE 10/09/23 10/09/23 History solution CONSTIPATION linagliptin 5 mg tablet (Tradjenta) 5 mg PO QAM 10/09/23 10/09/23 History Past Med/Surg History Problem List COVID-19 (Acute) Elevated lactic acid level (Acute) Generalized weakness (Acute) Dermatitis, unspecified (Acute) Candidiasis of mouth (Acute) Cholangitis Encounter for pre-operative examination Abdominal pain Weakness (Acute) Fever (Acute) Diarrhea (Acute) Hematoma of left hip (Acute) Status post fall DVT prophylaxis Fall (Acute) Weakness (Acute) VICK (acute kidney injury) (Acute) Chest pain (Acute) Hypertension (Chronic) Medical History Acute cholecystitis Elevated liver enzymes HTN (hypertension) Right leg DVT Cirrhosis of liver Acute renal failure Pneumonia due to COVID-19 virus Aortic stenosis, mild TIA (transient ischemic attack) Occlusion of left internal carotid artery Gout History of breast cancer ASCVD (arteriosclerotic cardiovascular disease) Hypothyroidism Diabetes type 2, uncontrolled Hyperlipidemia Surgical History History of hysterectomy History of carotid endarterectomy History of colonoscopy History of breast surgery DCIS L 2009 History of angioplasty coronary ballon angioplasty 1990s Family History Mother Breast cancer Social History Smoking Status: Never smoker Second Hand Exposure: No; Do You Dip or Chew Tobacco: No; Hx Alcohol Use: No Hx Substance Use: No Preferred Language: Grenadian Communication Ability: Effective Security Compliance Engineer Required: No Beliefs That Will Affect Care: None marital status: / Current Living Situation: Alone current occupational status: retired Feels Safe at Home: Yes Assistive Devices: None Review of Systems Review of Systems: All systems reviewed & are unremarkable except as noted in HPI & below Physical Exam Physical Exam: please refer to Dr. Desouza addendum for physical exam findings. Results & Data Results & Data Vital Signs (Past 12 Hours) Vital Signs Temp Pulse Pulse Resp BP BP Pulse Ox 10/09/23 16:30 69 15 131/66 95 10/09/23 16:00 71 19 131/74 94 10/09/23 15:32 97 10/09/23 15:30 71 25 H 139/65 96 10/09/23 15:30 70 16 139/65 10/09/23 15:00 74 24 121/80 92 10/09/23 14:48 72 19 124/55 L 95 10/09/23 14:22 76 10/09/23 14:21 37.5 C 74 16 135/59 L 94 10/09/23 14:21 10/09/23 14:18 76 20 135/59 L 94 O2 Del Method 10/09/23 16:30 10/09/23 16:00 10/09/23 15:32 10/09/23 15:30 10/09/23 15:30 Room Air 10/09/23 15:00 Room Air 10/09/23 14:48 Room Air 10/09/23 14:22 10/09/23 14:21 Room Air 10/09/23 14:21 Room Air 10/09/23 14:18 Room Air Laboratory Results I have independently reviewed and interpreted patient's admitting labs including CBC, CMP, PTT, PT/INR, mag, lactate, trop, lipase, procal, UA, resp biorefire Diagnostic Findings Chest X-Ray 10/09/23 14:00 XR chest 1V portable CLINICAL HISTORY: Sepsis. COMPARISON STUDY: Chest radiograph July 09, 2021. FINDINGS: There is no pneumothorax or pleural effusion. Cardiomegaly is unchanged. There are left breast surgical clips. There is no evidence for pulmonary edema. There is no consolidation to suggest pneumonia. Minimal left lower lung opacity favors atelectasis. IMPRESSION: Minimal left basilar opacity suggestive of atelectasis. No definite acute findings. ACT 112: Negative or not required by law. Electronically signed by: Ricky Arita M.D. 10/09/2023 3:[address] 10/09/23 14:00 CT SCAN OF THE BRAIN WITHOUT IV CONTRAST CLINICAL HISTORY: Generalized weakness. COMPARISON STUDY: CT of the brain dated 03/01/2020. TECHNIQUE: Unenhanced axial CT scan of the brain is performed from the vertex to the skull base. A dose lowering technique was utilized adhering to the principles of ALARA. CT DOSE: 625.8 mGy.cm FINDINGS: Brain parenchyma: There is age-related involutional change noting mild subcortical and periventricular microangiopathic disease. There is no hemorrhage , mass effect, or evidence of acute territorial ischemia by CT criteria. Mineralization is noted in the basal ganglia. Sharma-white matter differentiation is preserved. No extra-axial fluid collection is seen. Ventricles, sulci, cisterns: Prominent secondary to involutional change. Intracranial vasculature: There is atherosclerotic calcification of the cavernous carotid and vertebral arteries. Calvarium: Unremarkable. Sinuses and mastoids: There is mild mucosal thickening within the frontal and ethmoid sinuses. The mastoid air cells are well pneumatized. Orbits: The bony orbits are grossly intact. IMPRESSION: There is no hemorrhage, mass effect, or evidence of acute territorial ischemia by CT criteria. ACT 112: Negative or not required by law. Electronically signed by: Kwame Liz M.D. 10/09/2023 2:47 PM Medications Administered Medication List Discontinued Medications Sodium Chloride (Nss) 1,000 mls @ 999 mls/hr IV .Q1H1M ONE Stop: 10/09/23 15:28 Last Infusion: 10/09/23 16:05 Dose: Infused Documented By: Admin: 10/09/23 14:58 Dose: 999 mls/hr Documented By: TAWNYA Sodium Chloride (Nss) 500 mls @ 999 mls/hr IV .Q31M ONE Stop: 10/09/23 14:58 Last Infusion: 10/09/23 15:41 Dose: Infused Documented By: Admin: 10/09/23 14:58 Dose: 999 mls/hr Documented By: TAWNYA ECG Additional Comments: I have independently reviewed and interpreted patient's admitting EKG which revealed: 74, NSR, qtc 488ms, no st or t wave change COVID-19 Results Results COVID-19 Adm Lab Results: RBC 4.15 M/uL (4.20-5.40) L 10/09/23 WBC 11.55 K/ul (4.8-10.8) H 10/09/23 Hgb 12.9 g/dl (12.0-16.0) 10/09/23 Hct 39.7 % (37.0-47.0) 10/09/23 Plt Count 128 K/uL (130-400) L 10/09/23 Neutrophils (%) (Auto) 79.3 % 10/09/23 Lymphocytes (%) (Auto) 10.1 % 10/09/23 Monocytes # (Auto) 1.08 K/uL (0.11-0.59) H 10/09/23 Eosinophils # (Auto) 0.01 K/uL (0.00-0.50) 10/09/23 Immature Granulocyte % (Auto) 0.4 % 10/09/23 Neutrophils # (Auto) 9.16 K/uL (1.40-6.50) H 10/09/23 Lymphocytes # (Auto) 1.17 K/uL (1.20-3.40) L 10/09/23 Monocytes # (Auto) 1.08 K/uL (0.11-0.59) H 10/09/23 Eosinophils # (Auto) 0.01 K/uL (0.00-0.50) 10/09/23 Basophils # (Auto) 0.08 K/uL (0.00-0.20) 10/09/23 Immature Granulocyte # (Auto) 0.05 K/uL (0.01-0.20) 4 Na 141 mmol/L (136-145) 10/09/23 K 3.7 mmol/L (3.5-5.1) 10/09/23 Cl 107 mmol/L (98-107) 10/09/23 CO2 23 mmol/L (21-32) 10/09/23 Anion Gap 11 (3-11) 10/09/23 BUN 16 mg/dl (6-23) 10/09/23 Creatinine 0.75 mg/dl (0.6-1.2) 10/09/23 BUN/Creatinine Ratio 21.3 (10-20) H 10/09/23 Glucose Level 147 mg/dl (70-99(Fasting)) H 10/09/23 Ca 7.7 mg/dl (8.6-10.3) L 10/09/23 Total Bilirubin 1.2 mg/dl (0.2-1.0) H 10/09/23 AST/SGOT 60 U/L (13-39) H 10/09/23 ALT/SGPT 28 U/L (7-52) 10/09/23 Alkaline Phosphatase 213 U/L (34-104) H 10/09/23 Total Protein 6.1 gm/dl (6.0-8.3) 10/09/23 Albumin 2.9 gm/dl (3.4-5.0) L 10/09/23 Globulin 3.2 gm/dl (2.5-4.0) 10/09/23 Albumin/Globulin Ratio 0.9 (0.9-2) 10/09/23 Total CK Pending 10/09/23 Procalcitonin 0.36 ng/ml (0-0.5) 10/09/23 INR 1.3 (0.9-1.1) H 10/09/23 Adenovirus (PCR) Not Detected (NotDetected) 10/09/23 B. parapertussis DNA (PCR) Not Detected (NotDetected) 09/11 11/03 B. pertussis DNA (PCR) Not Detected (NotDetected) 10/09/23 C. pneumoniae DNA (PCR) Not Detected (NotDetected) 4 Coronavirus Type OC43 (PCR) Not Detected (NotDetected) Coronavirus Type HKU1 (PCR) Not Detected (NotDetected) Coronavirus Type 229E (PCR) Not Detected (NotDetected) COVID-19 PCR DETECTED (NotDetected) A 10/09/23 Coronavirus Type NL63 (PCR) Not Detected (NotDetected) Human Metapneumovirus (PCR) Not Detected (NotDetected) Influenza Virus Type A (PCR) Not Detected (NotDetected) Influenza Virus Type B (PCR) Not Detected (NotDetected) M. pneumoniae (PCR) Not Detected (NotDetected) 10/09/23 Parainfluenza Type 1 (PCR) Not Detected (NotDetected) 09/11 11/03 Parainfluenza Type 2 (PCR) Not Detected (NotDetected) 09/11 11/03 Parainfluenza Type 3 (PCR) Not Detected (NotDetected) 09/11 11/03 Parainfluenza Type 4 (PCR) Not Detected (NotDetected) 09/11 11/03 RSV (PCR) Not Detected (NotDetected) 10/09/23 Enterovirus/Rhinovirus (PCR) Not Detected (NotDetected) Chest X-Ray 10/09/23 Code Status & VTE Plan Code Status FULL CODE VTE Prophylaxis Plan VTE Prophylaxis will be ordered: No Reason for no VTE drug order: Treatment not indicated Supervising Physician Co-Signing Physician Notes Patient is an 83-year-old female with history of hypertension, diabetes mellitus, CKD, DVT, hypothyroidism and other medical problems presents with history of fall and generalized weakness. Patient states that she was trying to get out of the bed and slide down to the floor. She denies any head trauma, loss of consciousness, dizziness. Reports having generalized weakness for about a week. Also denies any cough, chest pain, shortness of breath, nausea, vomiting, abdominal pain, diarrhea, dysuria. Denies any recent change in medications. Also denies any sick contacts. I personally reviewed blood work and imaging studies. Blood work suggestive of mild leukocytosis 11.5 K, mild thrombocytopenia 128K, lactate initially elevated at 2.4 down to 2.0 after IV fluids. Calcium 7.7. Serology positive for COVID. Normal procalcitonin. Saturating well on room air. CT head showed no acute intracranial abnormality. Chest x-ray showed minimal left basilar opacity suggestive of atelectasis. EKG showed normal sinus rhythm, T wave changes in inferolateral leads, QTc 488, no significant change from prior EKG. Physical Exam: Vitals signs as noted above General Appearance:Moderately built and nourished, no apparent distress Head: normocephalic, Atraumatic Eyes: normal inspection, EOMI Neck: supple, Trachea midline Respiratory/Chest: Decreased breath sounds, CTA, No accessory muscle use Cardiovascular: S1, S2, +murmur Abdomen/GI:Soft, Non tender, Bowel sounds present Extremities/Musculoskeletal:normal inspection, Trace edema Neurologic/Psych:AAOX3, grossly no focal neurological deficits Skin: normal color, warm Generalized weakness COVID-19 infection Fall Mild leukocytosis Dehydration Lactic acidosis Received IV fluids in ED Hold home diuretics Currently does not require any treatment for COVID-19 Saturating well on room air PT OT, fall precautions Check TSH Lactic acidosis resolved with IV fluids I personally interviewed and examined at bedside. Patient's care is coordinated with Mona Espinal PA-C. I have reviewed the advanced practitioner's documentation, and I agree with plan of care. Please refer to the documentation above for details of patient's presentation and for discussion of other issues. I spent a total of32 minutes minutes coordinating, documenting, and providing care for this patient excluding time spent in the performance of separately billed services.
[2023-10-09] MEDS ORDERED: POLYETHYLENE (MIRALAX) 17 GM PACK PO PRN (21:12)
[2023-10-09] MEDS ORDERED: GLUCOSE 10 TAB/TUBE PO PRN (21:12)
[2023-10-09] MEDS ORDERED: FAMOTIDINE 20 MG TAB PO PRN (21:12)
[2023-10-09] MEDS ORDERED: GLUCAGON FOR INJ 1 MG VIAL SQ PRN (21:12)
[2023-10-09] MEDS ORDERED: ONDANSETRON INJ 2 MG/ML 2 ML VIAL IV PRN (21:12)
[2023-10-09] MEDS ORDERED: GLUCOSE 40% GEL 15 GM TUBE PO PRN (21:12)
[2023-10-09] MEDS ORDERED: ALBUTEROL 0.083% NEBU SOLN 3 ML VIAL NEB PRN (21:12)
[2023-10-09] MEDS ORDERED: CARBOHYDRATES FOR HYPOGLYCEMIA PO PRN (21:12)
[2023-10-09] MEDS ORDERED: DEXTROSE 50% 50 ML SYRINGE IV PRN (21:12)
--- OUTSIDE RECORDS SUMMARY | 2023-10-09 21:17 | External Medical Summary | Summary of Care ---
Author Name Unknown Organization [facility] Address [address] [facility] [place] [address] Phone [phone] Care Team Providers Care Scoop Machine Operator Name Role Phone Alejandro Terry MD Primary Care Provider [phone] Reason for Visit * Reason Onset Date Comments Test Results 10/02/2023 Blood Work Encounter Details Date Type Department Care Team (Late st Contact Info) Description 10/02/[address] [facility] [address] [place] [address] Alejandro Terry MD [address] [place] [address] Test Results (Blood Work 09/29/23) Allergies Active Allergy Reactions Criticality Noted Date Comments Aspirin 08/21/2015 Full strength ASA. Able to take 81mg. Causes bruising Empagliflozin 11/19/2022 Yeast infection documented as of this encounter (statuses as of 10/02/2023) Medications Medication Sig Dispensed Refills Start Date End Date Status fluticasone (FLONASE) 50 MCG/ACT nasal sprayIndications:Acu te maxillary sinusitis, recurrence not specified Administer 2 Sprays into each nostril daily. 1 Inhaler 1 08/21/2015 Active saline (OCEAN NASAL SPRAY) 0.65 % nasal sprayIndications:Davin quent nosebleeds Administer 2 Sprays into each nostril as needed for Congestion. for nasal dryness or congestion 1 Bottle 5 07/27/2018 Active Additional Information Patient not taking.Reported on 09/29/2023 Clotrimazole-Betamet hasone 1-0.05 % External CreamIndications:Ski n yeast infection Apply thumb sized amount to vulva 2 times a day for 1 week 15 g 1 06/19/2021 Active Additional Information Patient not taking.Reported on 09/29/2023 Acetaminophen 500 MG Oral Tablet (Tylenol) Take 2 Tablets by mouth every 8 hours as needed. Active Atenolol 50 MG Oral Tablet (Tenormin)Indication s:ASCVD (arteriosclerotic cardiovascular disease),HTN, goal below 140/80 Take 1 Tablet (50 mg) by mouth in the morning. 90 Tablet 1 01/24/2022 Active Furosemide 40 MG Oral Tablet (Lasix)Indications:H ypertensive kidney disease with stage 3a chronic kidney disease (HCC) Take 1 Tablet (40 mg) by mouth in the morning. Dose increased from 20 mg to 40 mg. 30 Tablet 11 01/24/2022 Active Lisinopril 5 MG Oral Tablet (Prinivil)Indication s:Hypertensive kidney disease with stage 3a chronic kidney disease (HCC) Take 1 Tablet (5 mg) by mouth in the morning. 90 Tablet 1 01/24/2022 Active Vitamin D3 50 MCG (2000 UT) Oral TabletIndications:Vi tamin D deficiency Take 1 Tablet (2,000 Units) by mouth in the morning. 90 Tablet 1 01/24/2022 Active Aspirin 81 MG Oral Tablet Delayed Release Take 1 Tablet (81 mg) by mouth in the morning. 90 Tablet 1 01/24/2022 Active Rosuvastatin Calcium 20 MG Oral Tablet (Crestor) Take 1 Tablet (20 mg) by mouth in the morning. 90 Tablet 1 01/24/2022 Active Lactulose 10 GM/15ML Oral Solution (Constulose) Take 15 mL by mouth 2 times a day as needed (confusion). severe constipation 237 mL 5 12/03/2022 Active linaGLIPtin 5 MG Oral Tablet (Tradjenta) Take 1 Tablet by mouth in the morning. 90 Tablet 3 12/03/2022 Active D-Care Glucometer w/Device KitIndications:Type 2 diabetes mellitus with stage 3a chronic kidney disease, without long-term current use of insulin (HCC) Use as directed 2 times a day. 1 Kit 04/09/2023 Active Allopurinol 100 MG Oral Tablet (Zyloprim)Indication s:Gouty arthropathy Take 1 Tablet by mouth in the morning. 90 Tablet 3 08/07/2023 Active Levothyroxine Sodium 125 MCG Oral Tablet (Levoxyl)Indications :Hypothyroidism, unspecified type TAKE 1 TABLET ONCE A DAY, ON AN EMPTY STOMACH, FOR THYROID Strength: 125 mcg 90 Tablet 3 08/07/2023 Active Gabapentin 100 MG Oral Capsule (Neurontin)Indicatio ns:Pain TAKE 1 CAPSULE BY MOUTH UP TO 3 TIMES A DAY NEEDED FOR HIP AND BACK PAIN 270 Capsule 1 08/19/2023 Active Insulin Glargine Solostar 100 UNIT/ML Subcutaneous Solution Pen-injector (Lantus SoloStar) Inject 14 Units under the skin every night at bedtime. 15 mL 1 08/21/2023 Active Apixaban 2.5 MG Oral Tablet (Eliquis) Take 1 Tablet by mouth in the morning and 1 Tablet before bedtime. 180 Tablet 1 09/09/2023 Active Nystatin 654422 UNIT/ML Mouth/Throat Suspension Take by mouth 4 times a day. 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 BLE edema improved. Continue atenolol and lisinopril Avoid nephrotoxic drugs Hepatic cirrhosis 05/04/2021 Last Assessment & Plan: Referral placed for GI follow up--appt not made at this time. Thrombocytopenia 05/04/2021 Bilateral leg edema 05/04/2021 Last Assessment & Plan: No shortness of breath or orthopnea. Will get labs as ordered. Consider repeat echo in future. Vitamin D deficiency 05/04/2021 Personal history of other malignant neoplasm of skin 11/02/2019 Personal history of venous thrombosis and embolu s 11/02/2019 Last Assessment & Plan: On coumadin Atherosclerosis of aorta 08/17/2018 Last Assessment & Plan: --continue to monitor BP --continue asa and atorvastatin Hypothyroidism due to acquired atrophy of thyroi d 08/17/2018 Last Assessment & Plan: --levoxyl 125mg daily Will update labs. Occlusion of left carotid artery 03/05/2018 Last Assessment & Plan: Last duplex 09/23/19: Impression: Right carotid artery duplex examination indicates evidence of less than 50% stenosis of the internal carotid artery. Left carotid artery duplex examination indicates evidence of 50-69% stenosis of the internal carotid artery. --continue asa and statin History of breast cancer 06/07/2017 Gouty arthropathy 03/20/2017 Type 2 diabetes mellitus wit h stage 3a chronic kidney disease, without long-term current use of insulin 03/25/2016 Last Assessment & Plan: Last hgba1c 8 and at goal. --glipizide 5mg daily --jardiance 25mg daily --ozempic .25mg weekly Dyslipidemia, goal LDL below 70 08/29/2015 Last Assessment & Plan: --continue rosuvastatin 20mg Due for labs ASCVD (arteriosclerotic cardiovascular disease) 08/10/2015 Last Assessment & Plan: h/o balloon angioplasty without stenting in --asa 81mg --rosuvastatin 20mg daily documented as of this encounter (statuses as of 10/02/2023) Resolved Problems Problem Noted Date Diagnosed Date Resolved Date Anticoagulation management encounter 09/09/2023 09/24/2023 Yeast vaginitis 05/04/2021 11/19/2022 Last Assessment & Plan: Appt with venetian blind cleaner today for further eval. Acute deep vein thrombosis ( DVT) of proximal vein of right lower extremity 08/25/2019 11/02/2019 Overview: Acute. Basal cell carcinoma (BCC) o f right side of nose 09/25/2018 11/02/2019 Overview: Historical. Uncontrolled diabetes mellit us with hypoglycemia, with long-term current use of insulin 08/17/2018 11/24/2020 HTN, goal below 140/80 03/20/201705/04 History of nonmelanoma skin cancer 12/02/2016 09/17/2017 Overview: Hx of BCC on nasal tip - 2016 Hx of BCC on right infraorbital area - 2016 Hx of BCC on right forehead - 2015 Hx of BCC on bridge of nose - 2015 Hypothyroidism 12/07/2015 11/18/2018 Overview: history Coronary artery disease invo lving sitka coronary artery of sitka heart without angina pectoris 08/29/2015 03/20/2017 Left-sided carotid artery disease 08/29/2015 03/05/2018 Abnormal ECG 08/29/2015 09/17/2017 Malignant neoplasm of left female breast 08/10/2015 06/07/2017 documented as of this encounter (statuses as of 10/02/2023) Immunizations Name Administration Dates Next Due PPD 03/04/2020 Pneumococcal Conjugate Vacc, 13 Valent (Prevnar) 03/25/2016 Pneumococcal Polysaccharide PPV23 (Pneumovax) 05/08/2018 Seasonal Influenza, PF, 6 M & above, IM , (FluLaval or Fluzone) 10/28/2019,11/23/2018,11/03/2017 11/24/2019 Seasonal Influenza, Quadriva lent Hd (Fluzone Hd) 11/16/2020 Seasonal Influenza, Quadriva lent, No Preserve, IM 12/06/2015 documented as of this encounter Social History Tobacco Use Types Packs/Day Years Used Date Smoking Tobacco: Never Passive Smoke Exposure: Past Smokeless Tobacco: Never Alcohol Use Standard Drinks/Week Comments No 0 (1 standard drink = 0.6 oz pur e alcohol) PHQ-2 Answer Date Recorded PHQ Adult Total Score 0 06/20/2023 Hunger Vital Sign Answer Date Recorded Within the past 12 months, y ou worried that your food would run out before you got the money to buy more. Patient declined Within the past 12 months, t he food you bought just didn't last and you didn't have money to get more. Patient declined 11/2023 Childcare Answer Date Recorded Do you feel overwhelmed with taking care of a child, family member or friend? No 06/20/2023 Does your family need help f inding childcare? (Household - for ages 0-17 years) Not on file 06/20/2023 Clothing Answer Date Recorded Have you been unable to get clothing when it was really needed? No 06/20/2023 Is your family able to get c lothes or diapers when needed? (Household - for ages 0-17 years) Not on file 06/20/2023 Personal Safety Answer Date Recorded Do you feel unsafe or have concerns for your saf ety? No 06/20/2023 Do you have concerns for you r family's safety? (Household - for ages 0-17 years) Not on file 06/20/2023 Utilities Answer Date Recorded Do you have trouble paying y our heating, water, or electric bill? No 06/20/2023 Is your family able to pay t he heat, water, or electric bill? (Household - for ages 0-17 years) Not on file 06/20/2023 Does your family have access to good internet? (Household - for ages 0-17 years) Not on file 06/20/2023 Employment Status Answer Date Recorded Are you unemployed or without regular income? No 06/20/2023 Does the household have a re gular source of income? (Household - for ages 0-17 years) Not on file 06/20/2023 Social Connections Answer Date Recorded How often do you feel lonely or isolated from th ose around you? Never 06/20/2023 Financial Resource Strain Answer Date R ecorded Do you have any trouble payi ng for your medications, or do you think you might in the future? No 06/20/2023 Does your family have troubl e paying for medicine? (Household - for ages 0-17 years) Not on file 06/20/2023 Transportation Needs Answer Date Record ed READ ONLY Do you have troubl e getting a ride to medical visits or work? Never True 06/20/2023 Does your family have a hard time getting a ride to doctors visits? (Household - for ages 0-17 years) Not on file 06/20/2023 Has lack of transportation k ept you from medical appointments, meetings, work, or from getting things needed for daily living? Check all that apply. (Adult - for ages 18 years and over) Not on file 06/20/2023 Do you (or your family) have trouble finding or paying for a ride (transportation)? (Household - for ages 0-17 years) Not on file 06/20/2023 Housing Stability Answer Date Recorded Do you currently live in a s helter or have no steady place to sleep at night? No 06/20/2023 READ ONLY Do you think you a re at risk of becoming homeless? No 06/20/2023 Does your family worry about paying for your home or becoming homeless? (Household - for ages 0-17 years) Not on file 0 06/20/2023 Are you homeless or worried that you might be in the future? (Adult - for ages 18 years and over) Not on file Are you (or your family) glenny eless or worried that you might be in the future? (Household - for ages 0-17 years) Not on file Food Insecurity Answer Date Recorded Do you need food for this week? No 06/20/2023 Are you able to get enough f ood for your family? (Household - for ages 0-17 years) Not on file 06/20/2023 Does your family need food t his week? (Household - for ages 0-17 years) Not on file 06/20/2023 Do you always have enough fo od for your family? (Household - for ages 0-17 years) Not on file 06/20/2023 Sex and Gender Information Value Date Recorded Sex Assigned at Female 08/17/2019 3:38 PM EDT Gender Identity Female 08/17/2019 3:38 PM EDT Sexual Orientation Straight 11/23/2018 10 :18 AM EDT Job Start Date Occupation Industry Not on file Not on file Not on file documented as of this encounter Miscellaneous Notes * Telephone Encounter - Alejandro Terry MD - 10/02/2023 5:02 PM EDT Please keep reminding pt not to scratch And apply vaselin ointment often too Ok to use body butter too * Telephone Encounter - Kaylan Tamayo LPN - 10/02/2023 3:59 PM EDT Patient daughter Patricia aware and verbalized understanding. Daughter asking what to use on rash (face,hairline, Be hands/arms), spreading to face since appt on 09/28 . Using bandar butter moisturizer due to dry skin. Patient reports to daughter not itchy. Dermatology appt 12/01/2023 Please advise * Telephone Encounter - Trudy Gruber OSA - 10/02/2023 3:54 PM EDT Patient son in law calling in about test results, for his mother in law. He states he is just told to give clinic a call. Transferring over to dedicated nurse line. Trudy Quarles * Telephone Encounter - Cathy Lanza LPN - 10/02/2023 1:10 PM EDT Left generic message on answering machine asking patient to return our call. * Telephone Encounter - Alejandro Terry MD - 10/02/2023 1:04 PM EDT Blood tests were normal /negative No further test is needed * Telephone Encounter - Rose Hernandez OSA - 10/02/2023 10:58 AM EDT Who is Requesting Test Results: Pt's daughter is calling in about blood work for her mother Primary Care Provider : Alejandro Terry MD Tests Results Requested : Blood Work Date of Test : 09/29/23 Location of Test: n/a Ordering Provider: n/a Patient has been made aware that the turnaround time for test results are typically as follows: Laboratory results = within 2-3 days ([facility]), 3-5 days (Non-[facility], ie. [facility]) Urine Cultures = within 2-3 days depending on growth within the culture Pathology results (biopsy results/PAP) = 1-2 weeks Radiology results = about 1 week Cologuard results = within 2 weeks from the shipment date COVID testing = about 24 hours documented in this encounter Plan of Treatment Upcoming Encounters Date Type Department Care Team (Late st Contact Info) Description 10/08/2023 9:00 AM EDT Office Visit Pharmacy, [place] [address] [place] [address] [facility] [address] [place] [address] 11/21/2023 9:00 AM EDT Office Visit [facility], [place] [address] [place] [id number] Alejandro Terry MD [address] [place] [address] 12/01/2023 10:00 AM EDT Office Visit Dermatology [address] [place] [address] Georgina Gilbert PA-C [address] [place] [address] [place] [address] Health Maintenance Due Date Last Done Comments CKD PHOS USE SMARTSET 09478 05/25/1958 DTaP,Tdap,and Td Vaccines (1 - Tdap) 1960 Zoster Vaccines (1 of 2) 05/25/1991 Hepatitis B Vaccine (1 of 3 - Risk 3-dose series) 2001 Adult Wellness Visit 05/25/2007 Albumin/Creatinine Ratio 03/07/2022 022, 05/02/2020, 03/20/2017, Additional history exists COVID-19 Vaccine ( season) 2022 Influenza Vaccine (FLU shot) (#1) 2023 11/16/2020, 10/28/2019, 11/23/2018, Additional history exists GFR 02/19/2024 08/19/2023, 06/10, 01/21/2023, Additional history exists HbA1c 02/19/2024 08/19/2023, 11/10, 07/27/2022, Additional history exists DXA Scan 06/16/2024 06/16/2017, 08/2017, 09/14/2012 Depression Screening 06/19/2024 06/20/2023 Diabetic Eye Exam 06/19/2024 06/20/2023, 08/17/2019 Diabetic Foot Exam 06/19/2024 06/20/2023, 0 08/17/2019, 07/27/2018, Additional history exists TSH 06/19/2024 06/20/2023, 11/10, 05/08/2021, Additional history exists CKD HGB USE SMARTSET 22196 08/18/202408/18, 08/19/2023, 11/28/2022, Additional history exists Pneumococcal Vaccine: 65+ Years Completed 05/08/2018, 03/25/2016 HPV (Gardasil) Vaccine Aged Out No lo nger eligible based on patient's age to complete this topic MENINGOCOCCAL (MENACTRA/MENVEO) Aged Out No longer eligible based on patient's age to complete this topic documented as of this encounter Medical Devices Implanted Type Area Loading Checker Device Identifier Shelf Expiration Date Model / Serial / Lot Stent Axios [id number] - [id number] Implanted:Qty: 1 on 09/06/2021 by Quirino Dominguez DO at OR [facility] N/A: Abdomen [employer] : ENDOSCOPY 04/17/2023 [id number] / / Stent Solus And Intro Set - [id number] Implanted:Qty: 1 on 09/06/2021 by Quirino Dominguez DO at OR [facility] N/A: Abdomen COOK : OPAL PACHECO 04/19/2024 [id number] / / documented as of this encounter Advance Directives * Full Code (Latest Code Status on File) Date Activated Date Inactivated Comments 09/06/2021 1:19 PM 09/06/2021 5:24 PM This order r eflects the patients wishes and were consensually agreed upon. Question Answer Comments Discussion of Advance Directives occurred with: Not Discussed * Full Code Date Activated Date Inactivated Comments 09/06/2021 9:32 AM 09/06/2021 1:19 PM This order r eflects the patients wishes and were consensually agreed upon. Question Answer Comments Discussion of Advance Directives occurred with: Not Discussed Healthcare Agents on File Name Relationship Healthcare Agent Relationshi p Communication [facility] Adult Child First Alternate Health Care Agent Care Teams Scoop Machine Operator Relationship Specialty Start Date End Date Alejandro Terry MD [address], [place] [phone] PCP - General Internal Medicine 08/25/23 documented as of this encounter
--- OUTSIDE RECORDS SUMMARY | 2023-10-09 21:17 | External Medical Summary | Summary of Care ---
Author Name Unknown Organization [facility] Address [address] [facility] [place] [address] Phone [phone] Care Team Providers Care Tare Man Name Role Phone Alejandro Terry MD Primary Care Provider [phone] Reason for Visit * Reason Onset Date Comments Test Results 10/02/2023 Blood Work Encounter Details Date Type Department Care Team (Late st Contact Info) Description 10/02/2023 Telephone [facility] [address] [place] [address] Alejandro Terry MD [address] [place] [address] Test Results (Blood Work 09/29/23) [...] bedtime. 180 Tablet 1 09/09/2023 Active Nystatin 861591 UNIT/ML Mouth/Throat Suspension Take by mouth 4 times a day. 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 Acute deep vein [...] Overview: history Coronary artery disease invo lving huslia coronary artery of huslia heart without angina pectoris 08/29/2015 03/20/2017 Left-sided [...] encounter Miscellaneous Notes * Telephone Encounter - Cathy Lanza LPN [...] 10/08/2023 9:00 AM EDT Office Visit Pharmacy, [place] [address] [place] [facility] [place] [address] [facility] [address] [facility] [address] 11/21/2023 9:00 AM EDT [facility] [place] [address] [facility] [address] Alejandro Terry MD [address] [facility] [address] 12/01/2023 10:00 AM EDT Office Visit Dermatology [address] [place] [address] Georgina Gilbert PA-C [address] [place] [address] [place] [address] Health Maintenance Due Date Last Done Comments CKD PHOS USE SMARTSET 01393 05/25/1958 DTaP,Tdap,and Td Vaccines (1 - Tdap) 1960 Zoster Vaccines (1 of 2) 05/25/1991 Hepatitis B Vaccine (1 of 3 - Risk 3-dose series) 2001 Adult Wellness Visit 05/25/2007 Albumin/Creatinine Ratio 03/07/2022 022, 05/02/2020, 03/20/2017, Additional history exists COVID-19 Vaccine ( - season) 2022 Influenza Vaccine (FLU shot) (#1) [...] Additional history exists CKD HGB USE SMARTSET 17055 08/18/202408/18, 08/19/2023, 11/28/2022, Additional history exists Pneumococcal Vaccine: 65+ Years Completed 05/08/2018, 03/25/2016 HPV (Gardasil) Vaccine Aged Out No lo nger eligible based on patient's age to complete this topic MENINGOCOCCAL (MENACTRA/MENVEO) Aged Out No longer eligible based on patient's age to complete this topic documented as of this encounter Medical Devices Implanted Type Area Dust Sampler Device Identifier Shelf Expiration Date Model / Serial / Lot Stent Axios [id number] - [id number] Implanted:Qty: 1 on 09/06/2021 by Quirino Dominguez DO at OR [facility] N/A: Abdomen [employer] : ENDOSCOPY 04/17/2023 [id number] / / Stent Solus And Intro Set - [id number] Implanted:Qty: 1 on 09/06/2021 by Quirino Dominguez DO at OR [facility] N/A: Abdomen COOK : OPAL PACHECO 04/19/2024 [id number] / / documented as of this encounter [...] Agents on File Name Relationship Healthcare Agent [facility] p Communication [facility] Adult Child First Alternate Health Care Agent Care Teams Tare Man Relationship Specialty Start Date End Date Alejandro Terry MD [address] [place] [address] PCP - General Internal Medicine 08/25/23 documented as of this encounter
--- OUTSIDE RECORDS SUMMARY | 2023-10-09 21:17 | External Medical Summary | Summary of Care ---
Author Name Unknown Organization [facility] Address [address] [facility] [place] [address] Phone [phone] Care Team Providers Care Cell Coverer Name Role Phone Alejandro Terry MD Primary Care Provider Reason for Visit * Reason Onset Date Comments Test Results 10/02/2023 Blood Work Encounter Details Date Type Department Care Team (Late st Contact Info) Description 10/02/2023 Telephone [facility] [address] [place] [address] Alejandro Terry MD [address] [place] [address] Test Results (Blood Work 09/29/23) [...] bedtime. 180 Tablet 1 09/09/2023 Active Nystatin 117599 UNIT/ML Mouth/Throat Suspension Take by mouth 4 times a day. 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 Acute deep vein [...] Overview: history Coronary artery disease invo lving [place] coronary artery of [place] heart without angina pectoris 08/29/2015 03/20/2017 Left-sided [...] 10/08/2023 9:00 AM EDT Office Visit Pharmacy, [place] [address] [place] [address] [facility] [address] [facility] [address] 11/21/2023 9:00 AM EDT Office Visit [facility] [place] [address] [address] Alejandro Terry MD [address] [facility] [address] 12/01/2023 10:00 AM EDT Office Visit Dermatology [address] [place] [address] Georgina Gilbert PA-C [address] [place] [address] [place] [address] Health Maintenance Due Date Last Done Comments CKD PHOS USE SMARTSET 76311 05/25/1958 DTaP,Tdap,and Td Vaccines (1 - Tdap) [...] Additional history exists CKD HGB USE SMARTSET 74753 08/18/202408/18, 08/19/2023, 11/28/2022, Additional history exists Pneumococcal Vaccine: 65+ Years Completed 05/08/2018, 03/25/2016 HPV (Gardasil) Vaccine Aged Out No lo nger eligible based on patient's age to complete this topic MENINGOCOCCAL (MENACTRA/MENVEO) Aged Out No longer eligible based on patient's age to complete this topic documented as of this encounter Medical Devices Implanted Type Area Senior Ui Ux Developer Device Identifier Shelf Expiration Date Model / Serial / Lot Stent Axios [id number] - [id number] Implanted:Qty: 1 on 09/06/2021 by Quirino Dominguez DO at OR [facility] N/A: Abdomen [employer] : ENDOSCOPY 04/17/2023 [id number] / / Stent Solus And Intro Set - [id number] Implanted:Qty: 1 on 09/06/2021 by Quirino Dominguez DO at OR [facility] N/A: Abdomen COOK : OPAL PACHECO 04/19/2024 [id number] / / documented as of this encounter [...] Agents on File Name Relationship Healthcare Agent [facility] p Communication [facility] Adult Child First Alternate Health Care Agent Care Teams Cell Coverer Relationship Specialty Start Date End Date Alejandro Terry MD [address] [place] [address] PCP - General Internal Medicine 08/25/23 documented as of this encounter
--- OUTSIDE RECORDS SUMMARY | 2023-10-09 21:17 | External Medical Summary | Summary of Care ---
Author Name Unknown Organization [facility] Address [address] [facility] [place] [address] Phone [phone] Care Team Providers Care Eye Technician Name Role Phone Alejandro Terry MD Primary Care Provider Reason for Visit * Reason Onset Date Comments Test Results 10/02/2023 Blood Work Encounter Details Date Type Department Care Team (Late st Contact Info) Description 10/02/2023 Telephone [facility] [address] [place] [address] Alejandro Terry MD [address] [place] [address] Test Results (Blood Work 09/29/23) [...] bedtime. 180 Tablet 1 09/09/2023 Active Nystatin 396213 UNIT/ML Mouth/Throat Suspension Take by mouth 4 times a day. 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 08/29/2015 03/20/2017 Left-sided [...] encounter Miscellaneous Notes * Telephone Encounter - Trudy Gruber OSA [...] 10/08/2023 9:00 AM EDT Office Visit Pharmacy, [place] [address] [place] [address] [facility] [address] [place] [address] 11/21/2023 9:00 AM EDT [facility] Visit [facility] [address] [facility] [phone] Alejandro Terry MD [address] [place] [address] 12/01/2023 10:00 AM EDT Office Visit Dermatology [address] [place] [address] Georgina Gilbert PA-C [address] [place] [address] [place] [address] Health Maintenance Due Date Last Done Comments CKD PHOS USE SMARTSET 70447 05/25/1958 DTaP,Tdap,and Td Vaccines (1 - Tdap) [...] Additional history exists CKD HGB USE SMARTSET 68002 08/18/202408/18, 08/19/2023, 11/28/2022, Additional history exists Pneumococcal Vaccine: 65+ Years Completed 05/08/2018, 03/25/2016 HPV (Gardasil) Vaccine Aged Out No lo nger eligible based on patient's age to complete this topic MENINGOCOCCAL (MENACTRA/MENVEO) Aged Out No longer eligible based on patient's age to complete this topic documented as of this encounter Medical Devices Implanted Type Area Recreation Therapist Device Identifier Shelf Expiration Date Model / Serial / Lot Stent Axios [id number] - [id number] Implanted:Qty: 1 on 09/06/2021 by Quirino Dominguez DO at OR [facility] N/A: Abdomen [employer] : ENDOSCOPY 04/17/2023 [id number] / / Stent Solus And Intro Set - [id number] Implanted:Qty: 1 on 09/06/2021 by Quirino Dominguez DO at OR [facility] N/A: Abdomen COOK : OPLA PACHECO 04/19/2024 [id number] / / documented as of this encounter [...] Name Relationship Healthcare Agent Relationshi p Communication Patricia Kovacic Adult Child First Alternate Health Care Agent Care Teams Eye Technician Relationship Specialty Start Date End Date Alejandro Terry MD [address] [place] [address] PCP - General Internal Medicine 08/25/23 documented as of this encounter
--- OUTSIDE RECORDS SUMMARY | 2023-10-09 21:17 | External Medical Summary | Summary of Care ---
Author Name Unknown Organization [facility] Address [address] [facility] [place] [address] Phone [phone] Care Team Providers Care Perennial House Manager Name Role Phone Alejandro Terry MD Primary Care Provider [phone] Reason for Visit * Reason Onset Date Comments Test Results 10/02/2023 Blood Work Encounter Details Date Type Department Care Team (Late st Contact Info) Description 10/02/2023 Telephone [facility] [address] [place] [address] Alejandro Terry MD [address] [place] [address] Test Results (Blood Work 09/29/23) Allergies Active Allergy Reactions Criticality Noted Date Comments Aspirin 08/21/2015 Full strength ASA. Able to take 81mg. Causes bruising Empagliflozin 11/19/2022 Yeast infection documented as of this encounter (statuses as of 10/03/2023) Medications Medication Sig Dispensed Refills Start Date [...] bedtime. 180 Tablet 1 09/09/2023 Active Nystatin 012227 UNIT/ML Mouth/Throat Suspension Take by mouth 4 times a day. 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 Acute deep vein [...] Overview: history Coronary artery disease invo lving [place] coronary artery of [place] heart without angina pectoris 08/29/2015 03/20/2017 Left-sided carotid artery disease 08/29/2015 03/05/2018 Abnormal ECG 08/29/2015 09/17/2017 Malignant neoplasm of left female breast 08/10/2015 06/07/2017 documented as of this encounter (statuses as of 10/03/2023) Immunizations Name Administration Dates Next Due PPD [...] Telephone Encounter - Cathy Lanza LPN - 10/03/2023 9:31 AM EDT Spoke to Patricia and made aware, she verbalized understanding and had no further questions. * Telephone Encounter - Alejandro Terry MD [...] 10/08/2023 9:00 AM EDT Office Visit Pharmacy, [place] [address] [place] [address] [facility] [address] [place] [address] 11/21/2023 9:00 AM EDT Office Visit [facility], [place] [address] [place] [address] Alejandro Terry MD [address] [place] [address] 12/01/2023 10:00 AM EDT Office Visit Dermatology [address] [place] [address] Georgina Gilbert PA-C [address] [place] [address] [place] [address] Health Maintenance Due Date Last Done Comments CKD PHOS USE SMARTSET 88726 05/25/1958 DTaP,Tdap,and Td Vaccines (1 - Tdap) 1960 Zoster Vaccines (1 of 2) 05/25/1991 Hepatitis B Vaccine (1 of 3 - Risk 3-dose series) 2001 Adult Wellness Visit 05/25/2007 Albumin/Creatinine Ratio 03/07/2022 022, 05/02/2020, 03/20/2017, Additional history exists COVID-19 Vaccine (1 - season) 2022 Influenza Vaccine (FLU shot) [...] Additional history exists CKD HGB USE SMARTSET 15151 08/18/202408/18, 08/19/2023, 11/28/2022, Additional history exists Pneumococcal Vaccine: 65+ Years Completed 05/08/2018, 03/25/2016 HPV (Gardasil) Vaccine Aged Out No lo nger eligible based on patient's age to complete this topic MENINGOCOCCAL (MENACTRA/MENVEO) Aged Out No longer eligible based on patient's age to complete this topic documented as of this encounter Medical Devices Implanted Type Area Bonding Machine Operator Device Identifier Shelf Expiration Date Model / Serial / Lot Stent Axios [id number] - [id number] Implanted:Qty: 1 on 09/06/2021 by Quirino Dominguez DO at OR [facility] N/A: Abdomen [employer] : ENDOSCOPY 04/17/2023 [id number] / / Stent Solus And Intro Set - [id number] Implanted:Qty: 1 on 09/06/2021 by Quirino Dominguez, at OR [facility] N/A: Abdomen COOK : OPAL PACHECO 04/19/2024 [id number] / / documented as of this encounter [...] Relationship Healthcare Agent Relationshi p Communication Patricia [facility] Adult Child First Alternate Health Care Agent Care Teams Perennial House Manager Relationship Specialty Start Date End Date Alejandro Terry MD [address] [place] [address] PCP - General Internal Medicine 08/25/23 documented as of this encounter
--- OUTSIDE RECORDS SUMMARY | 2023-10-09 21:17 | External Medical Summary | Summary of Care ---
Author Name Unknown Organization [facility] Address [address] [facility] [place] [address] Phone [phone] Care Team Providers Care Control Specialist Name Role Phone Alejandro Terry MD Primary Care Provider Reason for Visit * Reason Onset Date Comments Test Results 10/02/2023 Blood Work Encounter Details Date Type Department Care Team (Late st Contact Info) Description 10/02/2023 Telephone [facility] [address] [place] [address] Alejandro Terry MD [address] [place] [address] Test Results (Blood Work 09/29/23) [...] bedtime. 180 Tablet 1 09/09/2023 Active Nystatin 400486 UNIT/ML Mouth/Throat Suspension Take by mouth 4 times a day. 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 Acute deep vein [...] Overview: history Coronary artery disease invo lving [place] coronary artery of [place] heart without angina pectoris 08/29/2015 03/20/2017 Left-sided [...] encounter Miscellaneous Notes * Telephone Encounter - Kaylan Tamayo LPN [...] 10/08/2023 9:00 AM EDT Office Visit Pharmacy, [place] [address] [place] [address] [facility] [address] [place] [address] 11/21/2023 9:00 AM EDT Office Visit [facility], [place] [address] [place] [address] Alejandro Terry MD [address] [place] [address] 12/01/2023 10:00 AM EDT Office Visit Dermatology [address] [place] [address] Georgina Gilbert PA-C [address] [place] [address] [place] [address] Health Maintenance Due Date Last Done Comments CKD PHOS USE SMARTSET 95219 05/25/1958 DTaP,Tdap,and Td Vaccines (1 - Tdap) [...] Additional history exists DXA Scan 06/16/2024 06/16/2017, 0508/2017, 09/14/2012 Depression Screening 06/19/2024 06/20/2023 Diabetic Eye Exam 06/19/2024 06/20/2023, 08/17/2019 Diabetic Foot Exam 06/19/2024 06/20/2023, 0 08/17/2019, 07/27/2018, Additional history exists TSH 06/19/2024 06/20/2023, 11/10, 05/08/2021, Additional history exists CKD HGB USE SMARTSET 12787 08/18/202408/18, 08/19/2023, 11/28/2022, Additional history exists Pneumococcal Vaccine: 65+ Years Completed 05/08/2018, 03/25/2016 HPV (Gardasil) Vaccine Aged Out No lo nger eligible based on patient's age to complete this topic MENINGOCOCCAL (MENACTRA/MENVEO) Aged Out No longer eligible based on patient's age to complete this topic documented as of this encounter Medical Devices Implanted Type Area Electronic Equipment Maint Tech Device Identifier Shelf Expiration Date Model / Serial / Lot Stent Axios [id number] - [id number] Implanted:Qty: 1 on 09/06/2021 by Quirino Dominguez DO at OR [facility] N/A: Abdomen [employer] : ENDOSCOPY 04/17/2023 [id number] / / Stent Solus And Intro Set - [id number] Implanted:Qty: 1 on 09/06/2021 by Quirino Dominguez DO at OR [facility] N/A: Abdomen JUNIOR : OPAL PACHECO 04/19/2024 [id number] / / documented as of this encounter [...] 9:32 AM 09/06/2021 1:19 PM This order reflects the patients wishes and were consensually agreed upon. Question Answer Comments Discussion of Advance Directives occurred with: Not Discussed Healthcare Agents on File Name Relationship Healthcare Agent Relationshi p Communication Patricia [facility] Adult Child First Alternate Health Care Agent Care Teams Control Specialist Relationship Specialty Start Date End Date Alejandro Terry MD [address] [place] [facility] [place] [address] PCP - General Internal Medicine 08/25/23 documented as of this encounter
--- OUTSIDE RECORDS SUMMARY | 2023-10-09 21:17 | External Medical Summary ---
Author Name Unknown Address Unknown Organization K01:[facility] [address] [place] [address] Laboratory Report Ordering Provider Test Date Status VILMAEMILIOVERITO 09/29/2023 15:31:53 Final Observation Date Value Abnormality Reference (Units ) Status Hep A IgM 09/29/2023 15:31:53 Negative Negative Final Hep B Core IgM 09/29/2023 15:31:53 Negative Negat vahe Final Hep B surface Ag 09/29/2023 15:31:53 Negative Neg ative Final Hep C Ab 09/29/2023 15:31:53 Negative Negative Final Performing Location [facility] [address] [place] [address]
--- OUTSIDE RECORDS SUMMARY | 2023-10-09 21:17 | External Medical Summary | Summary of Care ---
Author Name Unknown Organization [facility] Address [address] [place] [address] Phone [phone] Care Team Providers Care Laminated Pl[employer] Assembler [employer] Gluer Name Role Phone Alejandro Terry MD Primary Care Provider [phone] Reason for Visit * Reason Comments Pruritis * Auth/Cert Specialty Diagnoses / Procedures Referred By Contac t Referred To Contact [facility] [address] [place] [address] Phone: [phone] Emergency Medicine [facility] [address] [facility] [place] [address] Referral ID Status Reason Start Date Expiration Date Visits Re quested Visits Authorized [id number] Encounter Details Date Type Department Care Team (Late st Contact Info) Description 10/03/2023 5:39 PM EDT - 10/03/2023 6:25 PM EDT Emergency [facility] Emergency [facility] ([facility]) [address] [place] [address] Zane Hinson MD [address] [facility] [place] [id number] Seborrheic dermatitis (Primary Dx) Discharge Disposition: Home - Self Care Allergies Active Allergy Reactions Criticality Noted Date Comments Aspirin 08/21/2015 Full strength ASA. Able to take 81mg. Causes bruising Empagliflozin 11/19/2022 Yeast infection documented as of this encounter (statuses as of 10/04/2023) Medications Medication Sig Dispensed Refills Start Date [...] 1 01/24/2022 Active Vitamin D3 50 MCG (1999 [place]) Oral TabletIndications:Vi tamin D deficiency Take [...] bedtime. 180 Tablet 1 09/09/2023 Active Nystatin 539705 UNIT/ML Mouth/Throat Suspension Take by mouth 4 times a day. 09/26/2023 Active Ketoconazole 2 % External Cream Apply topically to affected area daily. 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 Acute deep vein [...] Overview: history Coronary artery disease invo lving [place] coronary artery of [place] heart without angina pectoris 08/29/2015 03/20/2017 Left-sided carotid artery disease 08/29/2015 03/05/2018 Abnormal ECG 08/29/2015 09/17/2017 Malignant neoplasm of left female breast 08/10/2015 06/07/2017 documented as of this encounter (statuses as of 10/04/2023) Immunizations Name Administration Dates Next Due PPD [...] on file documented as of this encounter Last Filed Vital Signs Vital Sign Reading Time Taken Comments Blood Pressure 137/61 10/03/2023 5:36 PM EDT Pulse 74 10/03/2023 5:36 PM EDT Temperature 36.4 C (97.5 F) 10/03/2023 5:36 PM ED T Respiratory Rate 17 10/03/2023 5:36 PM EDT Oxygen Saturation 98% 10/03/2023 5:36 PM EDT Inhaled Oxygen Concentration - - Weight 66.2 kg (145 lb 14.4 oz) 10/03/2023 5:36 PM EDT Height 157.5 cm (5' 2") 10/03/2023 5:36 PM EDT Body Mass Index 26.69 10/03/2023 5:36 PM EDT documented in this encounter ED Notes * Zane Hinson MD - 10/03/2023 5:49 PM EDT HISTORY OF PRESENT ILLNESS Olivia Kim is a 83 year old female who presents to the ED for evaluation of Pruritis. The patientwas seen at 10/03/23 1748. This patient has been having a rash. She was seen at another hospital and was given medicine for things in her mouth. It sounds as if she was prescribed nystatin. She has now been having rash to the face, to the arms, to the hands, to her left ear, this is an itchy rash It appears to be scaly. The patient's daughter felt that she saw something crawling out of her ear and wondered if it might be worms. She did not bring it in for inspection No trouble breathing. No trouble swallowing. They do have an appointment with Dermatology but that will not be for another month They were advised to use Vaseline to the rash area The patient's allergies, past history, and medications were reviewed. PHYSICAL EXAM Initial Vitals (see all): BP 137/61 | Pulse 74 | Resp 17 | Temp 97.5 | O2 98 %, Room Air, None | Weight 66.18 kg | Height 157.5 cm | BMI 26.69 kg/m2 General: Alert. appropriate for age. no acute distress. nontoxic. Skin: Multiple patchy areas of somewhat greasy feeling excoriated skin consistent with seborrheic dermatitis. This is present in the left ear as well as 2 patches on her face and her arms None of these patches exhibit anything that looked like anything alive Head: Atraumatic. Neck: trachea midline. No distended neck veins supple Eye: Normal conjunctiva. Ears, nose, mouth and throat: airway patent. No inflammation Cardiovascular: Normal peripheral perfusion. Regular rate and rhythm without murmurs or extra sounds. No distended neck veins. . Respiratory: no respiratory distress. The lungs are clear to auscultation without rales wheezes or rhonchi. Breath sounds equal and present bilaterally. Gastrointestinal: Non distended. Musculoskeletal: No deformity. Neurological: No focal neurological deficit observed. alert. Psychiatric: Cooperative. Differential diagnosis This is clinically consistent with seborrheic dermatitis PROCEDURES AND TREATMENTS ED Orders | ED Results MEDICAL DECISION MAKING Nursing notes and vital signs were reviewed. Clinical Impressions Seborrheic dermatitis Disposition Discharged. The patient's condition at disposition was: stable. Discharge Medications Disp Refills Start End Ketoconazole 2 % External Cream 15 g 2 10/03/2023 -- Sig - Route: Apply topically to affected area daily. Apply to scaly areas - External Class: ePrescribing Renewals Renewal requests to authorizing provider (Zane Hinson MD) <b>prohibited</b> Zane Hinson * Sri Gallegos RN - 10/03/2023 5:33 PM EDT Patients daughter reports that's he has been having issues with these "things" on her skin. [facility] and given a medicine for the ones in her mouth. Patients daughter explains that today she noticed that Olivia had something crawling out of her ear and thinks its worms. Patient has scabs on her face, upper arms, hands and in her left ear. Patient reports itching. documented in this encounter Miscellaneous Notes * ED Filter Cleaner Note - Vandana Collins RN - 10/03/2023 6:25 PM EDT Pt given discharge instructions per physicians order. Made aware to follow up with PCP and dermatology. Also made aware of prescription sent to pharmacy of choice. All questions answered, pt verbalized understanding. Pt ambulated out of this department with steady gait. * Pt Handout (on AVS) - Zane Hinson MD - 10/03/2023 6:14 PM EDT [id number] Understanding Seborrheic Dermatitis Seborrheic dermatitis is a common type of rash that causes red, scaly, greasy skin. It occurs on skin that has oil glands. These include the face, upper chest, and scalp, where it is often called dandruff. It tends to last a long time. Or go away and come back. Seborrheic dermatitis is not spread from person to person. How to say it [id number] What causes seborrheic dermatitis? Experts don't know what causes it. It may be partly caused by a type of yeast that grows on skin, along with extra oil production. Experts are still learning more. It isn't caused by poor hygiene. It?s more common in men than women, and it can occur at any age. It may be more severe in people with HIV/AIDS, Parkinson disease, alcoholism, or epilepsy. It can also get worse during times of stress. Symptoms of seborrheic dermatitis Symptoms can include skin that is: Bumpy Covered with yellow scales or crusts Cracked [place]xton Itchy Leaking fluid Painful Red or orange These symptoms can occur on skin: Around the nose Behind the ears In the khan In the eyebrows On the scalp, also known as dandruff On the upper chest and upper back Armpits Genitals You may also have acne, inflamed eyelids (blepharitis), or other skin conditions at the same time. Treatment for seborrheic dermatitis Treatment can reduce symptoms for a period of time. You can talk to your healthcare provider about treatment choices. The types of treatments most often used include: Antifungal shampoo, body wash, or cream. These contain medicines, such as ketoconazole, fluconazole, selenium sulfide, ciclopirox, or pyrithione zinc. Corticosteroid cream or ointment. These contain medicines, such as hydrocortisone. Calcineurin inhibitor cream or ointment. These contain medicines, such as pimecrolimus or tacrolimus. Shampoo or cream with other medicines. These contain medicines, such as coal tar, salicylic acid, or zinc pyrithione. Sodium sulfacetamide creams and washes. These may also help. In some cases, 1 treatment will stop working after a while. Switching between treatments every few months may be helpful. Wash your skin gently. You can remove scales with oil and gentle rubbing or a brush. Living with seborrheic dermatitis Seborrheic dermatitis is an ongoing (chronic) condition. It can go away and then come back. You will likely need to use shampoo, cream, or ointment with medicine once or twice a week. This can help to keep symptoms from coming back or getting worse. Using petroleum jelly isn't recommended. It can make symptoms worse. When to call your healthcare provider Call your healthcare provider right away if any of the following occur: Symptoms that don?t get better, or get worse New symptoms Last Reviewed Date: 09/10/202119992598-5280 [employer]. All rights reserved. This information is not intended as a substitute for professional medical care. Always follow your healthcare professional's instructions. * ED Filter Cleaner Note - Vandana Collins RN - 10/03/2023 5:56 PM EDT Patient A&Ox4. Daughter states "I think it's worms coming out of her skin all over". Daughter states the "bumps" on RFA, cheek, and chin started about 3 months ago. States doctor recommended to put Vaseline on them and since starting Vaseline "the worms are coming out". Daughter states "the ones in her eye, I left there so the Dr can see. The ones that came out of her ear, I left some in her hair so Dr can see them as well". Patient denies itching, pain or soreness. 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 Daughter states patient has been picking and scratching at the sores that are present. Call shelton within reach. documented in this encounter Plan of Treatment Upcoming Encounters Date Type Department Care Team (Late st Contact Info) Description 10/08/2023 9:00 AM EDT Office Visit Pharmacy, [place] [address] [place] [address] [facility] [address] [place] [facility] [place] [address] 11/21/2023 9:00 AM EDT Office Visit [place] [address] [place] [place] [facility] [place] [address] Alejandro Terry MD [address] [place] [address] 12/01/2023 10:00 AM EDT Office Visit Dermatology [address] [place] [address] Georgina Gilbert PA-C [address] [place] [address] [place] [address] Health Maintenance Due Date Last Done Comments CKD PHOS USE SMARTSET 73917 05/25/1958 DTaP,Tdap,and Td Vaccines (1 - Tdap) [...] Additional history exists CKD HGB USE SMARTSET 93476 08/18/202408/18, 08/19/2023, 11/28/2022, Additional history exists Pneumococcal Vaccine: 65+ Years Completed 05/08/2018, 03/25/2016 HPV (Gardasil) Vaccine Aged Out No lo nger eligible based on patient's age to complete this topic MENINGOCOCCAL (MENACTRA/MENVEO) Aged Out No longer eligible based on patient's age to complete this topic documented as of this encounter Medical Devices Implanted Type Area Duck Operator Device Identifier Shelf Expiration Date Model / Serial / Lot Stent [employer] [id number] - [id number] Implanted:Qty: 1 on 09/06/2021 by Quirino Dominguez DO at OR [facility] N/A: Abdomen [employer] : ENDOSCOPY 04/17/2023 [id number] / / Stent Solus And Intro Set - [id number] Implanted:Qty: 1 on 09/06/2021 by Quirino Dominguez DO at OR [facility] N/A: Abdomen JUNIOR : OPAL PACHECO 04/19/2024 [id number] / / documented as of this encounter Visit Diagnoses Diagnosis Seborrheic dermatitis- Primary Seborrheic dermatitis, unspecified documented in this encounter Advance Directives * Full Code [...] Relationship Healthcare Agent Relationshi p Communication Patricia [facility] Adult Child First Alternate Health Care Agent Care Teams Laminated Pl[employer] Assembler [employer] Gluer Relationship Specialty Start Date End Date Alejandro Terry MD [address] [place] [address] PCP - General Internal Medicine 08/25/23 documented as of this encounter
--- OUTSIDE RECORDS SUMMARY | 2023-10-09 21:17 | External Medical Summary | Summary of Care ---
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 Name Role Phone Alejandro Terry MD Primary Care Provider [phone] Reason for Referral * Evaluate & Treat - Unlimited Visits (Within 10 days (routine)) - Authorized Specialty Diagnoses / Procedures Referred By Contac t Referred To Contact Dermatology Diagnoses Skin lesion Alejandro Terry MD [address] [facility] [place] [address] Referral ID Status Reason Start Date Expiration Date Visits Requested Visits Authorized [id number] Authorized Specialty Services Required 09/29/2023 999 999 Question Answer Referral Priority Within 10 days (routine) Where should this appointment be scheduled? [facility] Are you referring the patient for Mohs Surgery and have a current positive skin cancer biopsy result? No What is the reason for the patient referral? Rash/Skin Check/Eval of Lesion or Mole Reason for Visit * Reason Comments Emergency Department Follow-Up Pt here f or ER follow upPt has swelling in her right foot which started yesterday. Encounter Details Date Type Department Care Team (Late st Contact Info) Description 09/29/2023 2:40 PM EDT Office Visit [facility] [address] [place] [address] Alejandro Terry [facility] [address] [facility] [id number] Skin lesion*; Risk and functional assessment; Rash and nonspecific skin eruption; Venous insufficiency; Type 2 diabetes mellitus with stage 3a chronic kidney disease, without long-term current use of insulin (HCC) Allergies Active Allergy Reactions Criticality Noted Date Comments Aspirin 08/21/2015 Full strength ASA. Able to take 81mg. Causes bruising Empagliflozin 11/19/2022 Yeast infection documented as of this encounter (statuses as of 10/07/2023) Medications Medication Sig Dispensed Refills Start Date [...] bedtime. 180 Tablet 1 09/09/2023 Active Nystatin 762925 UNIT/ML Mouth/Throat Suspension Take by mouth 4 times a day. 09/26/2023 Active documented as of this encounter (statuses as of 10/07/2023) Active Problems Problem Noted Date Diagnosed Date skilled nursing current use of anticoagulant therapy 0 06/18/2023 [...] follow up--appt not made at this time. Bilateral leg edema 05/04/2021 Last Assessment & [...] as of this encounter (statuses as of 10/07/2023) Resolved Problems Problem Noted Date Diagnosed Date Resolved Date Anticoagulation management encounter 09/09/2023 09/24/2023 Thrombocytopenia 05/04/2021 10/07/2023 Yeast vaginitis 05/04/2021 11/19/2022 Last Assessment & Plan: Appt with route sales trainee today for further eval. Acute deep vein [...] Overview: history Coronary artery disease invo [place]ving [place] coronary artery of [place] heart without angina pectoris 08/29/2015 03/20/2017 Left-sided carotid artery disease 08/29/2015 03/05/2018 Abnormal ECG 08/29/2015 09/17/2017 Malignant neoplasm of left female breast 08/10/2015 06/07/2017 documented as of this encounter (statuses as of 10/07/2023) Immunizations Name Administration Dates Next Due PPD [...] Sign Reading Time Taken Comments Blood Pressure 128/62 09/29/2023 2:49 PM EDT Pulse 75 09/29/2023 2:49 PM EDT Temperature 36.9 C (98.5 F) 09/29/2023 2:49 PM ED T Respiratory Rate 18 09/29/2023 2:49 PM EDT Oxygen Saturation 98% 09/29/2023 2:49 PM EDT Inhaled Oxygen Concentration - - Weight 66.2 kg (145 lb 14.4 oz) 09/29/2023 2:49 PM EDT Height - - Body Mass Index 26.69 08/19/2023 8:37 AM EDT documented in this encounter Patient Instructions * Patient Instructions* Cristina Bird LPN - 09/29/2023 2:52 PM EDT Vaccination is the best way to protect against hepatitis B. Most people should get 3 doses of hepatitis B vaccine. If you miss a dose or get behind schedule, get the next dose as soon as you can. There is no need to start over. Age for Hepatitis B Vaccine: INFANTS: *Infants whose mother HAS hepatitis B virus: #1 dose- at 2 month visit #2 dose- 1 month after dose #1 #3 dose- 7 months of age (at least 5 months after dose #1) *Infants whose mother does NOT have hepatitis B virus: #1 dose- - 2 months of age #2 dose- 1-4 months of age (at least 1 month after dose #1) #3 dose- 6-18 months of age ( at least 2 months after dose #2) *Other recommended age groups #1 dose- Now #2 dose- 1-2 months after dose #1 #3 dose- 4-6 months after dose #1 WHAT ARE THE RISKS FROM HEPATITIS B VACCINE? Hepatitis B vaccine is one of the safest vaccines. Getting the disease is much more likely to causeserious illness than getting the vaccine. MILD PROBLEMS: - soreness where the shot was given. - mild to moderate fever Acetaminophen or Ibuprofen (not aspirin) may be used to reduce fever and pain. SEVERE PROBLEMS: - serious allergic reaction is very rare. WHAT TO DO IF THERE IS A SERIOUS REACTION: - Call a doctor or get the person to a doctor right away. - Ask your doctor, nurse, or health department to file a Vaccine Adverse Event Report form. To filea report yourself you can call: (toll-free) LET YOUR DOCTOR KNOW IMMEDIATELY IF YOU HAVE DIFFICULTY BREATHING OR SWALLOWING, EXPERIENCE ITCHING OF FEET OR HANDS, HAVE SWELLING OF EYES, FACE OR INSIDE OF NOSE. Patient Instructions - Fall Prevention (This education is for all patients over 65 regardless of symptoms) Remember to take your current medications as prescribed. In order to prevent falls, you are encouraged to: Exercise Utilize assistive/adaptive devices Avoid multifocal lenses when walking Avoid hazards in home Maintain a regular toileting schedule Any questions please contact our office. Preventing Falls in the Home (This education is for all patients over 65 regardless of symptoms) As you get older, falls are more likely. Thats because your reaction time slows. Your muscles and joints may also get stiffer, making them less flexible. Illness, medications, and vision changes can also affect your balance. A fall could leave you unable to live on your own. To make your home safer, follow these tips: Floors Put nonskid pads under area rugs Remove throw rugs Replace worn floor coverings Tack carpets firmly to each step on carpeted stairs. Put nonskid strips on the edges of uncarpeted stairs Keep floors and stairs free of clutter and cords Arrange furniture so there are clear pathways Clean up any spills right away Bathrooms Install grab bars in the tub or shower Apply nonskid strips or put a nonskid rubber mat in the tub or shower Sit on a bath chair to bathe Use bathmats with nonskid backing Lighting Keep a flashlight in each room Put a nightlight along the pathway between the bedroom and the bathroom [employer] Patient Education Copyright 2008 - 2010 [employer] except where otherwise noted Preventing Falls: Exercises to Improve Balance, Flexibility, Strength, and Staying Power (This education is for all patients over 65 regardless of symptoms) Certain types of exercises may help make you less likely to fall. Try the ones below. Or do other exercises that your healthcare provider suggests. Depending on your health, you may need to start slowly. Dont let that stop you. Even small amounts of exercise can help you. Be sure to talk to yourhealthcare provider before starting any exercise program. Improve Balance Many types of exercise can help improve balance. Junior chi and yoga are good examples. Heres another one to try. You can do it anytime and almost anywhere. Stand next to a counter or solid support. Push yourself up onto your tiptoes. Hold for 5 seconds. If you start to lose your balance, hold on to the counter. Rest and repeat 5 times. Work up to holding for 20 to 30 seconds, if you can. Increase Flexibility Being more flexible makes it easier for you to move around safely. Try exercises like the seated hamstring stretch. Sit in a chair and put one foot on a stool. Straighten your leg and reach with both hands down either side of your leg. Reach as far down your leg as you can. Hold for about 20 seconds. Go back to the starting position. Then repeat 5 times. Switch legs. Build Strength Resistance exercises help build strength. You can do them without equipment. Or you can use weights, elastic bands, or special machines. One such exercise is called the biceps curl. You can hold a 1 pound weight or even a can of soup. Do this exercise at least 3 times a week. Strive for everyday. Sit up straight in a chair. Keep your elbow close to your body and your wrist straight. Bend your arm, moving your hand up to your shoulder. Then slowly lower your arm. Repeat 5 times. Switch to the other arm. Build Your Staying Power Aerobic exercises make your heart and lungs stronger so you can keep moving longer. Walking and swimming are two of the best types of exercises you can do. Using a stationary bike is great, too. Find an aerobic exercise that you enjoy. Start slowly and build up. Even 5 minutes is helpful. Aimfor a goal of 30 minutes, at least 3 times a week. You dont have to do 30 minutes in one session. Break it up and walk a little throughout the day. More Helpful Tips Start easy. Slowly work up to doing more. Talk with your healthcare provider about the best exercises for you. Call senior centers or health clubs about exercise programs. If needed, have a family member watch you walk every so often to check your stability. Exercise with a friend. Choose an activity you both enjoy. Try exercises that you can do anytime, anywhere. Here are two examples. Have someone with you when you first try these: Practice walking by placing one foot right in front of the other. Stand up and sit down 10 times. Repeat this throughout the day. [employer] Patient Education Copyright 2009 - 2010 [employer] except where otherwise noted. Preventing Falls: Moving Safely Using a Cane or Walker (This education is for all patients over 65 regardless of symptoms) Keep the cane away from your feet so you dont trip. A walking aid, such as a cane or walker, can help you stay more independent and avoid falls. Remember to keep your walking aid within easy reach when youre in a chair or in bed. And learn how to use it safely so you dont injure yourself. Using a Cane If you have a stronger side, hold the cane on that side. Get your balance. Move the cane and your weaker leg forward. Support your weight on both the cane and your weaker side. Step with your stronger leg. Start again from step 1. If youre using a folding walker, be sure you know how to lock it open. Check that its locked open before each use. Using a Walker Roll the walker (or lift it, if youre using one without wheels) forward about 12 inches. Step forward with your weaker leg first. Use the walker to help keep your balance. Bring your other foot forward to the center of the walker. Start again from step 1. Helpful Tips Check with your healthcare provider about the right walking aid to use. Ask about a walker with a seat attached. Check the tips of your cane or walker to make sure they have nonskid covers. Move slowly from room to room. Dont francisco. Sit down to get dressed. Use a nkiolay pack or backpack to keep your hands free. Get help for jobs that mean climbing, even on a stepstool. [employer] Patient Education Copyright 2008 - 2010 [employer] except where otherwise noted. Urinary Incontinence Plan of Care Documentation: (This education is for all patients over 65 regardless of symptoms) Current medications reconciled. Patient encouraged to: Practice kegal exercises Provide education materials Use the restroom every 2 hours throughout the day Limit caffeine, alcohol, spicy foods and acidic foods Keep a bladder diary Limit fluid intake 3-4 hours before bed Lose weight Prevent constipation Take fluid pills at a time when you can get to the bathroom quickly Control sugar better if diabetic Limit fluid intake to 60 oz. per day Wear support stockings (TEDs)if you have edema Cristina Bird LPN 09/29/2023 Kegel Exercises Kegel exercises dont require special clothing or equipment. Theyre easy to learn and simple to do. And if you do them right, no one can tell youre doing them, so they can be done almost anywhere. Your doctor, nurse, or physical therapist can answer any questions you have and help you get started. A Weak Pelvic Floor The pelvic floor muscles may weaken due to aging, and vaginal childbirth, injury, surgery, chronic cough, or lack of exercise. If the pelvic floor is weak, your bladder and other pelvic organs may sag out of place. The urethra may also open too easily and allow urine to leak out. Kegel exercises can help you strengthen your pelvic floor muscles so they can better support the pelvic organs and control urine flow. How Kegel Exercises Are Done Try each of the Kegel exercises described below. When youre doing them, try not to move your leg, buttock, or stomach muscles. While youre urinating, try to stop the flow of urine. Start and stop it as often as you can. Contract as if you were stopping your urine stream, but do it when youre not urinating. Tighten your rectum as if trying not to pass gas. Contract your anus, but dont move your buttocks. Helpful Hints Do your Kegels as often as you can. The more you do them, the faster youll feel the results. Pick an activity you do often as a reminder. For instance, do your Kegels every time you sit down. Tighten your pelvic floor before you sneeze, get up from a chair, cough, laugh, or lift. This protects your pelvic floor from injury and can help prevent urine leakage. Try to hold each Kegel for a slow count to five. You probably wont be able to hold them for thatlong at first, but keep practicing. It will get easier as your pelvic floor gets stronger. Eventually, special weights that you place in your vagina may be recommended to help make your Kegels even more effective. [employer] Patient Education Copyright 2008 - 2010 [employer] except where otherwise noted. Here are some helpful tips for your urinary incontinence: (This education is for all patients over 65 regardless of symptoms) Practice Kegel exercises Use the restroom every 2 hours throughout the day Limit caffeine, alcohol, spicy foods, and acidic foods Keep a bladder diary Limit fluid intake 3-4 hours before bed Lose weight Prevent constipation Take fluid pills at a time when can get to the bathroom quickly Control sugar better if diabetic Limit fluid intake to 60 oz. per day Any questions, please feel free to contact our office. documented in this encounter Progress Notes * lAejandro Terry MD - 10/07/2023 9:59 AM EDT Subjective Olivia Kim is a 83 year old female. Chief Complaint Patient presents with Emergency Department Follow-Up Pt here for ER follow up Pt has swelling in her right foot which started yesterday. HPI: Here for ER f/u - went there for progressing chronic rash Most likely related to skin scratching by pt Dry skin, venous insuff skin changes Also has chronic leg swelling Advised to use compression stockings Daughter was asking for hepatitis test to rule out due to rash Also agreed with derm referral Known type 2 DM, not controlled, can cause more skin problem, recent hba1c 8.2 PMH: Patient Active Problem List Diagnosis ASCVD (arteriosclerotic cardiovascular disease) Dyslipidemia, goal LDL below 70 Type 2 diabetes mellitus with stage 3a chronic kidney disease, without long-term current use of insulin (HCC) Gouty arthropathy History of breast cancer Occlusion of left carotid artery Atherosclerosis of aorta (HCC) Hypothyroidism due to acquired atrophy of thyroid Personal history of other malignant neoplasm of skin Personal history of venous thrombosis and embolus Hypertensive kidney disease with stage 3a chronic kidney disease (HCC) Hepatic cirrhosis (HCC) Bilateral leg edema Vitamin D deficiency 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 1 Inhaler1 Acetaminophen 500 MG Oral Tablet (Tylenol) Take 2 Tablets by mouth every 8 hours as needed. Atenolol 50 MG Oral Tablet (Tenormin) Take 1 Tablet (50 mg) by mouth in the morning. 90 Tablet 1 Furosemide 40 MG Oral Tablet (Lasix) Take 1 Tablet (40 mg) by mouth in the morning. Dose increased from 20 mg to 40 mg. 30 Tablet 11 Lisinopril 5 MG Oral Tablet (Prinivil) Take 1 Tablet (5 mg) by mouth in the morning. 90 Tablet 1 Aspirin 81 MG Oral Tablet Delayed Release Take 1 Tablet (81 mg) by mouth in the morning. 90 Tablet 1 Rosuvastatin Calcium 20 MG Oral Tablet (Crestor) Take 1 Tablet (20 mg) by mouth in the morning. 90 Tablet 1 Lactulose 10 GM/15ML Oral Solution (Constulose) Take 15 mL by mouth 2 times a day as needed (confusion). severe constipation 237 mL 5 linaGLIPtin 5 MG Oral Tablet (Tradjenta) Take 1 Tablet by mouth in the morning. 90 Tablet 3 D-Care Glucometer w/Device Kit Use as directed 2 times a day. 1 Kit 0 Allopurinol 100 MG Oral Tablet (Zyloprim) Take 1 Tablet by mouth in the morning. 90 Tablet 3 Levothyroxine Sodium 125 MCG Oral Tablet (Levoxyl) TAKE 1 TABLET ONCE A DAY, ON AN EMPTY STOMACH, FOR THYROID Strength: 125 mcg 90 Tablet 3 Gabapentin 100 MG Oral Capsule (Neurontin) TAKE 1 CAPSULE BY MOUTH UP TO 3 TIMES A DAY NEEDED FOR HIP AND BACK PAIN 270 Capsule 1 Insulin Glargine Solostar 100 UNIT/ML Subcutaneous Solution Pen-injector (Lantus SoloStar) Inject 14 Units under the skin every night at bedtime. 15 mL 1 Apixaban 2.5 MG Oral Tablet (Eliquis) Take 1 Tablet by mouth in the morning and 1 Tablet before bedtime. 180 Tablet 1 Nystatin 406103 UNIT/ML Mouth/Throat Suspension Take by mouth 4 times a day. saline (OCEAN NASAL SPRAY) 0.65 % nasal spray Administer 2 Sprays into each nostril as needed for Congestion. for nasal dryness or congestion (Patient not taking: Reported on 09/29/2023) 1 Bottle 5 Clotrimazole-Betamethasone 1-0.05 % External Cream Apply thumb sized amount to vulva 2 times a day for 1 week (Patient not taking: Reported on 09/29/2023) 15 g 1 Vitamin D3 50 MCG (2000 UT) Oral Tablet Take 1 Tablet (2,000 Units) by mouth in the morning. 90 Tablet 1 Ketoconazole 2 % External Cream Apply topically to affected area daily. Apply to scaly areas 15 g 2 No current facility-administered medications for this visit. Past Medical History: Diagnosis Date Acute deep vein thrombosis (DVT) of proximal vein of right lower extremity (HCC) 08/25/2019 Acute. Basal cell carcinoma (BCC) of right side of nose 09/25/2018 Historical. Breast cancer (HCC) left, tamoxifen Radiation. stage 1 hormone receptor Left-sided carotid artery disease (HCC) 08/29/2015 Liver cirrhosis secondary to RAZA (HCC) [address] imaging at [facility], likely seconary to NAFLD. 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 current use of anticoagulant therapy 06/18/2023 Malignant neoplasm of left female breast (HCC) 08/10/2015 S/P abdominal hysterectomy fibroids TIA (transient ischemic attack) Type 2 diabetes mellitus without complication, without long-term current use of insulin (HCC) 03/25/2016 Past Surgical History: Procedure Laterality Date BALLON ANGIOPLASTY;SINGLE 1990s BREAST SURGERY PROCEDURE NEC left 2008, invasive ductal carcinoma COLONOSCOPY 2004 EGD, FLEXIBLE, W/CYST DRAINAGE N/A 09/06/2021 ESOPHAGOGASTRODUODENOSCOPY (EGD), FLEXIBLE, TRANSORAL, WITH DRAINAGE PSEUDOCYST performed by Vlad Dominguez DO at OR [facility] EGD, FLEXIBLE,W/ENDOSCOPIC US 07/10/2021 gastritis, CBD sludge, CBD dilation / [facility] EGD, W/ENDOSCOPIC US N/A 09/06/2021 cyst right lobe of liver/sludge gallbladder/axios stent and double pigtail solus stent placed into gallbladder through duodenal bulb/ESOPHAGOGASTRODUODENOSCOPY (EGD), FLEXIBLE, TRANSORAL, ENDOSCOPIC ULTRASOUND performed by Quirino Dominguez DO at OR [facility] ERCP 07/10/2021 Choledocholithiasis, stent placed, repeat 6 wks / [facility] ERCP W/ STENT EXCHANGE N/A 09/06/2021 one visibly patent stent from biliary tree in major papilla/entire main bile duct moderately dilated/choledochothiasis found, complete removal/one stent removed from biliary tree/ENDOSCOPIC RETROGRADE CHOLANGIOPANCREATOGRAPHY (ERCP) W/STENT REMOVAL AND EXCHANGE; INC DILATION, GUIDE WIRE AND SPHINCTEROTOMY performed by Quirino Dominguez, DO at OR [facility] THROMBOENDARECTOMY W/PATCH,NECK INCISION CEA on left- in 90s TOTAL ABD HYSTERECTOMY W/WO REMOVAL OF TUBE(S) at age 33-stil has both ovaries Review of patient's allergies indicates: Allergen Reactions Asa [Aspirin] Full strength ASA. Able to take 81mg. Causes bruising Jardiance [Empagliflozin] Yeast infection Family History Problem Relation Name Age of Onset Breast Cancer Mother dx'd at age 81 Family Status Relation Status Mo (Not Specified) Social History Socioeconomic History Marital status: Spouse name: Not on file Number of children: Not on file Years of education: Not on file Highest education level: Not on file Occupational History Not on file Tobacco Use Smoking status: Never Passive exposure: Past Smokeless tobacco: Never Substance and Sexual Activity Alcohol use: No Drug use: No Sexual activity: Not on file Other Topics Concern Not on file Social History Narrative Not on file Social Determinants of Health Financial Resource Strain: Low Risk (06/20/2023) Financial Resource Strain Do you have any trouble paying for your medications, or do you think you might in the future? (Adult - for ages 18 years and over): No Does your family have trouble paying for medicine? (Household - for ages 0-17 years): Not on file Food Insecurity: No Food Insecurity (06/20/2023) Food Insecurity Do you need food for this week? (Adult - for ages 18 years and over): No Are you able to get enough food for your family? (Household - for ages 0-17 years): Not on file Does your family need food this week? (Household - for ages 0-17 years): Not on file Do you always have enough food for your family? (Household - for ages 0-17 years): Not on file Transportation Needs: No Transportation Needs (06/20/2023) Transportation Needs Do you have trouble getting a ride to medical visits or work? (Adult - for ages 18 years and over):Never True Does your family have a hard time getting a ride to doctors visits? (Household - for ages 0-17 years): Not on file Has lack of transportation kept you from medical appointments, meetings, work, or from getting things needed for daily living? Check all that apply. (Adult - for ages 18 years and over): Not on file Do you (or your family) have trouble finding or paying for a ride (transportation)? (Household - for ages 0-17 years): Not on file Social Connections: Socially Integrated (06/20/2023) Social Connections How often do you feel lonely or isolated from those around you? (Adult - for ages 18 years and over): Never Housing Stability: Low Risk (06/20/2023) Housing Stability Do you currently live in a senior care or have no steady place to sleep at night? (Adult - for ages 18 years and over): No Do you think you are at risk of becoming homeless? (Adult - for ages 18 years and over): No Does your family worry about paying for your home or becoming homeless? (Household - for ages 0-17 years): Not on file Are you homeless or worried that you might be in the future? (Adult - for ages 18 years and over): Not on file Are you (or your family) homeless or worried that you might be in the future? (Household - for ages0-17 years): Not on file Review of Systems Constitutional: Positive for fatigue. Negative for activity change, appetite change, chills, diaphoresis, fever and unexpected weight change. Respiratory: Negative for chest tightness and shortness of breath. Cardiovascular: Positive for leg swelling. Negative for chest pain and palpitations. Gastrointestinal: Negative for abdominal distention and abdominal pain. Endocrine: Negative. Musculoskeletal: Positive for arthralgias. Skin: Positive for rash. Neurological: Positive for weakness (generalized). Negative for dizziness and headaches. Psychiatric/Behavioral: Positive for sleep disturbance. Negative for agitation. The patient is nervous/anxious. Objective BP 128/62 | Pulse 75 | Temp 36.9 C (98.5 F) (Tympanic) | Resp 18 | Wt 66.2 kg (145 lb 14.4 oz) | SpO2 98% | BMI 26.69 kg/m | BSA 1.7 m Physical Exam Constitutional: General: She is not in acute distress. Appearance: Normal appearance. She is not ill-appearing, toxic-appearing or diaphoretic. HENT: Head: Normocephalic and atraumatic. Nose: Nose normal. Eyes: Extraocular Movements: Extraocular movements intact. Cardiovascular: Rate and Rhythm: Normal rate. Pulmonary: Effort: Pulmonary effort is normal. No respiratory distress. Breath sounds: Normal breath sounds. Musculoskeletal: Right lower leg: Edema (trace) present. Left lower leg: Edema (trace) present. Skin: Findings: Rash present. Neurological: General: No focal deficit present. Mental Status: She is alert and oriented to person, place, and time. Psychiatric: Behavior: Behavior normal. ASSESSMENT/PLAN: Skin lesion (Primary) - ACUTE HEPATITIS PANEL; Future; Expected date: 09/29/2023 - DERMATOLOGY REFERRAL OP Risk and functional assessment Rash and nonspecific skin eruption Venous insufficiency Type 2 diabetes mellitus with stage 3a chronic kidney disease, without long-term current use of insulin (HCC) Check-out note: Lab today Derm referral to fax Vaselin ointment Moisturizer Do not scratch skin F/u with derm F/u lab Compression stockings Diet change Hydration enough Control glucose Alejandro Terry MD * Cristina Bird LPN - 09/29/2023 2:52 PM EDT Fall Risk Plan of Care Documentation: - Current medications reconciled Patient encouraged to: - Exercise - Provide education materials for Core strengthening - Utilize assistive/adaptive devices - Provide education materials - Avoid multifocal lenses when walking - Avoid hazards in home - Provide education materials - Maintain a regular toileting schedule Cristina Bird LPN 09/29/2023 documented in this encounter Nursing Notes * Cristina Bird LPN - 09/29/2023 2:39 PM EDT Chief Complaint Patient presents with Emergency Department Follow-Up Pt here for ER follow up documented in this encounter Plan of Treatment Upcoming Encounters Date Type Department Care Team (Late st Contact Info) Description 10/08/2023 9:00 AM EDT [facility] [place] [address] [facility] [address] [place], [facility] [address] [facility] [address] 11/21/2023 9:00 AM EDT Office Visit [facility], [place] [address] [facility] [address] Alejandro Terry MD [address] [place] [facility] [place] [address] 12/01/2023 10:00 AM EDT Office Visit Dermatology [address] [place] [address] Georgina Gilbert PA-C [address] [place] [address] [place] [address] Scheduled Referrals Name Type Priority Associated Diagnoses Orde r Schedule DERMATOLOGY REFERRAL OP Referral Within 10 days (routine) Skin lesion Ordered: 09/29/2023 Health Maintenance Due Date Last Done Comments CKD PHOS USE SMARTSET 64322 05/25/1958 DTap/Tdap Vaccines (1 - Tdap) 1960 Zoster Vaccines (1 of 2) 05/25/1991 Hepatitis B Vaccine (1 of 3 - Risk 3-dose series) 2001 Adult Wellness Visit 05/25/2007 Albumin/Creatinine Ratio 03/07/20222 022, 05/02/2020, 03/20/2017, Additional history exists COVID-19 Vaccine ( - 2022- season) 2022 Influenza Vaccine (FLU shot) (#1) 2023 11/16/2020, 10/28/2019, 11/23/2018, Additional history exists GFR 02/19/2024 08/19/2023, 05/, 01/21/2023, Additional history exists HbA1c 02/19/2024 08/19/2023, 11/10, 07/27/2022, Additional history exists DXA Scan 06/16/2024 06/16/2017, 08/2017, 09/14/2012 Depression Screening 06/19/2024 06/20/2023 Diabetic Eye Exam 06/19/2024 06/20/2023, 08/17/2019 Diabetic Foot Exam 06/19/2024 06/20/2023, 0 08/17/2019, 07/27/2018, Additional history exists TSH 06/19/2024 06/20/2023, 11/10, 05/08/2021, Additional history exists CKD HGB USE SMARTSET 60935 08/18/202408/18, 08/19/2023, 11/28/2022, Additional history exists Pneumococcal Vaccine: 65+ Years Completed 05/08/2018, 03/25/2016 HPV (Gardasil) Vaccine Aged Out No lo nger eligible based on patient's age to complete this topic MENINGOCOCCAL (MENACTRA/MENVEO) Aged Out No longer eligible based on patient's age to complete this topic documented as of this encounter Medical Devices Implanted Type Area De Icer Finisher Device Identifier Shelf Expiration Date Model / Serial / Lot Stent Axios [id number] - [id number] Implanted:Qty: 1 on 09/06/2021 by Quirino Dominguez DO at OR [facility] N/A: Abdomen [employer] : ENDOSCOPY 04/17/2023 [id number] / / Stent Solus And Intro Set - [id number] Implanted:Qty: 1 on 09/06/2021 by Quirino Dominguez DO at OR [facility] N/A: Abdomen JUNIOR : OPAL PACHECO 04/19/2024 [id number] / / documented as of this encounter Results * ACUTE HEPATITIS PANEL (09/29/2023 3:31 PM EDT) Hepatitis A Antibody IgM Negative Negative 09/30/2023 12:20 AM EDT LABORATORY [facility] Hepatitis B Core Antibody IgM Negative Negative 09/30/2023 12:20 AM EDT LABORATORY [facility] Hepatitis B Surface Antigen Negative Negative 09/30/2023 12:20 AM EDT LABORATORY [facility] Hepatitis C Antibody Negative Negative 09/30/2023 12:20 AM EDT LABORATORY [facility] Blood Venous blood specimen / Unknown Venipuncture / Unknown 09/29/2023 3:31 PM EDT 09/29/2023 3:31 PM EDT Alejandro Terry MD LAB BLOOD ORDERABLES LAB[facility]ATORY [facility] [address] [place] [address] documented in this encounter Visit Diagnoses Diagnosis Skin lesion- Primary Unspecified disorder of skin and subcutaneous tissue Risk and functional assessment Screening for unspecified condition Rash and nonspecific skin eruption Rash and other nonspecific skin eruption Venous insufficiency Unspecified venous (peripheral) insufficiency Type 2 diabetes mellitus with stage 3a chronic kidney disease, without long-term current use of insulin (HCC) documented in this encounter Advance Directives * [...] Agents on File Name Relationship Healthcare Agent [facility] p Communication [facility] Adult Child First Alternate Health Care Agent Care Teams Tube Making Machine Operator Relationship Specialty Start Date End Date Alejandro Terry MD [address] [place] [address] PCP - General Internal Medicine 08/25/23 documented as of this encounter"
--- OUTSIDE RECORDS SUMMARY | 2023-10-09 21:17 | External Medical Summary | Summary of Care ---
Author Name Unknown Organization [facility] Address [address] [facility] [place] [address] Phone [phone] Care Team Providers Care Application Chemist Name Role Phone Alejandro Terry MD Primary Care Provider Reason for Visit * Reason Comments Outpatient Testing Encounter Details Date Type Department Care Team (Late st Contact Info) Description 09/29/2023 3:30 PM EDT Laboratory Laboratory, [place] [address] [place] [address] [place], [facility] [address] [place] [address] Skin lesion Allergies Active Allergy Reactions Criticality Noted Date Comments Aspirin 08/21/2015 Full strength ASA. Able to take 81mg. Causes bruising Empagliflozin 11/19/2022 Yeast infection documented as of this encounter (statuses as of 09/29/2023) Medications Medication Sig Dispensed Refills Start Date [...] bedtime. 180 Tablet 1 09/09/2023 Active Nystatin 897240 UNIT/ML Mouth/Throat Suspension Take by mouth 4 times a day. 09/26/2023 Active documented as of this encounter (statuses as of 09/29/2023) Active Problems Problem Noted Date Diagnosed Date retirement current use of anticoagulant therapy 0 06/18/2023 [...] as of this encounter (statuses as of 09/29/2023) Resolved Problems Problem Noted Date Diagnosed Date Resolved Date Anticoagulation management encounter 09/09/2023 09/24/2023 Yeast vaginitis 05/04/2021 11/19/2022 Last Assessment & Plan: Appt with footwear production machine operator today for further eval. Acute deep [...] Overview: history Coronary artery disease invo lving [place] coronary artery of [place] heart without angina pectoris 08/29/2015 03/20/2017 Left-sided carotid artery disease 08/29/2015 03/05/2018 Abnormal ECG 08/29/2015 09/17/2017 Malignant neoplasm of left female breast 08/10/2015 06/07/2017 documented as of this encounter (statuses as of 09/29/2023) Immunizations Name Administration Dates Next Due PPD [...] 06/20/2023 Does the household have a re lar source of income? (Household - for ages [...] on file documented as of this encounter Plan of Treatment Upcoming Encounters Date Type Department Care Team (Late st Contact Info) Description 10/08/2023 9:00 AM EDT Office Visit Pharmacy, [place] [address] [place] [address] [facility] [address] [facility] [place] [address] 11/21/2023 9:00 AM EDT [facility] Visit [facility] [address] [facility] [phone] Alejandro Terry [facility] [address] [facility] [address] 12/01/2023 10:00 AM EDT Office Visit Dermatology [address] [place] [address] Georgina Gilbert PA-C [address] [place] [address] [place] [address] Pending Results Name Type Priority Associated Diagnoses Date /Time ACUTE HEPATITIS PANEL Lab Routine Skin lesion 09/29/2023 3:31 PM EDT Health Maintenance Due Date Last Done Comments CKD PHOS USE SMARTSET 92117 05/25/1958 DTaP,Tdap,and Td Vaccines (1 - Tdap) [...] Additional history exists DXA Scan 06/16/2024 06/16/2017, 050 08/2017, 09/14/2012 Depression Screening 06/19/2024 06/20/2023 Diabetic Eye Exam 06/19/2024 06/20/2023, 08/17/2019 Diabetic Foot Exam 06/19/2024 06/20/2023, 0 08/17/2019, 07/27/2018, Additional history exists TSH 06/19/2024 06/20/2023, 11/10, 05/08/2021, Additional history exists CKD HGB USE SMARTSET 92897 08/18/202408/18, 08/19/2023, 11/28/2022, Additional history exists Pneumococcal Vaccine: 65+ Years Completed 05/08/2018, 03/25/2016 HPV (Gardasil) Vaccine Aged Out No lo nger eligible based on patient's age to complete this topic MENINGOCOCCAL (MENACTRA/MENVEO) Aged Out No longer eligible based on patient's age to complete this topic documented as of this encounter Medical Devices Implanted Type Area Legal Research Analyst Device Identifier Shelf Expiration Date Model / Serial / Lot Stent Axios [id number] - [id number] Implanted:Qty: 1 on 09/06/2021 by Quirino Dominguez DO at OR [facility] N/A: Abdomen [employer] : ENDOSCOPY 04/17/2023 [id number] / / Stent Solus And Intro Set - [id number] Implanted:Qty: 1 on 09/06/2021 by Quirino Dominguez DO at OR [facility] N/A: Abdomen JUNIOR : OPAL PACHECO 04/19/2024 [id number] / / documented as of this encounter Visit Diagnoses Diagnosis Skin lesion Unspecified disorder of skin and subcutaneous tissue documented in this encounter Advance Directives * [...] Relationship Healthcare Agent Relationshi p Communication [facility] Adult Child First Alternate Health Care Agent Care Teams Application Chemist Relationship Specialty Start Date End Date Alejandro Terry MD [address] [place] [address] PCP - General Internal Medicine 08/25/23 documented as of this encounter
[2023-10-09] MEDS: INSULIN ASPART PER UNIT CHARGE SC SCH (21:43)
[2023-10-09] MEDS: MELATONIN 3 MG TAB PO PRN (21:59)
[2023-10-09] MEDS: APIXABAN 2.5 MG TAB PO SCH (21:59)
[2023-10-09] MEDS: LANTUS PER UNIT CHARGE SQ SCH (21:59)
--- NOTE | 2023-10-09 23:07 | Electrocardiogram Report ---
Test Reason : Blood Pressure : */* mmHG Vent. Rate : 74 BPM Atrial Rate : 74 BPM P-R Int : 176 ms QRS Dur : 96 ms QT Int : 440 ms P-R-T Axes : 45 -2 8 degrees QTcB Int : 488 ms Normal sinus rhythm Possible Inferior infarct (cited on or before 09-Jul-2021) Anterior infarct (cited on or before 09-Jul-2021) Prolonged QT Abnormal ECG When compared with ECG of 09-Jul-2021 18:10, No significant change was found Confirmed by Juan J Douglas ([id number]) on 10/09/2023 11:07:30 PM Referred By: Confirmed By: Juan J Douglas
--- OUTSIDE RECORDS SUMMARY | 2023-10-10 01:15 | External Medical Summary | Summary of Care ---
Author Name Unknown Organization [facility] Address [address] [facility] [place] [address] Phone [phone] Care Team Providers Care Scenic Arts Supervisor Name Role Phone Alejandro Terry MD Primary Care Provider [phone] Reason for Visit * Reason Onset Date Comments Advice 10/08/2023 Encounter Details Date Type Department Care Team (Late st Contact Info) Description 10/08/2023 Telephone [facility] [address] [place] [address] Alejandro Terry MD [address] [place] [address] Advice Allergies Active Allergy Reactions Criticality Noted Date Comments Aspirin 08/21/2015 Full strength ASA. Able to take 81mg. Causes bruising Empagliflozin 11/19/2022 Yeast infection documented as of this encounter (statuses as of 10/09/2023) Medications Medication Sig Dispensed Refills Start Date [...] bedtime. 180 Tablet 1 09/09/2023 Active Nystatin 040976 UNIT/ML Mouth/Throat Suspension Take by mouth 4 times a day. 09/26/2023 Active Ketoconazole 2 % External Cream Apply topically to affected area daily. Apply to scaly areas 15 g 2 10/03/2023 Active documented as of this encounter (statuses as of 10/09/2023) Active Problems Problem Noted Date Diagnosed Date terminal gauger current use of anticoagulant therapy 0 06/18/2023 [...] as of this encounter (statuses as of 10/09/2023) Resolved Problems Problem Noted Date Diagnosed Date Resolved Date Anticoagulation management encounter 09/09/2023 09/24/2023 Thrombocytopenia 05/04/2021 10/07/2023 Yeast vaginitis 05/04/2021 11/19/2022 Last Assessment & Plan: Appt with dryer and washer mechanic today for further eval. 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 What is current process for possible long wall mining machine tender facility ? Dose she have a case checker ? * Telephone Encounter - Cathy Lanza LPN - 10/08/2023 11:26 AM EDT Patient is refusing to go to her appointments anymore and is very rebellious and disrespectful. She is having harder time to walking and Sher is not going to be able to transfer her and pick her up as he is starting treatment for Lukemia. Unsure if she is taking medications as prescribed as his does that and he wanted to let our office know so something is on record. * Telephone Encounter - Ruma Barajas OSA - 10/08/2023 8:07 AM EDT Patient son in law calling, states patient is refusing to go to her appointments, and is very uncooperative about many things and is asking to speak to the doctor or a nurse regarding same. documented in this encounter Plan of Treatment Upcoming Encounters Date Type Department Care Team (Late st Contact Info) Description 11/21/2023 9:00 AM EDT Office Visit [facility] [address] [place] [facility] [place] [phone] Alejandro Terry MD [address] [place] [address] 12/01/2023 10:00 AM EDT Office Visit Dermatology [address] [place] [address] Georgina Gilbert PA-C [address] [place] [address] [place] [address] Health Maintenance Due Date Last Done Comments CKD PHOS USE SMARTSET 18326 05/25/1958 DTap/Tdap Vaccines (1 - Tdap) 1960 [...] Additional history exists CKD HGB USE SMARTSET 83044 08/18/202408/18, 08/19/2023, 11/28/2022, Additional history exists Pneumococcal Vaccine: 65+ Years Completed 05/08/2018, 03/25/2016 HPV (Gardasil) Vaccine Aged Out No lo nger eligible based on patient's age to complete this topic MENINGOCOCCAL (MENACTRA/MENVEO) Aged Out No longer eligible based on patient's age to complete this topic documented as of this encounter Medical Devices Implanted Type Area Information Coordinator Device Identifier Shelf Expiration Date Model / Serial / Lot Stent Axios [id number] - [id number] Implanted:Qty: 1 on 09/06/2021 by Quirino Dominguez DO at OR [facility] N/A: Abdomen [employer] : ENDOSCOPY 04/17/2023 [id number] / / Stent Solus And Intro Set - [id number] Implanted:Qty: 1 on 09/06/2021 by Quirino Dominguez DO at OR [facility] N/A: Abdomen COOK : OPAL PACHECO 04/19/2024 [id number] / / documented as of this encounter [...] Name Relationship Healthcare Agent Relationshi p Communication [facility] Adult Child First Alternate Health Care Agent Care Teams Scenic Arts Supervisor Relationship Specialty Start Date End Date Alejandro Terry MD [address] [place] [address] PCP - General Internal Medicine 08/25/23 documented as of this encounter
--- OUTSIDE RECORDS SUMMARY | 2023-10-10 01:16 | External Medical Summary | Summary of Care ---
Author Name Unknown Organization [facility] Address [address] [facility] [place] [address] Phone [phone] Care Team Providers Care Drywall Taper Name Role Phone Alejandro Terry MD Primary Care Provider [phone] Reason for Visit * Reason Onset Date Comments Advice 10/08/2023 Encounter Details Date Type Department Care Team (Late st Contact Info) Description 10/08/2023 Telephone [facility] [address] [place] [address] Alejandro Terry MD [address] [place] [address] Advice Allergies Active Allergy Reactions [...] bedtime. 180 Tablet 1 09/09/2023 Active Nystatin 862363 UNIT/ML Mouth/Throat Suspension Take by mouth 4 times a day. 09/26/2023 Active Ketoconazole 2 % External Cream Apply topically to affected area daily. Apply to scaly areas 15 g 2 10/03/2023 Active documented as of this encounter (statuses as of 10/09/2023) Active Problems Problem Noted Date Diagnosed Date morale officer current use of anticoagulant therapy 0 06/18/2023 [...] 11/19/2022 Last Assessment & Plan: Appt with chip mucker today for further eval. 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 What is current process for possible director long term care facility ? Dose she have a community case manager ? * Telephone Encounter - Cathy Lanza [...] Description 11/21/2023 9:00 AM EDT Office Visit [facility] [address] [place] [facility] [place] [phone] Alejandro Terry MD [address] [place] [address] 12/01/2023 10:00 AM EDT Office Visit Dermatology [address] [place] [address] Georgina Gilbert PA-C [address] [place] [address] [place] [address] Health Maintenance Due Date Last Done Comments CKD PHOS USE SMARTSET 49387 05/25/1958 DTap/Tdap Vaccines (1 - Tdap) 1960 [...] Additional history exists CKD HGB USE SMARTSET 59947 08/18/202408/18, 08/19/2023, 11/28/2022, Additional history exists Pneumococcal Vaccine: 65+ Years Completed 05/08/2018, 03/25/2016 HPV (Gardasil) Vaccine Aged Out No lo nger eligible based on patient's age to complete this topic MENINGOCOCCAL (MENACTRA/MENVEO) Aged Out No longer eligible based on patient's age to complete this topic documented as of this encounter Medical Devices Implanted Type Area Cannoneer Device Identifier Shelf Expiration Date Model / Serial / Lot Stent Axios [id number] - [id number] Implanted:Qty: 1 on 09/06/2021 by Quirino Dominguez DO at OR [facility] N/A: Abdomen [employer] : ENDOSCOPY 04/17/2023 [id number] / / Stent Solus And Intro Set - [id number] Implanted:Qty: 1 on 09/06/2021 by Quirino Dominguez DO at OR [facility] N/A: Abdomen COOK : OPAL PACHECO 04/19/2024 [id number] / / documented as of this encounter [...] Name Relationship Healthcare Agent Relationshi p Communication [facility] Adult Child First Alternate Health Care Agent Care Teams Drywall Taper Relationship Specialty Start Date End Date Alejandro Terry MD [address] [place] [address] PCP - General Internal Medicine 08/25/23 documented as of this encounter
[2023-10-10] MEDS: LEVOTHYROXINE SODIUM 125 MCG TABLET PO SCH (05:36)
[2023-10-10 09:01] LABS: Albumin Globulin Ratio 0.9 (0.9-2); Albumin Level 2.7 gm/dl (3.4-5.0); Bilirubin,Total 0.9 mg/dl (0.2-1.0); C Reactive Protein 7.12 mg/dl (0-0.5); Calcium 7.4 mg/dl (8.6-10.3); Creatinine Clr Calc Pharmacy 60.9 ml/min; Est GFR (African American) 97.3 ml/min; Globulin 3.1 gm/dl (2.5-4.0); Magnesium 2.2 mg/dl (1.7-2.4); Potassium 3.6 mmol/L (3.5-5.1); Total Protein 5.8 gm/dl (6.0-8.3)
[2023-10-10 09:10] LABS: Basophils # (auto) 0.06 K/uL (0.00-0.20); Basophils % (auto) 0.5 %; Eosinophils # (auto) 0.04 K/uL (0.00-0.50); Eosinophils % (auto) 0.3 %; Hematocrit (blood only) 38.1 % (37.0-47.0); Hemoglobin 12.4 g/dl (12.0-16.0); Immature Granulocytes # (auto) 0.05 K/uL (0.01-0.20); Immature Granulocytes % (auto) 0.4 %; Lymphocytes # (auto) 1.16 K/uL (1.20-3.40); Lymphocytes % (auto) 9.8 %; Mean Corpuscular Hemoglobin 31.2 pg (25.0-34.0); Mean Corpuscular Hgb Conc 32.5 g/dL (32.0-36.0); Mean Corpuscular Volume 95.7 fL (80.0-100.0); Mean Platelet Volume 13.1 fL (9.4-12.4); Monocytes # (auto) 1.02 K/uL (0.11-0.59); Monocytes % (auto) 8.6 %; Neutrophils # (auto) 9.49 K/uL (1.40-6.50); Neutrophils % (auto) 80.4 %; Platelet Count 118 K/uL (130-400); RDW Coefficient of Variation 14.8 % (11.5-14.5); RDW Standard Deviation 51.7 fL (36.4-46.3); Red Blood Count 3.98 M/uL (4.20-5.40); White Blood Count 11.82 K/ul (4.8-10.8)
[2023-10-10 09:15] LABS: Thyroid Stimulating Hormone 3.061 uIu/ml (0.300-4.500)
[2023-10-10] MEDS: allopurinoL 100 MG TAB PO SCH (09:26)
[2023-10-10] MEDS: ASPIRIN 81 MG ECTAB PO SCH (09:27)
[2023-10-10] MEDS: ATENOLOL 50 MG TABLET PO SCH (09:27)
[2023-10-10] MEDS: CHOLECALCIFEROL 25 MCG (1000 UNITS) TAB PO SCH (09:28)
[2023-10-10] MEDS: lisinopril 5 MG TAB PO SCH (09:29)
[2023-10-10] MEDS: ROSUVASTATIN CALCIUM 20 MG TAB PO SCH (09:29)
--- NOTE | 2023-10-10 10:24 | Hospitalist Progress Note ---
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 Generalized weakness COVID-19 infection Patient presents with generalized weakness and fall COVID-19 positive Chest x-rayminimal left basilar opacity suggestive of atelectasis. Will continue supportive measures Incentive spirometry PT OT evaluation Lactic acidosis - likely 2/2 to mild dehydration monitor volume status T2DM a1c 8.2 in August lantus/novolog per protocol hold outpt oral meds Hepatic Cirrhosis Transaminitis chronic for pt, monitor lfts no evidence of decompensation/H.E. HTN: chronic, stable continue lisinopril, hold lasix Echo in 2022 revealed preserved EF, no hx of CHF but evidence of diastolic dysfunction on echo Hypothyroidism:chronic, stable, continue levothyroxine DVT ppx: Eliquis FULL CODE PCP: Dr. Terry Dispo: PT/OT eval pending. Please note the above document was generated using voice recognition software. It may contain grammatical, syntax or spelling errors. Any formal questions or concerns about the content, text or information contained within the body of this dictation should be directly addressed to the provider for clarification Admission and Anticipated Discharge Date Admission Date: October 09, 2023 Subjective Patient seen and examined at bedside. Comfortable; not in distress. Denies fever, chills, chest pain, shortness of breath, abdominal pain or urinary symptoms. Reports that she is feeling better Review of Systems Review of Systems: All systems reviewed & are unremarkable except as noted in Subjective Physical Exam Physical Exam: Constitutional: WD/WN, vitals as above, NAD, sitting up in bed, pleasant, conversing easily Respiratory: normal respiratory effort, lungs clear to auscultation, no wheeze, rales, rhonchi. Normal insp/exp effort, no accessory muscle use Cardiovascular: RRR, no murmur, no edema Vessels: no JVD or carotid bruit Chest: normal inspection of chest Abdomen: normal bowel sounds, soft, nontender, no hepatosplenomegaly Musculoskeletal: no cyanosis or clubbing, extremities motor strength 5/5 Skin: no rashes, warm and dry normal turgor Neurologic: PERRL, EOMI, accommodation nl, no face palsy, no dysarthria CN's II- XI intact bilaterally and moves all extremities Psychiatric: A+Ox3, euthymic affect Results & Data Results & Data Vital Signs (Past 12 Hours) Vital Signs Temp Pulse Resp BP Pulse Ox O2 Del Method 10/10/23 07:20 36.8 C 81 18 120/66 94 Room Air
[2023-10-10] MEDS: guaiFENesin/DEXTROM SYRUP 200MG/20MG 10ML UDC PO PRN (21:11)
--- NOTE | 2023-10-11 15:36 | Hospitalist Progress Note ---
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 Generalized weakness COVID-19 infection Patient presents with generalized weakness and fall COVID-19 positive Chest x-rayminimal left basilar opacity suggestive of atelectasis. Will continue supportive measures Incentive spirometry PT OT evaluation pending Lactic acidosis - likely 2/2 to mild dehydration monitor volume status T2DM a1c 8.2 in August lantus/novolog per protocol hold outpt oral meds Hepatic Cirrhosis Transaminitis chronic for pt, monitor lfts no evidence of decompensation/H.E. HTN: chronic, stable continue lisinopril, hold lasix Echo in 2022 revealed preserved EF, no hx of CHF but evidence of diastolic dysfunction on echo Hypothyroidism:chronic, stable, continue levothyroxine DVT ppx: Eliquis FULL CODE PCP: Dr. Terry Dispo: PT/OT Evaluation pending; possibly rehab at discharge Please note the above document was generated using voice recognition software. It may contain grammatical, syntax or spelling errors. Any formal questions or concerns about the content, text or information contained within the body of this dictation should be directly addressed to the provider for clarification Admission and Anticipated Discharge Date Admission Date: October 09, 2023 Subjective Patient seen and examined at bedside She reports that her energy is better Her appetite has also improved She reports that she is going back and forth to the bathroom by herself No significant events overnight Review of Systems Review of Systems: All systems reviewed & are unremarkable except as noted in Subjective Physical Exam Physical Exam: Constitutional: WD/WN, vitals as above, NAD, sitting up in bed, pleasant, conversing easily Respiratory: normal respiratory effort, lungs clear to auscultation, no wheeze, rales, rhonchi. Normal insp/exp effort, no accessory muscle use Cardiovascular: RRR, no murmur, no edema Vessels: no JVD or carotid bruit Chest: normal inspection of chest Abdomen: normal bowel sounds, soft, nontender, no hepatosplenomegaly Musculoskeletal: no cyanosis or clubbing, extremities motor strength 5/5 Skin: no rashes, warm and dry normal turgor Neurologic: PERRL, EOMI, accommodation nl, no face palsy, no dysarthria CN's II- XI intact bilaterally and moves all extremities Psychiatric: A+Ox3, euthymic affect Results & Data Results & Data Vital Signs (Past 12 Hours) Vital Signs Temp Pulse Resp BP Pulse Ox O2 Del Method 10/11/23 09:00 68 18 110/64 95 Room Air 10/11/23 08:07 36.5 C 69 16 134/74 95 Room Air
[2023-10-11] MEDS: ACETAMINOPHEN 325 MG TAB PO PRN (23:40)
--- NOTE | 2023-10-12 10:24 | Hospitalist Progress Note ---
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 Generalized weakness COVID-19 infection Patient presents with generalized weakness and fall COVID-19 positive Chest x-rayminimal left basilar opacity suggestive of atelectasis. Will continue supportive measures Incentive spirometry PT OT evaluation pending Lactic acidosis - likely 2/2 to mild dehydration monitor volume status T2DM a1c 8.2 in August lantus/novolog per protocol hold outpt oral meds Hepatic Cirrhosis Transaminitis chronic for pt, monitor lfts no evidence of decompensation/H.E. HTN: chronic, stable continue lisinopril, hold lasix Echo in 2022 revealed preserved EF, no hx of CHF but evidence of diastolic dysfunction on echo Hypothyroidism:chronic, stable, continue levothyroxine DVT ppx: Eliquis FULL CODE PCP: Dr. Terry Dispo: PT/OT Evaluation done; will need rehab; CM on board Please note the above document was generated using voice recognition software. It may contain grammatical, syntax or spelling errors. Any formal questions or concerns about the content, text or information contained within the body of this dictation should be directly addressed to the provider for clarification Admission and Anticipated Discharge Date Admission Date: October 09, 2023 Subjective Patient seen and examined at bedside. Comfortable; not in distress. Denies fever, chills, chest pain, shortness of breath, abdominal pain or urinary symptoms. No significant overnight events Review of Systems Review of Systems: All systems reviewed & are unremarkable except as noted in Subjective Physical Exam Physical Exam: Constitutional: WD/WN, vitals as above, NAD, sitting up in bed, pleasant, conversing easily Respiratory: normal respiratory effort, lungs clear to auscultation, no wheeze, rales, rhonchi. Normal insp/exp effort, no accessory muscle use Cardiovascular: RRR, no murmur, no edema Vessels: no JVD or carotid bruit Chest: normal inspection of chest Abdomen: normal bowel sounds, soft, nontender, no hepatosplenomegaly Musculoskeletal: no cyanosis or clubbing, extremities motor strength 5/5 Skin: no rashes, warm and dry normal turgor Neurologic: PERRL, EOMI, accommodation nl, no face palsy, no dysarthria CN's II- XI intact bilaterally and moves all extremities Psychiatric: A+Ox3, euthymic affect Results & Data Results & Data Vital Signs (Past 12 Hours) Vital Signs Temp Pulse Resp BP Pulse Ox O2 Del Method 10/12/23 08:07 36.5 C 63 16 157/68 H 95 Room Air
--- NOTE | 2023-10-13 09:49 | Hospitalist Progress Note ---
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 Generalized weakness COVID-19 infection Patient presents with generalized weakness and fall COVID-19 positive Chest x-rayminimal left basilar opacity suggestive of atelectasis. Will continue supportive measures Incentive spirometry PT OT evaluation pending Lactic acidosis - likely 2/2 to mild dehydration monitor volume status T2DM a1c 8.2 in August lantus/novolog per protocol hold outpt oral meds Hepatic Cirrhosis Transaminitis chronic for pt, monitor lfts no evidence of decompensation/H.E. HTN: chronic, stable continue lisinopril, and lasix Echo in 2022 revealed preserved EF, no hx of CHF. Hypothyroidism:chronic, stable, continue levothyroxine DVT ppx: Eliquis FULL CODE PCP: Dr. Terry Dispo: PT/OT Evaluation done; will need rehab; CM on board Please note the above document was generated using voice recognition software. It may contain grammatical, syntax or spelling errors. Any formal questions or concerns about the content, text or information contained within the body of this dictation should be directly addressed to the provider for clarification Admission and Anticipated Discharge Date Admission Date: October 09, 2023 Subjective Patient seen and examined at bedside. Comfortable; not in distress. No significant overnight events Review of Systems Review of Systems: All systems reviewed & are unremarkable except as noted in Subjective Physical Exam Physical Exam: Constitutional: WD/WN, vitals as above, NAD, sitting up in bed, pleasant, conversing easily Respiratory: normal respiratory effort, lungs clear to auscultation, no wheeze, rales, rhonchi. Normal insp/exp effort, no accessory muscle use Cardiovascular: RRR, no murmur, no edema Vessels: no JVD or carotid bruit Chest: normal inspection of chest Abdomen: normal bowel sounds, soft, nontender, no hepatosplenomegaly Musculoskeletal: no cyanosis or clubbing, extremities motor strength 5/5 Skin: no rashes, warm and dry normal turgor Neurologic: PERRL, EOMI, accommodation nl, no face palsy, no dysarthria CN's II- XI intact bilaterally and moves all extremities Psychiatric: A+Ox3, euthymic affect Results & Data Results & Data Vital Signs (Past 12 Hours) Vital Signs Temp Pulse Resp BP Pulse Ox O2 Del Method 10/13/23 07:20 Room Air 10/13/23 07:10 36.4 C L 69 18 136/68 97 Room Air
[2023-10-14] MEDS: FUROSEMIDE 40 MG TAB PO SCH (09:39)
--- NOTE | 2023-10-14 12:41 | Hospitalist Progress Note ---
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 Generalized weakness COVID-19 infection Patient presents with generalized weakness and fall COVID-19 positive Chest x-rayminimal left basilar opacity suggestive of atelectasis. Will continue supportive measures Incentive spirometry PT OT evaluation recommend rehab; CM on board; will need to quarantine for 10 days before getting transfer T2DM a1c 8.2 in August lantus/novolog per protocol hold outpt oral meds Hx of Hepatic Cirrhosis Transaminitis no evidence of decompensation/H.E. on lactulose, continued HTN: chronic, stable continue lisinopril, and lasix Echo in 2022 revealed preserved EF, no hx of CHF. Hypothyroidism:chronic, stable, continue levothyroxine DVT ppx: Eliquis FULL CODE PCP: Dr. Terry Dispo: PT/OT Evaluation done; will need rehab; CM on board. will need to quarantine for 10 days before getting transfer Please note the above document was generated using voice recognition software. It may contain grammatical, syntax or spelling errors. Any formal questions or concerns about the content, text or information contained within the body of this dictation should be directly addressed to the provider for clarification Admission and Anticipated Discharge Date Admission Date: October 09, 2023 Subjective Patient seen and examined at bedside. She is ambulation inside the room; gait is slow. Vitals signs are stable; saturating well in RA. Review of Systems Review of Systems: All systems reviewed & are unremarkable except as noted in Subjective Physical Exam Physical Exam: Constitutional: WD/WN, vitals as above, NAD, sitting up in bed, pleasant, conversing easily Respiratory: normal respiratory effort, lungs clear to auscultation, no wheeze, rales, rhonchi. Normal insp/exp effort, no accessory muscle use Cardiovascular: RRR, no murmur, no edema Vessels: no JVD or carotid bruit Chest: normal inspection of chest Abdomen: normal bowel sounds, soft, nontender, no hepatosplenomegaly Musculoskeletal: no cyanosis or clubbing, extremities motor strength 5/5 Skin: no rashes, warm and dry normal turgor Neurologic: PERRL, EOMI, accommodation nl, no face palsy, no dysarthria CN's II- XI intact bilaterally and moves all extremities Psychiatric: A+Ox3, euthymic affect Results & Data Results & Data Vital Signs (Past 12 Hours) Vital Signs Temp Pulse Resp BP Pulse Ox O2 Del Method 10/14/23 07:14 Room Air 10/14/23 06:57 36.8 C 64 18 133/74 96 Room Air
[2023-10-14] MEDS ORDERED: LACTULOSE SYRUP 10 GM/15 ML BTL 960 ML PO PRN (12:53)
--- NOTE | 2023-10-15 15:37 | Hospitalist Progress Note ---
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 Generalized weakness COVID-19 infection Patient presents with generalized weakness and fall COVID-19 positive Chest x-rayminimal left basilar opacity suggestive of atelectasis. Will continue supportive measures Incentive spirometry PT OT evaluation recommend rehab; CM on board; will need to quarantine for total 10 days before getting transfer T2DM a1c 8.2 in August lantus/novolog per protocol hold outpt oral meds Hx of Hepatic Cirrhosis Transaminitis no evidence of decompensation/H.E. on lactulose, continued HTN: chronic, stable continue lisinopril, and lasix Echo in 2022 revealed preserved EF, no hx of CHF. Hypothyroidism:chronic, stable, continue levothyroxine DVT ppx: Eliquis FULL CODE PCP: Dr. Terry Dispo: PT/OT Evaluation done; will need rehab; CM on board. will need to quarantine for 10 days before getting transfer Please note the above document was generated using voice recognition software. It may contain grammatical, syntax or spelling errors. Any formal questions or concerns about the content, text or information contained within the body of this dictation should be directly addressed to the provider for clarification Admission and Anticipated Discharge Date Admission Date: October 09, 2023 Subjective Patient seen and examined at bedside. Sitting up in chair, feels better, reports cough getting better. Vitals signs are stable; saturating well in RA. Physical Exam Physical Exam: Constitutional: WD/WN, vitals as above, NAD, sitting up in bed, pleasant, conversing easily Respiratory: normal respiratory effort, lungs clear to auscultation, no wheeze, rales, rhonchi. Normal insp/exp effort, no accessory muscle use Cardiovascular: RRR, no murmur, no edema Vessels: no JVD or carotid bruit Chest: normal inspection of chest Abdomen: normal bowel sounds, soft, nontender, no hepatosplenomegaly Musculoskeletal: no cyanosis or clubbing, extremities motor strength 5/5 Skin: no rashes, warm and dry normal turgor Neurologic: PERRL, EOMI, accommodation nl, no face palsy, no dysarthria CN's II- XI intact bilaterally and moves all extremities Psychiatric: A+Ox3, euthymic affect Results & Data Results & Data Vital Signs (Past 12 Hours) Vital Signs Temp Pulse Resp BP Pulse Ox O2 Del Method 10/15/23 07:00 Room Air 10/15/23 06:53 36.5 C 72 16 150/72 H 97 Room Air
--- NOTE | 2023-10-16 14:24 | Hospitalist Progress Note ---
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 Generalized weakness COVID-19 infection Patient presents with generalized weakness and fall COVID-19 positive Chest x-rayminimal left basilar opacity suggestive of atelectasis. Will continue supportive measures Incentive spirometry PT OT evaluation recommend rehab; CM on board; will need to quarantine for total 10 days before getting transfer T2DM a1c 8.2 in August lantus/novolog per protocol hold outpt oral meds Hx of Hepatic Cirrhosis Transaminitis no evidence of decompensation/H.E. on lactulose, continued HTN: chronic, stable continue lisinopril, and lasix Echo in 2022 revealed preserved EF, no hx of CHF. Hypothyroidism:chronic, stable, continue levothyroxine DVT ppx: Eliquis FULL CODE PCP: Dr. Terry Dispo: PT/OT Evaluation done; will need rehab; CM on board. will need to quarantine for 10 days before getting transfer Please note the above document was generated using voice recognition software. It may contain grammatical, syntax or spelling errors. Any formal questions or concerns about the content, text or information contained within the body of this dictation should be directly addressed to the provider for clarification Admission and Anticipated Discharge Date Admission Date: October 09, 2023 Subjective Patient seen and examined at bedside. Sitting up, feels better, reports cough getting better. Vitals signs are stable; saturating well in RA. Physical Exam Physical Exam: Constitutional: WD/WN, vitals as above, NAD, sitting up in bed, pleasant, conversing easily Respiratory: normal respiratory effort, lungs clear to auscultation, no wheeze, rales, rhonchi. Normal insp/exp effort, no accessory muscle use Cardiovascular: RRR, no murmur, no edema Vessels: no JVD or carotid bruit Chest: normal inspection of chest Abdomen: normal bowel sounds, soft, nontender, no hepatosplenomegaly Musculoskeletal: no cyanosis or clubbing, extremities motor strength 5/5 Skin: no rashes, warm and dry normal turgor Neurologic: PERRL, EOMI, accommodation nl, no face palsy, no dysarthria CN's II- XI intact bilaterally and moves all extremities Psychiatric: A+Ox3, euthymic affect Results & Data Results & Data Vital Signs (Past 12 Hours) Vital Signs Temp Pulse Resp BP Pulse Ox O2 Del Method 10/16/23 08:13 156/81 H 10/16/23 07:12 Room Air 10/16/23 07:02 36.4 C L 74 18 171/84 H 98 Room Air
[2023-10-17] MEDS: FLUTICASONE PROPIONATE NA SPR 16 GM BTL PRN (08:47)
--- NOTE | 2023-10-17 16:31 | Hospitalist Progress Note ---
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 Generalized weakness COVID-19 infection Patient presents with generalized weakness and fall COVID-19 positive Chest x-rayminimal left basilar opacity suggestive of atelectasis. Will continue supportive measures Incentive spirometry PT OT evaluation recommend rehab; CM on board; will need to quarantine for total 10 days before getting transfer T2DM a1c 8.2 in August lantus/novolog per protocol hold outpt oral meds Hx of Hepatic Cirrhosis Transaminitis no evidence of decompensation/H.E. on lactulose, continued HTN: chronic, stable continue lisinopril, and lasix Echo in 2022 revealed preserved EF, no hx of CHF. Hypothyroidism:chronic, stable, continue levothyroxine DVT ppx: Eliquis FULL CODE PCP: Dr. Terry Dispo: PT/OT Evaluation done; will need rehab; CM on board. will need to quarantine for 10 days before getting transfer Please note the above document was generated using voice recognition software. It may contain grammatical, syntax or spelling errors. Any formal questions or concerns about the content, text or information contained within the body of this dictation should be directly addressed to the provider for clarification Admission and Anticipated Discharge Date Admission Date: October 09, 2023 Subjective Patient seen and examined at bedside. Sitting up, feels better, reports cough getting better. Vitals signs are stable; saturating well in RA. Physical Exam Physical Exam: Constitutional: WD/WN, vitals as above, NAD, sitting up in bed, pleasant, conversing easily Respiratory: normal respiratory effort, lungs clear to auscultation, no wheeze, rales, rhonchi. Normal insp/exp effort, no accessory muscle use Cardiovascular: RRR, no murmur, no edema Vessels: no JVD or carotid bruit Chest: normal inspection of chest Abdomen: normal bowel sounds, soft, nontender, no hepatosplenomegaly Musculoskeletal: no cyanosis or clubbing, extremities motor strength 5/5 Skin: no rashes, warm and dry normal turgor Neurologic: PERRL, EOMI, accommodation nl, no face palsy, no dysarthria CN's II- XI intact bilaterally and moves all extremities Psychiatric: A+Ox3, euthymic affect Results & Data Results & Data Vital Signs (Past 12 Hours) Vital Signs Temp Pulse Pulse Resp BP BP Pulse Ox 10/17/23 14:30 36.9 C 63 16 101/64 97 10/17/23 07:51 36.3 C L 72 16 160/66 H 96 O2 Del Method 10/17/23 14:30 Room Air 10/17/23 07:51 Room Air
--- NOTE | 2023-10-18 16:10 | Hospitalist Progress Note ---
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 Generalized weakness COVID-19 infection Patient presents with generalized weakness and fall COVID-19 positive Chest x-rayminimal left basilar opacity suggestive of atelectasis. Will continue supportive measures Incentive spirometry PT OT evaluation recommend rehab; CM on board; will need to quarantine for total 10 days before getting transfer T2DM a1c 8.2 in August lantus/novolog per protocol hold outpt oral meds Hx of Hepatic Cirrhosis Transaminitis no evidence of decompensation/H.E. on lactulose, continued HTN: chronic, stable continue lisinopril, and lasix Echo in 2022 revealed preserved EF, no hx of CHF. Hypothyroidism:chronic, stable, continue levothyroxine DVT ppx: Eliquis FULL CODE PCP: Dr. Terry Dispo: PT/OT Evaluation done; will need rehab; CM on board. will need to quarantine for 10 days before getting transfer Please note the above document was generated using voice recognition software. It may contain grammatical, syntax or spelling errors. Any formal questions or concerns about the content, text or information contained within the body of this dictation should be directly addressed to the provider for clarification Admission and Anticipated Discharge Date Admission Date: October 09, 2023 Subjective Patient seen and examined at bedside. Sitting up, feels better, reports cough getting better. Vitals signs are stable; saturating well in RA. Physical Exam Physical Exam: Constitutional: WD/WN, vitals as above, NAD, sitting up in bed, pleasant, conversing easily Respiratory: normal respiratory effort, lungs clear to auscultation, no wheeze, rales, rhonchi. Normal insp/exp effort, no accessory muscle use Cardiovascular: RRR, no murmur, no edema Vessels: no JVD or carotid bruit Chest: normal inspection of chest Abdomen: normal bowel sounds, soft, nontender, no hepatosplenomegaly Musculoskeletal: no cyanosis or clubbing, extremities motor strength 5/5 Skin: no rashes, warm and dry normal turgor Neurologic: PERRL, EOMI, accommodation nl, no face palsy, no dysarthria CN's II- XI intact bilaterally and moves all extremities Psychiatric: A+Ox3, euthymic affect Results & Data Results & Data Vital Signs (Past 12 Hours) Vital Signs Temp Pulse Resp BP Pulse Ox O2 Del Method 10/18/23 15:26 36.6 C 61 16 110/69 92 Room Air 10/18/23 08:00 Room Air 10/18/23 07:38 36.6 C 78 16 156/78 H 97 Room Air
[2023-10-19 08:17] VITALS: RESP 16; TEMP 97.5; O2SAT 94
[2023-10-19 10:54] VITALS: BP 101/64; PULSE 70
--- NOTE | 2023-10-19 11:10 | Discharge Summary ---
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 She arrived to ED as a trauma alert. Patient reports sliding out of bed to the ground and was too weak to get up. Pt reports for 1 week that she has been feeling weak. This occurred at approximately 1130. She was found by her daughter at approximately 130. Patient denies hitting her head or having a denise fall. She generally feels weak. SHe denies sick contacts. SHe further denies f/c/s, chest pain, sob, uri sx, n/v/d, abd pain. Per EMS patient had a elevated temperature at 100.4. Patient denies any pain and has no obvious signs of trauma. She is on long-term anticoagulation with Eliquis which she has been compliant with. In ED she tested positive for sars cov2. She did n ot exhibit any symptoms. She had notable lab abnormalities including WBC 11.5 5K, platelet 128, INR 1.3, AST 60, total bilirubin 1.2, glucose 147 and abnormal urinalysis but negative for infection. Her chest x-ray revealed a minimal left lower lobe basilar opacity consistent with atelectasis. Head CT negative for any acute hemorrhage. Admission Exam Per Admitting Provider General Appearance:Moderately built and nourished, no apparent distress Head: normocephalic, Atraumatic Eyes: normal inspection, EOMI Neck: supple, Trachea midline Respiratory/Chest: Decreased breath sounds, CTA, No accessory muscle use Cardiovascular: S1, S2, +murmur Abdomen/GI:Soft, Non tender, Bowel sounds present Extremities/Musculoskeletal:normal inspection, Trace edema Neurologic/Psych:AAOX3, grossly no focal neurological deficits Skin: normal color, warm Principal Diagnosis Generalized weakness COVID-19 infection Discharge Exam Constitutional: WD/WN, vitals as above, NAD, sitting up in bed, pleasant, conversing easily Respiratory: normal respiratory effort, lungs clear to auscultation, no wheeze, rales, rhonchi. Normal insp/exp effort, no accessory muscle use Cardiovascular: RRR, no murmur, no edema Vessels: no JVD or carotid bruit Chest: normal inspection of chest Abdomen: normal bowel sounds, soft, nontender, no hepatosplenomegaly Musculoskeletal: no cyanosis or clubbing, extremities motor strength 5/5 Skin: no rashes, warm and dry normal turgor Neurologic: PERRL, EOMI, accommodation nl, no face palsy, no dysarthria CN's II- XI intact bilaterally and moves all extremities Psychiatric: A+Ox3, euthymic affect Discharge Data Allergies Allergy/AdvReac Type Severity Reaction Status Date / Time empagliflozin AdvReac Intermediate CAUSED A Verified 10/09/23 15:50 [From Jardiance] YEAST INFECTION aspirin AdvReac Unknown BRUISING Verified 10/09/23 15:50 WITH 325 MG TAB, OKAY WITH 81 MG Consultations 10/09/23 18:00 ED Decision to Admit Stat Ordered Studies 10/09/23 14:00 CT head/brain wo con Stat Hospital Course (1) Generalized weakness: (2) Elevated lactic acid level: (3) COVID-19: (4) Cirrhosis of liver: Plan This is an 83-year-old female who has a significant past medical history of T2DM, HTN, HLD, CKD stage III, hepatic cirrhosis, vitamin D deficiency, occlusion of left carotid artery, atherosclerosis of aorta, hypothyroidism, 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 She was managed for the following: Generalized weakness COVID-19 infection Patient presents with generalized weakness and fall COVID-19 positive Chest x-rayminimal left basilar opacity suggestive of atelectasis. Will continue supportive measures Incentive spirometry PT OT evaluation recommend rehab; to rehab today. T2DM a1c 8.2 in August c/w home meds on dc. Hx of Hepatic Cirrhosis Transaminitis no evidence of decompensation/H.E. on lactulose, continue. HTN: chronic, stable continue lisinopril, and lasix Echo in 2022 revealed preserved EF, no hx of CHF. Hypothyroidism:chronic, stable, continue levothyroxine DVT ppx: Eliquis FULL CODE PCP: Dr. Terry Patient is being discharged to SNF with following instruction at the point of discharge: Follow-up with your primary care physician within a week time and likely you will need labs CBC/CMP/magnesium/phosphorus. Follow-up with PT/OT at rehab. Take your medications as prescribed. Please make sure that you are able to get your medications today by calling your pharmacy before you leave the hospital so that your treatment continuity is not broken. Please note the above document was generated using voice recognition software. It may contain grammatical, syntax or spelling errors. Any formal questions or concerns about the content, text or information contained within the body of thi s dictation should be directly addressed to the provider for clarification Home Health Attestation I certify that this patient is under my care and that I, or a physicians laboratory assistant working with me, had a face to-face encounter that meets the home health [id number] encounter requirements with this patient. The encounter with the patient was in whole, or in part, for the following medical condition, which is the primary reason for home health care (list medical condition): I certify that, based on my findings, the following services are medically necessary home health services: My clinical findings support the need for the above services because: Further, I certify that my clinical findings support that this patient is homebound (i.e. absences from home require considerable and taxing effort and are for medical reasons or spiritism services or infrequently or of short duration when for other reasons) because: Certification for Home Health Services: Based on the above findings, I certify that this patient is confined to the home and needs intermittent [facility] care, physical therapy and/or speech therapy or continues to need occupational therapy. The patient is under my care, and I have initiated the establishment of the plan of care. This patient will be followed by a physician who will periodically review the plan of care. Total Time Total Time Spent Total Time Spent (In Minutes): 40 Discharge Plan Discharge Items Patient Disposition: Transfer Custodial Fac Reason For Visit: SARS COV-2, WEAKNESS Discharge Diagnosis: Generalized weakness COVID-19 infection Activity: Resume your previous activity Non-emergency contact: Primary Care Provider Call non-emergency contact if: you have any medication questions and your symptoms worsen Follow-up/Referrals: Hollie Ferris DO [Primary Care Provider] - Diet: Carb Consistent or DM2 Fluids: 1800ml (7 cups) Addtl Attending Provider Instructions: Follow-up with your primary care physician within a week time and likely you will need labs CBC/CMP/magnesium/phosphorus. Follow-up with PT/OT at rehab. Take your medications as prescribed. Please make sure that you are able to get your medications today by calling your pharmacy before you leave the hospital so that your treatment continuity is not broken. Pending Studies at Discharge: No Stand-Alone Forms: My [facility] Skilled Items Patient informed of condition?: Yes DNR: No Discharge Level of Care: Skilled Communicable Disease: No Discharge Prognosis: Stable Lines: None Urinary Catheter: No Medications and DC Order Prescriptions: New dextromethorphan-guaifenesin [Robitussin Cough-Chest Naun DM] 5-100 mg/5 mL Liquid 10 ml PO Q6H PRN (Reason: cough) 5 Days Qty: 500 0RF Continued allopurinol 100 mg Tablet 100 mg PO DAILY aspirin 81 mg Tablet,Delayed Release (Dr/Ec) 81 mg PO DAILY atenolol 50 mg Tablet 50 mg PO DAILY levothyroxine 125 mcg tablet 125 mcg PO DAILY fluticasone propionate 50 mcg/actuation [place],Suspension 2 spray INTRANASAL DAILY PRN (Reason: Congestion) rosuvastatin 20 mg tablet 20 mg PO DAILY furosemide 40 mg tablet 40 mg PO DAILY lisinopril 5 mg tablet 5 mg PO DAILY gabapentin 100 mg capsule 100 mg PO TID PRN (Reason: Pain) nystatin 100,000 unit/mL suspension 5 ml PO QID 14 Days Qty: 280 1RF Rx Instructions: STARTED 09/26/23 Swish in the mouth for 3-5 minutes, then spit out. Treat for 3 days after rash resolution, up to 14d. acetaminophen [Tylenol Extra Strength] 500 mg Tablet 500 mg PO Q8H PRN (Reason: PAIN/FEVER) ketoconazole 2 % cream 1 applic TOPICAL DAILY Rx Instructions: APPLY TO SCALY AREAS lactulose 10 gram/15 mL solution 15 ml PO BID PRN (Reason: SEVERE CONSTIPATION) insulin glargine [Lantus Solostar U-100 Insulin] 100 unit/mL (3 mL) insulin pen 14 unit SUBCUT QPM cholecalciferol (vitamin D3) [Vitamin D3] 50 mcg (2,000 unit) Capsule 50 mcg PO DAILY Tradjenta 5 mg tablet 5 mg PO QAM Eliquis 2.5 mg Tablet 2.5 mg PO BID Discharge Orders: Discharge Order (Routine); Ordered 10/19/23 Ordered By: Jhonny Batista Admission Data Admit Date/Time: 10/09/23 18:00 Attending Provider: Jhonny Batista Admit Provider: Josh Desouza Primary Care Provider: Hollie Ferris Other Providers: Josh Desouza; Talmage,[facility]
== END 2023-10-19 11:52 | DRG 178 ==
LOC: ED 13:49 → EDINP 18:00 → SUATTDRO 18:00 → EDINP 21:04 → 3W 21:49